=== PATIENT | male | born 1955 | race Caucasian/White ===

== ENCOUNTER 2022-01-30 08:11 | Observation (INO) | payer OTHER, MEDICARE, SELFPAY ==
[2022-01-30] VITALS (28 sets, daily range): BP systolic 130–179; BP diastolic 78–98; PULSE 50–74; RESP 12–24; TEMP 36.1–36.4; O2SAT 94–99
--- NOTE | ~2022-01-30 | MR_ITS ---
EXAMINATION: MR brain/brain stem wo/w con DATE: 01/30/2022 16:09 INDICATION: Seizure. TECHNIQUE: Magnetic resonance imaging (MRI) of the brain and brainstem was performed without and with 20 mL MultiHance intravenous contrast. COMPARISON: Head CT 01/30/2022 FINDINGS: There are old infarcts in the cerebellum bilaterally. There are old infarcts in the frontal and parietal lobes bilaterally. There are scattered areas of nonspecific increased T2-weighted signa l intensity in the cerebral white matter, which is within normal limits for the patient's age. There are old infarcts in the right thalamus and right basal ganglia. There is no intracranial hemorrhage, acute infarction, or abnormal intracranial mass lesion. The ventricles are normal in size. The orbits are normal. The paranasal sinuses are clear. The mastoid air cells are normal. IMPRESSION: 1. Multiple old infarcts in the brain. Reviewed, dictated and finalized at location A.
--- NOTE | ~2022-01-30 | XR_ITS ---
EXAMINATION: XR chest 2V DATE: 01/30/2022 09:16 INDICATION: Seizure. TECHNIQUE: Frontal and lateral views of the chest were obtained. COMPARISON: Chest single view 04/07/2019 FINDINGS: There is no pneumonia, pleural effusion, or pneumothorax. The heart size is normal. There a re changes of aortic valve replacement. There is mild chronic anterior wedging of multiple vertebral bodies. IMPRESSION: 1. No acute cardiopulmonary disease. Reviewed, dictated and finalized at location A.
--- NOTE | ~2022-01-30 | CT_ITS ---
EXAMINATION: CT brain wo con DATE: 01/30/2022 09:11 INDICATION: Seizure. TECHNIQUE: Computed tomography (CT) of the head was performed without intravenous contrast. The mA wa s adjusted according to patient size. Iterative reconstruction technique was employed. The dose-lengt h product was 605.33 mGy-cm. COMPARISON: Head CT 10/27/2009 FINDINGS: There are old infarcts in the cerebellum bilaterally. There are old infarcts in the frontal and parietal lobes bilaterally. There are old infarcts in right caudate nucleus and right thalamus. There is no intracranial hemorrhage, acute infarction, or abnormal intracranial mass lesion. The vent ricles are normal in size. There is mild mucosal thickening in the paranasal sinuses. The mastoid air cells are normal. The orbits are normal. IMPRESSION: 1. Multiple old infarcts in the brain. Reviewed, dictated and finalized at location A.
--- NOTE | 2022-01-30 08:39 | ED.NEUROSD ---
HPI - Neuro Symptoms/Deficit General Chief Complaint: Neuro Symptoms/Deficit Stated Complaint: possible seizure Time Seen by Provider: 01/30/22 08:39 History of Present Illness HPI Narrative: Patient is a 66-year-old male with a history of CLL, total aortic valve replacement currently anticoagulated on Eliquis, hypertension, presenting to the emergency department for evaluation of potential seizure. Patient states that he believes he may have had a seizure this morning. Patient states he awakened with a left tongue laceration, blood present on his face. Patient states that he was disoriented when he awakened but did not know where he was and per who is at bedside did not seem confused after he called her this morning. Patient denies any recent medication changes. Denies recent head trauma, fall or injury. Denies any infectious type symptoms such as fever, chills, vomiting, cough, abdominal pain, dysuria, hematuria. Patient reports history of episode of this 2 months ago for which she did not seek medical care. Patient states that throughout the day he experiences a ripple like sensation which starts in the middle of his body and then travels ripples out to his extremities. Pt reports this sensation lasts for approximately 8 minutes, he has experienced this twice this morning, several times over the past few months. Pt denies any urinary incontinence this morning. Patient receives his CLL care at [facility]. He is compliant with his chemotherapy and last cell counts were near normal. Patient has no history of brain tumor or malignancy. Related Data Home Medications Medication Instructions Recorded Confirmed acalabrutinib 100 mg capsule mg PO 01/30/22 01/30/22 (Calquence) apixaban 5 mg tablet (Eliquis) mg 01/30/22 cholecalciferol (vitamin D3) 25 25 mcg PO DAILY 01/30/22 mcg (1,000 unit) capsule metoprolol succinate 50 mg mg PO 01/30/22 tablet,extended release 24 hr rosuvastatin 5 mg tablet mg 01/30/22 tamsulosin 0.4 mg capsule mg PO 01/30/22 Allergies Allergy/AdvReac Type Severity Reaction Status Date / Time No Known Allergies Allergy Verified 01/30/22 08:37 Review of Systems Review of Systems: CONSTITUTIONAL: Denies fever, chills, or sweats. EYES: Denies visual changes, redness, or discharge. ENT: Denies rhinorrhea, congestion, sore throat, or otalgia. Reports left tongue abrasion. CARDIOVASCULAR: Denies chest pain, palpitations, or edema. RESPIRATORY: Denies cough or dyspnea. GASTROINTESTINAL: Denies abdominal pain, nausea, vomiting, or diarrhea. GENITOURINARY: Denies dysuria or hematuria. SKIN: Denies rash or itching. MUSCULOSKELETAL: Denies back pain, joint pain, or myalgia. NEUROLOGIC: Denies headache, numbness, or weakness. [facility] Social History Social History (Updated 01/30/22 @ 08:59 by Harmony Marin MD) Smoking status: Never smoker Alcohol intake: never Substance use: never Living arrangements: with family Gender identity (if verbalized by the patient): Male Exam Narrative: GENERAL: Awake, alert, conversant HEAD: Normocephalic, atraumatic. EYES: PERRLA and EOMI. ENT: Nares clear, no rhinorrhea or epistaxis. Mucous membranes moist. Tongue abrasion, left side. NECK: Supple. CHEST: No respiratory distress, breathing even and non labored HEART: Regular rate, sinus rhythm ABDOMEN:Non distended, non tender EXTREMITIES: Normal range of motion. No edema. SKIN: Warm, dry, no rash. NEURO:No focal deficits. Alert and oriented x3 Course Vital Signs Vital signs: Vital Signs Temperature 36.4 C L 01/30/22 08:14 Pulse Rate 70 01/30/22 08:14 Respiratory Rate 16 01/30/22 08:14 Blood Pressure 148/85 H 01/30/22 08:14 Pulse Oximetry 97 01/30/22 08:14 Oxygen Delivery Room Air 01/30/22 08:14 Temperature 36.4 C L 01/30/22 08:14 Pulse Rate 70 01/30/22 08:14 Respiratory Rate 16 01/30/22 08:14 Blood Pressure 148/85 H 01/30/22 08:14 Puls
--- NOTE | 2022-01-30 08:55 | ECG_ITS ---
Measurements Intervals [place] Rate: 65 P: 2 MA: 271 QRS: -58 QRSD: 125 T: 77 QT: 394 QTc: 412 Interpretive Statements SINUS RHYTHM WITH FIRST DEGREE AV BLOCK LEFT ANTERIOR FASCICULAR BLOCK LEFT VENTRICULAR HYPERTROPHY WITH ST-T CHANGE ABNORMAL ECG Electronically Signed On 01-30-2022 10:19:25 CDT by Elier Maguire D.O.
[2022-01-30 09:09] LABS: Basophils Percent Auto 0.1 % (0.2-1.2); Eosinophils Percent Auto 0.1 % (0-4.4); Hematocrit 48.5 % (42.0-52.0); Hemoglobin 16.1 g/dL (14.0-18.0); Immature Granulocyte Absolute 0.04 K/mm3 (0.00-0.031); Immature Granulocyte Percent A 0.3 % (0-0.5); Lymphocytes Absolute Auto 6.89 K/mm3 (0.9-3.2); Lymphocytes Percent Auto 49.7 % (18.3-44.2); Mean Corpuscular HGB Conc 33.2 g/dl (32-36); Mean Corpuscular Hemoglobin 31.3 pg (26-34); Mean Corpuscular Volume 94.2 fl (80-100); Mean Platelet Volume 11.5 fl (7.4-10.4); Monocytes Absolute Auto 0.4 K/mm3 (0.1-0.6); Monocytes Percent Auto 2.5 % (2.6-8.5); Neutrophils Absolute Auto 6.5 K/mm3 (1.3-6.7); Neutrophils Percent Auto 47.3 % (45.5-73.1); Platelet Count Result 92 k/mm3 (150-375); Red Blood Count 5.15 M/mm3 (4.6-6.20); Red Cell Distribution Width 13.1 % (11.5-14.5); White Blood Count 13.9 K/mm3 (4.5-10.0)
[2022-01-30 09:13] LABS: Alanine Aminotransferase 19 U/L (6-50); Albumin Level 4.6 g/dL (3.5-5.1); Alkaline Phosphatase 86 U/L (38-126); Anion Gap 7 mmol/L (8-16); Aspartate Amino Transferase 30 U/L (17-59); Bilirubin,Total 1.2 mg/dL (0.2-1.3); Blood Urea Nitrogen 19 mg/dL (9-20); Calcium 9.7 mg/dL (8.4-10.2); Carbon Dioxide 26 mmol/L (22-30); Chloride 103 mmol/L (98-107); Estimated CRCL calculation 81 ml/min; Estimated Glomerular Filt Rate > 60; Glucose 197 mg/dL (65-110); Potassium 4.4 mmol/L (3.4-5.0); Sodium 136 mmol/L (137-145)
[2022-01-30 09:51] LABS: Appearance Urine Clear (Clear); Bilirubin Urine Negative (Negative); Blood Urine 2+ (Negative); Color Urine Yellow (Yellow); Glucose Urine UA 3+ mg/dL (Negative); Ketones Urine Negative (Negative); Leukocyte Esterase Ur Negative LEU/UL (Negative); Nitrate Urine Negative (Negative); Protein Urine 2+ mg/dL (Negative); Specific Grav Ur 1.025 (1.001-1.035)
[2022-01-30 09:59] LABS: Mucus Urine Rare /lpf; RBC Urine 21-50 /hpf (0-2); WBC Urine 0-3 /hpf
[2022-01-30 10:02] LABS: Add Urine Microscopic? YES
[2022-01-30 10:22] LABS: Amphetamine Screen Urine Negative (Negative); Barbiturate Screen Urine Negative (Negative); Benzodiazepines Screen Urine Negative (Negative); Cannabinoid Screen Urine Negative (Negative); Cocaine Screen Urine Negative (Negative); Methadone Screen Urine Negative (Negative); Opiate Screen Urine Negative (Negative); Phencyclidine Screen Urine Negative (Negative)
[2022-01-30] MEDS: levETIRAcetam 500 MG TABLET PO ×2 (11:36→20:48)
--- NOTE | 2022-01-30 12:00 | PC.NURSE ---
attempted to call report, unable to take report
--- NOTE | 2022-01-30 12:11 | PC.NURSE ---
attempted to call report. would not take
[2022-01-30 12:47] LABS: SARS-CoV-2 RNA PCR Negative
--- NOTE | 2022-01-30 16:17 | PM.IMHP ---
H&P: HPI History of Present Illness Date/Time: 01/30/22 16:17 Chief Complaint: Seizure Narrative: Date of service: 01/30/2022 Orion Jacob is a 66-year-old male with a history of aortic dissection secondary to bicuspid aortic valve status post total aortic valve replacement 12 years ago maintained on Eliquis, CLL, hypertension, hyperlipidemia who presented to the emergency department on 01/30/2022 due to concerns for a seizure. He woke up this morning and felt that he was ?panting.? He noticed that he had bit his tongue and he had a trail of blood from his mouth to his cheek. He tried to sit up from bed and felt weaker than normal. He was able to walk to the bathroom but felt slightly unsteady. He noticed that the pillows and sheets were in disarray and he is normally a very sound sleeper. He was able to walk up stairs, noticing that he was moving slower than normal, to go make some coffee. He was feeling fatigued and sat down in his chair for about an hour, waited for his to come home. His got home from work around 7:20 a.m. and noticed that he seemed to be behaving out of character and overall seemed a bit disoriented. She stated he was talking slower and seemed ?a little off.? She encouraged him to come to the ED for evaluation. On presentation, his vital signs were stable, white blood cell count was slightly elevated with additional laboratory workup including electrolytes unremarkable, UA without concerns for infection, urine drug screen was negative, head CT showed multiple old infarcts in the brain and chest x-ray showed no acute cardiopulmonary findings. At the time of my evaluation, the patient feels that he is in his usual state of health, however he was concerned by the events that transpired this morning. Patient does admit that about 3 or 4 months ago he also awoke to find that he had bit his tongue and at that time wet the bed. He did not seek medical care at that time. He also describes for the past several months a ?ripple feeling? that starts in his trunk and spreads out to his extremities. States this feels different than a chill or rigor. He is being admitted to the hospitalist service for observation. Supervising physician for this history and physical is Dr. Junior Mcwilliams. Review of Systems Review of Systems: All systems reviewed with pertinent positives and negatives as per HPI. Patient did not have loss of bowel or bladder control during this episode. He denies urinary symptoms including dysuria or hematuria. Denies shortness breath, cough, chest pain, nausea, vomiting, fever, chills, numbness or tingling in his extremities. Follows regularly with a supervisor extruding department and has had no recent cardiac issues. He is also established with Oncology and was told his most recent appointment that his blood counts are almost near normal. [facility] Past Medical History Medical History Aortic dissection Bicuspid aortic valve CLL (chronic lymphocytic leukemia) History of cerebral infarction Surgical History Surgical History (Updated 01/30/22 @ 16:31 by Yasmin Uribe PA-C) History of aortic valve replacement Bovine valve History of knee replacement History of surgery on wrist S/P aortic bifurcation bypass graft Family History Family History Father Kidney disease Social History Social History (Updated 01/30/22 @ 16:34 by Yasmin Uribe PA-C) Social History: Mr. Jacob lives at home with his . He is independent in his activities. 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 His PCP is Dr. Valenzuela. He designates his , Ernestina, as his surrogate decision maker. He would like to be a full code. Years smoked: 15 Smoking status: Former smoker Alcohol intake: never Substance use: never Living arrangements: with family Meds Home Medications and Allergies Home Medications Medica
[2022-01-30] MEDS: ROSUVASTATIN 5 MG TABLET PO (17:52)
[2022-01-30] MEDS: APIXABAN 5 MG TABLET PO (17:52)
--- NOTE | 2022-01-30 18:07 | PHAR ---
HOME MED: CALQUENCE (ACALABRUTINIB) 100 MG CAP; TAKE 1 CAPSULE (100 MG) BY MOUTH TWO TIMES A DAY. VERIFIED BY PHARMACY
[2022-01-31 05:45] VITALS: BP 135/77; PULSE 53; RESP 16; TEMP 36.1; O2SAT 98
[2022-01-31 08:29] VITALS: PULSE 53
[2022-01-31] MEDS: levETIRAcetam 500 MG TABLET PO (08:29)
[2022-01-31] MEDS: TAMSULOSIN HCL 0.4 MG CAPSULE PO (08:29)
[2022-01-31] MEDS: METOPROLOL SUCCINATE EXT REL 25 MG TABCR PO (08:29)
[2022-01-31] MEDS: APIXABAN 5 MG TABLET PO (08:29)
[2022-01-31] MEDS: CHOLECALCIFEROL 1,000 UNITS TABLET 1000 UNITS PO (08:29)
[2022-01-31 09:35] LABS: Hematocrit 48.6 % (42.0-52.0); Hemoglobin 16.2 g/dL (14.0-18.0); Immature Platelet Fraction Pct 8.6 % (0.9-11.2); Mean Corpuscular HGB Conc 33.3 g/dl (32-36); Mean Corpuscular Hemoglobin 31.6 pg (26-34); Mean Corpuscular Volume 94.7 fl (80-100); Mean Platelet Volume 10.8 fl (7.4-10.4); Platelet Count Result 84 k/mm3 (150-375); Red Blood Count 5.13 M/mm3 (4.6-6.20); Red Cell Distribution Width 13.2 % (11.5-14.5); White Blood Count 9.9 K/mm3 (4.5-10.0)
[2022-01-31 09:43] LABS: Anion Gap 6 mmol/L (8-16); Blood Urea Nitrogen 17 mg/dL (9-20); Calcium 9.8 mg/dL (8.4-10.2); Carbon Dioxide 28 mmol/L (22-30); Chloride 102 mmol/L (98-107); Estimated CRCL calculation 81 ml/min; Estimated Glomerular Filt Rate > 60; Glucose 223 mg/dL (65-110); Potassium 4.2 mmol/L (3.4-5.0); Sodium 136 mmol/L (137-145)
[2022-01-31 10:35] LABS: Atypical Lymphocytes Present; Band Neutrophils Percent 3 % (0-6); Eosinophils Absolute Manual 0.09 K/mm3 (0.02-0.5); Eosinophils Percent Manual 1 % (0-4); Lymphocytes Absolute Manual 5.34 K/mm3 (1.1-4.5); Metamyelocytes Percent 1 %; Monocytes Absolute Manual 0.19 K/mm3 (0.1-0.90); Monocytes Percent Manual 2 % (3-9); Myelocytes Percent 1 %; Neutrophils Absolute Manual 4.05 K/mm3 (1.3-6.7); Neutrophils Percent Manual 38 % (46-73); Platelet Estimate Decreased (Adequate); Smudge Cells PRESENT; Total Cells Counted 100
[2022-01-31] MEDS: levETIRAcetam 250 MG TABLET PO (10:43)
--- NOTE | 2022-01-31 12:15 | WPDNEURCNPN ---
Assessment and Plan Assessment and plan (1) Seizure: Code(s): R56.9 - Unspecified convulsions Status: Acute (2) CLL (chronic lymphocytic leukemia): Code(s): C91.10 - Chronic lymphocytic leukemia of B-cell type not having achieved remission Status: Acute (3) History of cerebral infarction: Code(s): Z86.73 - Personal history of transient ischemic attack (TIA), and cerebral infarction without residual deficits Status: Acute Plan 1 status post aortic valve replacement and on Eliquis therapy 2 documented multiple infarcts in the brain 3 seizure disorder with obvious underlying brain abnormalities needs to be continue on the anticonvulsants Consult date: 01/31/22 Time Seen: 11:00 Reason for consult: Neuro deficit HPI: Orion Jacob is a 66 year old male admitted to [facility] through the emergency room patient carries the diagnosis of 1. Chronic lymphocytic leukemia 2. Aortic valve replacement 3. Anticoagulation therapy with Eliquis 4. Hypertension he presented to emergency room for the complaints of possible seizures he reported he awakened with left tongue laceration, blood on his face, disorientation as per his with no history of recent change in the medication, no history of trauma or fall or injury or associated fever chills nausea vomiting or other GI symptoms patient reported he had such an episode about 2 months ago for which he did not seek medical care, the time of visit to the emergency room he was taking multiple medications including apixaban 5 mg daily metoprolol 50 mg extended release daily rosuvastatin 5 mg daily and tamsulosin 0.4 mg daily, he is reportedly not allergic to any medication, never a smoker never alcohol intake and initial evaluation in the emergency room revealed him to have normal vital signs he was admitted to the hospital with the diagnosis of possible seizure CT scan of the head was obtained through the emergency room which was negative and subsequently MRI of the brain has been done on the floor which has documented multiple old infarcts in the brain and chest x-ray was negative, at present patient is taking apixaban 5 mg twice a day and he has already been started on levetiracetam 750 mg p.o. q.12 hours Review of Systems Review of Systems: All systems reviewed & are unremarkable except as noted in HPI and below PMFSH Past Medical History Medical History Aortic dissection Bicuspid aortic valve CLL (chronic lymphocytic leukemia) History of cerebral infarction Surgical History Surgical History (Updated 01/30/22 @ 16:31 by Yasmin Uribe PA-C) History of aortic valve replacement Bovine valve History of knee replacement History of surgery on wrist S/P aortic bifurcation bypass graft Family History Family History Father Kidney disease Social History Social History (Updated 01/30/22 @ 16:34 by Yasmin Uribe PA-C) Social History: Mr. Jacob lives at home with his . He is independent in his activities. 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 His PCP is Dr. Valenzuela. He designates his , Ernestina, as his surrogate decision maker. He would like to be a full code. Years smoked: 15 Smoking status: Former smoker Alcohol intake: never Substance use: never Living arrangements: with family Meds Home Medications and Allergies Home Medications Medication Instructions Recorded Confirmed Type acalabrutinib 100 mg capsule 100 mg PO BID 01/30/22 01/30/22 History (Calquence) apixaban 5 mg tablet (Eliquis) 5 mg PO BID 01/30/22 01/30/22 History cholecalciferol (vitamin D3) 25 25 mcg PO DAILY 01/30/22 01/30/22 History mcg (1,000 unit) capsule metoprolol succinate 50 mg 25 mg PO DAILY 01/30/22 01/30/22 History tablet,extended release 24 hr rosuvastatin 5 mg tablet 5 mg PO DAILY 01/30/22 01/30/22 History tamsulosin 0.4 mg c
[2022-01-31 14:00] VITALS: BP 142/79; PULSE 64; RESP 16; TEMP 36.6; O2SAT 98
--- NOTE | 2022-01-31 14:21 | PM.DS ---
DS: Admitting Diagnosis Discharge Date 01/31/2022 Admitting Diagnosis Seizure DS: Discharge Diagnosis Discharge Diagnosis (1) Seizure: Code(s): R56.9 - Unspecified convulsions Status: Acute Assessment and Plan: Patient with new onset seizures, awoke with tongue laceration and was postictal following he was seen in consultation by Neurology started on p.o. Keppra 750 mg b.i.d. will follow-up with neurology as an outpatient discussed seizure precautions with patient and family EEG completed during hospitalization, results pending at time of discharge. he will follow-up with Dr. Mcgrath to review (2) CLL (chronic lymphocytic leukemia): Code(s): C91.10 - Chronic lymphocytic leukemia of B-cell type not having achieved remission Status: Acute Assessment and Plan: No acute issues at this time CBC reviewed and was near normal Continue home medication, acalabrutinib continue outpatient follow-up with Hem/Onc (3) History of cerebral infarction: Code(s): Z86.73 - Personal history of transient ischemic attack (TIA), and cerebral infarction without residual deficits Status: Acute Assessment and Plan: CT of the head showed multiple old infarcts in the brain with no acute findings Patient unaware of any history of stroke Follow-up MRI also with multiple old infarcts in the bilateral frontal and parietal lobes. No acute findings Seen by Neurology. Continue with outpatient follow-up (4) Chronic anticoagulation: Code(s): Z79.01 - [facility] (current) use of anticoagulants Status: Acute Assessment and Plan: patient maintained on Eliquis due to aortic valve replacement DS: Summary Hospital Course Hospital Course: date of admission: 01/30/2022 date of discharge: 01/31/2022 Orion Jacob is a 66-year-old male with a history of aortic dissection secondary to bicuspid aortic valve status post total aortic valve replacement 12 years ago maintained on Eliquis, CLL, hypertension, hyperlipidemia who presented to the emergency department on 01/30/2022 due to concerns for a seizure after awakening feeling very drowsy with a tongue laceration. On presentation, his vital signs were stable, white blood cell count was slightly elevated with additional laboratory workup including electrolytes unremarkable, UA without concerns for infection, urine drug screen was negative, head CT showed multiple old infarcts in the brain and chest x-ray showed no acute cardiopulmonary findings.? He was admitted to the hospitalist service for further evaluation management was seen in consultation by Neurology. He was started on anticonvulsant therapy. He will follow-up with neurology as an outpatient. He was feeling back to his usual state of health and was eager for discharge home. Given overall improvement, he was determined to no longer require inpatient care and was discharged in hemodynamically stable condition on 01/31/2022. discussed with the patient and his worrisome signs and symptoms for return and he was educated on his medications. He understands need for outpatient follow-up. Status at Discharge Functional status at discharge: independent ambulation Overall status at discharge: patient is progressing back to baseline Time Spent with Patient Time attestation: Total time spent providing and/or coordinating discharge services: 45 minutes Time spent: Greater than 30 minutes Exam Narrative: General: Well-nourished, well-appearing 66-year-old male, sitting up in bed, comfortable, NARD Neuro: awake, alert and oriented x4, speech clear, no focal neurologic deficits noted HEENMT: normocephalic, atraumatic, EOMI, sclerae anicteric, moist oral mucosa Respiratory: clear to auscultation bilaterally, nonlabored breathing Cardio: regular rate, regular rhythm with S1-S2 Abdomen: nondistended, normoactive bowel sounds, soft, nontender to palpation Extremitie
--- NOTE | 2022-02-01 10:18 | WPDNEUROLOGY ---
Neurology EEG Report General Information Date of Study: 01/31/22 TEST eeg DIAGNOSIS
--- NOTE | 2022-02-01 10:38 | P.NEURO_ITS ---
Neurology EEG Report General Information Date of Study: 01/31/22 TEST EEG DIAGNOSIS new onset seizure CONDITION OF RECORDING awake drowsy and sleep EEG NUMBER [id number] CLINICAL HISTORY patient's reports he had a seizure in the middle of the night 2 days ago bit his tongue and was very tired afterwards EEG DESCRIPTION basic resting occipital frequency consists of low to medium voltage 8 to 9 hertz per 2nd alpha admixed with low-voltage 15 to 18 hertz per 2nd beta. Low- voltage beta activity seen diffusely during drowsiness admixed with waxing and waning posterior alpha rhythm. Bilateral symmetrical sleep activity seen during sleep. Hyperventilation not done. Photic stimulation not done. Non paroxysmal. Nonfocal. Nonlateralizing. IMPRESSION Normal record
== END 2022-01-31 15:08 | disposition home or self-care (01) ==
LOC: ANHED 11:14 → ANH3MEDSUR 14:42
PROVIDERS: Admitting Provider Chiropractor; Emergency Provider Emergency Medicine; PCP Family Medicine Adolescent Medicine; Visit Provider Physician Assistant
DX: R56.9 Unspecified convulsions (principal); C91.10 Chronic lymphocytic leukemia of B-cell type not having achieved remission; Z86.73 Personal history of transient ischemic attack (TIA), and cerebral infarction without residual deficits; Z95.4 Presence of other heart-valve replacement; I44.0 Atrioventricular block, first degree; R94.31 Abnormal electrocardiogram [ECG] [EKG]; I10 Essential (primary) hypertension; S01.512A Laceration without foreign body of oral cavity, initial encounter; X58.XXXA Exposure to other specified factors, initial encounter; R53.1 Weakness; D69.6 Thrombocytopenia, unspecified; E78.5 Hyperlipidemia, unspecified; Z87.891 Personal history of nicotine dependence; Z20.822 Contact with and (suspected) exposure to COVID-19; Z79.01 Long term (current) use of anticoagulants; Z79.899 Other long term (current) drug therapy
CPT/HCPCS: 36415; 70450; 70553; 71046; 80048; 80053; 80307; 81001; 85025; 85055; 93005; 95816; 99285; A9270; A9577; C9803; G0378; U0003; U0005

== ENCOUNTER 2024-12-18 16:08 | Emergency (ER) | payer OTHER, MEDICARE, SELFPAY ==
[2024-12-18] VITALS (16 sets, daily range): BP systolic 111–152; BP diastolic 57–72; PULSE 56–70; RESP 14–24; TEMP 36.7; O2SAT 81–100
--- NOTE | ~2024-12-18 | CT_ITS ---
EXAMINATION: CT diagnostic chest wo con DATE: 12/18/2024 18:08 INDICATION: possible aspiration vs edema TECHNIQUE: Computed tomography (CT) of the chest was performed with 100 mL Omnipaque-350 intravenous contrast. Automated exposure control and iterative reconstruction technique were employed. The dose-l ength product was 940.53 mGy-cm. COMPARISON: X-ray chest, same date. FINDINGS: CHEST: Thoracic aorta: Status post aortic valve replacement and proximal aortic graft. Mild ectasia of the p roximal false pass ascending aorta to 4.2 cm. Lung parenchyma and airways: Septal thickening. Subsegmental bilateral medial basilar consolidation a nd groundglass opacity, greater in the right lower lobe. Bibasilar scar/atelectasis. Patent airways. Thoracic inlet, axillae and chest wall: 1.7 cm left thyroid nodule. Intact sternotomy wires. No axill jose lymphadenopathy. Mediastinum: No mass or lymphadenopathy. Heart and pericardium: Aortic valve replacement. Mild cardiomegaly. No pericardial effusion. Coronary artery calcifications: Moderate. Pleura: Small bilateral fluid collections. Upper abdomen: No significant finding. Thoracic bones: No acute osseous finding in the chest. IMPRESSION: Mild interstitial edema. Subsegmental bilateral medial basilar atelectasis or consolidation. Aspiration could also be consider ed in this location. Small bilateral pleural effusions. Reviewed, dictated and finalized at location K. IMPRESSION: Mild interstitial edema. Subsegmental bilateral medial basilar atelectasis or consolidation. Aspiration could also be considered in this location. Small bilateral pleural effusions.
--- NOTE | ~2024-12-18 | XR_ITS ---
EXAMINATION: XR chest 2V Exam Date/Time: 12/18/2024 16:56 CDT HISTORY: shortness of breath Comparison: 01/30/2022. RESULT: Lines, tubes, and devices: Intact sternotomy wires. Cardiac valve replacement. Lungs and pleura: Mild diffuse reticular opacities. Fissural fluid. Patchy subsegmental bibasilar ai rspace disease. Mild bilateral costophrenic angle blunting. Cardiomediastinal silhouette: Stable. Other: No acute osseous or upper abdominal finding. IMPRESSION: Subsegmental bibasilar atelectasis/consolidation. Mild interstitial edema. Small bilateral pleural ef fusions. Reviewed, dictated and finalized at location K. IMPRESSION: Subsegmental bibasilar atelectasis/consolidation. Mild interstitial edema. Smal l bilateral pleural effusions.
--- NOTE | 2024-12-18 16:09 | ECG_ITS ---
Test Date: 2024-12-18 16:19:07 Measurements Intervals [place] Rate: 60 P: -67 HI: 280 QRS: -48 QRSD: 115 T: 28 QT: 405 QTc: 407 Interpretive Statements SINUS RHYTHM WITH FIRST DEGREE AV BLOCK INTRAVENTRICULAR CONDUCTION DELAY LEFT VENTRICULAR HYPERTROPHY WITH ST-T CHANGE CANNOT R/O SEPTAL INFARCT, AGE INDETERMINATE BASELINE ARTIFACT- I, II, AVR, AVL, AVF, V4-V6 ABNORMAL ECG No previous ECG available for comparison Electronically Signed On 12-18-2024 16:42:03 CDT by Elier Maguire D.O.
--- OUTSIDE RECORDS SUMMARY | 2024-12-18 16:10 | XMS_ITS | Encounter Summary ---
Author Organization [facility] Address [address] [place] [address] Phone Care Team Providers Care Cnc Operator Programmer Name Role Phone Ravindra Leger MD Primary Care Prov ider Jesus Manuel Groves MD Unavailable [phone] Eliecer Ervin MD Unavailable [phone] Hakeem Zuniga MD PhD Unavailable [phone] Encounter Details Date Type Department Care Team (Late st Contact Info) Description 12/18/2024 Orders Only [facility] Cardiology [address] [facility] [address] [place] [address] [place] [address] Anne Walls, RN Social History Tobacco Use Types Packs/Day Years Used Date Smoking Tobacco: Former Cigarettes S tarted: 2009 Passive Smoke Exposure: Past Smokeless Tobacco: Never Comments:Social smoker 2 pac ks a week at the very most AUDIT-C Answer Date Recorded Q1: How often do you have a drink containing alc ohol? 2-4 times a month 12/17/2024 Q2: How many drinks containi ng alcohol do you have on a typical day when you are drinking? 1 or 2 12/17/2024 Q3: How often do you have si x or more drinks on one occasion? Never 12/17/2024 Personal Safety Answer Date Recorded Have you ever been in or are you currently in a harmful physical or emotional relationship or is someone making you feel afraid or unsafe? 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 Sexual Orientation Straight 01/29/2020 8: 36 AM CDT documented as of this encounter Plan of Treatment Not on file documented as of this encounter Visit Diagnoses Not on filedocumented in this encounter Care Teams Cnc Operator Programmer Relationship Specialty Start Date End Date Ravindra Leger MD [address] [place] [address] PCP - General 09/27/16 Jesus Manuel Groves MD [address] [place] [address] Consulting Physician Cardiology 02/10/21 Eliecer Ervin MD [address] [place] [address] Consulting Physician Cardiology 02/10/21 Hakeem Zuniga MD PhD [address] [place] [address] Medical Oncologist/Heel Seat Fitter Machine Medical Oncology 02/10/21 documented as of this encounter
--- OUTSIDE RECORDS SUMMARY | 2024-12-18 16:10 | XMS_ITS | Continuity of Care Document ---
Author Organization [employer] [place] Address [address] [place] [address] [address] [place] [address] Phone Care Team Providers Care Assistant Gm Of Content [employer] Delivery Name Role Phone Jovany OWENGela Unavailable Unavailable Procedures Procedure Date THERAPEUTIC EXERCISES NEUROMUSCULAR RE-ED FUNC ACTIVITY HOT/COLD PACK THERAPEUTIC EXERCISES NEUROMUSCULAR RE-ED FUNC ACTIVITY HOT/COLD PACK THERAPEUTIC EXERCISES NEUROMUSCULAR RE-ED FUNC ACTIVITY HOT/COLD PACK PT RE-EVALUATION THERAPEUTIC EXERCISES NEUROMUSCULAR RE-ED FUNC ACTIVITY HOT/COLD PACK THERAPEUTIC EXERCISES NEUROMUSCULAR RE-ED FUNC ACTIVITY HOT/COLD PACK THERAPEUTIC EXERCISES NEUROMUSCULAR RE-ED FUNC ACTIVITY HOT/COLD PACK THERAPEUTIC EXERCISES NEUROMUSCULAR RE-ED FUNC ACTIVITY HOT/COLD PACK THERAPEUTIC EXERCISES NEUROMUSCULAR RE-ED MANUAL THERAPY HOT/COLD PACK THERAPEUTIC EXERCISES NEUROMUSCULAR RE-ED MANUAL THERAPY FUNC ACTIVITY HOT/COLD PACK THERAPEUTIC EXERCISES NEUROMUSCULAR RE-ED MANUAL THERAPY HOT/COLD PACK THERAPEUTIC EXERCISES NEUROMUSCULAR RE-ED FUNC ACTIVITY HOT/COLD PACK THERAPEUTIC EXERCISES NEUROMUSCULAR RE-ED FUNC ACTIVITY HOT/COLD PACK THERAPEUTIC EXERCISES FUNC ACTIVITY HOT/COLD PACK THERAPEUTIC EXERCISES FUNC ACTIVITY PT EVALUATION THERAPEUTIC EXERCISES FUNC ACTIVITY THERAPEUTIC EXERCISES NEUROMUSCULAR RE-ED MANUAL THERAPY FUNC ACTIVITY HOT/COLD PACK OT RE-EVALUATION THERAPEUTIC EXERCISES NEUROMUSCULAR RE-ED MANUAL THERAPY FUNC ACTIVITY HOT/COLD PACK THERAPEUTIC EXERCISES NEUROMUSCULAR RE-ED MANUAL THERAPY FUNC ACTIVITY HOT/COLD PACK THERAPEUTIC EXERCISES NEUROMUSCULAR RE-ED MANUAL THERAPY FUNC ACTIVITY HOT/COLD PACK THERAPEUTIC EXERCISES NEUROMUSCULAR RE-ED MANUAL THERAPY FUNC ACTIVITY HOT/COLD PACK THERAPEUTIC EXERCISES NEUROMUSCULAR RE-ED MANUAL THERAPY FUNC ACTIVITY HOT/COLD PACK THERAPEUTIC EXERCISES NEUROMUSCULAR RE-ED MANUAL THERAPY FUNC ACTIVITY HOT/COLD PACK THERAPEUTIC EXERCISES MANUAL THERAPY FUNC ACTIVITY HOT/COLD PACK THERAPEUTIC EXERCISES MANUAL THERAPY FUNC ACTIVITY HOT/COLD PACK THERAPEUTIC EXERCISES MANUAL THERAPY FUNC ACTIVITY HOT/COLD PACK Theraputty OT RE-EVALUATION THERAPEUTIC EXERCISES NEUROMUSCULAR RE-ED MANUAL THERAPY FUNC ACTIVITY HOT/COLD PACK THERAPEUTIC EXERCISES NEUROMUSCULAR RE-ED MANUAL THERAPY FUNC ACTIVITY HOT/COLD PACK THERAPEUTIC EXERCISES NEUROMUSCULAR RE-ED MANUAL THERAPY FUNC ACTIVITY HOT/COLD PACK THERAPEUTIC EXERCISES NEUROMUSCULAR RE-ED MANUAL THERAPY FUNC ACTIVITY HOT/COLD PACK THERAPEUTIC EXERCISES NEUROMUSCULAR RE-ED MANUAL THERAPY FUNC ACTIVITY HOT/COLD PACK THERAPEUTIC EXERCISES NEUROMUSCULAR RE-ED MANUAL THERAPY FUNC ACTIVITY HOT/COLD PACK THERAPEUTIC EXERCISES NEUROMUSCULAR RE-ED MANUAL THERAPY FUNC ACTIVITY HOT/COLD PACK Theraband, abiola scott OT RE-EVALUATION THERAPEUTIC EXERCISES NEUROMUSCULAR RE-ED MANUAL THERAPY FUNC ACTIVITY HOT/COLD PACK THERAPEUTIC EXERCISES NEUROMUSCULAR RE-ED MANUAL THERAPY FUNC ACTIVITY HOT/COLD PACK THERAPEUTIC EXERCISES NEUROMUSCULAR RE-ED MANUAL THERAPY FUNC ACTIVITY HOT/COLD PACK THERAPEUTIC EXERCISES NEUROMUSCULAR RE-ED MANUAL THERAPY FUNC ACTIVITY HOT/COLD PACK OT RE-EVALUATION THERAPEUTIC EXERCISES NEUROMUSCULAR RE-ED MANUAL THERAPY FUNC ACTIVITY HOT/COLD PACK OT RE-EVALUATION THERAPEUTIC EXERCISES NEUROMUSCULAR RE-ED MANUAL THERAPY FUNC ACTIVITY HOT/COLD PACK THERAPEUTIC EXERCISES NEUROMUSCULAR RE-ED MANUAL THERAPY FUNC ACTIVITY HOT/COLD PACK THERAPEUTIC EXERCISES NEUROMUSCULAR RE-ED MANUAL THERAPY FUNC ACTIVITY HOT/COLD PACK THERAPEUTIC EXERCISES NEUROMUSCULAR RE-ED MANUAL THERAPY FUNC ACTIVITY HOT/COLD PACK THERAPEUTIC EXERCISES NEUROMUSCULAR RE-ED MANUAL THERAPY FUNC ACTIVITY HOT/COLD PACK THERAPEUTIC EXERCISES NEUROMUSCULAR RE-ED MANUAL THERAPY FUNC ACTIVITY HOT/COLD PACK THERAPEUTIC EXERCISES NEUROMUSCULAR RE-ED MANUAL THERAPY FUNC ACTIVITY HOT/COLD PACK THERAPEUTIC EXERCISES NEUROMUSCULAR RE-ED MANUAL THERAPY FUNC ACTIVITY HOT/COLD PACK THERAPEUTIC EXERCISES NEUROMUSCULAR RE-ED MANUAL THERAPY FUNC ACTIVITY HOT/COLD PACK THERAPEUTIC EXERCISES NEUROMUSCULAR RE-ED MANUAL THERAPY FUNC ACTIVITY HOT/COLD PACK Therabanrafi, abiola yasheri THERAPEUTIC EXERCISES NEUROMUSCULAR RE-ED MANUAL THERAPY FUNC ACTIVITY HOT/COLD PACK OT RE-EVALUATION THERAPEUTIC EXERCISES NEUROMUSCULAR RE-ED MANUAL THERAPY FUNC ACTIVITY HOT/COLD PACK THERAPEUTIC EXERCISES NEUROMUSCULAR RE-ED MANUAL THERAPY FUNC ACTIVITY HOT/COLD PACK THERAPEUTIC EXERCISES NEUROMUSCULAR RE-ED MANUAL THERAPY FUNC ACTIVITY HOT/COLD PACK THERAPEUTIC EXERCISES NEUROMUSCULAR RE-ED MANUAL THERAPY FUNC ACTIVITY HOT/COLD PACK THERAPEUTIC EXERCISES NEUROMUSCULAR RE-ED MANUAL THERAPY FUNC ACTIVITY HOT/COLD PACK THERAPEUTIC EXERCISES NEUROMUSCULAR RE-ED MANUAL THERAPY FUNC ACTIVITY ORTHOTIC FITTING HOT/COLD PACK THERAPEUTIC EXERCISES NEUROMUSCULAR RE-ED MANUAL THERAPY FUNC ACTIVITY HOT/COLD PACK OT RE-EVALUATION THERAPEUTIC EXERCISES NEUROMUSCULAR RE-ED MANUAL THERAPY FUNC ACTIVITY HOT/COLD PACK THERAPEUTIC EXERCISES NEUROMUSCULAR RE-ED MANUAL THERAPY FUNC ACTIVITY HOT/COLD PACK THERAPEUTIC EXERCISES NEUROMUSCULAR RE-ED MANUAL THERAPY FUNC ACTIVITY HOT/COLD PACK THERAPEUTIC EXERCISES NEUROMUSCULAR RE-ED MANUAL THERAPY FUNC ACTIVITY CoBan 1 inch CoBan 2 inch THERAPEUTIC EXERCISES MANUAL THERAPY FUNC ACTIVITY NEUROMUSCULAR RE-ED OT EVALUATION THERAPEUTIC EXERCISES MANUAL THERAPY HOT/COLD PACK Advance Directives Directive Yes / No Effective Date File Name No Information Encounters Encounter Description Practice Location Reason(s) For Visit Diagnoses Date Provider Providers Copied on Encounter [address], [id number], tel:[phone] [place] No Information 7 Calamus Gela. [address] [facility], [facility] [address], [place], [facility], . tel:[phone] Referring Provider: Td Montanez, [address] [place] [address], [place], [address]. tel:[phone], [id number], tel:[phone] [place] No Information 6 Jovany Gela. [address] [facility], [facility] [address], [place], [facility], . tel:[phone] Referring Provider: Td Montanez, [facility] [address], [place], [address]. tel:[phone], [id number], tel:[phone] [place] No Information 6 Calamus Gela. [address] [facility], [address], [place], [facility], . tel:[phone] Referring Provider: Td Montanez, [facility] [address], [place], [address]. tel:[phone], [id number], tel:[phone] [place] No Information Dec-2 2-201 6 Jovany Gela. [address] [place] [address], [address], [place], [address], [place]. tel:[phone] Referring Provider: Td Montanez, [facility] [address], [place], [address]. tel:[phone] [place] [address], [address] [place] [address] [address], [place], [place], [id number], [place] tel:[phone] Matthews No Information Dec-2 0-201 6 Calamus Gela. [address] [place] [address], [address], [place], [address], [place]. tel:[phone] Referring Provider: Td Montanez, [facility] [address], [place], [address]. tel:[phone] [place] [address], [place], [address], [place] tel:[phone] Matthews No Information Dec-1 3-201 6 Jovany Gela. [address] [place] [address], [address], [address], [place]. tel:[phone] Referring Provider: Td Montanez, [facility] [address], [place], [address]. tel:[phone] [place], [place] [address] [address], [place], [address], [place] tel:[phone] Matthews No Information Dec-1 2-201 6 Jovany Gela. [address] [place] [address], [address], [place], [address], [place]. tel:[phone] Referring Provider: Td Montanez, [facility] [address], [place], [address]. tel:[phone] [place] [address], [place], [place], [id number], tel:[phone] Matthews No Information Dec-0 8-201 6 Calamus Gela. [address] [place] [address], [address], [place], [address], [place]. tel:[phone] Referring Provider: Td Montanez, [address] [facility] [address], [place], [address]. tel:[phone], [place], [place], [id number], tel:[phone] Matthews No Information Dec-0 1-201 6 Calamus Gela. [address] [place] [address], [address], [place], [facility], [place]. tel:[phone] Referring Provider: Td Montanez, [address] [facility] [address], [place], [address]. tel:[phone], [place], [address], [place] tel:[phone] Matthews No Information 9-201 6 Calamus Gela. [address] [place] [address], [address], [place], [facility], [place]. tel:[phone] Referring Provider: Td Montanez, [address] [facility] [address], [place], [address]. tel:[phone], [place], [address], [place] tel:[phone] Matthews No Information May-2 2-201 6 Calamus Gela. [address] [place] [address], [address], [address], [place]. tel:[phone] Referring Provider: Td Montanez, [address] [facility] [address], [place], [address]. tel:[phone], [address], [place] tel:[phone] Matthews No Information 7-201 6 Jovany Gela. [address] [place] [address], [address], [place], [address], [place]. tel:[phone] Referring Provider: Td Montanez, [address] [facility] [address], [place], [address]. tel:[phone] [facility] [address] [place] [address] 300, [place], [address], [place] tel:[phone] Matthews No Information 6 Calamus Gela. [address] [facility], [address], [place], [facility], [place]. tel:[phone] Referring Provider: Td Montanez, [address] [place] [address], [place], [place], [facility]. tel:[phone], [place], [place], [address], [place] tel:[phone] Matthews No Information 0 6 Chico Wright. . Referring Provider: Td Montanez, [address] [place] [address], [place], [place], [facility]. tel:[phone] [address], [place], [address], [place] tel:[phone] [place] Pain in right kneeStiffness of right knee, not elsewhere classifiedOth symptoms and signs involving the musculoskelet al systemOther abnormalities of gait and mobilityOsteo arthritis of knee, unspecified 8 6 Calamus Gela. [address] [facility], [address], [place], [facility], [place]. tel:[phone] Referring Provider: Td Montanez, [facility] [address], [place], [place], [facility]. tel:[phone], [place], [address], [place] tel:[phone] Matthews No Information 6-201 5 Soumya Goodwin. [address] [place] [address], [address], [place], [facility], [place]. tel:[phone] [facility], [address] [place] [address] 300, [place], [address], [place] tel:[phone] Matthews No Information Oct-0 5-201 5 Hauschild Christa. [address] [place] [address], [address], [place], [facility], [place]. tel:[phone] [place] [address] [address], [place], [place], [address], tel:[phone] [place] Muscle weakness (generalized) Paresthesia of skinPain in right wristPain in left wristOther instability, right wristCarpal tunnel syndrome, left upper limbCarpal tunnel syndrome, right upper limb Oct-0 2-201 5 Hauschild Christa. [address] [place] [address], [address], [place], [facility], [place]. tel:[phone] [place] [address] [facility] [address], [place], [place], [address], tel:[phone] [place] No Information Sep-2 9-201 5 Hauschild Christa. [address] [place] [address], [address], [place], [facility], [place]. tel:[phone] [place] [address] [facility] [address], [place], [address], [place] tel:[phone] [place] No Information Sep-2 3-201 5 Hauschild Christa. [address] [place] [address], [address], [place], [facility], [place]. tel:[phone] [place] [address] [address], [place], [place], [address], [place] tel:[phone] Matthews No Information Sep-2 1-201 5 Hauschild Christa. [address] [place] [address], [address], [place], [facility], [place]. tel:[phone] [place] [address] [facility] [address], [place], [place], [address], tel:[phone] Matthews No Information Sep-1 8-201 5 Hauschild Christa. [address] [place] [address], [address], [place], [facility], [place]. tel:[phone] [place] [address] [address], [place], [place], [address], [place] tel:[phone] Matthews No Information Sep-1 4-201 5 Hauschild Christa. [address] [place] [address], [address], [place], [address], [place]. tel:[phone] [place] [address] [address], [place], [place], [address], [place] tel:[phone] Matthews No Information Sep-1 1-201 5 Hauschild Christa. [address] [place] [address], [address], [place], [address], [place]. tel:[phone] [place] [address] [address], [place], [place], [address], [place] tel:[phone] Matthews No Information Sep-0 8-201 5 Hauschild Christa. [address] [place] [address], [address], [place], [address], [place]. tel:[phone] [place] [address] [facility] [address], [place], [place], [address], [place] tel:[phone] Matthews No Information Sep-0 4-201 5 Hauschild Christa. [address] [place] [address], [address], [place], [address], [place]. tel:[phone] [place] [address] [address], [place], [address], [place] tel:[phone] Matthews No Information Sep-0 2-201 5 Hauschild Christa. [address] [place] [address], [address], [place], [address], [place]. tel:[phone] [place] [address] [address], [place], [place], [address], [place] tel:[phone] Matthews No Information Aug-2 6-201 5 Hauschild Christa. [address] [place] [address], [address], [place], [address], [place]. tel:[phone] [place], [place] [address] [address], [place], [address], [place] tel:[phone] Matthews No Information Feb-2 4-201 5 Hauschild Christa. [address] [place] [address], [address], [place], [address], [place]. tel:[phone] [facility] [address], [place], [place], [address], [place] tel:[phone] Matthews No Information Feb-2 1-201 5 Hauschild Christa. [address] [place] [address], [address], [place], [address], [place]. tel:[phone] [place] [address], [address], [place], [place], [address], [place] tel:[phone] [place] No Information Feb-1 7-201 5 Hauschild Christa. [address] [place] [address], [address], [place], [address], [place]. tel:[phone] [place] [address] [address], [place], [place], [address], [place] tel:[phone] Matthews No Information 1 4-201 5 Hauschild Christa. [address] [place] [address], [address], [place], [address], [place]. tel:[phone] [place] [address] [address], [place], [place], [address], [place] tel:[phone] Matthews No Information Feb-1 0-201 5 Hauschild Christa. [address] [place] [address], [address], [place], [address], [place]. tel:[phone] [place] [address] [address], [place], [address], [place] tel:[phone] [place] No Information Aug-0 5-201 5 Hauschild Christa. [address] [place] [address], [address], [place], [address], [place]. tel:[phone] [facility], [address], [place], [place], [address], [place] tel:[phone] Matthews No Information Feb-0 3-201 5 Hauschild Christa. [address] [place] [address], [address], [place], [address], [place]. tel:[phone] [facility] [address], [place], [place], [address], [place] tel:[phone] Matthews No Information Jan-3 1-201 5 Hauschild Christa. [address] [place] [address], [address], [place], [address], [place]. tel:[phone] [place] [address], [address], [place], [place], [address], [place] tel:[phone] Matthews No Information Jan-2 9-201 5 Hauschild Christa. [address] [place] [address], [address], [place], [address], [place]. tel:[phone] [place] [address] [address], [place], [place], [address], [place] tel:[phone] [place] No Information Jan-2 2-201 5 Hauschild Christa. [address] [place] [address], [address], [place], [address], [place]. [phone] [place] [address] [address], [place], [address], [place] tel:[phone] [place] No Information Jan-2 0-201 5 Hauschild Christa. [address] [place] [address], [address], [place], [address], [place]. tel:[phone] [place] [address] [address], [place], [place], [address], [place] tel:[phone] Matthews No Information Jan-1 7-201 5 Hauschild Christa. [address] [place] [address], [address], [place], [address], [place]. tel:[phone] [place] [address], [address], [place], [address], [place] tel:[phone] Matthews No Information Uche-1 5-201 5 Hauschild Christa. [address] [place] [address], [address], [place], [address], [place]. tel:[phone] [facility] [address], [place], [place], [address], [place] tel:[phone] [place] No Information Jan-1 0-201 5 Hauschild Christa. [address] [place] [address], [address], [place], [address], [place]. tel:[phone] [place] [address], [address], [place], [place], [address], [place] tel:[phone] Matthews No Information Uche-0 6-201 5 Hauschild Christa. [address] [place] [address], [address], [place], [address], [place]. tel:[phone] [place] [address], [facility] [address], [place], [place], [address], [place] tel:[phone] [place] No Information Jan-0 1-201 5 Hauschild Christa. [address] [place] [address], [address], [place], [address], [place]. tel:[phone] [facility], [place], [place], [address], [place] tel:[phone] [place] No Information Bryce-2 9-201 5 Hauschild Christa. [address] [place] [address], [address], [place], [address], [place]. tel:[phone] [place] [address] [address], [place], [place], [address], [place] tel:[phone] Matthews No Information Bryce-2 6-201 5 Hauschild Christa. [address] [place] [address], [address], [place], [address], [place]. tel:[phone] [place] [address], [facility] [address], [place], [place], [address], [place] tel:[phone] Matthews No Information Bryce-2 2-201 5 Hauschild Christa. [address] [place] [address], [address], [place], [address], [place]. tel:[phone] [place] [address] [address], [place], [address], [place] tel:[phone] Matthews No Information Bryce-1 9-201 5 Hauschild Christa. [address] [place] [address], [address], [place], [address], [place]. tel:[phone] [place] [address], [facility] [address], [place], [place], [address], [place] tel:[phone] Matthews No Information Bryce-1 7-201 5 Hauschild Christa. [address] [place] [address], [address], [place], [facility], [place]. tel:[phone] [place] [address] [address], [place], [place], [address], [place] tel:[phone] [place] No Information Bryce-1 2-201 5 Hauschild Christa. [address] [place] [address], [address], [place], [address], [place]. tel:[phone] [place] [address] [address], [place], [place], [address], [place] tel:[phone] Matthews No Information Bryce-1 0-201 5 Hauschild Christa. [address] [place] [address], [address], [place], [address], [place]. tel:[phone] [place] [address], [address] [place] [address] [address], [place], [place], [address], [place] tel:[phone] Matthews No Information Bryce-0 8-201 5 Hauschild Christa. [address] [place] [address], [address], [place], [address], [place]. tel:[phone] [place] [address] [facility] [address], [place], [place], [address], [place] tel:[phone] Matthews No Information Bryce-0 4-201 5 Hauschild Christa. [address] [place] [address], [address], [place], [address], [place]. tel:[phone] [place] [address] [address], [place], [place], [address], [place] tel:[phone] Matthews No Information Bryce-0 3-201 5 Hauschild Christa. [address] [place] [address], [address], [place], [facility], [place]. tel:[phone] [place] [address] [facility] [address], [place], [place], [address], tel:[phone] Matthews No Information Bryce-0 1-201 5 Hauschild Christa. [address] [place] [address], [address], [place], [facility], [place]. tel:[phone] [place] [address] [address], [place], [place], [address], [place] tel:[phone] Matthews No Information May-2 9-201 5 Hauschild Christa. [address] [place] [address], [address], [place], [address], [place]. tel:[phone] [place] [address] [address], [place], [place], [address], [place] tel:[phone] Matthews No Information May-2 7-201 5 Hauschild Christa. [address] [place] [address], [address], [place], [address], [place]. tel:[phone] [place] [address], [address], [place], [place], [address], [place] tel:[phone] Matthews No Information May-2 6-201 5 Hauschild Christa. [address] [place] [address], [address], [place], [place], [facility], . tel:[phone], [place], [place], [id number], tel:[phone] [place] No Information May-2 2-201 5 Hauschild Christa. [address] [place] [address], [facility] [address], [place], [facility], . tel:[phone], [place], [place], [id number], tel:[phone] [place] No Information May-2 0-201 5 Hauschild Christa. [address] [place] [address], [facility], [place], [place], [facility], . tel:[phone], [place], [place], [id number], tel:[phone] Matthews Pain in joint involving hand May-1 3-201 5 Hauschild Christa. [address] [place] [address], [facility] [address], [place], [facility], . tel:[phone] Family History Family Member Type Diagnosis Age At Onset No Information Payers Payer name Insurance type Covered libertarian ID Authorkhris melton(s) [facility] [id number] Social History Type Description Quantity Date Captured Comments Sex Male Smoking Status No Information Chief Complaint And Reason For Visit No Information Reason For Referral Reason For Referral No Information History Of Present Illness Encounter Date Complaint History Of Prese nt Illness No Information Functional Status Date Functional Assessmen t No Information Instructions Date Instruction Additional Infor mation No Information Assessments Type Assessment Date No Information Patient Care Teams Name Effective Dates (start - stop) Status Members No Information
--- OUTSIDE RECORDS SUMMARY | 2024-12-18 16:10 | XMS_ITS ---
Author Organization [facility] Address [address] [place] [address] Care Team Providers Care Ornamenter Name Role Phone Ravindra Leger MD Primary Care Prov ider Jesus Manuel Groves MD Unavailable [phone] Eliecer Ervin MD Unavailable [phone] Hakeem Zuniga MD PhD Unavailable [phone] Active Problems Problem Noted Date Diagnosed Date Nonrheumatic aortic valve insufficiency 12/15/19 25 Atrial flutter 12/14/2024 Coronary artery calcification 04/05/2020 Encounter for monitoring cardiotoxic drug therap y 02/05/2020 Paroxysmal ventricular tachycardia 05/07/2019 Paroxysmal atrial fibrillation 05/07/2019 Atrial fibrillation with RVR 04/07/2019 Assessment & Plan (04/07/2019 2:10 PM CDT): Per primary team Assessment & Plan (04/09/2019 2:19 PM CDT): -no previous h/o dysrhythmia -HR 130 at presentation to [facility], similar at OSH per report; BP stable -placed on diltiazem gtt at OSH, continued here -dc'd 04/07 for concerns about CYP inhibitation increasing Imbruvica concentration; pt doubling up doses of Imbruvica may be responsible for new onset afib; holding Imbruvica -palpitations early am on 04/07, improved with rate control on diltiazem gtt -switched from dilt gtt to metoprolol 12.5 q6h PO 04/07 -increased metop to 25 mg q6h on 04/08 due to increasing HR -TTE 04/08: c/w previous echo on 04/04, no thrombus, EF 51% -successful DCCV performed 04/09, now in sinus rhythm -heparin gtt started 04/07, dc'd 04/09 -CHADSVASC: 2, HAS-BLED: 2 -discharge on home aspirin and Eliquis 5mg bid -f/u outpatient with Dr. Groves Dissection of thoracic aorta 04/03/2018 S/P AVR (aortic valve replacement) 04/03/2018 Assessment & Plan (10/07/2024 11:38 AM CDT): On exam systolic murmur similar to prior with new diastolic murmur -Will repeat TTE Chronic lymphocytic leukemia of B-cell type not having achieved remission 12/06/2017 Assessment & Plan (04/07/2019 2:18 PM CDT): Dx in 03/2015. On observation only until 07/2018--> started on ibrutinib d/t drop in platelet count - Took ibrutinib BID on Saturday (04/06) after missing two doses over the weekend - Imbruvica is known to cause afib/flutter (</= 9%) - Please hold imbruvica - CTM CBC--> WBC down to 65 from ~160 in 01/2019, platelets improved to ~100 - Will continue to follow at this time Assessment & Plan (04/09/2019 2:17 PM CDT): -CLL dx'd in 2014, followed by Dr. Zuniga -Imbruvica therapy since 07/2018 -missed two days 04/04-04/05; took two doses same day on 04/06 -drug assoc with new onset atrial fibrillation, BMT consult, appreciate recs -Imbruvica held during admission, will re-start after discharge -was placed on Diltiazem gtt at OSH, continued here; dc'd at approx 1100 on 04/07 due to concerns of CYP inhibition increasing Imbruvica concentration -WBC stable in 60s during admission Stenosis of carotid artery 04/05/2016 Hypertension 11/27/2010 Assessment & Plan (10/07/2024 11:39 AM CDT): BP above goal in the office. We discusses weight loss, decreased salt and increasing activity. -He will continue to monitor his BP. If SBP remains above 130 consistently we may add additional medications. 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 No medications scheduled. Past Treatment and Therapy Plans Oncology Chemotherapy Treatment Plan Name Start Date Discontinue Date Treatment Medications Discontinue Reason Plan Provider Cycles Ibrutinib PO Daily - CLL 07/19/2018 09/12/2020 ibrutinib (IMBRUVICA) Therapy Complete Hakeem Zuniga MD PhD 1 of 12 cycles planned Oncology Treatment (2) Plan Name Start Date Discontinue Date Treatment Medications Discontinue Reason Plan Provider Cycles RiTUXimab (in combination with ibrutinib - separate treatment plan) - CLL 08/21/2018 08/21/2018 riTUXimab (RITUXAN) Toxicity/Compl ication Hakeem Zuniga MD PhD Treatment not started Lifetime Dose Tracking * Chemical Lifetime Dose Automatic Entry Manual Entr y DLP 2,552 mGycm 2,552 mGycm 0 mGycm
--- OUTSIDE RECORDS SUMMARY | 2024-12-18 16:10 | XMS_ITS | Encounter Summary ---
Author Organization [facility] Address [address] [place] [address] Phone Care Team Providers Care Continuum Of Care Manager Name Role Phone Ravindra Leger MD Primary Care Prov ider Jesus Manuel Groves MD Unavailable [phone] Eliecer Ervin MD Unavailable Hakeem Zuniga MD PhD Unavailable [phone] Encounter Details Date Type Department Care Team (Latest Contact Info) Description 12/17/2024 Results Follow-Up [facility] [address] [facility] 8th [place] [address] [place] [address] Jesus Manuel Groves MD [address] [facility] [address] [place], [place] [id number] Electrophysiology (EP) Study Social History Tobacco Use Types Packs/Day Years Used Date Smoking Tobacco: Former Cigarettes S tarted: 2010 Passive Smoke Exposure: Past Smokeless Tobacco: Never [...] on file 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 2-4 times a month 12/17/2024 7:33 AM MARTHAT Margarita Anna RN Q2: How many drinks containing alcohol do you have on a typical day when you are drinking? 1 or 2 12/17/2024 7:33 AM CDT Margarita Anna RN Q3: How often do you have six or more drinks on one occasion? Never 12/17/2024 7:33 AM CDT Margarita Anna RN documented as of this encounter Miscellaneous Notes * Telephone Encounter - Anne Walls RN - 12/18/2024 3:09 PM CDT I spoke with pt. He reports he spoke with Dr Groves on Saturday and was advised to increase metoprolol xl to 100mg q day. He notes he has been taking this dose since Saturday. He was seen in the office on 12/14 and told to continue this dose. He was successfully cardioverted on 12/17. He reports he was feeling well until about 8-840pm. He notes he started noticing extreme sinus congestion and started coughing. He notes coughing was very hard and constant. He notes he was able to produce sputum but swallowed it. He notes he slept upright last night due to constant cough. He reports this AM, when brushing his teeth, he spit out the sputum and it was brownish in color. He notes since last night, when coughing started, he noticed he felt sob. He reports he started checking his saturation levels and sats were 90-92%. He notes normally his sats are 95-96%. He reports he feels sob at times, pt notes even alittle sob with talking. He reports that he took cough syrup around 12 today, and cough is better, but still notes SOB. Pt reports BP 118/67, HR 58bpm, noting that he is in normal rhythm. He reports he does not have fevers, sweats or chills. He reports he has not checked his temp, but does not feel that he is running a temp. Pt advised to resume metoprolol xl at 50mg q d. He states he will begin this dose tomorrow. He willwait for his to come home, and then go to [place], either the or ER. He will cb with updates. * Telephone Encounter - Jesus Manuel Groves MD - 12/18/2024 11:56 AM CDT Ok to return to prior dose documented in this encounter Plan of Treatment Not on file documented as of this encounter Visit Diagnoses Not on filedocumented in this encounter Care Teams Continuum Of Care Manager Relationship Specialty Start Date End Date Ravindra Leger MD [address] [place] [address] PCP - General 09/27/16 Jesus Manuel Groves MD [address] [place] [address] Consulting Physician Cardiology 02/10/21 Eliecer Ervin MD [address] [place] [address] Consulting Physician Cardiology 02/10/21 Hakeem Zuniga MD PhD [address] [place] [address] Medical Oncologist/Hydropulper Operator Medical Oncology 02/10/21 documented as of this encounter
--- OUTSIDE RECORDS SUMMARY | 2024-12-18 16:10 | XMS_ITS | Encounter Summary ---
Author Organization [facility] Healthcare Address [address] [place] [address] Care Team Providers Care Analysis Or Research Safety Inspector Name Role Phone Ravindra Leger MD Primary Care Prov ider Jesus Manuel Groves MD Unavailable [phone] Eliecer Ervin MD Unavailable Hakeem Zuniga MD PhD Unavailable [phone] Reason for Visit * Auth/Cert (Routine) Specialty Diagnoses / Procedures Referred By Contac t Referred To Contact Diagnoses Atrial flutter, unspecified type (HCC) Atrial flutter, unspecified type (HCC) [I48.92] Procedures CARDIOVERSION [id number] Referral ID Status Reason Start Date Expiration Date Visits Re quested Visits Authorized [id number] 1 1 Encounter Details Date Type Department Care Team (Late st Contact Info) Description 12/17/2024 8:03 AM CDT Anesthesia Event [facility] [address] [place] [address] Elkin Kaminski MD [address] [place] [address] Perla Dorman RN Anesthesia Record Procedure Summary Procedure Name Responsible Anesthesiologist Anesthesia Start Time Anesthesia Stop Time CARDIOVERSION [id number] Elkin Kaminski MD 12/17/24 0803 12/17/24 0813 Events Date Time Event Comment 12/17/2024 0803 An Start 0803 An Start Data 0805 An Induction The patient was reevaluated immediately before moderate or deep sedation use and before anesthesia induction. 0806 Anesthesia Ready 0807 Cardioversion 0813 an stop data 0813 An Stop 0813 Handoff to RN I completed my handoff to the receiving nurse during which we: 1. Patient identified 2. Responsible provider identified 3. Pertinent medical history reviewed 4. Procedure type and surgical course discussed 5. Intraoperative anesthetic management and any significant issues discussed 6. Expectations and concerns for postop period discussed 7. Questions solicited from receiving nurse 8. Patient disposition at the time of handoff: PACU Meds Name Total lidocaine (cardiac) syringe 2 % 45 mg propofol 80 mg norepinephrine 48 mcg * Agents Name O2 * Blood No blood administrations on file. 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 2-4 times a month 12/17/2024 7:33 AM CDT Margarita Anna RN Q2: How many drinks containing alcohol do you have on a typical day when you are drinking? 1 or 2 12/17/2024 7:33 AM CDT Margarita Anna RN Q3: How often do you have six or more drinks on one occasion? Never 12/17/2024 7:33 AM CDT Margarita Anna RN documented as of this encounter OR Notes * Anesthesia Postprocedure Evaluation - Perla Dorman RN - 12/17/2024 8:24 AM CDT Patient: Orion Jacob Procedure Summary Date: 12/17/24 Room / Location: [facility]ARDI[facility] Anesthesia Start: 802 Anesthesia Stop: 812 Procedure: CARDIOVERSION [id number] Diagnosis: Atrial flutter, unspecified type (HCC) (Atrial flutter, unspecified type (HCC) [I48.92]) Providers: Rajesh Mercado MD PhD Responsible Provider: lEkin Kaminski MD Anesthesia Type: MAC ASA Status: 4 Anesthesia Type: MAC Last vitals BP 117/57 Pulse (!) 48 Temp 36.7 ??C (98.1 ??F) (Oral) Resp 18 SpO2 95% Anesthesia Post Evaluation Patient location during evaluation: PACU Patient participation: complete - patient participated Level of consciousness: fully awake Pain score: 0 Pain management: adequate Airway patency: adequate Cardiovascular status: acceptable Respiratory status: acceptable Hydration status: acceptable Pt is: normothermic Nausea/Vomiting status: none No notable events documented. Cosigned by Elkin Kaminski MD at 12/17/2024 9:26 AM CDT * Anesthesia Preprocedure Evaluation - Elkin Kaminski MD - 12/17/2024 6:15 AM CDT Images from the original note were not included. Anesthesia Evaluation Orion Jacob is a 69 y.o. male CARDIOVERSION [id number] Pre-Op Diagnosis Codes: * Atrial flutter, unspecified type (HCC) [I48.92] Patient Active Problem List Diagnosis Date Noted Nonrheumatic aortic valve insufficiency 12/14/2024 Atrial flutter ([facility]) 12/14/2024 Coronary artery calcification 04/05/2020 Encounter for monitoring cardiotoxic drug therapy 02/05/2020 Paroxysmal ventricular tachycardia ([facility]) 05/07/2019 Paroxysmal atrial fibrillation ([facility]) 05/07/2019 Atrial fibrillation with RVR ([facility]) 04/07/2019 Dissection of thoracic aorta ([facility]) 04/03/2018 S/P AVR (aortic valve replacement) 04/03/2018 Chronic lymphocytic leukemia of B-cell type not having achieved remission ([facility]) 12/06/2017 Stenosis of carotid artery 04/05/2016 Hypertension 11/27/2010 Bicuspid aortic valve 07/27/2010 No past medical history on file. Past Surgical History: Procedure Laterality Date AORTIC ROOT REPLACEMENT BIOPROSTHETIC AORTIC VALVE REPLACEMENT BIOPSY LYMPH NODE SUPERFICIAL N/A 04/08/2015 CARPAL TUNNEL RELEASE IR FINE NEEDLE ASPIRATION W IMAGE GUIDANCE N/A 04/08/2015 REPLACEMENT TOTAL KNEE No Known Allergies Taking? Last Dose Start Date End Date Provider acalabrutinib maleate (Calqueremigio, acalabrutinib mal,) 100 mg tablet -- 05/05/24 -- Hakeem Zuniga MD PhD Take 1 tablet (100 mg total) by mouth 2 (two) times a day Swallow whole with water and with or without food Notes: Advise patients not to chew, crush, dissolve, or cut tablets. amoxicillin 500 mg capsule -- 03/17/20 -- Catherine Montano MD cholecalciferol (VITAMIN D-3) 2,000 unit capsule -- 11/23/15 -- Catherine Montano MD Eliquis 5 mg tablet -- 02/04/24 -- Jesus Manuel Groves MD TAKE 1 TABLET BY MOUTH TWICE A DAY Patient taking differently: Take 1 tablet (5 mg total) by mouth 2 (two) times a day lamoTRIgine (LaMICtal) 25 mg tablet -- 11/16/24 -- Faustino Mtz MD Take 1 tab nightly for 14 days, then 1 tab twice daily for 14 days, then 2 tabs twice daily for 7 days, then 3 tabs twice daily for 7 days, then 4 tabs twice daily levETIRAcetam (KEPPRA) 1,000 mg tablet -- 11/16/24 11/16/25 Faustino Mtz MD Take 1 tablet (1,000 mg total) by mouth 2 (two) times a day metoprolol XL (TOPROL-XL) 50 mg extended release tablet -- 09/03/24 -- Jesus Manuel Groves MD TAKE 1 TABLET BY MOUTH EVERY DAY rosuvastatin (CRESTOR) 5 mg tablet -- 03/19/24 -- Jesus Maunel Groves MD TAKE 1 TABLET (5 MG TOTAL) BY MOUTH DAILY. tamsulosin (FLOMAX) 0.4 mg extended release capsule -- 01/23/18 -- Catherine Montano MD Current Facility-Administered Medications: Carrier Fluids for Secondary Infusion - 0.9% Sodium Chloride, 30 mL, intravenous, PRN sodium chloride 0.9% flush 0.5-20 mL, 0.5-20 mL, intra-catheter, Q8H CARLOS sodium chloride 0.9% flush 0.5-20 mL, 0.5-20 mL, intra-catheter, PRN sodium chloride 0.9% infusion, 50 mL/hr, intravenous, Continuous Social History Tobacco Use Smoking Status Former Types: Cigarettes Start date: 2009 Passive exposure: Past Smokeless Tobacco Never Tobacco Comments Social smoker 2 packs a week at the very most Alcohol Use: Not on file Substance and Sexual Activity Drug Use Not on file Family History Problem Relation Age of Onset No Known Problems Mother Hypertension Father Pulmonary embolism Father There were no vitals filed for this visit. PT: No results found for requested labs within last 30 days. INR: No results found for requested labs within last 30 days. APTT: No results found for requested labs within last 30 days. Hgb A1C: No results found for requested labs within last 30 days. CBC RBC: 11/26/2024: 5.14 M/cumm RDW: No results found for requested labs within last 30 days. MCHC: 11/26/2024: 35.0 g/dL MCH: 11/26/2024: 31.5 pg MCV: 11/26/2024: 90.0 fL Hct: 11/26/2024: 46.3 % Hgb: 11/26/2024: 16.2 g/dL WBC: 11/26/2024: 8.70 K/cumm MPV: 11/26/2024: 8.7 fL Platelets: 11/26/2024: 88 K/cumm (L) RDW CV: 11/26/2024: 13.6 % RDW Sd: No results found for requested labs within last 30 days. BMP Glucose: 11/26/2024: 140 mg/dL Calcium: 11/26/2024: 10.1 mg/dL Sodium: 11/26/2024: 136 mmol/L Potassium: 11/26/2024: 5.0 mmol/L (H) CO2: 11/26/2024: 28 mmol/L Chloride: 11/26/2024: 102 mmol/L BUN: 11/26/2024: 23 mg/dL Creatinine: 11/26/2024: 1.30 mg/dL DOS Physical Exam Medical history, medications, and allergies reviewed. Attestation: This PAT evaluation 12/17/2024. Airway Exam: Mallampati: II Cervical ROM: FROM Cardiovascular Exam: Rate: tachycardia Rhythm: irregular Pulmonary Exam: LCTA, bilat Dental Exam: Appears intact and caps Current state: Patient's current state is cooperative and interactive. Anesthesia Plan ASA 4 My patient is approved for the Anesthesia Controlled Medication protocol when under care of a BAR PILOT Planned anesthesia: MAC Induction: Induction: intravenous. Postoperative Plan: No plan for postoperative opioid use. No postoperative mechanical ventilation intended. Patient's planned disposition post procedure is Outpatient. No trial extubation planned. Informed Consent: Discussed plan with BAR PILOT. Anesthesia plan and risks discussed with patient. Consent and Attending signature: I and/or my designee have discussed the anesthesia plan, benefits, possible alternatives, parental presence at time of induction (if indicated), and clinically relevant risks that may include dental injury, unintentional awareness, and/or other complications. The patient and/or parent/legal guardian understand, and agree to proceed. All questions answered. documented in this encounter Plan of Treatment Not on file documented as of this encounter Visit Diagnoses Not on filedocumented in this encounter Administered Medications Inactive Administered Medications - up to 3 most recent administrations Medication Order MAR Action Action Date Dose Rate Site lidocaine (cardiac) (XYLOCAINE) preservative free injection intravenous, As needed, Starting on Pao 12/17/24 at 0805, Anesthesia Intra-op, Indications: Ventricular ArrhythmiasIndications:Ventricular Arrhythmias Given 12/17/2024 8:05 AM CDT 45 mg norepinephrine (LEVOPHED) injection intravenous, As needed, Starting on Pao 12/17/24 at 0808, Anesthesia Intra-op Given 12/17/2024 8:12 AM CDT 16 mcg Given 12/17/2024 8:10 AM CDT 16 mcg Given 12/17/2024 8:08 AM CDT 16 mcg propofoL (DIPRIVAN) 10 mg/mL IV intravenous, As needed, Starting on Pao 12/17/24 at 0805, Anesthesia Intra-op Given 12/17/2024 8:06 AM CDT 20 mg Given 12/17/2024 8:05 AM CDT 60 mg documented in this encounter Care Teams Analysis Or Research Safety Inspector Relationship Specialty Start Date End Date Ravindra Leger MD [address] [place] [address] PCP - General 09/27/16 Jesus Manuel Groves MD [address] [place] [address] Consulting Physician Cardiology 02/10/21 Eliecer Ervin MD [address] [place] [address] Consulting Physician Cardiology 02/10/21 Hakeem Zuniga MD PhD [address] [place] [address] Medical Oncologist/Inside Sales Person Medical Oncology 02/10/21 documented as of this encounter
--- OUTSIDE RECORDS SUMMARY | 2024-12-18 16:10 | XMS_ITS | Encounter Summary ---
Author Organization [facility] Address [address] [place] [address] Phone Care Team Providers Care Chip Tester Name Role Phone Ravindra Leger MD Primary Care Prov ider Jesus Manuel Groves MD Unavailable [phone] Eliecer Ervin MD Unavailable [phone] Hakeem Zuniga MD PhD Unavailable [phone] Encounter Details Date Type Department Care Team (Late st Contact Info) Description 11/28/2017 Orders Only [facility] ProviderCatherine [place] [address] Social History Tobacco Use Types Packs/Day Years Used Date Smoking Tobacco: Former Sex and Gender Information Value Date Recorded Sex Assigned at Not on file 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 us Historical Provider LAB BLOOD ORDERABLES Paty l Result documented in this encounter Visit Diagnoses Not on filedocumented in this encounter Additional Health Concerns Infection Onset Date Last Indicated Resolved Time MRSA Comment:Backloaded May 03, 2011 01/22/2011 01/22/201102/12 5:00 AM CDT documented as of this encounter Care Teams Chip Tester Relationship Specialty Start Date End Date Ravindra Leger MD [address] [place] [address] PCP - General 09/27/16 Jesus Manuel Groves MD [address] [place] [address] Consulting Physician Cardiology 02/10/21 Eliecer Ervin MD [address] [place] [address] Consulting Physician Cardiology 02/10/21 Hakeem Zuniga MD PhD [address] [place] [address] Medical Oncologist/Legal Financial Specialist Medical Oncology 02/10/21 documented as of this encounter
--- OUTSIDE RECORDS SUMMARY | 2024-12-18 16:10 | XMS_ITS | Encounter Summary ---
Author Organization [facility] Healthcare Address [address] [place] [address] Care Team Providers Care Felt Finisher Name Role Phone Ravindra Leger MD Primary Care Prov ider Jesus Manuel Groves MD Unavailable [phone] Eliecer Ervin MD Unavailable Hakeem Zuniga MD PhD Unavailable [phone] Reason for Visit * Auth/Cert (Routine) Specialty Diagnoses / Procedures Referred By Contac t Referred To Contact Diagnoses Atrial flutter, unspecified type (HCC) Atrial flutter, unspecified type (HCC) [I48.92] Procedures CARDIOVERSION 22807 Referral ID Status Reason Start Date Expiration Date Visits Re quested Visits Authorized [id number] 1 1 Encounter Details Date Type Department Care Team (Late st Contact Info) Description 12/17/2024 8:50 AM CDT - 12/17/2024 9:30 AM CDT Surgery [facility] [address] [place] [id number] Rajesh Mercado MD PhD [id number] [address] CARDIOVERSION [id number] Surgery Details Date/Time Status Location OR Service Patient Class Case Class Case Type Trauma Case? 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 Sexual Orientation Straight 01/29/2020 8: 36 AM CDT documented as of this encounter Last Filed Vital Signs Vital Sign Reading Time Taken Comments Blood Pressure 98/59 12/17/2024 8:50 AM CDT Pulse 56 12/17/2024 8:50 AM CDT Temperature 36.7 C (98.1 F) 12/17/2024 7:25 AM CDT Respiratory Rate 25 12/17/2024 8:50 AM CDT Oxygen Saturation 92% 12/17/2024 8:50 AM CDT Inhaled Oxygen Concentration - - Weight 113.3 kg (249 lb 12.5 oz) 12/17/2024 7:25 AM CDT Height 182.9 cm (6') 12/17/2024 7:25 AM CDT Body Mass Index 33.88 12/17/2024 7:25 AM CDT documented in this encounter Functional Status * Audit-C Score [...] drinking? 1 or 2 12/17/2024 7:33 AM MARTHAT Margarita Anna RN Q3: How often do you have six or more drinks on one occasion? Never 12/17/2024 7:33 AM CDT Margarita Anna RN documented as of this encounter Discharge Instructions * Discharge Instructions* Pravin Cuenca RN - 12/17/2024 8:33 AM CDT Discharge Instructions For Cardioversion Do not drive for 24 hours Do not make any legal decisions for 24 hours Do not operate potentially dangerous machinery for 24 hours Do not drink alcohol for 24hours Rest at home with activity as tolerated Take medications that are prescribed by your physician as directed For routine questions or concerns regarding your care after your Cardioversion please feel free to call us. From 7am-5pm M-F call our Outpatient Nurse Coordinators at [phone]. If you need to speak to someone after 5pm please call [facility] at [phone] and ask the washing machine operator to page the Cardiac Produce Manager Fellow bridge contractor. 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 11/23/2015 Eliquis 5 mg tablet TAKE 1 TABLET BY MOUTH TWICE A DAY 180 tablet 3 02/04/2024 lamoTRIgine (LaMICtal) 25 mg tablet Take 1 tab nightly for 14 days, then 1 tab twice daily for 14 days, then 2 tabs twice daily for 7 days, then 3 tabs twice daily for 7 days, then 4 tabs twice daily 240 tablet 11 11/16/2024 levETIRAcetam (KEPPRA) 1,000 mg tablet Take 1 tablet (1,000 mg total) by mouth 2 (two) times a day 60 tablet 11 11/16/2024 metoprolol XL (TOPROL-XL) 50 mg extended release tablet TAKE 1 TABLET BY MOUTH EVERY DAY 90 tablet 3 09/03/2024 rosuvastatin (CRESTOR) 5 mg tablet TAKE 1 TABLET (5 MG TOTAL) BY MOUTH DAILY. 30 tablet 11 03/19/2024 tamsulosin (FLOMAX) 0.4 mg extended release capsule Take by mouth daily. 5 01/23/2018 documented as of this encounter Discharge Disposition Disposition Code Departure Means Destination Comment s Discharge to home or self care documented in this encounter Progress Notes * Gena Earl, JUMANA - 12/15/2024 1:09 PM CDT Spoke to patient regarding planned cardioversion on 12/17/24 with an arrival time of 0600. Patient aware NPO after midnight the night before, and to take eliquis, heart, and BP meds with small sip of water prior to arrival. Patient aware they will need a responsible adult to drive them home due to sedation. Patient states has taken eliquis for at least 4 weeks with no missed doses. Directions givento advanced practice nurse psychotherapist, parking garage, and to [facility]. documented in this encounter H&P Notes * Rajesh Mercado MD PhD - 12/17/2024 7:57 AM CDT I have reviewed the H&P, examined the patient, and endorse the findings as written. Plan of Care : Based on the above findings, I consider Orion Jacob to be an acceptable risk for : Procedure(s): CARDIOVERSION 19347 Source Note - Jesus Manuel Groves MD - 12/14/2024 10:15 AM CDT Patient Name: Orion Jacob Provider: Jesus Manuel Groves MD : 1955 Date of Service: 12/14/2024 Referring: Arsen CHIEF COMPLAINT: Atrial flutter HISTORY OF PRESENT ILLNESS: 69 y.o. male with a history of bicuspid aortic valve with aortopathy. 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 He has no residual dissection present. He has a history of CLL. He had paroxysmal AFib and had cardioversion in 2018. He has aortic regurgitation related to the bioprosthetic aortic valve on echocardiogram earlier this spring. He checks his blood pressure frequently. Saturday, yesterday, he checked his blood pressure and heartrate was 120s. He called me yesterday we spoke about the elevated heart rate I asked him to increase the metoprolol to 100 mg a day which he did yesterday and call us back today. He is asymptomatic. He said he played golf over the weekend walked had no symptoms at all in still feels fine without any symptoms of plans on playing golf today. His heart rate today was in the 120s. He took an extra 50 mg of metoprolol. He said he has been watching the heart rate in his has been between 80 and 120. He is adherent to Eliquis in his not missed any doses. He denies any arrhythmic symptoms. He might have a little more fatigue than he normally does. No syncope near-syncope no chest pain orthopnea nocturnal dyspnea. PREVIOUS CARDIOVASCULAR PROCEDURES MEDICATIONS: Outpatient Encounter Medications as of 12/14/2024 Medication Sig Dispense Refill acalabrutinib maleate (Calquence, acalabrutinib mal,) 100 mg tablet Take 1 tablet (100 mg total) bymouth 2 (two) times a day Swallow whole with water and with or without food 60 tablet 6 cholecalciferol (VITAMIN D-3) 2,000 unit capsule daily. Eliquis 5 mg tablet TAKE 1 TABLET BY MOUTH TWICE A DAY (Patient taking differently: Take 1 tablet (5 mg total) by mouth 2 (two) times a day) 180 tablet 3 lamoTRIgine (LaMICtal) 25 mg tablet Take 1 tab nightly for 14 days, then 1 tab twice daily for 14 days, then 2 tabs twice daily for 7 days, then 3 tabs twice daily for 7 days, then 4 tabs twice [id number] tablet 11 levETIRAcetam (KEPPRA) 1,000 mg tablet Take 1 tablet (1,000 mg total) by mouth 2 (two) times a day 60 tablet 11 metoprolol XL (TOPROL-XL) 50 mg extended release tablet TAKE 1 TABLET BY MOUTH EVERY DAY 90 tablet 3 rosuvastatin (CRESTOR) 5 mg tablet TAKE 1 TABLET (5 MG TOTAL) BY MOUTH DAILY. 30 tablet 11 tamsulosin (FLOMAX) 0.4 mg extended release capsule Take by mouth daily. 5 amoxicillin 500 mg capsule Take 4 tablet/capsule (2,000 mg total) by mouth as needed No facility-administered encounter medications on file as of 12/14/2024. REVIEW OF SYSTEMS: General: No fever, chills, malaise Eyes: No alterations in visual acuity Pulmonary: No dyspnea, cough or hemoptysis Cardiac: No chest pain, orthopnea, PND or palpitations GI: No nausea, vomiting, diarrhea or constipation Musculoskeletal: No myalgias or arthralgias Heme: no excessive bleeding or bruising All other systems reviewed and are negative PHYSICAL EXAM: BP 135/79 (BP Location: Right arm, Patient Position: Sitting) Pulse 113 Ht 182.9 cm (6') Wt 110.2 kg (243 lb) SpO2 94% BMI 32.96 kg/m?? General: Well appearing, No pain or distress, well nourished Eyes: DEB/EOMI, Conjuctiva anicteric Neck: Supple Respiratory: Clear to ausculation bilaterally; no wheezing/rales/rhonchi; respirations unlabored Cardiovascular: Irregular rhythm, normal S1 and S2. No S3 or S4. 2/6 systolic ejection murmur. Short diastolic murmur of aortic regurgitation. Irregular heart rhythm consistent with the atrial arrhythmia. Carotid upstrokes brisk bilaterally and without bruits. Normal PMI Gastrointestinal: soft, non-tender abdomen, no masses palpable, no HSM, abdominal aortic pulsation normal Extremities: no cyanosis or clubbing or edema Musculoskeletal: no obvious joint deformities Skin: no obvious rash or bruising Psychiatric: normal affect Neurologic: awake/alert, no focal deficits EKG I reviewed personally shows atrial flutter with variable ventricular response average heart rate about 100 beats per minute. Left bundle-branch block. I reviewed the last monitor report in chart in that had less than 1% AFib. I reviewed the last echocardiogram from earlier this spring 2024 which reported bioprosthetic aortic valve dysfunction with moderate aortic regurgitation normal LV ejection fraction ASSESSMENT & PLAN: 1. Atrial flutter - ECG 12 lead The patient is in atrial flutter. Heart rate improved with the increased dose of metoprolol. I haverecommended he remain on metoprolol 100 mg a day. He will continue on the Eliquis. We will plan cardioversion if he does not restore sinus rhythm. We will go ahead and schedule the cardioversion. We discussed treatment of atrial flutter including medications, rate control rhythm control we discussed antiarrhythmic drugs in general. We discussed catheter ablation in general. Because this is his 1st sustained atrial arrhythmia since 2019 we will go forward with a cardioversion to restore sinus rhythm and then further treatment will depend upon frequency of recurrence of atrial arrhythmia. 2. Paroxysmal atrial fibrillation (HCC) The patient had atrial fibrillation 2019 this looks more like atrial flutter by the EKG. We will continue to follow the heart rate he will do daily heart rate checks I reviewed symptoms ofatrial flutter and symptoms of concern such as shortness of breath dyspnea on exertion chest pain syncope. If any symptoms develop he will let us know immediately. 3. S/P AVR (aortic valve replacement) Bioprosthetic aortic valve 15 years old. Degeneration noted. Follow up echocardiogram has been scheduled already. 4. Nonrheumatic aortic valve insufficiency Not having any new symptoms related to the aortic valve regurgitation. Exam stable compared to prior examination. Clinical follow-up and repeat echocardiogram in the future. Follow up blood pressures an outpatient. He will follow the heart rate. I will continue on anticoagulation. Further plans after cardioversion Jesus Manuel Groves MD This note was written using a voice recognition system hardware device. Please note there may be variance in spelling, grammar, and syntax because of the voice recognition system hardware. Not every sentence has been reviewed in its entirety and if there are any concerns about the verbage above please contact Dr. Groves directly at [phone]. documented in this encounter Miscellaneous Notes * Perioperative Nursing Note - Pravin Cuenca RN - 12/17/2024 9:08 AM CDT PT returns from CV procedure alert and oriented. pt has been drinking fluids and eating without difficulty. Once bedrest was completed, pt ambulated in the hallway with a steady gait, used the restroom and then returned to the bay to prepare for discharge. INT was removed with tip intact, coban applied. All belongings returned to patient, AVS reviewed and signed by patient, patient discharged perMD order via Dr. Mercado, with responsible caregiver spouse. * Post-Procedure Note - Rajesh Mercado MD PhD - 12/17/2024 8:11 AM CDT CARDIOVERSION [id number] PRE-OP DIAGNOSIS: Atrial flutter SUSTAINABILITY CONSULTANT: Rajesh Mercado MD PhD. REFERRING MD: Viji Groves MD; Ravindra Leger MD HISTORY: 69 yo WM with atrial flutter. Anticoagulation with apixaban. PROCEDURE: Biphasic, synchronized DC cardioversion. The nature of the procedure, risks and alternatives were discussed with the patient who gave informed consent. The patient was sedated with propofol per the anesthesia team. 200J DC-CV using R2 Pads placed AP position. Resulting rhythm was sinus rhythm. The patient was then monitored until fully alert. COMPLICATIONS: Transient hypotension. IMPRESSION: Successful DC cardioversion to sinus rhythm. The referring physician (Dr. Groves) was notified. Rajesh Mercado MD PhD was present to personally supervise or perform the entire procedure. documented in this encounter Plan of Treatment Scheduled Orders Name Type Priority Associated Diagnoses Orde r Schedule ECG 12 lead ECG Routine Once for 1 Oc currences starting 12/17/2024 until 12/17/2024 documented as of this encounter Procedures Procedure Name Priority Date/Time Associated Diagnosis Comments CARDIOVERSION Routine 12/17/2024 8:10 AM CDT Atrial flutter, unspecified type (HCC) POC BLOOD GAS AND CHEMISTRIES, ARTERIAL Routine 12/17/2024 7:35 AM CDT ECG 12-LEAD Routine 12/17/2024 6:08 AM CDT documented in this encounter Results * CARDIOVERSION (12/17/2024 8:10 AM CDT) Anatomical Region Laterality Modality X-Ray Angiograph y Impressions 12/17/2024 8:14 AM CDT Successful DC cardioversion to sinus rhythm. The referring physician (Dr. Groves) was notified. Rajesh Mercado MD PhD was present to personally supervise or perform the entire procedure. Narrative 12/17/2024 8:14 AM CDT CARDIOVERSION [id number] PRE-OP DIAGNOSIS: Atrial flutter SUSTAINABILITY CONSULTANT: Rajesh Mercado MD PhD. REFERRING MD: Viji Groves MD; Ravindra Leger MD HISTORY: 69 yo WM with atrial flutter. Anticoagulation with apixaban. PROCEDURE: Biphasic, synchronized DC cardioversion. The nature of the procedure, risks and alternatives were discussed with the patient who gave informed consent. The patient was sedated with propofol per the anesthesia team. 200J DC-CV using R2 Pads placed AP position. Resulting rhythm was sinus rhythm. The patient was then monitored until fully alert. COMPLICATIONS: Transient hypotension. us Jesus Manuel Groves MD CV ELECTROPHYSIOLOGY P ROCS Final Result * POC Blood Gas and Chemistries, Arterial - (12/17/2024 7:35 AM CDT) K POC 4.7 3.3 - 4.9 mmol/L Comment: Interpretive Data Not all point of care methods assess for hemolysis. Confirm with instrument and retest K+ if not consistent with clinical signs and symptoms. Current Interpretive Data was last revised on 2023. Blood 12/17/2024 7:35 AM CDT 12/17/2024 7:35 AM CDT us Rajesh Mercado MD PhD LAB POCT ORDERABLES - D EVICE Final Result [facility] Department [place] [address] * ECG 12 lead (12/17/2024 6:08 AM CDT) Pathologist [facility] Ventricular Rate EKG/Min 116 BPM [facility] Atrial Rate 116 BPM [facility] VT-Interval (MSEC) 104 ms [facility] QRS-Interval (MSEC) 122 ms [facility] QT-Interval (MSEC) 340 ms [facility] QTc 472 ms [facility] R [place] -56 degrees [facility] T [place] 98 degrees [facility] Diagnosis atrial flutter with variable block Left anterior fascicular block Left ventricular hypertrophy with QRS widening and repolarization abnormality ( R in aVL , [place] product , Romhilt-Galloway ) Long QT interval Abnormal ECG When compared with ECG of 09-APR-2019 07:52, now in atrial flutter Confirmed by ADRIENNE SHORE M.D ([id number]) on 12/18/2024 9:15:22 AM [facility] 12/17/2024 6:08 AM CDT 12/18/2024 9:15 AM CDT us Rajesh Mercado MD PhD ECG ORDERABLES Final R esult [facility] documented in this encounter Visit Diagnoses Diagnosis Atrial flutter, unspecified type (HCC) Atrial flutter, unspecified type (HCC) documented in this encounter Admitting Diagnoses Diagnosis Atrial flutter (HCC) Atrial flutter documented in this encounter Administered Medications Inactive Administered Medications - up to 3 most recent administrations Medication Order MAR Action Action Date Dose Rate Site Carrier Fluids for Secondary Infusion - 0.9% Sodium Chloride 30 mL, intravenous, As needed, For priming tubing and/or flushing, Starting on Pao 12/17/24 at 0608, Pre-Procedure (CV), 0-250 ml/hr to flush line after IV infusions when no maintenance IV ordered. Infuse 30mL at the same rate as the secondary infusion. Run as primary IV, not intended for KVO. sodium chloride 0.9% flush 0.5-20 mL 0.5-20 mL, intra-catheter, Every 8 hours scheduled, First dose on Pao 12/17/24 at 0645, Pre-Procedure (CV), Flush volume based on line type and size. sodium chloride 0.9% flush 0.5-20 mL 0.5-20 mL, intra-catheter, As needed, line care, Starting on Pao 12/17/24 at 0608, Pre-Procedure (CV), Flush volume based on line type and size. Flush before and after each use. sodium chloride 0.9% infusion 50 mL/hr, intravenous, Continuous, Starting on Pao 12/17/24 at 0645, Pre-Procedure (CV) documented in this encounter Active and Recently Administered Medications Times are shown in CDT. Scheduled Medication Order 12/15/2024 12/16/2024 12/17/2024 sodium chloride 0.9% flush 0.5-20 mL 0.5-20 mL, intra-catheter, Every 8 hours scheduled, First dose on Pao 12/17/24 at 0645, Pre-Procedure (CV), Flush volume based on line type and size. 0645 (Due) Continuous Medication Order 12/15/2024 12/16/2024 12/17/2024 sodium chloride 0.9% infusion 50 mL/hr, intravenous, Continuous, Starting on Pao 12/17/24 at 0645, Pre-Procedure (CV) 0645 (Due) PRN Medication Order 12/15/2024 12/16/2024 12/17/2024 Carrier Fluids for Secondary Infusion - 0.9% Sodium Chloride 30 mL, intravenous, As needed, For priming tubing and/or flushing, Starting on Pao 12/17/24 at 0608, Pre-Procedure (CV), 0-250 ml/hr to flush line after IV infusions when no maintenance IV ordered. Infuse 30mL at the same rate as the secondary infusion. Run as primary IV, not intended for KVO. sodium chloride 0.9% flush 0.5-20 mL 0.5-20 mL, intra-catheter, As needed, line care, Starting on Pao 12/17/24 at 0608, Pre-Procedure (CV), Flush volume based on line type and size. Flush before and after each use. documented in this encounter Orders Medications Ordered That Claude ht Not Have Been Administered Count Last Ordered Date First Ordered Date Carrier Fluids for Secondary Infusion - 0.9% Sodium Chloride 1 12/17/2024 sodium chloride 0.9% flush 0.5-20 mL 2 11/2024 sodium chloride 0.9% infusion 1 12/17/2024 Discharge Count Last Ordered Date First Orde red Date DISCHARGE PATIENT 1 12/17/2024 documented in this encounter Care Teams Felt Finisher Relationship Specialty Start Date End Date Ravindra Leger MD [address] [place] [id number] PCP - General 09/27/16 Jesus Manuel Groves MD [address] [place] [id number] Consulting Physician Cardiology 02/10/21 Eliecer Ervin MD [address] [place] [address] 13918 Consulting Physician Cardiology 02/10/21 Hakeem Zuniga MD PhD [address] [place] [id number] Medical Oncologist/Grease Renderer Medical Oncology 02/10/21 documented as of this encounter
--- OUTSIDE RECORDS SUMMARY | 2024-12-18 16:10 | XMS_ITS | Encounter Summary ---
Author Organization [facility] Address [address] [place] [address] Phone Care Team Providers Care Director Biology Name Role Phone Ravindra Leger MD Primary Care Prov ider Jesus Manuel Groves MD Unavailable [phone] Eliecer Ervin MD Unavailable Hakeem Zuniga MD PhD Unavailable [phone] Encounter Details Date Type Department Care Team (Late st Contact Info) Description 12/14/2024 Results Follow-Up [facility] Cardiology [address] [facility] Advanced [facility] [address]th [place] [address] [place] [address] Jesus Manuel Groves MD [address] [facility] [address] [place] [address] ECG 12 lead Social History Tobacco Use Types Packs/Day Years [...] on file 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 Gender Identity Male 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/2020 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 Sexual Orientation Straight 01/29/2020 8: 36 AM [...] Anna RN documented as of this encounter Plan of Treatment Not on file documented as of this encounter Visit Diagnoses Not on filedocumented in this encounter Care Teams Director Biology Relationship Specialty Start Date End Date Ravindra Leger MD [address] [place] [id number] PCP - General 09/27/16 Jesus Manuel Groves MD [address] [place] [id number] Consulting Physician Cardiology 02/10/21 Eliecer Ervin MD [address] [place] [address]26 Consulting Physician Cardiology 02/10/21 Hakeem Zuniga MD PhD [address] [place] [address] Medical Oncologist/Preparing Box Tender Medical Oncology 02/10/21 documented as of this encounter
--- OUTSIDE RECORDS SUMMARY | 2024-12-18 16:10 | XMS_ITS | Clinical Summary ---
Author Organization [facility] al Address [address] [place] [address] Care Team Providers Care Feed Grinder Name Role Phone Ravindra Leger MD Primary Care Prov ider Katelyn Groves MD Unavailable [phone] Eliecer Ervin MD Unavailable [phone] Hakeem Zuniga MD PhD Unavailable [phone] Allergies No known active allergies Medications tamsulosin (FLOMAX) 0.4 mg extended release capsule Take by mouth daily. 5 8 Active cholecalciferol (VITAMIN D-3) 2,000 unit capsule daily. 6 Active amoxicillin 500 mg capsule Take 4 tablet/capsule (2,000 mg total) by mouth as needed 0 Active Eliquis 5 mg tablet TAKE 1 TABLET BY MOUTH TWICE A DAY 180 tablet 3 4 Active Additional Information Patient taking differently: 5 mg oral 2 times daily, Reported on 12/17/2024 rosuvastatin (CRESTOR) 5 mg tablet TAKE 1 TABLET (5 MG TOTAL) BY MOUTH DAILY. 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) Take 1 tablet (100 mg total) by mouth 2 (two) times a day Swallow whole with water and with or without food 60 tablet 6 4 Active metoprolol XL (TOPROL-XL) 50 mg extended release tablet TAKE 1 TABLET BY MOUTH EVERY DAY 90 tablet 3 5 Active lamoTRIgine (LaMICtal) 25 mg tablet Take 1 tab nightly for 14 days, then 1 tab twice daily for 14 days, then 2 tabs twice daily for 7 days, then 3 tabs twice daily for 7 days, then 4 tabs twice daily 240 tablet 11 5 Active levETIRAcetam (KEPPRA) 1,000 mg tablet Take 1 tablet (1,000 mg total) by mouth 2 (two) times a day 60 tablet 11 5 026 Active Active Problems Problem Noted Date Diagnosed Date [...] h/o dysrhythmia -HR [address] [facility], similar at OSH per report; BP stable [...] controlled this admission Bicuspid aortic valve 07/27/2010 Encounters Date Type Department Care Team Description 12/18/2024 Orders Only [facility] Cardiology [address] [place] [address] 8th [place] [address] [place] [address] Anne Walls RN 12/17/2024 8:50 AM CDT - 12/17/2024 9:30 AM CDT Surgery [facility] [address] [address] Rajesh Mercado MD PhD CARDIOVERSION [id number] 12/17/2024 8:03 AM CDT Anesthesia Event [facility] [address] [address] Elkin Kaminski MD Ross, Elisha Nichole, JUMANA 12/17/2024 6:06 AM CDT - 12/17/2024 9:10 AM CDT Hospital Encounter [facility] [address] [address] Lea, Telemarketing Supervisor, Rajesh Vieira MD PhD Atrial flutter, unspecified type (HCC) Discharge Disposition: Discharge to home or self care 12/17/2024 Results Follow-Up [facility] Cardiology [address] [place] [address] 8th [place] [address] [place] [address] Katelyn Groves MD Electrophysiology (EP) Study 12/14/2024 10:15 AM CDT Office Visit [facility] Cardiology [address] [place] [address] 8th [place] [address] [place] [address] Katelyn Groves MD Atrial fibrillation with RVR (HCC) (Primary Dx); Paroxysmal atrial fibrillation (HCC); S/P AVR (aortic valve replacement); Nonrheumatic aortic valve insufficiency 12/14/2024 Telephone [facility] Cardiology [facility] 8th [place] [address] [place] [address] Katelyn Groves MD cardioversion 12/14/2024 Results Follow-Up [facility] Cardiology [address] [place] [address] [place] [address] [place] [address] Katelyn Groves MD ECG 12 lead 12/14/2024 Telephone [facility] Cardiology [address] [place] [address] [place] [address] [place] [address] Katelyn Groves MD Atrial Fibrillation 12/13/2024 Documentation [facility] Cardiology [address] [place] [address] [place] [address] [place] [address] Katelyn Groves MD 11/26/2024 9:15 AM CDT Office Visit [facility] Bone Marrow Transplant [address] [place] [address] [address] [place] [address] Hakeem Zuniga MD PhD 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) 11/26/2024 8:15 AM CDT Lab [facility] Oncology Lab [address] [place] [address] [address] [place] [address] 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) 11/26/2024 7:45 AM CDT Lab [facility] - Lab Collection [facility] Floor [address] [place] [address] 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 Cardiac Diagnostic Lab [address] [facility] 8th [place] [address] Katelyn Groves MD S/P AVR (aortic valve replacement) Discharge Disposition: Discharge to home or self care 10/07/2024 11:15 AM CDT Office Visit [facility] Cardiology [address] [facility] 8th [place] [address] [place] [address] Katelyn Groves MD S/P AVR (aortic valve replacement) (Primary Dx); Paroxysmal atrial fibrillation (HCC); Dissection of ascending aorta (HCC); Primary hypertension from Last 3 Months Immunizations Immunization Administration Dates Next Due Influenza, Quadrivalent, Naomi l Culture-based MDCK, Preservative Free, Antibiotic Free, Intramuscular 05/05/2020,05/07/2019 Influenza, Quadrivalent, Spl it, Preservative Free, Intramuscular 05/08/2018 Influenza, Trivalent, Preser vative Free, Intramuscular 06/28/2016 Influenza, Unspecified 04/14/2017 Moderna SARS-CoV-2 Monovalen t Vaccination (12+ YRS) 06/02/2021,09/23/2020,08/26/2020 Pfizer SARS-CoV-2 Monovalent Vaccination (12+ Yrs) PURPLE 12/07/2021 Surgical History Surgery Date Site/Laterality Comments IR FINE NEEDLE ASPIRATION W IMAGE GUIDANCE 04/08/2015 N/A BIOPSY LYMPH NODE SUPERFICIAL 04/08/2015 N/A BIOPROSTHETIC AORTIC VALVE REPLACEMENT AORTIC ROOT REPLACEMENT CARPAL TUNNEL RELEASE REPLACEMENT TOTAL KNEE CARDIAC ELECTROPHYSIOLOGY PROCEDURE 12/17/2024 N/A Procedure: CARDIOVERSION [id number]; Surgeon: Rajesh Mercado MD PhD; Location: 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 Gender Identity Male 09/02/2020 7:30 AM PROJECT CONTROL ANALYST Sexual Orientation Straight 01/29/2020 8: 36 AM CDT Obstetrics History Last Filed Vital Signs Vital Sign Reading [...] Mass Index 33.88 12/17/2024 7:25 AM CDT Plan of Treatment Health Maintenance Due Date Last Done Comments Colon Cancer Screening-Colonoscopy 1955 Depression Screening 1955 DTaP/Tdap/Td Vaccine (1 - Tdap) 1964 Hepatitis B Screening 1971 Pneumococcal vaccine 65+ (1 of 2 - PCV) 1972 Zoster Vaccine (1 of 2) 1972 Well Visit 65+ 2018 Covid-19 Vaccine (5 - 2023-2 5 season) 2024 12/07/2021, 06/02/2021, 09/23/2020, Additional history exists Influenza Vaccine (Season Ended) 2025 05/05/2020, 05/07/2019, 05/08/2018, Additional history exists Fall Risk Assessment 12/17/2025 12/17/2024, 01/15/20 24 Hepatitis C Screening Completed 04/08/2015 Abdominal Aortic Aneurysm (A AA) Screen Completed 05/05/2020, 04/18/2017, 03/29/2016 Procedures Procedure Name Priority Date/Time Associated Diagnosis Comments CARDIOVERSION Routine 12/17/2024 8:10 AM CDT Atrial flutter, unspecified type (HCC) POC BLOOD GAS AND CHEMISTRIES, ARTERIAL Routine 12/17/2024 7:35 AM CDT ECG 12-LEAD Routine 12/17/2024 6:08 AM CDT ECG 12-LEAD Routine 12/14/2024 9:37 AM CDT Atrial fibrillation with RVR (HCC) EGFR Routine 11/26/2024 7:50 AM CDT 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) DIFFERENTIAL AUTO Routine 11/26/2024 7:5 0 AM CDT 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) CBC WITH AUTO DIFFERENTIAL Routine 11/26/2024 7:50 AM CDT 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) COMPREHENSIVE METABOLIC PANEL Routine 11/26/2024 7:50 AM CDT 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) LACTATE DEHYDROGENASE Routine 11/26/2024 7:50 AM CDT 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) TRANSTHORACIC ECHO (TTE) COMPLETE W DOPPLER/CF W CONTRAST Routine 10/27/2024 11:19 AM CDT S/P AVR (aortic valve replacement) CT CHEST ABDOMEN PELVIS W CONTRAST Schedule Routine, Read Routine (OP Routine) 05/05/2020 8:56 AM CDT 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 The referring physician (Dr. Groves) was notified. Rajesh Mercado MD PhD was present to personally supervise or perform the entire procedure. Narrative 12/17/2024 8:14 AM CDT CARDIOVERSION [id number] PRE-OP DIAGNOSIS: Atrial flutter STEEL ANALYST: Rajesh Mercado MD PhD. REFERRING MD: Viji [...] until fully alert. COMPLICATIONS: Transient hypotension. us Katelyn Groves MD CV ELECTROPHYSIOLOGY P ROCS Final [...] POCT ORDERABLES - D EVICE Final Result Performing Organization Address [facility] Co de Phone Number [facility] Department [place] [address] * ECG 12 lead (12/17/2024 6:08 AM CDT) Pathologist [facility] Ventricular Rate EKG/Min 116 BPM [facility] Atrial Rate 116 BPM [facility] [place]-Interval (MSEC) 104 ms [facility] QRS-Interval (MSEC) 122 ms [facility] QT-Interval (MSEC) 340 ms [facility] QTc 472 ms [facility] R [place] -56 degrees [facility] T [place] 98 degrees [facility] Diagnosis atrial flutter with variable block Left anterior fascicular block Left ventricular hypertrophy with QRS widening and repolarization abnormality ( R in aVL , Tim product , Romhilt-Galloway ) Long QT interval Abnormal ECG When compared with ECG of 09-APR-2019 07:52, now in atrial flutter Confirmed by ADRIENNE SHORE M.D ([id number]) on 12/18/2024 9:15:22 AM [facility] 12/17/2024 6:08 AM CDT 12/18/2024 9:15 AM CDT us Rajesh Mercado MD PhD ECG ORDERABLES Final R esult Performing Organization Address [facility] Co de Phone Number [facility] * ECG 12 lead (12/14/2024 9:37 AM CDT) us Katelyn Groves MD ECG ORDERABLES Edited Result - Final * (ABNORMAL) eGFR (11/26/2024 7:50 AM CDT) Pathologist [facility] eGFR 59(L) >=60 mL/min/1. 73 m2 Comment: Interpretive Data Reference Interval Normal >/= 90 mL/min/1.73m2 Mildly decreased* 60 - 89 mL/min/1.73m2 Mildly to moderately decreased 45 - 59 mL/min/1.73m2 Moderately to severely decreased 30 - 44 mL/min/1.73m2 Severely decreased 15 - 29 mL/min/1.73m2 Kidney Failure < 15 mL/min/1.73m2 *Relative to young adult level Estimated glomerular filtration rate is determined by the 2020 CKD-EPI equation recommended by the National Kidney Foundation (A Unifying Approach to GFR Estimation: Recommendations of the NKF-ASK Task Force on Reassessing the Inclusion of Race in Diagnosing Kidney Disease, JASN 2020). The CKD-EPI equation should not be used for patients with unstable renal function and has not been validated in children and those over 70. Current interpretive data was last reviewed 2021. Blood 11/26/2024 7:50 AM CDT 11/26/2024 7:56 AM CDT us Blaire Baer PETROLEUM REFINERY OPERATOR LAB BLOOD ORDERABLES Final Res ult [facility] Department [place] [address] * (ABNORMAL) Differential, auto (11/26/2024 7:50 AM CDT) Neutrophil abs 3.67 1.50 - 6.50 K/cumm Comment:Testing performed by : [facility], [address] [place] [address] Lymphocyte abs 4.38(H) 0.80 - 3.30 K/cumm CARMEN FIGUEROA Comment:Testing performed by : [facility], [address] [place] [address] Monocyte abs 0.49 0.20 - 0.80 K/cumm CARMEN FIGUEROA Comment:Testing performed by : [facility], [address] [place] [address] Eosinophil abs 0.14 0.00 - 0.50 K/cumm CARMEN FIGUEROA Comment:Testing performed by : [facility], [address] [place] [address] Basophil abs 0.03 0.00 - 0.10 K/cumm CERELIN BJ Comment:Testing performed by : [facility], [address] [place] [phone] Neutrophil pct 42.2 % CERNER BJ Comment: Interpretive Data Percent cell count reference ranges are not reported, since discordance with absolute values may lead to misinterpretation of CBC data. Current Interpretive Data was last revised on 2017. Testing performed by: [facility], [address] [place] [phone] Lymphocyte pct 50.3 % CERNER BJ Comment: Interpretive Data Percent cell count reference ranges are not reported, since discordance with absolute values may lead to misinterpretation of CBC data. Current Interpretive Data was last revised on 2017. Testing performed by: [facility], [address] [place] [phone] Monocyte pct 5.6 % CERNER BJ Comment: Interpretive Data Percent cell count reference ranges are not reported, since discordance with absolute values may lead to misinterpretation of CBC data. Current Interpretive Data was last revised on 2017. Testing performed by: [facility], [address] [place] [phone] Eosinophil pct 1.6 % [facility]ERELIN [facility] Comment: Interpretive Data Percent cell count reference ranges are not reported, since discordance with absolute values may lead to misinterpretation of CBC data. Current Interpretive Data was last revised on 2017. Testing performed by: [facility], [address] [place] [phone] Basophil pct 0.3 % [facility]ERNER [facility] Comment: Interpretive Data Percent cell count reference ranges are not reported, since discordance with absolute values may lead to misinterpretation of CBC data. Current Interpretive Data was last revised on 2017. Testing performed by: [facility], [address] [place] [phone] Blood 11/26/2024 7:50 AM CDT 11/26/2024 7:55 AM CDT Blaire Odomr PETROLEUM REFINERY OPERATOR LAB BLOOD ORDERABLES Final Res ult [facility] Department [place] [address] * (ABNORMAL) CBC with auto differential (11/26/2024 7:50 AM CDT) WBC 8.70 3.80 - 9.90 K/cumm Comment:Testing performed by : [facility], [address] [place] [address] Hgb 16.2 13.0 - 17.5 g/dL CERELIN BJ Comment:Testing performed by : [facility], [address] [place] [address] Hct 46.3 38.9 - 50.3 % CERELIN FIGUEROA Comment:Testing performed by : [facility], [address] [place] [address] Plt 88(L) 150 - 400 K/cumm CERELIN BJ Comment:Testing performed by : [facility], [address] [place] [address] MPV 8.7 6.8 - 10.4 fL CERELIN BJ Comment:Testing performed by : [facility], [address] [place] [address] RBC 5.14 4.30 - 5.80 M/cumm CERELIN BJ Comment:Testing performed by : [facility], [address] [place] [address] MCV 90.0 81.3 - 96.4 fL CERELIN BJ Comment:Testing performed by : [facility], [address] [place] [address] MCH 31.5 27.1 - 33.3 pg CERELIN BJ Comment:Testing performed by : [facility], [address] [place] [address] MCHC 35.0 32.3 - 35.7 g/dL CERELIN BJ Comment:Testing performed by : [facility], [address] [place] [address] RDW CV 13.6 11.1 - 14.9 % [facility] Comment:Testing performed by : [facility], [address] [place] [phone] NRBC abs 0.00 0.00 - 0.01 K/cumm [facility] Comment:Testing performed by : [facility], [address] [place] [phone] Blood 11/26/2024 7:50 AM CDT 11/26/2024 7:55 AM CDT Blaire S. [place] PETROLEUM REFINERY OPERATOR LAB BLOOD ORDERABLES Final Res ult Performing Organization Address City/[facility]/ZIP Co de Phone Number [facility] Department [place] [address] * (ABNORMAL) Lactate dehydrogenase (LD) (11/26/2024 7:50 AM CDT) Pathologist [facility] Lactate dehydrogenase (LDH) 354(H) 100 - 250 Units/L Blood 11/26/2024 7:50 AM CDT 11/26/2024 7:56 AM CDT Blaire SEtelvina [place] PETROLEUM REFINERY OPERATOR LAB BLOOD ORDERABLES Final Res ult Performing Organization Address [facility]/ZIP Co de Phone Number [facility] [place] [address] * (ABNORMAL) Comprehensive metabolic panel (11/26/2024 7:50 AM CDT) Sodium 136 135 - 145 mmol/L Potassium, pl 5.0(H) 3.3 - 4.9 mmol/L [facility] Chloride 102 97 - 110 mmol/L [facility] CO2 28 22 - 32 mmol/L [facility] Anion gap 6 2 - 15 mmol/L [facility] BUN 23 6 - 25 mg/dL [facility] Creatinine 1.30 0.80 - 1.30 mg/dL [facility] Glucose 140 70 - 199 mg/dL [facility] Comment: Interpretive Data Fasting glucose >/= 126 mg/dl is diagnostic for diabetes. Fasting is defined as no caloric intake for at least 8 hours. Fasting glucose between 100 mg/dl to 125 mg/dl is diagnostic of prediabetes. In a patient with classic symptoms of hyperglycemia or hyperglycemic crisis, a random glucose >/= 200 mg/dl is diagnostic for diabetes. In the absence of unequivocal hyperglycemia, results should be confirmed by repeat testing. The classification and Diagnosis of Diabetes Diabetes Care 2021; 46: S19-S40. Current interpretive data was last revised 2022. Calcium 10.1 8.5 - 10.3 mg/dL [facility] Bilirubin, total 1.5(H) 0.1 - 1.2 mg/dL [facility] Protein, pl 7.2 6.5 - 8.5 g/dL [facility] Albumin 4.4 3.5 - 5.0 g/dL [facility] Alk phos 90 40 - 130 Units/L [facility] ALT 16 7 - 55 Units/L [facility] AST 32 10 - 50 Units/L [facility] Blood 11/26/2024 7:50 AM CDT 11/26/2024 7:56 AM CDT Blaire Baer PETROLEUM REFINERY OPERATOR LAB BLOOD ORDERABLES Final Res ult [facility] Department of Laboratories [place], [place] [id number] * TRANSTHORACIC ECHO (TTE) COMPLETE W DOPPLER/CF W CONTRAST (10/27/2024 11:19 AM CDT) LV EF 58 % CONS SCIMAGE Anatomical Region Laterality Modality Ultrasound 10/27/2024 10:3 1 AM CDT Narrative 10/28/2024 10:[address] [facility] [place] [address] Transthoracic Echocardiographic Report Patient Name: OLLIE PRIETO W : 1955 (69y 7m) Gender: M Study Date: 10/27/2024 10:31:07 AM Ht(Inch): 72 Wt(Lb): 246.03 BSA: 2.38 Development Technologist: Christa Catherine RDCS Location: [facility] Order Provider: KATELYN GROVES Heart Rate: 71 BMI: 33.36 BP: 157 / 69 Ref Provider: KATELYN GROVES PROCEDURES: Echocardiographic Report: Transthoracic complete echo with contrast, 2D, spectral and tissue Doppler, color flow Doppler, M-mode. Contrast: Contrast Enhancement was Employed: After initial imaging due to sub- optimal quality related to co-morbidity defined by patient's body habitus and due to suboptimal image quality with inadequate visualization of at least 2 of 16 LV wall segments in any view after initial imaging. Perflutren contrast was administered using the volume necessary to obtain adequate images. 0.4 ml Optison Administered, (2.6 ml wasted). INDICATIONS: Z95.2 Presence of prosthetic heart valve. CONCLUSIONS: 1. Normal left ventricular size based on volume index. Normal LV wall thickness. Normal left ventricular systolic function. The Ejection Fraction (Shah's) is measured at 52 %. The Ejection Fraction is visually estimated to be 58 %. Normal diastolic function. 2. Normal right ventricular size. Normal right ventricular systolic function. 3. Normal mitral valve structure. No mitral regurgitation. 4. A bioprosthetic valve is present in the aortic position. Paravalvular aortic regurgitation cannot be excluded, consider STAR for further evaluation. 5. Mild aortic root dilation at sinuses of Valsalva. Normal aortic root size when indexed. 6. Bioprosthetic aortic valve with peak gradient 15 mm Hg mean gradient 7 mm Hg. Moderate bioprosthetic aortic valve regurgitation likely valvular can not exclude a component of paravalvular. Normal LV systolic function. ATTESTATION: I have personally reviewed and interpreted this study without fellow or resident. - DISCLAIMER: The study images and the final report will be retained in the patient chart by the Echo Laboratory for the legally required time period. This chart constitutes the legal record of any testing performed. FINDINGS: Left Ventricle: Normal left ventricular size based on volume index. Normal LV wall thickness. Normal left ventricular systolic function. The Ejection Fraction (Shah's) is measured at 52 %. The Ejection Fraction is visually estimated to be 58 %. Normal diastolic function. Right Ventricle: Normal right ventricular size. Normal right ventricular systolic function. Left Atrium: The left atrium is normal in size. The left atrium is normal in size. Right Atrium: The right atrium is normal in size. The right atrium is normal in size. Atrial Septum: Normal interatrial septum. Mitral Valve: Normal mitral valve structure. No mitral regurgitation. Aortic Valve: Moderate aortic valve regurgitation. The mean transaortic gradient is 7 mmHg. The aortic valve area by the continuity equation (using VTI) is 2.56 cm2. Aortic valve dimensionless index is 0.59. A bioprosthetic valve is present in the aortic position. Paravalvular aortic regurgitation cannot be excluded, consider STAR for further evaluation. Tricuspid Valve: Normal tricuspid valve structure. No tricuspid regurgitation. Pulmonic Valve: Normal pulmonic valve structure. No pulmonic regurgitation. Pericardium: Normal pericardium without pericardial effusion. Aorta: Mild aortic root dilation at sinuses of Valsalva. Normal aortic root size when indexed. IVC: IVC is normal in size. Pulmonary Artery: Normal pulmonary artery size. MEASUREMENTS: 2D/MM Value Range Doppler Value Range LVIDd 2D 5.78 cm [ 4.20 - 5.80 ] AV Peak Db 1.9 m/s [ 1.0 - 1.7 ] LVIDs 2D 3.79 cm [ 2.50 - 4.00 ] AV Peak PG 14.44 mmHg IVSd 2D 1.09 cm [ 0.60 - 1.00 ] AV Mean PG 7 mmHg LVPWd 2D 0.99 cm [ 0.60 - 1.00 ] AV VTI 42.2 cm LV Thickness Ratio 1.1 LVOT Peak Db 1.0 m/s [ 0.7 - 1.1 ] LV FS 2D 34.44 % [ 25.00 - 43.00 ] LVOT Peak PG 4.00 mmHg LV Mass 2D 250.13 g LVOT Mean PG 3 mmHg LV Mass Index 2D 105.10 g/m2 LVOT VTI 25.1 cm RWT 0.34 LVOT Diam 2.34 cm EDV Mod BP 139.15 ml [ 62.00 - 150.00 ] NICO VTI 2.56 cm2 LV EDV Index 58.47 ml/m2 LVOT/AV VTI 0.59 - Dimensionless index (DVI) ESV Mod BP 66.20 ml [ 21.00 - 61.00 ] MV E Peak Db 1.0 m/s [ 0.6 - 1.3 ] EF Mod BP 52 % [ 52 - 72 ] MV A Peak Db 0.7 m/s [ 1.0 - 1.2 ] Visually Estimated EF 58 % MV E/A 1.4 ratio [ 0.8 - 1.5 ] LA Length 4C 5.34 cm MV Decel Time 210.31 msec [ 104.00 - 258.00 ] LA Length 2C 5.56 cm Med E` Db 4.8 cm/sec [ 8.0 - 25.0 ] LA Volume BP 74.85 ml Lat E` Db 10.0 cm/sec [ 10.0 - 25.0 ] LA Volume Index 31.45 ml/m2 [ 16.00 - 34.00 ] Average E/E` 13.51 RV Base Dimen 2D 3.6 cm [ 2.5 - 4.2 ] RV S` 9.11 cm/sec TAPSE 1.82 cm [ 1.71 - 5.00 ] RA Volume 63.47 ml RA Volume Index 26.67 ml/m2 AoR Diam 2D 4.22 cm [ 3.10 - 3.70 ] Ao Root Index 1.77 cm/m2 [ 1.00 - 2.00 ] Electronically Signed By: Katelyn Groves M.D. 10/28/2024 10:29:00 AM CDT CC: Katelyn Groves M.D. Procedure Note Katelyn Groves MD - 10/28/2024 [facility] [place] [address] Transthoracic Echocardiographic Report Patient Name: OLLIE PRIETO W : 1955 (69y 7m) Gender: M Study Date: 10/27/2024 10:31:07 AM Ht(Inch): 72 Wt(Lb): 246.03 BSA: 2.38 Development Technologist: Christa Catherine RDCS Location: [facility] Order Provider:KATELYN GROVES Heart Rate: 71 BMI: 33.36 BP: 157 / 69 Ref Provider: KATELYN GROVES PROCEDURES: Echocardiographic Report: Transthoracic complete echo with contrast, 2D,spectral and tissue Doppler, color flow Doppler, M-mode. Contrast: Contrast Enhancement was Employed: After initial imaging due tosub- optimal quality related to co-morbidity defined by patient's body habitus and dueto suboptimal image quality with inadequate visualization of at least 2 of 16 LV wallsegments in any view after initial imaging. Perflutren contrast was administered using thevolume necessary to obtain adequate images. 0.4 ml Optison Administered, (2.6 mlwasted). INDICATIONS: Z95.2 Presence of prosthetic heart valve. CONCLUSIONS: 1. Normal left ventricular size based on volume index. Normal LV wallthickness. Normal left ventricular systolic function. The Ejection Fraction (Shah's) ismeasured at 52 %. The Ejection Fraction is visually estimated to be 58 %. Normaldiastolic function. 2. Normal right ventricular size. Normal right ventricular systolicfunction. 3. Normal mitral valve structure. No mitral regurgitation. 4. A bioprosthetic valve is present in the aortic position. Paravalvularaortic regurgitation cannot be excluded, consider STAR for further evaluation. 5. Mild aortic root dilation at sinuses of Valsalva. Normal aortic rootsize when indexed. 6. Bioprosthetic aortic valve with peak gradient 15 mm Hg mean gradient 7mm Hg. Moderate bioprosthetic aortic valve regurgitation likely valvular can not exclude acomponent of paravalvular. Normal LV systolic function. ATTESTATION: I have personally reviewed and interpreted this study without fellow orresident. - DISCLAIMER: The study images and the final report will be retained in the patientchart by the Echo Laboratory for the legally required time period. This chart constitutesthe legal record of any testing performed. FINDINGS: Left Ventricle: Normal left ventricular size based on volume index. NormalLV wall thickness. Normal left ventricular systolic function. The EjectionFraction (Shah's) is measured at 52 %. The Ejection Fraction is visually estimated to be 58%. Normal diastolic function. Right Ventricle: Normal right ventricular size. Normal right ventricularsystolic function. Left Atrium: The left atrium is normal in size. The left atrium is normalin size. Right Atrium: The right atrium is normal in size. The right atrium isnormal in size. Atrial Septum: Normal interatrial septum. Mitral Valve: Normal mitral valve structure. No mitral regurgitation. Aortic Valve: Moderate aortic valve regurgitation. The mean transaorticgradient is 7 mmHg. The aortic valve area by the continuity equation (using VTI) is 2.56cm2. Aortic valve dimensionless index is 0.59. A bioprosthetic valve is present in theaortic position. Paravalvular aortic regurgitation cannot be excluded, considerTEE for further evaluation. Tricuspid Valve: Normal tricuspid valve structure. No tricuspidregurgitation. Pulmonic Valve: Normal pulmonic valve structure. No pulmonicregurgitation. Pericardium: Normal pericardium without pericardial effusion. Aorta: Mild aortic root dilation at sinuses of Valsalva. Normal aorticroot size when indexed. IVC: IVC is normal in size. Pulmonary Artery: Normal pulmonary artery size. MEASUREMENTS: 2D/MM Value Range DopplerValue Range LVIDd 2D 5.78 cm [ 4.20 - 5.80 ] AV Peak Vel1.9 m/s [ 1.0 - 1.7 ] LVIDs 2D 3.79 cm [ 2.50 - 4.00 ] AV Peak PG14.44 mmHg IVSd 2D 1.09 cm [ 0.60 - 1.00 ] AV Mean PG7 mmHg LVPWd 2D 0.99 cm [ 0.60 - 1.00 ] AV VTI42.2 cm LV Thickness Ratio 1.1 LVOT PeakVel 1.0 m/s [ 0.7 - 1.1 ] LV FS 2D 34.44 % [ 25.00 - 43.00 ] LVOT Peak PG4.00 mmHg LV Mass 2D 250.13 g LVOT Mean PG3 mmHg LV Mass Index 2D 105.10 g/m2 LVOT VTI25.1 cm RWT 0.34 LVOT Diam2.34 cm EDV Mod BP 139.15 ml [ 62.00 - 150.00 ] NICO VTI2.56 cm2 LV EDV Index 58.47 ml/m2 LVOT/AV VTI0.59 - Dimensionless index (DVI) ESV Mod BP 66.20 ml [ 21.00 - 61.00 ] MV E PeakVel 1.0 m/s [ 0.6 - 1.3 ] EF Mod BP 52 % [ 52 - 72 ] MV A PeakVel 0.7 m/s [ 1.0 - 1.2 ] Visually Estimated EF 58 % MV E/A1.4 ratio [ 0.8 - 1.5 ] LA Length 4C 5.34 cm MV DecelTime 210.31 msec [ 104.00 - 258.00 ] LA Length 2C 5.56 cm Med E` Vel4.8 cm/sec [ 8.0 - 25.0 ] LA Volume BP 74.85 ml Lat E` Vel10.0 cm/sec [ 10.0 - 25.0 ] LA Volume Index 31.45 ml/m2 [ 16.00 - 34.00 ] Average E/E`13.51 RV Base Dimen 2D 3.6 cm [ 2.5 - 4.2 ] RV S`9.11 cm/sec TAPSE 1.82 cm [ 1.71 - 5.00 ] RA Vhdpef80.47 ml RA Volume Index26.67 ml/m2 AoR Diam 2D 4.22 cm [ 3.10 - 3.70 ] Ao Root Index 1.77 cm/m2 [ 1.00 - 2.00 ] Electronically Signed By: Katelyn Groves M.D. 10/28/2024 10:29:00 AM CDT CC: Katelyn Groevs M.D. Katelyn Groves MD CV ECHO PROCEDURES Fin al Result * CT chest abdomen pelvis with contrast (05/05/2020 8:56 AM CDT) Anatomical Region Laterality Modality Body N/A Computed Tomogra phy 05/05/2020 9:53 AM CDT Impressions 05/05/2020 11:16 AM CDT Improved splenomegaly (17.7 cm) and decrease in size of innumerable lymph nodes, now measuring sub-centimeter. These findings are consistent with treatment response. Dictated by: Corey Gil M.D. The radiology attending physician has personally reviewed this study, and had reviewed and/or edited this written report and agrees with it. Electronically signed by: Beto Dudley M.D. Narrative 05/05/2020 11:16 AM CDT EXAMINATION: Computed tomography of the chest, abdomen and pelvis with intravenous contrast HISTORY: Chronic lymphocytic leukemia TECHNIQUE: Transaxial computed tomographic images of the chest, abdomen and pelvis were obtained with intravenous contrast according to the standard protocol after the uneventful administration of 50 mL Opti-Ray 350 intravenous contrast. COMPARISON: 04/18/2017 FINDINGS: Chest: There is scarring of the azygos esophageal recess from adjacent osteophyte. No focal consolidation pleural effusion or pneumothorax. There are small hypoattenuating lesions in the thyroid, subcentimeter. No supraclavicular lymphadenopathy. There is interval decrease in size of numerous subcentimeter lymph nodes in the mediastinum, and axilla. No hilar lymphadenopathy. There are postsurgical changes of median sternotomy and aortic valve replacement. There is coronary atherosclerosis of the left main, anterior descending, and circumflex arteries. Heart size is normal. Upper pleural effusion. There is atherosclerosis of the aortic arch extending into the left subclavian artery. No central pulmonary embolism. The central airways are patent. Abdomen/Pelvis: Liver is normal size and contour. No suspicious lesion. There is a tiny hypoattenuating lesion in hepatic segment 3 which most likely represents a small cyst. No biliary dilatation. The gallbladder is normal. The portal, superior mesenteric, and splenic veins are patent. There is fatty replacement of the pancreas. The spleen is decreased in size from 18.7 to 17.7 cm. The kidneys enhance symmetrically. There is a large left kidney cyst. The adrenal glands are normal. No nephrolithiasis or nephrosis. The urinary bladder is normal. The prostate is slightly enlarged. The bowel is normal caliber. There is some trace fluid in the cul-de-sac. Scattered diverticula are seen without evidence of diverticulitis. Appendix is visualized and normal. No free fluid or gas. Interval decrease in size of numerous small, subcentimeter retroperitoneal lymph nodes. A prominent right periaortic lymph node measures approximately 1 cm in short axis. Small periportal lymph nodes are also seen. No mesenteric, or pelvic lymphadenopathy. The abdominal aorta is severely calcified and the iliac arteries are tortuous. The visceral arteries are patent. There is multilevel degenerative disc disease. No fracture or suspicious osseous lesion. Procedure Note Beto Dudley MD - 05/05/2020 EXAMINATION: Computed tomography of the chest, abdomen and pelvis with intravenous contrast HISTORY: Chronic lymphocytic leukemia TECHNIQUE: Transaxial computed tomographic images of the chest, abdomen and pelvis were obtained with intravenous contrast according to the standard protocol after the uneventful administration of 50 mL Opti-Ray 350 intravenous contrast. COMPARISON: 04/18/2017 FINDINGS: Chest: There is scarring of the azygos esophageal recess from adjacent osteophyte. No focal consolidation pleural effusion or pneumothorax. There are small hypoattenuating lesions in the thyroid, subcentimeter. No supraclavicular lymphadenopathy. There is interval decrease in size of numerous subcentimeter lymph nodes in the mediastinum, and axilla. No hilar lymphadenopathy. There are postsurgical changes of median sternotomy and aortic valve replacement. There is coronary atherosclerosis of the left main, anterior descending, and circumflex arteries. Heart size is normal. Upper pleural effusion. There is atherosclerosis of the aortic arch extending into the left subclavian artery. No central pulmonary embolism. The central airways are patent. Abdomen/Pelvis: Liver is normal size and contour. No suspicious lesion. There is a tiny hypoattenuating lesion in hepatic segment 3 which most likely represents a small cyst. No biliary dilatation. The gallbladder is normal. The portal, superior mesenteric, and splenic veins are patent. There is fatty replacement of the pancreas. The spleen is decreased in size from 18.7 to 17.7 cm. The kidneys enhance symmetrically. There is a large left kidney cyst. The adrenal glands are normal. No nephrolithiasis or nephrosis. The urinary bladder is normal. The prostate is slightly enlarged. The bowel is normal caliber. There is some trace fluid in the cul-de-sac. Scattered diverticula are seen without evidence of diverticulitis. Appendix is visualized and normal. No free fluid or gas. Interval decrease in size of numerous small, subcentimeter retroperitoneal lymph nodes. A prominent right periaortic lymph node measures approximately 1 cm in short axis. Small periportal lymph nodes are also seen. No mesenteric, or pelvic lymphadenopathy. The abdominal aorta is severely calcified and the iliac arteries are tortuous. The visceral arteries are patent. There is multilevel degenerative disc disease. No fracture or suspicious osseous lesion. IMPRESSION: Improved splenomegaly (17.7 cm) and decrease in size of innumerable lymph nodes, now measuring sub-centimeter. These findings are consistent with treatment response. Dictated by: Corey Gil M.D. The radiology attending physician has personally reviewed this study, and had reviewed and/or edited this written report and agrees with it. Electronically signed by: Beto Dudley M.D. Blaire Baer PETROLEUM REFINERY OPERATOR IMG CT PROCEDURES Final Result * Serum Hepatitis C ab (04/08/2015 8:41 AM CDT) HCV ab Negative NEG HISTORICAL RESULTS Serum 04/08/2015 8:41 AM CDT Narrative HISTORICAL RESULTS - 04/09/2015 4:20 AM CDT Interpretive Data If confirmation is required, call Laboratory Customer Service to request sample to be sent to [facility] for Hepatitis C Virus (HCV) RNA Detection and Quantitation by Real-Time Reverse Sales Route Driver-PCR (RT-PCR). Current interpretive data was last revised on 2011 Hakeem Zuniga MD PhD LAB BLOOD ORDERABLES Final Result HISTORICAL RESULTS from Last 3 Months or Most Recently Relevant to Health [place] [address] [facility] [place] [address] AET COVENTRY PPO [facility] MEDICARE [facility] CHOICE PLUS MEDICARE [facility] Advance Directives For more information, please contact: [phone] * Full Code (Latest Code Status on File) Date Activated Date Inactivated Comments 04/07/2019 8:33 AM 04/09/2019 7:27 PM Care Teams Feed Grinder Relationship Specialty Start Date End Date Ravindra Leger MD [address] [place] [id number] PCP - General 09/27/16 Katelyn Groves MD [address] [place] [address] Consulting Physician Cardiology 02/10/21 Eliecer Ervin MD [address] [place] [address] Consulting Physician Cardiology 02/10/21 Hakeem Zuniga MD PhD [address] [place] [address] Medical Oncologist/City Treasurer Medical Oncology 02/10/21
--- OUTSIDE RECORDS SUMMARY | 2024-12-18 16:10 | XMS_ITS | Encounter Summary ---
Author Organization [facility] Healthcare Address [address] [place] [address] Care Team Providers Care Grain Roaster Name Role Phone Ravindra Leger MD Primary Care Prov ider Jesus Manuel Groves MD Unavailable [phone] Eliecer Ervin MD Unavailable Hakeem Zuniga MD PhD Unavailable [phone] Reason for Visit * Auth/Cert (Routine) Specialty Diagnoses / Procedures Referred By Contac t Referred To Contact Diagnoses Atrial flutter, unspecified type (HCC) Atrial flutter, unspecified type (HCC) [I48.92] Procedures [facility]ARD[facility]ERSION 29594 Referral ID Status Reason Start Date Expiration Date Visits Re quested Visits Authorized [id number] 1 1 Encounter Details Date Type Department Care Team (Latest Contact Info) Description 12/17/2024 6:06 AM CDT - 12/17/2024 9:10 AM CDT Hospital Encounter [facility] [address] [place] [address] Federico TateNetting Weaver[employer] [facility] [place] [address] Rajesh Mercado MD PhD [id number] [address] Atrial flutter, unspecified type (HCC) Discharge Disposition: Discharge to home or self care Social History Tobacco Use Types Packs/Day Years [...] on file Legal Sex Male 5:10 AM HOSIERY MATER Gender Identity Male 09/02/2020 7:30 AM HOSIERY MATER Sexual Orientation Straight 01/29/2020 8: 36 AM [...] M-F call our Outpatient Nurse Coordinators at [phone]. If you need to speak to someone after 5pm please call [facility] at [phone] and ask the pony ride operator to page the Cardiac Mammography Supervisor Fellow precision agronomist. documented in this encounter Medications at Time [...] in this encounter Progress Notes * Gena Earl RN - 12/15/2024 1:09 PM CDT Spoke to [...] weeks with no missed doses. Directions givento build manager, parking garage, and to [facility]. documented in this encounter H&P Notes * Rajesh Mercado MD PhD - 12/17/2024 7:57 AM CDT I have reviewed the H&P, examined the patient, and endorse the findings as written. Plan of Care : Based on the above findings, I consider Orion Jacob to be an acceptable risk for : Procedure(s): CARDIOVERSION 71180 Source Note - Jesus Manuel Groves MD [...] for 7 days, then 4 tabs twice trujt415 tablet 11 levETIRAcetam (KEPPRA) 1,000 mg tablet [...] above please contact Dr. Groves directly at [phone]. documented in this encounter Miscellaneous Notes * [...] PhD - 12/17/2024 8:11 AM CDT CARDIOVERSION 32513 PRE-OP DIAGNOSIS: Atrial flutter EMPLOYEE DEVELOPMENT MANAGER: Rajesh Mercado MD PhD. REFERRING MD: Viji [...] procedure. Narrative 12/17/2024 8:14 AM CDT CARDIOVERSION 43038 PRE-OP DIAGNOSIS: Atrial flutter EMPLOYEE DEVELOPMENT MANAGER: Rajesh Mercado MD PhD. REFERRING MD: Viji [...] D EVICE Final Result Performing Organization Address [facility] Co de Phone Number [facility] Department [place] [address] * ECG 12 lead (12/17/2024 6:08 AM CDT) Pathologist [facility] Ventricular Rate EKG/Min 116 BPM [facility] Atrial Rate 116 BPM [facility] [place]-Interval (MSEC) 104 ms [facility] QRS-Interval (MSEC) 122 ms [facility] QT-Interval (MSEC) 340 ms [facility] QTc 472 ms [facility] R [place] -56 degrees [facility] T [place] 98 degrees [facility] Diagnosis atrial flutter with variable block Left anterior fascicular block Left ventricular hypertrophy with QRS widening and repolarization abnormality ( R in aVL , [place] product , Romhilt-Galloway ) Long QT interval Abnormal ECG When compared with ECG of 09-APR-2019 07:52, now in atrial flutter Confirmed by ADRIENNE SHORE M.D ([id number]) on 12/18/2024 9:15:22 AM [facility] 12/17/2024 6:08 AM CDT 12/18/2024 9:15 AM CDT us Rajesh Mercado MD PhD ECG ORDERABLES Final R esult Performing Organization Address [facility] Co de Phone Number [facility] documented in this encounter Visit Diagnoses Diagnosis [...] For priming tubing and/or flushing, Starting on Sat12/17/24 at 0608, Pre-Procedure (CV), 0-250 ml/hr to [...] 12/17/2024 documented in this encounter Care Teams Grain Roaster Relationship Specialty Start Date End Date Ravindra Leger MD [address] [place] [id number] PCP - General 09/27/16 Jesus Manuel Groves MD [address] [place] [id number] Consulting Physician Cardiology 02/10/21 Eliecer Ervin MD [address] [place] [address] Consulting Physician Cardiology 02/10/21 Hakeem Zuniga MD PhD [address] [place] [id number] Medical Oncologist/General Neurologist Medical Oncology 02/10/21 documented as of this encounter
--- OUTSIDE RECORDS SUMMARY | 2024-12-18 16:11 | XMS_ITS | Referral Summary ---
Author Organization [facility] Address [address] [place] [address] Care Team Providers Care Cream Cheese Maker Name Role Phone Ravindra Leger MD Primary Care Prov ider Katelyn Groves MD Unavailable [phone] Eliecer Ervin MD Unavailable [phone] Hakeem Zuniga MD PhD Unavailable [phone]- [phone] Encounters Date Type Department Care Team Description 12/18/2024 Orders Only [facility] Cardiology [address] [facility] [address] 8th [place] [address] [place] [address] Anne Walls RN 12/17/2024 Results Follow-Up [facility] Cardiology [address] [facility] [address] 8th [place] [address] [place] [address] Katelyn Groves MD Electrophysiology (EP) Study 12/17/2024 8:50 AM CDT - 12/17/2024 9:30 AM CDT [facility] [address] [phone] Rajesh Mercado MD PhD CARDIOVERSION [id number] 12/17/2024 8:03 AM CDT Anesthesia [facility] [address] [place] [address] Elkin Kaminski MD Ross, Elisha Nichole, RN 12/17/2024 6:06 AM CDT - 12/17/2024 9:10 AM CDT Hospital Encounter [facility] [address] [place] [address] Lea, Internet Ecommerce Specialist, Rajesh Vieira MD PhD Atrial flutter, unspecified type (HCC) Discharge Disposition: Discharge to home or self care 12/14/2024 Telephone [facility] Cardiology [address] [place] [address] 8th [place] [address] [place] [address] Katelyn Groves MD cardioversion 12/14/2024 Results Follow-Up [facility] Cardiology [address] [place] [address] [place] [address] [place] [address] Katelyn Groves MD ECG 12 lead 12/14/2024 10:15 AM CDT Office Visit [facility] Cardiology [address] [place] [address] 8th [place] [address] [place] [address] Katelyn Groves MD Atrial fibrillation with RVR (HCC) (Primary Dx); Paroxysmal atrial fibrillation (HCC); S/P AVR (aortic valve replacement); Nonrheumatic aortic valve insufficiency 12/14/2024 Telephone [facility] Cardiology [address] [place] [address] 8th [place] [address] [place] [address] Katelyn Groves MD Atrial Fibrillation 12/13/2024 Documentation [facility] Cardiology [address] [place] [address] 8th [place] [address] [place] [address] Katelyn Groves MD 11/26/2024 7:45 AM CDT Lab [facility] - Lab Collection [address] [facility] Floor [address] [place] [address] 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) 11/26/2024 9:15 AM CDT Office Visit [facility] Bone Marrow Transplant [address] [facility] Floor 6 [place] [address] Hakeem Zuniag MD PhD 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) 11/26/2024 8:15 AM CDT Lab [facility] Oncology Lab [address] [facility] Floor 6 [place] [address] 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) 11/16/2024 2:00 PM CDT Office Visit [facility] Epilepsy [address] [place] [phone] Faustino Mtz MD Temporal lobe seizure (HCC) 10/28/2024 Results Follow-Up [facility] Cardiology [address] [place] [address] 8th [place] [address] [place] [address] Katelyn Groves MD Transthoracic Echo (TTE) Complete W Doppler/CF 10/27/2024 10:11 AM CDT - 10/27/2024 11:59 PM CDT Hospital Encounter [facility] Cardiac Diagnostic Lab [address] [place] [phone] Katelyn Groves MD S/P AVR (aortic valve replacement) Discharge Disposition: Discharge to home or self care 10/07/2024 11:15 AM CDT Office Visit [facility] Cardiology [address] [place] [address] 8th [place] [address] [place] [address] Katelyn Groves MD S/P AVR (aortic valve replacement) (Primary Dx); Paroxysmal atrial fibrillation (HCC); Dissection of ascending aorta (HCC); Primary hypertension from Last 3 Months Allergies No known active allergies Medications tamsulosin [...] h/o dysrhythmia -HR 130 at presentation to [facility], similar at OSH per report; BP [...] controlled this admission Bicuspid aortic valve 07/27/2010 Immunizations Immunization Administration Dates Next Due Influenza, Quadrivalent, Naomi l Culture-based MDCK, Preservative Free, Antibiotic Free, Intramuscular 05/05/2020,05/07/2019 Influenza, Quadrivalent, Spl it, Preservative Free, Intramuscular 05/08/2018 Influenza, Trivalent, Preser vative Free, Intramuscular 06/28/2016 Influenza, Unspecified 04/14/2017 Moderna SARS-CoV-2 Monovalen t Vaccination (12+ YRS) 06/02/2021,09/23/2020,08/26/2020 Pfizer SARS-CoV-2 Monovalent Vaccination (12+ Yrs) PURPLE 12/07/2021 Social History Tobacco Use Types Packs/Day Years [...] on file 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 Narrative 12/17/2024 8:14 AM CDT CARDIOVERSION [id number] PRE-OP DIAGNOSIS: Atrial flutter TOP FLAVOR ATTENDANT: Rajesh Mercado MD PhD. REFERRING MD: Viji [...] Chemistries, Arterial - (12/17/2024 7:35 AM CDT) [facility] K POC 4.7 3.3 - 4.9 mmol/L Comment: Interpretive Data Not all point of care methods assess for hemolysis. Confirm with instrument and retest K+ if not consistent with clinical signs and symptoms. Current Interpretive Data was last revised on 2023. Blood 12/17/2024 7:35 AM CDT 12/17/2024 7:35 AM CDT Rajesh Mercado MD PhD LAB POCT ORDERABLES - D EVICE Final Result Performing Organization Address City/State/[facility] Co de Phone Number [facility] One [facility] Department [place] [address] * ECG 12 lead (12/17/2024 6:08 AM CDT) Pathologist [facility] Ventricular Rate EKG/Min 116 BPM [facility] Atrial Rate 116 BPM [facility] [place]-Interval (MSEC) 104 ms [facility] QRS-Interval (MSEC) 122 ms [facility] QT-Interval (MSEC) 340 ms [facility] QTc 472 ms [facility] R Ray -56 degrees [facility] T Ray 98 degrees [facility] Diagnosis atrial flutter with variable block Left anterior fascicular block Left ventricular hypertrophy with QRS widening and repolarization abnormality ( R in aVL , Tim product , Romhilt-Galloway ) Long QT interval Abnormal ECG When compared with ECG of 09-APR-2019 07:52, now in atrial flutter Confirmed by ADRIENNE SHORE M.D ([id number]) on 12/18/2024 9:15:22 AM [facility] 12/17/2024 6:08 AM CDT 12/18/2024 9:15 AM CDT us Rajesh Mercado MD PhD ECG ORDERABLES Final R esult [facility] * ECG 12 lead (12/14/2024 9:37 AM CDT) Katelyn Groves MD ECG ORDERABLES Edited Result - Final * (ABNORMAL) eGFR (11/26/2024 7:50 AM CDT) eGFR 59(L) >=60 mL/min/1. 73 m2 Comment: [...] CDT 11/26/2024 7:56 AM CDT us Blaire Meneses [place] COMPUTATOR LAB BLOOD ORDERABLES Final Res ult [facility] One [facility] Department [place] [address] * (ABNORMAL) Differential, auto (11/26/2024 7:50 AM CDT) Neutrophil abs 3.67 1.50 - 6.50 K/cumm Comment:Testing performed by : [facility], [address] [place] [phone] Lymphocyte abs 4.38(H) 0.80 - 3.30 K/cumm [facility] Comment:Testing performed by : [facility], [address] [place] [phone] Monocyte abs 0.49 0.20 - 0.80 K/cumm [facility] Comment:Testing performed by : [facility], [address] [place] [address] Eosinophil abs 0.14 0.00 - 0.50 K/cumm [facility] Comment:Testing performed by : [facility], [address] [place] [address] Basophil abs 0.03 0.00 - 0.10 K/cumm [facility] Comment:Testing performed by : [facility], [address] [place], [place] [id number] Neutrophil pct 42.2 % [facility] Comment: Interpretive Data Percent cell count reference ranges are not reported, since discordance with absolute values may lead to misinterpretation of CBC data. Current Interpretive Data was last revised on 2017. Testing performed by: [facility], [address] [place] [phone] Lymphocyte pct 50.3 % [facility] Comment: Interpretive Data Percent cell count reference ranges are not reported, since discordance with absolute values may lead to misinterpretation of CBC data. Current Interpretive Data was last revised on 2017. Testing performed by: [facility], [address] [place] [phone] Monocyte pct 5.6 % [facility] Comment: Interpretive Data Percent cell count reference ranges are not reported, since discordance with absolute values may lead to misinterpretation of CBC data. Current Interpretive Data was last revised on 2017. Testing performed by: [facility], [address] [place] [phone] Eosinophil pct 1.6 % [facility] Comment: Interpretive Data Percent cell count reference ranges are not reported, since discordance with absolute values may lead to misinterpretation of CBC data. Current Interpretive Data was last revised on 2017. Testing performed by: [facility], [address] [place] [phone] Basophil pct 0.3 % [facility]ER[facility]IN [facility] Comment: Interpretive Data Percent cell count reference ranges are not reported, since discordance with absolute values may lead to misinterpretation of CBC data. Current Interpretive Data was last revised on 2017. Testing performed by: [facility], [address] [place] [address] Blood 11/26/2024 7:50 AM CDT 11/26/2024 7:55 AM CDT us Blaire Baer COMPUTATOR LAB BLOOD ORDERABLES Final Res ult [facility]MEN [facility] Department [place] [address] * (ABNORMAL) CBC with auto differential (11/26/2024 7:50 AM CDT) WBC 8.70 3.80 - 9.90 K/cumm Comment:Testing performed by : [facility], [address] [place] [address] Hgb 16.2 13.0 - 17.5 g/dL [facility]MEN [facility] Comment:Testing performed by : [facility], [address] [place] [address] Hct 46.3 38.9 - 50.3 % CARMEN [facility] Comment:Testing performed by : [facility], [address] [place] [address] Plt 88(L) 150 - 400 K/cumm [facility] Comment:Testing performed by : [facility], [address] [place] [address] MPV 8.7 6.8 - 10.4 fL CARMEN [facility] Comment:Testing performed by : [facility], [address] [place] [address] RBC 5.14 4.30 - 5.80 M/cumm CARMNE [facility]OA Comment:Testing performed by : [facility], [address] [place] [phone] MCV 90.0 81.3 - 96.4 fL [facility]ERELIN [facility] Comment:Testing performed by : [facility], [address] [place], [place] [phone] MCH 31.5 27.1 - 33.3 pg [facility]ER[facility]IN [facility] Comment:Testing performed by : [facility], [address] [place], [place] [phone] MCHC 35.0 32.3 - 35.7 g/dL [facility] Comment:Testing performed by : [facility], [address] [place] [address] RDW CV 13.6 11.1 - 14.9 % [facility] Comment:Testing performed by : [facility], [address] [place], [place] [phone] NRBC abs 0.00 0.00 - 0.01 K/cumm [facility] Comment:Testing performed by : [facility], [address] [place] [address] Blood 11/26/2024 7:50 AM CDT 11/26/2024 7:55 AM CDT Blaire SEtelvina [place] COMPUTATOR LAB BLOOD ORDERABLES Final Res ult Performing Organization Address [facility] Co de Phone Number [facility] [place] [address] * (ABNORMAL) Lactate dehydrogenase (LD) (11/26/2024 7:50 AM CDT) Lactate dehydrogenase (LDH) 354(H) 100 - 250 Units/L Blood 11/26/2024 7:50 AM CDT 11/26/2024 7:56 AM CDT Blaire S. [place] COMPUTATOR LAB BLOOD ORDERABLES Final Res ult Performing Organization Address City/[facility] Co de Phone Number [facility] [place] [address] * (ABNORMAL) Comprehensive metabolic panel (11/26/2024 7:50 AM CDT) Sodium 136 135 - 145 mmol/L Potassium, pl 5.0(H) 3.3 - 4.9 mmol/L [facility] Chloride 102 97 - 110 mmol/L [facility] CO2 28 22 - 32 mmol/L [facility] Anion gap 6 2 - 15 mmol/L [facility] BUN 23 6 - 25 mg/dL [facility] Creatinine 1.30 0.80 - 1.30 mg/dL [facility] Glucose 140 70 - 199 mg/dL [facility] Comment: Interpretive Data Fasting glucose >/= 126 [...] classification and Diagnosis of Diabetes Diabetes Care 202; 46: S19-S40. Current interpretive data was last revised 2022. Calcium 10.1 8.5 - 10.3 mg/dL [facility] Bilirubin, total 1.5(H) 0.1 - 1.2 mg/dL [facility] Protein, pl 7.2 6.5 - 8.5 g/dL [facility] Albumin 4.4 3.5 - 5.0 g/dL [facility] Alk phos 90 40 - 130 Units/L [facility] ALT 16 7 - 55 Units/L [facility] AST 32 10 - 50 Units/L [facility] Blood 11/26/2024 7:50 AM CDT 11/26/2024 7:56 AM CDT us Blaire Odomr COMPUTATOR LAB BLOOD ORDERABLES Final Res ult [facility] Department [place] [address] * TRANSTHORACIC ECHO (TTE) COMPLETE W DOPPLER/CF W CONTRAST (10/27/2024 11:19 AM CDT) LV EF 58 % CONS SCIMAGE Anatomical Region Laterality Modality Ultrasound 10/27/2024 10:3 1 AM CDT Narrative 10/28/2024 10:29 AM CDT [facility] Cardiac [place] [address] Transthoracic Echocardiographic Report Patient Name: OLLIE PRIETO W : 1955 (69y 7m) Gender: M Study Date: 10/27/2024 10:31:07 AM Ht(Inch): 72 Wt(Lb): 246.03 BSA: 2.38 Workers' Compensation Hearings Officer: Christa Catherine RDCS Location: [facility] Order Provider: KATELYN GROVES Heart Rate: [...] Procedure Note Katelyn Groves MD - 10/28/2024 [facility] Cardiac [place] [address] Transthoracic Echocardiographic Report Patient Name: OLLIE PRIETO W : 1955 (69y 7m) Gender: M Study Date: 10/27/2024 10:31:07 AM Ht(Inch): 72 Wt(Lb): 246.03 BSA: 2.38 Workers' Compensation Hearings Officer: Christa Catherine RDCS Location: [facility] Order Provider:KATELYN GROVES Heart Rate: 71 [...] cm [ 1.71 - 5.00 ] RA Oasejs33.47 ml RA Volume Index26.67 ml/m2 AoR Diam 2D 4.22 cm [ 3.10 - 3.70 ] Ao Root Index 1.77 cm/m2 [ 1.00 - 2.00 ] Electronically Signed By: Katelyn Groves M.D. 10/28/2024 10:29:00 AM CDT CC: Katelyn Groves M.D. Katelyn Groves MD CV ECHO PROCEDURES [...] Electronically signed by: Beto Dudley M.D. Blaire Meneses [place] COMPUTATOR IMG CT PROCEDURES Final Result * Serum Hepatitis C ab (04/08/2015 8:41 AM CDT) HCV ab Negative NEG HISTORICAL RESULTS Serum 04/08/2015 8:41 AM CDT Narrative HISTORICAL RESULTS - 04/09/2015 4:20 AM CDT Interpretive Data If confirmation is required, call Laboratory Customer Service to request sample to be sent to [facility] for Hepatitis C Virus (HCV) RNA Detection and Quantitation by Real-Time Reverse Mechanical Integrity Engineer-PCR (RT-PCR). Current interpretive data was last revised on 2011 Hakeem Zuniga MD PhD LAB BLOOD ORDERABLES Final Result HISTORICAL RESULTS from Last 3 Months or Most Recently Relevant to Health Maintenance Insurance MEDICARE [facility] Address: [facility] [address] [place] [address] [facility] PPO [facility] HMO/PPO Address: [address] [address] [place] [address] [facility] PPO [facility] MEDICARE ANTH ACCESS Member Subscriber Plan / Payer (Ef fective 2014-Present) Name:Ollie Prieto Relation to Subscriber:Self Name:Ollie Prieto Payer ID:[id number] (NAIC) Type:[facility] Address: [id number] CHOICE PLUS MEDICARE [facility] Advance Directives For more information, please contact: [phone] * Full Code (Latest Code Status on File) Date Activated Date Inactivated Comments 04/07/2019 8:33 AM 04/09/2019 7:27 PM Care Teams Cream Cheese Maker Relationship Specialty Start Date End Date Ravindra Leger MD [address] [place] [address] PCP - General 09/27/16 Katelyn Groves MD [address] [place] [phone] Consulting Physician Cardiology 02/10/21 Eliecer Ervni MD [address] [place] [address] Consulting Physician Cardiology 02/10/21 Hakeem Zuniga MD PhD [address] [place] [address] Medical Oncologist/Scanning Coordinator Medical Oncology 02/10/21
--- OUTSIDE RECORDS SUMMARY | 2024-12-18 16:11 | XMS_ITS | Encounter Summary ---
Author Organization [facility] Address [address] [place] [address] Phone Care Team Providers Care Entry Level Project Coordinator Name Role Phone Ravindra Leger MD Primary Care Prov ider Jesus Manuel Groves MD Unavailable [phone] Eliecer Ervin MD Unavailable Hakeem Zuniga MD PhD Unavailable [phone] Encounter Details Date Type Department Care Team (Late st Contact Info) Description 10/28/2024 Results Follow-Up [facility] Cardiology [address] [facility] [address] 8th [place] [address] [place] [phone] Jesus Manuel Groves MD [address] 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 Sexual Orientation Straight 01/29/2020 8 :36 AM CDT documented as of this encounter Plan of Treatment Not on file documented as of this encounter Visit Diagnoses Not on filedocumented in this encounter Care Teams Entry Level Project Coordinator Relationship Specialty Start Date End Date Ravindra Leger MD [address] [place] [address] PCP - General 09/27/16 Jesus Manuel Groves MD [address] [place] [phone] Consulting Physician Cardiology 02/10/21 Eliecer Ervin MD [address] [place] [phone] Consulting Physician Cardiology 02/10/21 Hakeem Zuniga MD PhD [address] [place] [phone] Medical Oncologist/Supervisor Pipe Manufacture Medical Oncology 02/10/21 documented as of this encounter
[2024-12-18 16:57] LABS: Hematocrit 46.8 % (42.0-52.0); Hemoglobin 15.3 g/dL (14.0-18.0); Immature Platelet Fraction Pct 6.5 % (0.9-11.2); Mean Corpuscular HGB Conc 32.7 g/dl (32-36); Mean Corpuscular Hemoglobin 30.8 pg (26-34); Mean Corpuscular Volume 94.4 fl (80-100); Mean Platelet Volume 11.2 fl (7.4-10.4); Platelet Count Result 88 k/mm3 (150-375); Red Blood Count 4.96 M/mm3 (4.6-6.20); Red Cell Distribution Width 13.2 % (11.5-14.5); White Blood Count 8.7 K/mm3 (4.5-10.0)
[2024-12-18 17:08] LABS: Alanine Aminotransferase 18 U/L (6-50); Albumin Level 4.4 g/dL (3.5-5.1); Alkaline Phosphatase 79 U/L (38-126); Anion Gap 9 mmol/L (4-12); Aspartate Amino Transferase 30 U/L (17-59); Bilirubin,Total 1.5 mg/dL (0.2-1.3); Blood Urea Nitrogen 33 mg/dL (9-20); Calcium 10.1 mg/dL (8.4-10.2); Carbon Dioxide 23 mmol/L (22-30); Chloride 106 mmol/L (98-107); Estimated CRCL calculation 57 ml/min; Estimated Glomerular Filt Rate 51; Glucose 119 mg/dL (65-110); Potassium 4.7 mmol/L (3.4-5.0); Sodium 138 mmol/L (137-145); Total Protein 7.1 g/dL (6.3-8.2)
[2024-12-18 17:09] LABS: Lactic Acid Reflex 1.1 mmol/L (0.7-2.0)
--- OUTSIDE RECORDS SUMMARY | 2024-12-18 17:12 | XMS_ITS | Continuity of Care Document ---
Author Organization [employer] [place] Address [address] [place] [address] [address] [place] [address] Phone Care Team Providers Care Supervisor Treating And Pumping Name Role Phone Jovany OWENGela Unavailable Unavailable [...] Diagnoses Date Provider Providers Copied on Encounter [address], [id number], tel:[phone] [place] No Information [address] [address] [facility], [facility] [address], [place], [facility], . tel:[phone] Referring Provider: Td Montanez, [address] [place] [address], [place], [address]. tel:[phone], [id number], tel:[phone] [place] No Information [address] [facility], [facility] [address], [place], [facility], . tel:[phone] Referring Provider: Td Montanez, [facility] [address], [place], [address]. tel:[phone], [id number], tel:[phone] [place] No Information [address] [address] [facility], [address], [place], [facility], . tel:[phone] Referring Provider: Td Montanez, [facility] [address], [place], [address]. tel:[phone], [id number], tel:[phone] [place] No Information Dec-2 2-201 6 Jovany Gela. [address] [place] [address], [address], [place], [address], [place]. tel:[phone] Referring Provider: Td Montanez, [facility]0 [facility] [address], [place], [address]. tel:[phone] [place] [address], [address] [place] [address]e [address], [place], [place], [id number], [place] tel:[phone] [place] No Information Dec-2 0-201 6 [place] Gela. [address] [place] [address], [address], [place], [address], [place]. tel:[phone] Referring Provider: Td Montanez, [facility] [address], [place], [address]. tel:[phone] [place] [address] 300, [place], [id number], [place] tel:[phone] [place] No Information Dec-1 3-201 6 Jovany Gela. [address] [place] [address], [address], [address], [place]. tel:[phone] Referring Provider: Td Montanez, [facility] [address], [place], [address]. tel:[phone] [place] [address] [address], [place], [id number], [place] tel:[phone] [place] No Information Dec-1 2-201 6 Jovany Gela. [address] [place] [address], [address], [place], [address], [place]. tel:[phone] Referring Provider: Td Montanez, [facility] [address], [place], [address]. tel:[phone] [place] [address] 300, [place], [id number], tel:[phone] [place] No Information Dec-0 8-201 6 [place] Gela. [address] [place] [address], [address], [place], [address], [place]. tel:[phone] Referring Provider: Td Montanez, [address] [facility] [address], [place], [address]. tel:[phone], [place], [place], [id number], tel:[phone] [place] No Information Dec-0 1-201 6 [place] Gela. [address] [place] [address], [address], [place], [facility], [place]. tel:[phone] Referring Provider: Td Montanez, [address] [facility] [address], [place], [address]. tel:[phone], [place], [address], [place] tel:[phone] [place] No Information 9-201 6 [place] Gela. [address] [place] [address], [address], [place], [facility], [place]. tel:[phone] Referring Provider: Td Montanez, [address] [facility] [address], [place], [address]. tel:[phone], [place], [address], [place] tel:[phone] [place] No Information May-2 2-201 6 [place] Gela. [address] [place] [address], [address], [address], [place]. tel:[phone] Referring Provider: Td Montanez, [address] [facility] [address], [place], [address]. tel:[phone] [address], [id number], [place] tel:[phone] [place] No Information 7-201 6 Jovany Gela. [address] [place] [address], [address], [place], [address], [place]. tel:[phone] Referring Provider: Td Montanez, [address] [facility] [address], [place], [address]. tel:[phone] [facility] [address] [place] [address] 300, [place], [id number], [place] tel:[phone] [place] No Information [address] [address] [facility], [address], [place], [facility], [place]. tel:[phone] Referring Provider: Td Montanez, [address] [place] [address], [place], [facility]. tel:[phone], [place], [place], [id number], [place] tel:[phone] [place] No Information 0 6 [place] Wright. . Referring Provider: Td Montanez, [address] [place] [address], [place], [facility]. tel:[phone] [address], [place], [address], [place] tel:[phone] [place] Pain in right kneeStiffness of right knee, not elsewhere classifiedOth symptoms and signs involving the musculoskelet al systemOther abnormalities of gait and mobilityOsteo arthritis of knee, unspecified [address] [address] [facility], [address], [place], [facility], [place]. tel:[phone] Referring Provider: Td Montanez, [facility] [address], [place], [facility]. tel:[phone], [place], [address], [place] tel:[phone] [place] No Information 6-201 5 Soumya Goodwin. [address] [place] [address], [address], [place], [facility], [place]. tel:[phone] [facility], [address] [place] [address] 300, [place], [address], [place] tel:[phone] [place] No Information Oct-0 5-201 5 Haus[place] Christa. [address] [place] [address], [address], [place], [facility], [place]. tel:[phone] [place] [address] [address], [place], [id number], tel:[phone] [place] Muscle weakness (generalized) Paresthesia of skinPain in right wristPain in left wristOther instability, right wristCarpal tunnel syndrome, left upper limbCarpal tunnel syndrome, right upper limb Oct-0 2-201 5 Hauschild Christa. [address] [place] [address], [address], [place], [facility], [place]. tel:[phone] [place] [address] [facility] [address], [place], [place], [address], tel:[phone] [place] No Information Sep-2 9-201 5 Hauschild Christa. [address] [place] [address], [address], [place], [facility], [place]. tel:[phone] [place] [address] [facility] [address], [place], [id number], [place] tel:[phone] [place] No Information Sep-2 3-201 5 Hauschild Christa. [address] [place] [address], [address], [place], [facility], [place]. tel:[phone] [place] [address] [address], [place], [place], [address], [place] tel:[phone] [place] No Information Sep-2 1-201 5 Hauschild Christa. [address] [place] [address], [address], [place], [facility], [place]. tel:[phone] [place] [address] [facility] [address], [place], [place], [address], tel:[phone] [place] No Information Sep-1 8-201 5 Hauschild Christa. [address] [place] [address], [address], [place], [facility], [place]. tel:[phone] [place] [address] [address], [place], [address], [place] tel:[phone] [place] No Information Sep-1 4-201 5 Hauschild Christa. [address] [place] [address], [address], [place], [address], [place]. tel:[phone] [place] [address] [address], [place], [place], [address], [place] tel:[phone] [place] No Information Sep-1 1-201 5 Hauschild Christa. [address] [place] [address], [address], [place], [address], [place]. tel:[phone] [place] [address] [address], [place], [address], [place] tel:[phone] [place] No Information Sep-0 8-201 5 Hauschild Christa. [address] [place] [address], [address], [place], [address], [place]. tel:[phone] [place] [address] [facility] [address], [place], [place], [address], [place] tel:[phone] [place] No Information Sep-0 4-201 5 Hauschild Christa. [address] [place] [address], [address], [place], [address], [place]. tel:[phone] [place] [address] [address], [place], [address], [place] tel:[phone] [place] No Information Sep-0 2-201 5 Hauschild Christa. [address] [place] [address], [address], [place], [address], [place]. tel:[phone] [place] [address] [address], [place], [place], [address], [place] tel:[phone] [place] No Information Aug-2 6-201 5 Hauschild Christa. [address] [place] [address], [address], [place], [address], [place]. tel:[phone] [place], [place] [address] [address], [place], [place], [address], [place] tel:[phone] [place] No Information Feb-2 4-201 5 Hauschild Christa. [address] [place] [address], [address], [place], [address], [place]. tel:[phone] [facility] [address], [place], [place], [address], [place] tel:[phone] [place] No Information Feb-2 1-201 5 Hauschild Christa. [address] [place] [address], [address], [place], [address], [place]. tel:[phone] [place] [address], [address], [place], [place], [address], [place] tel:[phone] [facility] No Information Feb-1 7-201 5 Hauschild Christa. [address] [place] [address], [address], [place], [address], [place]. tel:[phone] [place] [address] [address], [place], [place], [address], [place] tel:[phone] [place] No Information 1 4-201 5 Hauschild Christa. [address] [place] [address], [address], [place], [address], [place]. tel:[phone] [place] [address] [address], [place], [address], [place] tel:[phone] [place] No Information Feb-1 0-201 5 Hauschild Christa. [address] [place] [address], [address], [place], [address], [place]. tel:[phone] [place] [address] [address], [place], [place], [address], [place] tel:[phone] [facility] No Information Aug-0 5-201 5 Hauschild Christa. [address] [place] [address], [address], [place], [address], [place]. tel:[phone] [facility], [address], [place], [place], [address], [place] tel:[phone] [place] No Information Feb-0 3-201 5 Hauschild Christa. [address] [place] [address], [address], [place], [address], [place]. tel:[phone] [facility] [address], [place], [place], [address], [place] tel:[phone] [place] No Information Jan-3 1-201 5 Hauschild Christa. [address] [place] [address], [address], [place], [address], [place]. tel:[phone] [place] [address], [address], [place], [place], [address], [place] tel:[phone] [place] No Information Jan-2 9-201 5 Hauschild Christa. [address] [place] [address], [address], [place], [address], [place]. tel:[phone] [place] [address] [address], [place], [place], [address], [place] tel:[phone] [place] No Information Jan-2 2-201 5 Hauschild Christa. [address] [place] [address], [address], [place], [address], [place]. [phone] [place] [address] [address], [place], [address], [place] tel:[phone] [place] No Information Jan-2 0-201 5 Hauschild Christa. [address] [place] [address], [address], [place], [address], [place]. tel:[phone] [place] [address] [address], [place], [place], [address], [place] tel:[phone] [place] No Information Jan-1 7-201 5 Hauschild Christa. [address] [place] [address], [address], [place], [address], [place]. tel:[phone] [place] [address], [address], [place], [place], [address], [place] tel:[phone] [place] No Information Uche-1 5-201 5 Hauschild Christa. [address] [place] [address], [address], [place], [address], [place]. tel:[phone] [facility] [address], [place], [place], [address], [place] tel:[phone] [place] No Information Jan-1 0-201 5 Hauschild Christa. [address] [place] [address], [address], [place], [address], [place]. tel:[phone] [place] [address], [address], [place], [place], [address], [place] tel:[phone] [place] No Information Uche-0 6-201 5 Hauschild Christa. [address] [place] [address], [address], [place], [address], [place]. tel:[phone] [place] [address], [facility] [address], [place], [address], [place] tel:[phone] [place] No Information Jan-0 1-201 5 Hauschild Christa. [address] [place] [address], [address], [place], [address], [place]. tel:[phone] [facility], [place], [address], [place] tel:[phone] [place] No Information Bryce-2 9-201 5 Hauschild Christa. [address] [place] [address], [address], [place], [address], [place]. tel:[phone] [place] [address] [address], [place], [place], [address], [place] tel:[phone] [place] No Information Bryce-2 6-201 5 Hauschild Christa. [address] [place] [address], [address], [place], [address], [place]. tel:[phone] [place] [address], [facility] [address], [place], [place], [address], [place] tel:[phone] [place] No Information Bryce-2 2-201 5 Hauschild Christa. [address] [place] [address], [address], [place], [address], [place]. tel:[phone] [place] [address] [address], [place], [place], [address], [place] tel:[phone] [place] No Information Bryce-1 9-201 5 Hauschild Christa. [address] [place] [address], [address], [place], [address], [place]. tel:[phone] [place] [address], [facility] [address], [place], [place], [address], [place] tel:[phone] [place] No Information Bryce-1 7-201 5 Hauschild Christa. [address] [place] [address], [address], [place], [facility], [place]. tel:[phone] [place] [address] [address], [place], [address], [place] tel:[phone] [facility] No Information Bryce-1 2-201 5 Hauschild Christa. [address] [place] [address], [address], [place], [address], [place]. tel:[phone] [place] [address] [address], [place], [place], [address], [place] tel:[phone] [place] No Information Bryce-1 0-201 5 Hauschild Christa. [address] [place] [address], [address], [place], [address], [place]. tel:[phone] [place] [address], [address] [place] [address] [address], [place], [address], [place] tel:[phone] [place] No Information Bryce-0 8-201 5 Hauschild Christa. [address] [place] [address], [address], [place], [address], [place]. tel:[phone] [place] [address] [facility] [address], [place], [address], [place] tel:[phone] [place] No Information Bryce-0 4-201 5 Hauschild Christa. [address] [place] [address], [address], [place], [address], [place]. tel:[phone] [place] [address] [address], [place], [address], [place] tel:[phone] [place] No Information Bryce-0 3-201 5 Hauschild Christa. [address] [place] [address], [address], [place], [facility], [place]. tel:[phone] [place] [address] [facility] [address], [place], [place], [address], tel:[phone] [place] No Information Bryce-0 1-201 5 Hauschild Christa. [address] [place] [address], [address], [place], [facility], [place]. tel:[phone] [place] [address] [address], [place], [address], [place] tel:[phone] [place] No Information May-2 9-201 5 Hauschild Christa. [address] [place] [address], [address], [place], [address], [place]. tel:[phone] [place] [address] [address], [place], [address], [place] tel:[phone] [place] No Information May-2 7-201 5 Hauschild Christa. [address] [place] [address], [address], [place], [address], [place]. tel:[phone] [place] [address], [address], [place], [place], [address], [place] tel:[phone] [place] No Information May-2 6-201 5 Hauschild Christa. [address] [place] [address], [address], [place], [facility], . tel:[phone], [place], [place], [address], tel:[phone] [place] No Information May-2 2-201 5 Hauschild Christa. [address] [place] [address], [facility] [address], [place], [facility], . tel:[phone], [place], [address], tel:[phone] [place] No Information May-2 0-201 5 Hauschild Christa. [address] [place] [address], [facility] 105, [place], [facility], . tel:[phone], [place], [address], tel:[phone] [place] Pain in joint involving hand May-1 3-201 5 Hauschild Christa. [address] [place] [address], [facility] [address], [place], [facility], . tel:[phone] Family History Family Member Type Diagnosis Age At Onset No Information Payers Payer name Insurance type Covered democrat ID Authorkhris melton(s) [facility] [id number] Social History Type Description Quantity Date Captured [...]
--- NOTE | 2024-12-18 17:16 | ED_ITS ---
HPI - SOB/Dyspnea General Chief Complaint: Shortness of Breath/Dyspnea Stated Complaint: shortness of breath Time Seen by Provider: 12/18/24 16:23 History of Present Illness HPI Narrative: Patient is a 69-year-old male who presents ER for shortness of breath. Began yesterday a few hours after undergoing cardioversion for atrial fibrillation. Reports he had some mild sinus congestion it was draining but he was also having productive cough some brownish sputum. He continued to sleep in a reclined position all night because could not lay down flat. He continues to have shortness of breath today especially with exertion which is atypical forearm. No chest pain. No fevers or chills or sweats. He is anticoagulated on Eliquis. Related Data Home Medications ?Medication ?Instructions ?Recorded ?Confirmed ?Last Taken ?Type apixaban 5 mg tablet (Eliquis) 5 mg PO BID 01/30/22 11/26/24 Unknown History cholecalciferol (vitamin D3) 25 25 mcg PO DAILY 01/30/22 11/26/24 Unknown History mcg (1,000 unit) capsule metoprolol succinate 50 mg 25 mg PO DAILY 01/30/22 11/26/24 Unknown History tablet,extended release 24 hr rosuvastatin 5 mg tablet 5 mg PO DAILY 01/30/22 11/26/24 Unknown History acalabrutinib maleate 100 mg mg PO 11/26/24 11/26/24 Unknown History tablet (Calquence (acalabrutinib maleate)) lamotrigine 25 mg tablet 25 mg PO 11/26/24 11/26/24 Unknown History Allergies Allergy/AdvReac Type Severity Reaction Status Date / Time No Known Allergies Allergy Verified 12/18/24 16:11 Review of Systems 2 Review of Systems: All systems reviewed & are unremarkable except as noted in HPI and below Constitutional: Constitutional: Reports no additional constitutional complaints ENT: Reports system reviewed and no additional complaints, except as documented Cardiovascular: Cardiovascular: Reports no additional cardiovascular complaints Respiratory: Respiratory: Reports no additional respiratory complaints Gastrointestinal: Gastrointestinal: Reports no additional gastrointestinal complaints [facility] Past Medical History Medical History Aortic dissection Bicuspid aortic valve CLL (chronic lymphocytic leukemia) History of cerebral infarction Surgical History Surgical History History of aortic valve replacement Bovine valve History of knee replacement History of surgery on wrist S/P aortic bifurcation bypass graft Family History Family History Father Kidney disease Social History Social History Social History: Mr. Jacob lives at home with his . He is independent in his activities. 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 His PCP is Dr. Valenzuela. He designates his , Ernestina, as his surrogate decision maker. He would like to be a full code. Years smoked: 15 Smoking status: Former smoker Tobacco type: cigarettes Smoking end date: 10/24/05 Alcohol intake: never Substance use: never Do You Feel Safe in your Home?: Yes Lack of Transportation: No Lack of Food: Never True Current Housing: I Have Housing Concerned About Future Housing: No Difficulty Paying Gas/Electric Bills: No Difficulty Paying for Meds: No Currently Unemployed: No Education: High School Diploma/GED Difficulty w/ Childcare or Family Care: No Living arrangements: with family Exam 2 Narrative: GENERAL: Well-appearing, well-nourished, and in no acute distress. HEAD: Normocephalic, atraumatic. ENT: Mucous membranes moist. CHEST: Bibasilar crackles. No respiratory distress. HEART: Regular rate and rhythm. Normal peripheral pulses. ABDOMEN: Soft, nontender, nondistended. EXTREMITIES: Normal range of motion. No edema. SKIN: Warm, dry, no rash. NEURO: Alert and oriented x3. PSYCH: Normal mood and affect. Course Course Emergency Course: Patient resting comfortably. Ambulatory without hypoxia. Discussed with Dr. Mendez with cardiology [facility] who is on-call for patient's primary machine adjuster helper Dr. Groves. Patient seems admixed. Sure heart failure and possibly aspiration pneumonia. Will be started on ceftriaxone and metronidazole. Patient has been accepted for transfer. Vital Signs Vital signs: Vital Signs Temperature 98.1 F 12/18/24 16:09 Pulse Rate 70 12/18/24 16:09 Respiratory Rate 16 12/18/24 16:09 Blood Pressure 152/66 H 12/18/24 16:09 Pulse Oximetry 94 12/18/24 16:09 Oxygen Delivery Room Air 12/18/24 16:09 Temperature 98.1 F 12/18/24 16:09 Pulse Rate 57 L 12/18/24 18:21 Respiratory Rate 16 12/18/24 18:21 Blood Pressure 123/58 L 12/18/24 18:21 Pulse Oximetry 97 12/18/24 18:21 Oxygen Delivery Room Air 12/18/24 17:10 MDM - SOB/Dyspnea Lab Data 12/18/24 16:45 12/18/24 16:45 Labs: Lab Results 12/18/24 Range/Units 16:45 WBC 8.7 (4.5-10.0) K/mm3 RBC 4.96 (4.6-6.20) M/mm3 Hgb 15.3 (14.0-18.0) g/dL Hct 46.8 (42.0-52.0) % MCV 94.4 (80-100) fl MCH 30.8 (26-34) pg MCHC 32.7 (32-36) g/dl RDW 13.2 (11.5-14.5) % Plt Count 88 L (150-375) k/mm3 MPV 11.2 H (7.4-10.4) fl Immature Gran % (Auto) Not Reportable Neut % (Auto) Not Reportable Lymph % (Auto) Not Reportable [place] % (Auto) Not Reportable Eos % (Auto) Not Reportable Baso % (Auto) Not Reportable Lymph # (Auto) Not Reportable [place] # (Auto) Not Reportable Eos # (Auto) Not Reportable Baso # (Auto) Not Reportable Abs Immat Gran (auto) Not Reportable Absolute Neuts (auto) Not Reportable Absolute Nucleated RBC Not Reportable Total Counted 100 Neutrophils % (Manual) 56 (46-73) % Band Neutrophils % 1 (0-6) % Lymphocytes % (Manual) 36 (18-44) % Monocytes % (Manual) 5 (3-9) % Eosinophils % (Manual) 2 (0-4) % Basophils % (Manual) 0 (0-1) % Nucleated RBC % Not Reportable Abs Neuts (Manual) 4.95 (1.3-6.7) K/mm3 Abs Lymphs (Manual) 3.13 (1.1-4.5) K/mm3 Abs Monocytes (Manual) 0.43 (0.1-0.90) K/mm3 Absolute Eos (Manual) 0.17 (0.02-0.50) K/mm3 Abs Basophils (Manual) 0.00 (0.0-0.1) K/mm3 Atypical Lymphocytes Present Platelet Estimate Slightly decreased (Adequate) Large Platelets Present Giant Platelets Present % Immature Plt Fraction 6.5 (0.9-11.2) % Schistocytes None seen Sodium 138 (137-145) mmol/L Potassium 4.7 (3.4-5.0) mmol/L Chloride 106 (98-107) mmol/L Carbon Dioxide 23 (22-30) mmol/L Anion Gap 9 (4-12) mmol/L BUN 33 H D (9-20) mg/dL Creatinine 1.37 H (0.7-1.3) mg/dL Estim Creat Clear Calc 57 ml/min Estimated GFR 51 L (59 - ) Glucose 119 H (65-110) mg/dL Lactic Acid 1.1 (0.7-2.0) mmol/L Calcium 10.1 (8.4-10.2) mg/dL Total Bilirubin 1.5 H (0.2-1.3) mg/dL AST 30 (17-59) U/L ALT 18 (6-50) U/L Alkaline Phosphatase 79 (38-126) U/L Troponin I 0.033 (0.000-0.034) ng/mL NT-Pro-B Natriuret Pep 1570 H (19.9-100) pg/mL Total Protein 7.1 (6.3-8.2) g/dL Albumin 4.4 (3.5-5.1) g/dL Imaging Data Radiologist's impression: ITS Impressions Chest X-Ray 12/18/24 17:03 IMPRESSION: Subsegmental bibasilar atelectasis/consolidation. Mild interstitial edema. Small bilateral pleural effusions. Chest CT 12/18/24 18:12 IMPRESSION: Mild interstitial edema. Subsegmental bilateral medial basilar atelectasis or consolidation. Aspiration could also be considered in this location. Small bilateral pleural effusions. ECG Data EKG #1: ECG completion date: 12/18/24 ECG completion time: 16:19 EKG Interpretation: normal rate (60), sinus rhythm, no ST changes, normal QRS, normal QT and left axis Discharge Plan Discharge Clinical Impression: Interstitial edema, Aspiration pneumonia Patient Disposition: Acute Care Hospital Condition: Stable Patient Language: Turkmen Prescriptions: No Action Calquence (acalabrutinib mal) 100 mg tablet PO lamotrigine 25 mg tablet 25 mg PO metoprolol succinate 50 mg tablet extended release 24 hr 25 mg PO DAILY cholecalciferol (vitamin D3) 25 mcg (1,000 unit) Capsule 25 mcg PO DAILY rosuvastatin 5 mg tablet 5 mg PO DAILY Eliquis 5 mg tablet 5 mg PO BID levetiracetam 750 mg tablet See Rx Instructions .ROUTE .COMPLEX Qty: 60 3RF Dose Instruction: TAKE 1 TABLET BY MOUTH TWICE A DAY Rx Instructions: TAKE 1 TABLET BY MOUTH TWICE A DAY tamsulosin 0.4 mg capsule See Rx Instructions .ROUTE .COMPLEX Qty: 30 10RF Dose Instruction: TAKE 1 CAPSULE BY MOUTH EVERY DAY Rx Instructions: TAKE 1 CAPSULE BY MOUTH EVERY DAY Follow-up/Referrals: Ravindra Leger MD [Primary Care Provider] -
[2024-12-18 17:17] LABS: NT Pro B Type Natriuretic Pept 1570 pg/mL (19.9-100)
--- NOTE | 2024-12-18 17:17 | PC.NURSE ---
Lab called to add on ordered troponin.
[2024-12-18 17:23] LABS: Band Neutrophils Percent 1 % (0-6); Basophils Percent Manual 0 % (0-1); Eosinophils Absolute Manual 0.17 K/mm3 (0.02-0.50); Eosinophils Percent Manual 2 % (0-4); Giant Platelets Present; Large Platelets Present; Lymphocytes Absolute Manual 3.13 K/mm3 (1.1-4.5); Lymphocytes Percent Manual 36 % (18-44); Monocytes Absolute Manual 0.43 K/mm3 (0.1-0.90); Monocytes Percent Manual 5 % (3-9); Neutrophils Absolute Manual 4.95 K/mm3 (1.3-6.7); Neutrophils Percent Manual 56 % (46-73); Platelet Estimate Slightly Decreased (Adequate); Total Cells Counted 100
[2024-12-18 17:24] LABS: Schistocytes None Seen
[2024-12-18 17:37] LABS: Troponin I 0.033 ng/mL (0.000-0.034)
[2024-12-18 17:50] LABS: Atypical Lymphocytes Present
--- NOTE | 2024-12-18 18:02 | PC.NURSE ---
This RN spoke with Alicia at the [facility] transfer center. All info provided.
--- NOTE | 2024-12-18 18:03 | PC.NURSE ---
Pt. to CT.
[2024-12-18] MEDS: FUROSEMIDE INJ 40 MG/4 ML VIAL IV PUSH (18:23)
[2024-12-18] MEDS: metroNIDAZOLE 500 MG TABLET PO (19:05)
--- NOTE | 2024-12-18 19:33 | PC.NURSE ---
Received report from JUMANA Trujillo for cont. of care. Pt AOx4 lying on stretcher, respirations even and unlabored. Pt denies SOB and/or chest pain at this time. Pt on cont. nuclear monitoring technician and cont. pulse oximeter monitor. Pt updated on plan of care, awaiting transfer to [facility]. Refer to [facility] for medication administration.
--- NOTE | 2024-12-18 21:42 | PC.NURSE ---
Solange from [facility] transfer center updated on pt plan of care. Per Solange still waiting on bed to become available.
== END 2024-12-19 00:01 | disposition short-term general hospital (02) ==
PROVIDERS: Emergency Provider Emergency Medicine; PCP Family Medicine Adolescent Medicine
DX: J69.0 Pneumonitis due to inhalation of food and vomit (principal); J81.1 Chronic pulmonary edema; I48.91 Unspecified atrial fibrillation; C91.10 Chronic lymphocytic leukemia of B-cell type not having achieved remission; I71.00 Dissection of unspecified site of aorta; Z95.1 Presence of aortocoronary bypass graft; Z95.3 Presence of xenogenic heart valve; Z96.659 Presence of unspecified artificial knee joint; Z87.74 Personal history of (corrected) congenital malformations of heart and circulatory system; Z86.73 Personal history of transient ischemic attack (TIA), and cerebral infarction without residual deficits; Z87.891 Personal history of nicotine dependence; Z79.899 Other long term (current) drug therapy; Z79.01 Long term (current) use of anticoagulants; I44.0 Atrioventricular block, first degree; I45.9 Conduction disorder, unspecified; I51.7 Cardiomegaly; R94.31 Abnormal electrocardiogram [ECG] [EKG]
CPT/HCPCS: 36415; 71046; 71250; 80053; 83605; 83880; 84484; 85025; 85055; 87040; 93005; 96365; 96375; 99285; A9270; J0696; J1938

== ENCOUNTER 2025-05-05 12:30 | Inpatient (IN) | payer OTHER, MEDICARE, SELFPAY ==
[2025-05-05] VITALS (43 sets, daily range): BP systolic 114–155; BP diastolic 68–91; PULSE 72–99; RESP 11–43; TEMP 36.5–36.6; O2SAT 95–100; BMI 29.3
--- NOTE | ~2025-05-05 | XR_ITS ---
XR chest 1V portable INDICATION:Vomiting . REFERENCE: None FINDINGS: A single AP of the chest demonstrates enlarged heart. Bilateral lower lobe infiltrates are noted. No focal consolidation. Severe degenerative changes of the left glenohumeral joint. IMPRESSION: Bilateral lower lobe infiltrate and opacities. Reviewed, dictated and finalized at location S.
--- NOTE | ~2025-05-05 | XR_ITS ---
EXAMINATION: XR chest 1V portable COMPARISON: Comparison 05/07/2025 HISTORY: CHF FINDINGS: Moderate pulmonary venous congestion. No pneumothorax. Mild cardiomegaly. Mediastinal and hilar contours are within normal limits. Post sternotomy. Miscellaneous: None Impression: CHF. The findings appear relatively unchanged Reviewed, dictated and finalized at location P. Impression: CHF. The findings appear relatively unchanged
--- NOTE | ~2025-05-05 | XR_ITS ---
EXAMINATION: XR UGIAC sm bowel esophagram DATE: 05/12/2025 17:39 INDICATION: Dry heaving TECHNIQUE: The patient drank thick barium, gas-producing crystals, and thin barium. Fluoroscopic spot radiographs of the hypopharynx, esophagus, stomach and proximal small bowel were obtained. Additional overhead radiographs were obtained during the transit through the small bowel. A total of 1325 fluo roscopic images and 13 overhead radiographs were obtained. Fluoroscopy exposure time was 2.9 minutes. Total DAP was 104.217 Gycm^2. COMPARISON: CT dated 05/05/2025 ....... FINDINGS: The pharynx is symmetric and without evidence of mass lesion or mucosal irregularity. The esophagus is normal without mass or stricture. Esophageal motility is normal. There is no hiatal hernia. There was no gastroesophageal reflux with provocative maneuvers. The stomach and proximal small bowel are no rmal. Transit time from the stomach to proximal colon was approximately 4.5-6 hours. There is normal caliber and mucosal fold pattern throughout the small bowel. Incidentally noted are median sternotomy wires and an aortic valve repair. IMPRESSION: 1. Delayed small bowel transit time of 4.5-6 hours without bowel dilation to suggest obstruction which would be consistent with an ileus. 2. Unremarkable esophagram and upper GI study. Reviewed, dictated and finalized at location A. IMPRESSION: 1. Delayed small bowel transit time of 4.5-6 hours without bowel dilation to pinon ggest obstruction which would be consistent with an ileus. 2. Unremarkable esophagram and upper GI study.
--- NOTE | ~2025-05-05 | XR_ITS ---
EXAMINATION: XR chest 1V portable COMPARISON: No comparisons available. HISTORY: Pleural effusion FINDINGS: Moderate pulmonary venous congestion. No pneumothorax. Moderate cardiomegaly. Mediastinal and hilar contours are within normal limits. Poststernotomy. Miscellaneous: None Impression: CHF Reviewed, dictated and finalized at location P. Impression: CHF
--- NOTE | ~2025-05-05 | CT_ITS ---
EXAMINATION: CT abdomen pelvis w con DATE: 05/05/2025 14:37 INDICATION: Vomiting TECHNIQUE: Computed tomography (CT) of the abdomen and pelvis was performed with 100 cc Omnipaque 350 intravenous contrast. The dose-length product was 664.48 mGy-cm. Automated exposure control and iterative reconstruction technique were employed. COMPARISON: CT dated 10/27/2009. FINDINGS: Borderline heart size. Small cyst left hepatic lobe. Moderate right pleural effusion. Dependent atelectasis of the right lower lobe. Small left pleural effusion. Splenomegaly. Gallbladder is moderately distended. The liver, pancreas, adrenal glands and right kidney are unremarkable. There are left renal cysts largest measuring 6.4 cm. There is atherosclerosis of the aorta without aneurysm. Enlarged prostate gland. No significant hydronephrosis. Nonobstructive bowel gas pattern. Severe lower thoracic and lumbar spondylosis. There is scoliosis. There is a cyst in the upper pole of the right kidney. The celiac axis and SMA are widely patent. The renal arteries are patent. ISABELA is patent. IMPRESSION: 1. Splenomegaly. 2: Moderate right pleural effusion. Small left pleural effusion. 3: Bilateral renal cysts. 4: Severe lower thoracic and lumbar spondylosis with scoliosis. Reviewed, dictated and finalized at location O.
--- NOTE | ~2025-05-05 | NM_ITS ---
EXAM: NM gastric emptying study DATE: 05/12/2025 11:43 INDICATION: Dry heaving TECHNIQUE/FINDINGS/IMPRESSION: A gastric emptying study was to be performed using the methodology of Clyde LARIOS et al. J Nucl Med 2007; 48:568-572. The patient was provided a meal consisting of 2 scrambled eggs labeled with 1 mCi Tc-99m sulfur colloid, 2 slices of toast, two packages of jam, and approximately 120 mL of water. Patient declined the radiotracer labeled meal because he was dry heaving and nauseous. No radiopharmaceutical was administered and no imaging was obtained. Reviewed, dictated and finalized at location A.
--- NOTE | ~2025-05-05 | XR_ITS ---
EXAMINATION: XR chest PICC line, 05/15/2025 15:50 CDT HISTORY: verify PICC placement COMPARISON: No comparisons available. Technique: Single view. Findings: The lungs are clear, no effusion. No pneumothorax. Mild cardiomegaly Mediastinal and hilar contours are within normal limits. Poststernotomy changes. Right PICC line terminates in the SVC. Impression: No acute cardiopulmonary abnormality. Reviewed, dictated and finalized at location P. Impression: No acute cardiopulmonary abnormality.
--- NOTE | ~2025-05-05 | CT_ITS ---
EXAMINATION: CT brain wo/w con DATE: 05/14/2025 13:58 INDICATION: Projectile vomiting TECHNIQUE: Computed tomography (CT) of the head was performed without intravenous contrast. Sagittal and coronal reconstructions were performed. The mA was adjusted according to patient size. Iterative reconstruction technique was employed. The dose-length product was 1286.33 mGy-cm. COMPARISON: head CT and brain MR dated 01/30/2022 FINDINGS: Again seen there are small regions of encephalomalacia in the anterior right and left frontal lobes, posteriorly in the bilateral parietal lobes as well as in the bilateral cerebellar hemispheres consistent with sequela of old infarcts. Unchanged small old lacunar infarcts at the right thalamus and right basal ganglia. No acute intracranial hemorrhage, acute infarction or abnormal extra axial fluid collection. There is mild scattered white matter hypoattenuation consistent with chronic small vessel ischemic disease. Symmetric prominence of the sulci and subarachnoid spaces overlying the convexities consistent with mild to moderate age-appropriate diffuse cerebral volume loss. Ventricles are normal and symmetric. No mass/mass effect. The orbits, paranasal sinuses and mastoid air cells are normal. IMPRESSION: 1. 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 No other acute intracranial process. 2. Stable appearance of age-related changes including mild to moderate diffuse volume loss and mild scattered white matter hypoattenuation consistent with chronic small vessel ischemic disease. Reviewed, dictated and finalized at location A. IMPRESSION: 1. Multiple small old infarcts bilateral cerebral and cerebellar hemispheres an d in the right thalamus and right basal ganglia. No other acute intracranial pr ocess. 2. Stable appearance of age-related changes including mild to moderate diffuse volume loss and mild scattered white matter hypoattenuation consistent with chr onic small vessel ischemic disease.
--- NOTE | ~2025-05-05 | XR_ITS ---
EXAMINATION: XR chest 1V portable COMPARISON: No comparisons available. HISTORY: Pulmonary edema FINDINGS: Moderate pulmonary venous congestion. No pneumothorax. Moderate cardiomegaly. Mediastinal and hilar contours are within normal limits. Poststernotomy. Miscellaneous: None Impression: CHF Reviewed, dictated and finalized at location P. Impression: CHF
--- NOTE | ~2025-05-05 | CT_ITS ---
EXAMINATION: CT diagnostic chest w con DATE: 05/14/2025 13:58 INDICATION: nausea,vomiting TECHNIQUE: Computed tomography (CT) of the chest was performed with 100 mL Omnipaque-350 intravenous contrast. Additional 3D reconstructions utilizing coronal maximum intensity projection (MIP) were performed. Automated exposure control and iterative reconstruction technique were employed. The dose-length product was 259.97 mGy-cm. COMPARISON: CT dated 12/18/2024 FINDINGS: Mild reticular pattern in the dependent bilateral lower lobes which could represent atelectasis or minimal pulmonary edema. Subtle patchy groundglass opacities in the nondependent left lower lobe. 1.8 x 1.2 cm region of consolidation at the junction of the lingula and anterior segment of the left upper lobe which is new since the prior study most likely either atelectasis or pneumonia. Very small posterior layering right pleural effusion. No left pleural effusion. Cardiomegaly. Small pericardial effusion. Atherosclerotic coronary artery calcifications. Revision of a previously fused median sternotomy with new wires and which is now infused. There are couple new minimally displaced fractures extending across the inferior sternum on the right side of the median st ernotomy. Aortic valve repair and stenting of the ascending thoracic aorta. There is some stranding in the anterior mediastinal fat surrounding the stented ascending thoracic aorta which is new since the study from 12/18/24 and likely related to reported revision of aortic valve repair performed one month prior. No evident extraluminal contrast extravasation. There are new retained epicardial pacemaker leads on the anterior-inferior aspect of the heart. No pathologically enlarged thoracic lymphadenopathy. Small amount of residual oral contrast material in the stomach and more prominent oral contrast material at the splenic flexure the colon likely related to upper GI and small bowel study performed 2 days prior. The persistence of contrast in the stomach is concern for gastroparesis. Moderate to severe thoracic spondylosis with bridging or nearly bridging osteophytes at multiple levels consistent with diffuse idiopathic skeletal hyperostosis (DISH). IMPRESSION: 1. Small right pleural effusion with mild dependent atelectasis versus minimal pulmonary edema in the lower lobes. Additional patchy groundglass opacities in the nondependent left lower lobe which could represent additional atelectasis, pulmonary edema or pneumonia. 2. 1.8 x 1.2 cm region of consolidation at the junction of the left upper lobe and lingula which given the development and less than 5 months would favor atelectasis or pneumonia. 3. Small pericardial effusion and stranding in the anterior mediastinal fat which could represent residual postoperative changes related to reported interval revision of an aortic valve repair performed one month prior. Differential would include mediastinitis in the appropriate clinical setting. 4. Small amount of residual oral contrast material in the stomach 2 days post upper GI study suspicious for gastroparesis. Reviewed, dictated and finalized at location A. IMPRESSION: 1. Small right pleural effusion with mild dependent atelectasis versus minimal pulmonary edema in the lower lobes. Additional patchy groundglass opacities in the nondependent left lower lobe which could represent additional atelectasis, pulmonary edema or pneumonia. 2. 1.8 x 1.2 cm region of consolidation at the junction of the left upper lobe and lingula which given the development and less than 5 months would favor atel ectasis or pneumonia. 3. Small pericardial effusion and stranding in the anterior mediastinal fat whi ch could represent residual postoperative changes related to reported interval revision of an aortic valve repair performed one month prior. Differential woul d include mediastinitis in the appropriate clinical setting. 4. Small amount of residual oral contrast material in the stomach 2 days post u pper GI study suspicious for gastroparesis.
--- NOTE | 2025-05-05 12:41 | ED.NAVMDI ---
HPI - Nausea/Vomiting/Diarrhea General Chief complaint: Nausea/Vomiting/Diarrhea <Haylee Valerio PA-C - Last Filed: 05/11/25 09:10> Stated complaint: n/v, recent cardiac sx <Haylee Valerio PA-C - Last Filed: 05/11/25 09:10> Time Seen by Provider: 05/05/25 12:41 <Haylee Valerio PA-C - Last Filed: 05/11/25 09:10> Focused HPI: This is a 70 year old male that presents to the ER for nausea and vomiting. Reports ongoing over the last several weeks. Worsening today. Reports mid abdominal pain/pressure. Reports he has not had a bowel movement in 3 days. Reports recent prolonged hospitalization as [facility] for cardiac surgery. GENERAL: Uncomfortable, well-nourished, and in no acute distress. HEAD: Normocephalic, atraumatic. CHEST: Clear to auscultation. ?No respiratory distress. HEART: Regular rate and rhythm.? NEURO: ?Alert and oriented x3. Patient screened in triage and initial orders placed.? ?Additional care and disposition to be based upon?diagnostic testing and treatment. <Haylee Valerio PA-C - Last Filed: 05/11/25 09:10> History of Present Illness HPI Narrative: Agree with HPI. Had aortic valve replacement surgery almost 7 weeks ago at [facility]. Complicated stay but was discharged 3 weeks ago. Has been having progressive vomiting since then. Five episodes of emesis prior to arrival today. Forceful retching with minimal oral intake. No improvement with Zofran they does take this at night to help him sleep so he is not is nauseous. He takes Protonix daily. No dark black stools only normal brown formed stools. Reports he can usually keep down up to 70 oz of water a day but still has significant retching and vomiting. <Rakesh Ibarra MD - Last Filed: 05/05/25 21:03> Related Data Home medications: Home Medications ?Medication ?Instructions ?Recorded ?Confirmed ?Last Taken ?Type apixaban 5 mg tablet (Eliquis) 5 mg PO BID 01/30/22 05/05/25 Unknown History rosuvastatin 5 mg tablet 5 mg PO DAILY 01/30/22 05/05/25 Unknown History amiodarone 200 mg tablet 200 mg PO DAILY 04/22/25 05/05/25 Unknown History aspirin 81 mg tablet 81 mg PO DAILY 04/22/25 05/05/25 Unknown History cholecalciferol (vitamin D3) 50 50 mcg PO DAILY 04/22/25 05/05/25 Unknown History mcg (2,000 unit) capsule docusate sodium 100 mg capsule 100 mg PO BID PRN constipation 04/22/25 05/05/25 Unknown History (Colace) lamotrigine 150 mg tablet 75 mg PO BID 04/22/25 05/05/25 Unknown History pantoprazole 40 mg tablet,delayed 40 mg PO DAILY 04/22/25 05/05/25 Unknown History release <Haylee Valerio PA-C - Last Filed: 05/11/25 09:10> Allergies/Adverse reactions: Allergies Allergy/AdvReac Type Severity Reaction Status Date / Time No Known Allergies Allergy Verified 05/07/25 13:55 <Haylee Valerio PA-C - Last Filed: 05/11/25 09:10> Review of Systems Review of Systems: All systems reviewed & are unremarkable except as noted in HPI and below <Rakesh Ibarra MD - Last Filed: 05/05/25 21:03> Constitutional: Constitutional: Reports no additional constitutional complaints <Rakesh Ibarra MD - Last Filed: 05/05/25 21:03> ENT: Reports system reviewed and no additional complaints, except as documented <Rakesh Ibarra MD - Last Filed: 05/05/25 21:03> Cardiovascular: Cardiovascular: Reports no additional cardiovascular complaints <Rakesh Ibarra MD - Last Filed: 05/05/25 21:03> Respiratory: Respiratory: Reports no additional respiratory complaints <Rakesh Ibarra MD - Last Filed: 05/05/25 21:03> Gastrointestinal: Gastrointestinal: Reports no additional gastrointestinal complaints <Rakesh Ibarra MD - Last Filed: 05/05/25 21:03> Genitourinary: Genitourinary: Reports no additional male genitourinary complaints <Rakesh Ibarra MD - Last Filed: 05/05/25 21:03> PMFSH Past Medical History Medical History: Medical History History of cerebral infarction Bicuspid aortic valve Aortic dissection CLL (chronic lymphocytic leukemia) <Haylee Valerio PA-C - Last Filed: 05/11/25 09:10> Surgical History Surgical History: Surgical History History of aortic valve replacement with bioprosthetic valve redo procedure 03/2025 History of surgery on wrist History of knee replacement History of aortic valve replacement Bovine valve S/P aortic bifurcation bypass graft <LEOBARDO Dewey Last Filed: 05/11/25 09:10> Family History Family History: Family History Father Kidney disease Pulmonary embolism Father No problems noted. Mother No problems noted. Sibling No problems noted. <Haylee Valerio PA-C - Last Filed: 05/11/25 09:10> Social History Social History: Social History Social History: Mr. Jacob lives at home with his . He is independent in his activities. 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 His PCP is Dr. Valenzuela. He designates his , Ernestina, as his surrogate decision maker. He would like to be a full code. Years smoked: 15 Smoking status: Former smoker Tobacco type: cigarettes Smoking end date: 10/24/05 Alcohol intake: current Drinks per week: 1 Substance use: never Do You Feel Safe in your Home?: Yes Lack of Transportation: No Lack of Food: Never True Current Housing: I Have Housing Concerned About Future Housing: No Difficulty Paying Gas/Electric Bills: No Difficulty Paying for Meds: No Currently Unemployed: No Education: High School Diploma/GED Difficulty w/ Childcare or Family Care: No Living arrangements: with family Occupation/Education: retired Gender identity (if verbalized by the patient): Male Sexual Orientation (if Verbalized by the Patient): Straight or Heterosexual Spiritual care concerns: No <LEOBARDO Dewey Last Filed: 05/11/25 09:10> Exam Narrative: GENERAL: Well-appearing, well-nourished, and in no acute distress. HEAD: Normocephalic, atraumatic. ENT: Mucous membranes moist. NECK: Supple. CHEST: Clear to auscultation. No respiratory distress. HEART: Regular rate and rhythm. Normal peripheral pulses. ABDOMEN: Soft, nontender, nondistended. EXTREMITIES: Normal range of motion. No edema. SKIN: Warm, dry, no rash. NEURO: Alert and oriented x3. PSYCH: Normal mood and affect. <Rakesh Ibarra MD - Last Filed: 05/05/25 21:03> Course Course Emergency Course: 1934: After the hospitalist geetha CRAWFORD accepted patient the supervising physician came down with concerns about the patient's heart history. He would like me to add on a troponin and repeat the oral challenge. Patient's troponin is negative. His EKG shows left bundle-branch block which he had on an EKG April 11, 2025. It looks like he has gone in and out of a left bundle and right bundle-branch block since his surgery. He has no chest pain. He was unable to tolerate more than a bite of a turkey sandwich after he was able to eat 1 saltine cracker and 1 spoonful of applesauce. 1999: Dr. Mckeon has evaluated the patient and accepts to the hospital. <Rakesh Ibarra MD - Last Filed: 05/05/25 21:03> Consultations Consultation #1: Dr. Melissa. Maximized antiemetic and PPI therapy. No endoscopy at this time. <Rakesh Ibarra MD - Last Filed: 05/05/25 21:03> Date: 05/05/25 <Rakesh Ibarra MD - Last Filed: 05/05/25 21:03> Time: 16:36 <Rakesh Ibarra MD - Last Filed: 05/05/25 21:03> Vital Signs Vital signs: Vital Signs Temperature 97.7 F 05/05/25 12:30 Pulse Rate 99 05/05/25 12:30 Respiratory Rate 20 05/05/25 12:30 Blood Pressure 121/80 05/05/25 12:30 Pulse Oximetry 100 05/05/25 12:30 Oxygen Delivery Room Air 05/05/25 12:30 Temperature 98.0 F 05/11/25 05:43 Pulse Rate 68 05/11/25 08:22 Respiratory Rate 16 05/11/25 05:43 Blood Pressure 117/70 05/11/25 05:43 Pulse Oximetry 97 05/11/25 05:43 Oxygen Delivery Room Air 05/10/25 20:00 Oxygen Flow Rate 6 05/07/25 15:12 <Haylee Valerio PA-C - Last Filed: 05/11/25 09:10> Vital Signs Temperature 97.7 F 05/05/25 12:30 Pulse Rate 99 05/05/25 12:30 Respiratory Rate 20 05/05/25 12:30 Blood Pressure 121/80 05/05/25 12:30 Pulse Oximetry 100 05/05/25 12:30 Oxygen Delivery Room Air 05/05/25 12:30 Temperature 98.0 F 05/11/25 05:43 Pulse Rate 68 05/11/25 08:22 Respiratory Rate 16 05/11/25 05:43 Blood Pressure 117/70 05/11/25 05:43 Pulse Oximetry 97 05/11/25 05:43 Oxygen Delivery Room Air 05/10/25 20:00 Oxygen Flow Rate 6 05/07/25 15:12 <Rakesh Ibarra MD - Last Filed: 05/05/25 21:03> MDM - Nausea/Vomiting/Diarrhea Lab Data Attestation: I reviewed the patient's lab results. <Rakesh Ibarra MD - Last Filed: 05/05/25 21:03> Result diagrams: 05/11/25 05:32 05/11/25 05:32 <Haylee Valerio PA-C - Last Filed: 05/11/25 09:10> Labs: Lab Results 05/05/25 05/05/25 05/05/25 Range/Units 13:16 15:37 18:03 WBC 4.8 (4.5-10.0) K/mm3 RBC 3.30 L (4.6-6.20) M/mm3 Hgb 9.7 L D (14.0-18.0) g/dL Hct 30.4 L (42.0-52.0) % MCV 92.1 (80-100) fl MCH 29.4 (26-34) pg MCHC 31.9 L (32-36) g/dl RDW 15.3 H (11.5-14.5) % Plt Count 126 L (150-375) k/mm3 MPV 8.6 (7.4-10.4) fl Immature Gran % (Auto) 0.4 (0-0.5) % Neut % (Auto) 49.7 (45.5-73.1) % Lymph % (Auto) 39.6 (18.3-44.2) % [place] % (Auto) 8.0 (2.6-8.5) % Eos % (Auto) 1.7 (0-4.4) % Baso % (Auto) 0.6 (0.2-1.2) % Lymph # (Auto) 1.88 (0.9-3.2) K/mm3 [place] # (Auto) 0.4 (0.1-0.6) K/mm3 Eos # (Auto) 0.1 (0-0.3) K/mm3 Baso # (Auto) 0.0 (0.0-0.1) K/mm3 Abs Immat Gran (auto) 0.02 (0.00-0.031) K/mm3 Absolute Neuts (auto) 2.4 (1.3-6.7) K/mm3 Absolute Nucleated RBC 0.000 (0.0-0.012) K/mm3 Nucleated RBC % 0.0 (0.0-0.2) % % Immature Plt Fraction (0.9-11.2) % Sodium 131 L (137-145) mmol/L Potassium 4.4 (3.4-5.0) mmol/L Chloride 96 L (98-107) mmol/L Carbon Dioxide 26 (22-30) mmol/L Anion Gap 9 (4-12) mmol/L BUN 12 D (9-20) mg/dL Creatinine 1.24 (0.7-1.3) mg/dL Estim Creat Clear Calc 53 ml/min Estimated GFR 57 L (59 - ) Glucose 110 (65-110) mg/dL Calcium 10.3 H (8.4-10.2) mg/dL Magnesium (1.6-2.3) mg/dL Total Bilirubin 1.6 H (0.2-1.3) mg/dL Indirect Bilirubin (0-1.1) mg/dL AST 42 (17-59) U/L ALT 22 (6-50) U/L Alkaline Phosphatase 108 (38-126) U/L Troponin I 0.022 (0.000-0.034) ng/mL Total Protein 6.9 (6.3-8.2) g/dL Albumin 4.4 (3.5-5.1) g/dL Lipase 57 (23-300) U/L Urine Color Yellow (Yellow) Urine Appearance Clear (Clear) Urine pH 6.5 (5.0-9.0) Ur Specific [place] 1.042 H (1.001-1.035) Urine Protein 1+ H (Negative) mg/dL Urine Glucose (UA) Negative (Negative) mg/dL Urine Ketones Trace H (Negative) mg/dL Ur Blood (Man) Negative (Negative) Urine Nitrate Negative (Negative) Urine Bilirubin Negative (Negative) Urine Urobilinogen 1.0 (<2.0) mg/dL Leukocyte Esterase Rfl Negative (Negative) LAQUITA/UL Urine RBC 0-2 (0-2) /hpf Urine WBC 0-5 (0-3) /hpf Ur Squamous Epith Cells None seen (Few) /hpf Urine Bacteria None seen /hpf Urine Casts 3-5 05/06/25 Range/Units 05:18 WBC 2.5 L (4.5-10.0) K/mm3 RBC 2.79 L (4.6-6.20) M/mm3 Hgb 8.2 L (14.0-18.0) g/dL Hct 26.0 L (42.0-52.0) % MCV 93.2 (80-100) fl MCH 29.4 (26-34) pg MCHC 31.5 L (32-36) g/dl RDW 15.4 H (11.5-14.5) % Plt Count 96 L (150-375) k/mm3 MPV 9.0 (7.4-10.4) fl Immature Gran % (Auto) 0.4 (0-0.5) % Neut % (Auto) 49.3 (45.5-73.1) % Lymph % (Auto) 34.7 (18.3-44.2) % [place] % (Auto) 12.0 H (2.6-8.5) % Eos % (Auto) 2.8 (0-4.4) % Baso % (Auto) 0.8 (0.2-1.2) % Lymph # (Auto) 0.87 L (0.9-3.2) K/mm3 [place] # (Auto) 0.3 (0.1-0.6) K/mm3 Eos # (Auto) 0.1 (0-0.3) K/mm3 Baso # (Auto) 0.0 (0.0-0.1) K/mm3 Abs Immat Gran (auto) 0.01 (0.00-0.031) K/mm3 Absolute Neuts (auto) 1.2 L (1.3-6.7) K/mm3 Absolute Nucleated RBC 0.000 (0.0-0.012) K/mm3 Nucleated RBC % 0.0 (0.0-0.2) % % Immature Plt Fraction 1.1 (0.9-11.2) % Sodium 130 L (137-145) mmol/L Potassium 4.3 (3.4-5.0) mmol/L Chloride 100 (98-107) mmol/L Carbon Dioxide 26 (22-30) mmol/L Anion Gap 4 (4-12) mmol/L BUN 10 (9-20) mg/dL Creatinine 1.09 (0.7-1.3) mg/dL Estim Creat Clear Calc 60 ml/min Estimated GFR > 60 (59 - ) Glucose 89 (65-110) mg/dL Calcium 9.6 (8.4-10.2) mg/dL Magnesium 1.9 (1.6-2.3) mg/dL Total Bilirubin (0.2-1.3) mg/dL Indirect Bilirubin 0.8 (0-1.1) mg/dL AST (17-59) U/L ALT (6-50) U/L Alkaline Phosphatase (38-126) U/L Troponin I (0.000-0.034) ng/mL Total Protein (6.3-8.2) g/dL Albumin (3.5-5.1) g/dL Lipase (23-300) U/L Urine Color (Yellow) Urine Appearance (Clear) Urine pH (5.0-9.0) Ur Specific [place] (1.001-1.035) Urine Protein (Negative) mg/dL Urine Glucose (UA) (Negative) mg/dL Urine Ketones (Negative) mg/dL Ur Blood (Man) (Negative) Urine Nitrate (Negative) Urine Bilirubin (Negative) Urine Urobilinogen (<2.0) mg/dL Leukocyte Esterase Rfl (Negative) [place]QU[place]/UL Urine RBC (0-2) /hpf Urine WBC (0-3) /hpf Ur Squamous Epith Cells (Few) /hpf Urine Bacteria /hpf Urine Casts <Hayele Valerio PA-C - Last Filed: 05/11/25 09:10> Lab Results 05/05/25 05/05/25 05/05/25 Range/Units 13:16 15:37 18:03 WBC 4.8 (4.5-10.0) K/mm3 RBC 3.30 L (4.6-6.20) M/mm3 Hgb 9.7 L D (14.0-18.0) g/dL Hct 30.4 L (42.0-52.0) % MCV 92.1 (80-100) fl MCH 29.4 (26-34) pg MCHC 31.9 L (32-36) g/dl RDW 15.3 H (11.5-14.5) % Plt Count 126 L (150-375) k/mm3 MPV 8.6 (7.4-10.4) fl Immature Gran % (Auto) 0.4 (0-0.5) % Neut % (Auto) 49.7 (45.5-73.1) % Lymph % (Auto) 39.6 (18.3-44.2) % [place] % (Auto) 8.0 (2.6-8.5) % Eos % (Auto) 1.7 (0-4.4) % Baso % (Auto) 0.6 (0.2-1.2) % Lymph # (Auto) 1.88 (0.9-3.2) K/mm3 [place] # (Auto) 0.4 (0.1-0.6) K/mm3 Eos # (Auto) 0.1 (0-0.3) K/mm3 Baso # (Auto) 0.0 (0.0-0.1) K/mm3 Abs Immat Gran (auto) 0.02 (0.00-0.031) K/mm3 Absolute Neuts (auto) 2.4 (1.3-6.7) K/mm3 Absolute Nucleated RBC 0.000 (0.0-0.012) K/mm3 Nucleated RBC % 0.0 (0.0-0.2) % % Immature Plt Fraction (0.9-11.2) % Sodium 131 L (137-145) mmol/L Potassium 4.4 (3.4-5.0) mmol/L Chloride 96 L (98-107) mmol/L Carbon Dioxide 26 (22-30) mmol/L Anion Gap 9 (4-12) mmol/L BUN 12 D (9-20) mg/dL Creatinine 1.24 (0.7-1.3) mg/dL Estim Creat Clear Calc 53 ml/min Estimated GFR 57 L (59 - ) Glucose 110 (65-110) mg/dL Calcium 10.3 H (8.4-10.2) mg/dL Magnesium (1.6-2.3) mg/dL Total Bilirubin 1.6 H (0.2-1.3) mg/dL Indirect Bilirubin (0-1.1) mg/dL AST 42 (17-59) U/L ALT 22 (6-50) U/L Alkaline Phosphatase 108 (38-126) U/L Troponin I 0.022 (0.000-0.034) ng/mL Total Protein 6.9 (6.3-8.2) g/dL Albumin 4.4 (3.5-5.1) g/dL Lipase 57 (23-300) U/L Urine Color Yellow (Yellow) Urine Appearance Clear (Clear) Urine pH 6.5 (5.0-9.0) Ur Specific [place] 1.042 H (1.001-1.035) Urine Protein 1+ H (Negative) mg/dL Urine Glucose (UA) Negative (Negative) mg/dL Urine Ketones Trace H (Negative) mg/dL Ur Blood (Man) Negative (Negative) Urine Nitrate Negative (Negative) Urine Bilirubin Negative (Negative) Urine Urobilinogen 1.0 (<2.0) mg/dL Leukocyte Esterase Rfl Negative (Negative) [place]QU[place]/UL Urine RBC 0-2 (0-2) /hpf Urine WBC 0-5 (0-3) /hpf Ur Squamous Epith Cells None seen (Few) /hpf Urine Bacteria None seen /hpf Urine Casts 3-5 05/06/ Range/Units 05:18 WBC 2.5 L (4.5-10.0) K/mm3 RBC 2.79 L (4.6-6.20) M/mm3 Hgb 8.2 L (14.0-18.0) g/dL Hct 26.0 L (42.0-52.0) % MCV 93.2 (80-100) fl MCH 29.4 (26-34) pg MCHC 31.5 L (32-36) g/dl RDW 15.4 H (11.5-14.5) % Plt Count 96 L (150-375) k/mm3 MPV 9.0 (7.4-10.4) fl Immature Gran % (Auto) 0.4 (0-0.5) % Neut % (Auto) 49.3 (45.5-73.1) % Lymph % (Auto) 34.7 (18.3-44.2) % [place] % (Auto) 12.0 H (2.6-8.5) % Eos % (Auto) 2.8 (0-4.4) % Baso % (Auto) 0.8 (0.2-1.2) % Lymph # (Auto) 0.87 L (0.9-3.2) K/mm3 [place] # (Auto) 0.3 (0.1-0.6) K/mm3 Eos # (Auto) 0.1 (0-0.3) K/mm3 Baso # (Auto) 0.0 (0.0-0.1) K/mm3 Abs Immat Gran (auto) 0.01 (0.00-0.031) K/mm3 Absolute Neuts (auto) 1.2 L (1.3-6.7) K/mm3 Absolute Nucleated RBC 0.000 (0.0-0.012) K/mm3 Nucleated RBC % 0.0 (0.0-0.2) % % Immature Plt Fraction 1.1 (0.9-11.2) % Sodium 130 L (137-145) mmol/L Potassium 4.3 (3.4-5.0) mmol/L Chloride 100 (98-107) mmol/L Carbon Dioxide 26 (22-30) mmol/L Anion Gap 4 (4-12) mmol/L BUN 10 (9-20) mg/dL Creatinine 1.09 (0.7-1.3) mg/dL Estim Creat Clear Calc 60 ml/min Estimated GFR > 60 (59 - ) Glucose 89 (65-110) mg/dL Calcium 9.6 (8.4-10.2) mg/dL Magnesium 1.9 (1.6-2.3) mg/dL Total Bilirubin (0.2-1.3) mg/dL Indirect Bilirubin 0.8 (0-1.1) mg/dL AST (17-59) U/L ALT (6-50) U/L Alkaline Phosphatase (38-126) U/L Troponin I (0.000-0.034) ng/mL Total Protein (6.3-8.2) g/dL Albumin (3.5-5.1) g/dL Lipase (23-300) U/L Urine Color (Yellow) Urine Appearance (Clear) Urine pH (5.0-9.0) Ur Specific [place] (1.001-1.035) Urine Protein (Negative) mg/dL Urine Glucose (UA) (Negative) mg/dL Urine Ketones (Negative) mg/dL Ur Blood (Man) (Negative) Urine Nitrate (Negative) Urine Bilirubin (Negative) Urine Urobilinogen (<2.0) mg/dL Leukocyte Esterase Rfl (Negative) [place]/UL Urine RBC (0-2) /hpf Urine WBC (0-3) /hpf Ur Squamous Epith Cells (Few) /hpf Urine Bacteria /hpf Urine Casts <Rakesh Ibarra MD - Last Filed: 05/05/25 21:03> Imaging Data Radiologist's impression: ITS Impressions Abdomen/Pelvis CT 05/05/25 14:54 IMPRESSION: 1. Splenomegaly. 2: Moderate right pleural effusion. Small left pleural effusion. 3: Bilateral renal cysts. 4: Severe lower thoracic and lumbar spondylosis with scoliosis. Chest X-Ray 05/05/25 18:10 IMPRESSION: Bilateral lower lobe infiltrate and opacities. <Rakesh Ibarra MD - Last Filed: 05/05/25 21:03> ECG Data EKG #1: Attestation: I personally reviewed and interpreted this ECG as follows: <Rakesh Ibarra MD - Last Filed: 05/05/25 21:03> ECG completion date: 05/05/25 <Rakesh Ibarra MD - Last Filed: 05/05/25 21:03> ECG completion time: 18:02 <Rakesh Ibarra MD - Last Filed: 05/05/25 21:03> EKG Interpretation: normal rate (78), sinus rhythm, widened QRS, LBBB and left axis <Rakesh Ibarra MD - Last Filed: 05/05/25 21:03> Discharge Plan Discharge Clinical Impression: Esophagitis, Intractable vomiting <Haylee Valerio PA-C - Last Filed: 05/11/25 09:10> Patient Disposition: Still a Patient <Haylee Valerio PA-C - Last Filed: 05/11/25 09:10> Condition: Stable <Haylee Valerio PA-C - Last Filed: 05/11/25 09:10>
[2025-05-05] MEDS: FAMOTIDINE 20 MG/2 ML VIAL IV PUSH (13:12)
[2025-05-05] MEDS: ONDANSETRON INJ 4 MG/2 ML VIAL IV PUSH (13:12)
[2025-05-05 13:35] LABS: Hematocrit 30.4 % (42.0-52.0); Hemoglobin 9.7 g/dL (14.0-18.0); Immature Granulocyte Percent A 0.4 % (0-0.5); Lymphocytes Absolute Auto 1.88 K/mm3 (0.9-3.2); Mean Corpuscular HGB Conc 31.9 g/dl (32-36); Mean Corpuscular Hemoglobin 29.4 pg (26-34); Mean Corpuscular Volume 92.1 fl (80-100); Nucleated Red Blood Cells Absolute Auto 0.000 K/mm3 (0.0-0.012); Nucleated Red Blood Cells Perc 0.0 % (0.0-0.2); Platelet Count Result 126 k/mm3 (150-375); Red Blood Count 3.30 M/mm3 (4.6-6.20); White Blood Count 4.8 K/mm3 (4.5-10.0)
[2025-05-05 13:41] LABS: Alanine Aminotransferase 22 U/L (6-50); Albumin Level 4.4 g/dL (3.5-5.1); Alkaline Phosphatase 108 U/L (38-126); Anion Gap 9 mmol/L (4-12); Aspartate Amino Transferase 42 U/L (17-59); Bilirubin,Total 1.6 mg/dL (0.2-1.3); Blood Urea Nitrogen 12 mg/dL (9-20); Calcium 10.3 mg/dL (8.4-10.2); Carbon Dioxide 26 mmol/L (22-30); Chloride 96 mmol/L (98-107); Estimated CRCL calculation 53 ml/min; Estimated Glomerular Filt Rate 57; Glucose 110 mg/dL (65-110); Lipase 57 U/L (23-300); Potassium 4.4 mmol/L (3.4-5.0); Sodium 131 mmol/L (137-145); Total Protein 6.9 g/dL (6.3-8.2)
[2025-05-05] MEDS: SODIUM CHLORIDE 0.9% IV 1,000 ML 999 ML IV CONT ×2 (14:37→16:06)
[2025-05-05 15:46] LABS: Add Urine Microscopic? YES; Appearance Urine Clear (Clear); Glucose Urine UA Negative (Negative); Leukocyte Esterase Ur Negative LEU/UL (Negative); Nitrate Urine Negative (Negative); Specific Grav Ur 1.042 (1.001-1.035)
[2025-05-05] MEDS: MECLIZINE HCL 25 MG TABLET PO (16:09)
[2025-05-05] MEDS: PROMETHAZINE HCL 25 MG/ML AMPUL 12.5 MG IV PUSH (16:32)
[2025-05-05] MEDS: PANTOPRAZOLE SODIUM IV 40 MG VIAL IV PUSH (16:47)
--- NOTE | 2025-05-05 17:56 | ECG_ITS ---
Test Date: 2025-05-05 18:02:18 Measurements Intervals [place] Rate: 78 P: 239 VT: 189 QRS: -41 QRSD: 161 T: 113 QT: 424 QTc: 484 Interpretive Statements SINUS OR ECTOPIC ATRIAL RHYTHM LEFT AXIS DEVIATION BORDERLINE AV CONDUCTION DELAY LEFT BUNDLE BRANCH BLOCK BASELINE ARTIFACT- I, II, AVR, V1 ABNORMAL ECG Compared to ECG 12/18/2024 16:19:07 NO SIGNIFICANT CHANGE Electronically Signed On 05-05-2025 18:46:45 CDT by Elier Maguire D.O.
--- NOTE | 2025-05-05 18:24 | P.PNCROSS_ITS ---
Event Note Event Note Event Note: The ED physician called regarding the possible admission of Mr. Sears. After reviewing the chart,due to the complexity of the case, I evaluated the patient in the ED before accepting him. The patient had an extensive stay at [facility] last month. He has a history of a bioprosthetic valve, which he had for almost 10-15 years ago, and he underwent surgery, AVR and Maze procedure at [facility] on 03/23/2025. After the surgery, the patient had mild symptoms of retching and vomiting. Later, when they tried to remove the [place] cath, it was identified that his [place] catheter was stitched with PA during the surgery. He was returned to the OR on 03/29/2025 for [place] catheter removal and repair of PA injury. After the surgery patient was in ICU and new onset of A.Fib? .Of note patient had right thigh hematoma and had an episode of HgB 6.4, which was stabilized later. Today ED called who recommended increasing the PPI to BID and no endoscopy at this time. I suggest that the ED physician do a troponin and an EKG, and if any abnormalities are found, call Cardiology and request their recommendation. I called Dr. Davenport personally and discussed the plan. If the patient is admitted, would it be reasonable to perform an Endoscopy? He reported that once Cardiology clears the patient for the Endoscopy procedure, it is possible to proceed with the Endoscopy. 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
[2025-05-05 18:31] LABS: Troponin I 0.022 ng/mL (0.000-0.034)
[2025-05-05] MEDS: SODIUM CHLORIDE 0.9% IV 1,000 ML 125 ML IV CONT (19:09)
--- NOTE | 2025-05-05 21:40 | P.HP_ITS ---
H&P: HPI History of Present Illness Date/Time: 05/05/25 21:40 Chief Complaint: Nausea and vomiting Narrative: 70-year-old male with PMH including CLL on tyrosine kinase inhibitors, BPH, insomnia, diastolic dysfunction AFib on Eliquis, carotid artery stenosis, history of stroke, seizure disorder, history of bicuspid aortic valve complicated by acute type a dissection status post bioprosthetic aortic valve replacement and supra coronary aortic graft replacement in 2009 with recent hospitalization at [facility] with redo sternotomy, AVR, Maze, BIN clip on 03/23/2025 due to severe prostatic valve regurgitation, chronic constipation. Course was complicated as they had tried to remove his [place]Joe catheter which was met with resistance, imaging performed found the catheter to be inadvertently sutured to the pulmonary artery. Patient taken to the OR on 03/29/2025 for [place]-Joe catheter removal and repair of PA injury. The patient was stable thereafter. Hospital course also complicated for iliopsoas hematoma right side, Eliquis stop, restarted eventually and patient was discharged. Patient reports to [facility] on 05/05/2025 complaining of worsening nausea and nonbloody vomiting. This started after his 1st procedure on 03/23/2025. He had a prolonged ICU stay. He never had gastric ulcer or persistent nausea and vomiting before. He reports he was given Zofran multiple times which helped and the were no other concerns from the [facility] doctors. He has since poor oral intake as sometimes it causes him to vomit, nausea vomiting sometimes out of his sleep. He has been taking Zofran and it helps sometimes. He has been able to hold down water. He has chronic constipation and has not had a bowel movement in 3 days, his last BM 3 days prior was solid brown, with a little bit of diarrhea following. He has not eaten much. Took a laxative as well today. He denies cough, shortness of breath, chest pain, syncope, palpitations, abdominal pain, fever. In the ER he is hemodynamically stable, EKG without new findings. Serum troponin 0.022, previous troponin 0.033 in December 2024, total bilirubin 1.6, LFTs otherwise within normal limits. Sodium 131, WBC 4.8, hemoglobin 9.7. Previous hemoglobin in 12/18/2024 15.3. Urinalysis not indicative of infection, lipase 57. Chest x-ray with bilateral lower lobe opacities, CT abdomen pelvis with contrast demonstrates moderate right pleural effusion, small left pleural effusion, bilateral renal cysts, splenomegaly, severe lower thoracic lumbar spondylosis with scoliosis. No evidence of bowel obstruction. Administered Zofran, Pepcid, 2 L normal saline bolus, meclizine, promethazine, Protonix. Patient was resting comfortably thereafter but failed a p.o. challenge. Gastroenterology consulted, advise increasing his Protonix. Initially was advised the patient be transferred to [facility] for continuity of care and recent surgeries. Reportedly, [facility] is under a black out. Cannot accept the patient. I spoke with his patient and his at bedside, they did not want to wait in the ER, did not want to go to the process of trying to be transferred to another tertiary hospital, would like to be admitted to [facility] and seen by the supervisor veneer. Review of Systems Review of Systems: All systems reviewed & are unremarkable except as noted in HPI and below (Subjective) [facility] Past Medical History Medical History (Updated 05/05/25 @ 21:02 by Rakesh Ibarra MD) History of cerebral infarction Bicuspid aortic valve Aortic dissection CLL (chronic lymphocytic leukemia) Surgical History Surgical History (Updated 04/22/25 @ 12:38 by Robyn Goodwin APRN) History of aortic valve replacement with bioprosthetic valve redo procedure 03/2025 History of surgery on wrist History of knee replacement History of aortic valve replacement Bovine valve S/P aortic bifurcation bypass graft Family History Family History Father Kidney disease Father No problems noted. Mother No problems noted. Sibling No problems noted. Social History Social History Social History: Mr. Jacob lives at home with his . He is independent in his activities. 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 His PCP is Dr. Valenzuela. He designates his , Ernestina, as his surrogate decision maker. He would like to be a full code. Years smoked: 15 Smoking status: Former smoker Tobacco type: cigarettes Smoking end date: 10/24/05 Alcohol intake: never Substance use: never Do You Feel Safe in your Home?: Yes Lack of Transportation: No Lack of Food: Never True Current Housing: I Have Housing Concerned About Future Housing: No Difficulty Paying Gas/Electric Bills: No Difficulty Paying for Meds: No Currently Unemployed: No Education: High School Diploma/GED Difficulty w/ Childcare or Family Care: No Living arrangements: with family Occupation/Education: retired Gender identity (if verbalized by the patient): Male Sexual Orientation (if Verbalized by the Patient): Straight or Heterosexual Meds Home Medications and Allergies Home Medications ?Medication ?Instructions ?Recorded ?Confirmed ?Type apixaban 5 mg tablet (Eliquis) 5 mg PO BID 01/30/22 History rosuvastatin 5 mg tablet 5 mg PO DAILY 01/30/2205/05 History tamsulosin 0.4 mg capsule See Rx Instructions .Route 1 09/12/23 05/05/25 Rx .COMPLEX #30 caps amiodarone 200 mg tablet 200 mg PO DAILY 04/22/25 History aspirin 81 mg tablet 81 mg PO DAILY 04/22/2504/15 History cholecalciferol (vitamin D3) 50 50 mcg PO DAILY 05/05/25 History mcg (2,000 unit) capsule docusate sodium 100 mg capsule 100 mg PO BID PRN const ipation 04/22/25 05/05/25 History (Colace) lamotrigine 150 mg tablet 75 mg PO BID 04/22/25 History pantoprazole 40 mg tablet,delayed 40 mg PO DAILY 04/2205/05/25 History release Allergies Allergy/AdvReac Type Severity Reaction Status Date / Time No Known Allergies Allergy Verified 05/05/25 22:09 Vital Signs Vital Signs - 24 hr 05/05/25 12:30 05/05/25 13:21 05/05/25 13:22 Temperature 97.7 F Pulse Rate 99 80 79 Respiratory Rate 20 17 Blood Pressure 121/80 123/77 Pulse Oximetry 100 100 100 Oxygen Delivery Room Air 05/05/25 13:28 05/05/25 13:30 05/05/25 13:45 Temperature Pulse Rate 76 75 75 Respiratory Rate 19 15 11 L Blood Pressure 123/77 Pulse Oximetry 100 95 99 Oxygen Delivery 05/05/25 14:11 05/05/25 14:15 05/05/25 14:44 Temperature Pulse Rate 72 72 75 Respiratory Rate 15 15 Blood Pressure Pulse Oximetry 95 100 Oxygen Delivery 05/05/25 14:55 05/05/25 15:10 05/05/25 15:15 Temperature Pulse Rate 76 77 Respiratory Rate 14 15 16 Blood Pressure 142/79 H Pulse Oximetry 98 100 100 Oxygen Delivery 05/05/25 15:30 05/05/25 15:31 05/05/25 15:31 Temperature Pulse Rate 79 79 80 Respiratory Rate 14 Blood Pressure 144/83 H 144/83 H 140/83 Pulse Oximetry 98 Oxygen Delivery 05/05/25 15:31 05/05/25 15:31 05/05/25 15:32 Temperature Pulse Rate 90 79 Respiratory Rate 15 Blood Pressure 118/78 140/83 Pulse Oximetry 99 97 Oxygen Delivery 05/05/25 15:33 05/05/25 15:45 05/05/25 16:00 Temperature Pulse Rate 79 80 Respiratory Rate 15 15 Blood Pressure 118/78 Pulse Oximetry 99 100 Oxygen Delivery 05/05/25 16:01 05/05/25 16:28 05/05/25 16:30 Temperature Pulse Rate 79 80 Respiratory Rate 14 25 H 13 Blood Pressure 147/91 H Pulse Oximetry 100 Oxygen Delivery 05/05/25 16:45 05/05/25 17:00 05/05/25 17:01 Temperature Pulse Rate 75 75 75 Respiratory Rate 16 12 16 Blood Pressure 155/91 H Pulse Oximetry Oxygen Delivery 05/05/25 17:31 05/05/25 17:32 05/05/25 17:57 Temperature Pulse Rate 74 74 80 Respiratory Rate 16 15 16 Blood Pressure 155/90 H Pulse Oximetry 98 99 Oxygen Delivery 05/05/25 18:00 05/05/25 18:01 05/05/25 18:18 Temperature Pulse Rate 82 79 78 Respiratory Rate 18 18 19 Blood Pressure 140/83 Pulse Oximetry 100 98 96 Oxygen Delivery 05/05/25 18:30 05/05/25 18:45 05/05/25 19:02 Temperature Pulse Rate 77 74 86 Respiratory Rate 16 15 28 H Blood Pressure Pulse Oximetry 98 98 Oxygen Delivery 05/05/25 19:12 05/05/25 19:16 05/05/25 19:45 Temperature Pulse Rate 97 73 Respiratory Rate 20 43 H 16 Blood Pressure 114/68 Pulse Oximetry 99 Oxygen Delivery 05/05/25 20:01 05/05/25 20:02 05/05/25 20:19 Temperature Pulse Rate 72 72 72 Respiratory Rate 15 16 15 Blood Pressure 125/70 Pulse Oximetry Oxygen Delivery 05/05/25 20:48 05/05/25 21:06 05/05/25 21:27 Temperature 97.8 F Pulse Rate 73 74 75 Respiratory Rate 15 22 H 16 Blood Pressure 140/79 Pulse Oximetry 99 Oxygen Delivery Exam Const: General: comfortable and no acute distress Other: A&O x3 HENMT: Mouth: Yes moist mucous membranes Eyes: Pupils: Equal, round and reactive pupils present Neck: Neck: supple Resp: Effort & Inspection: normal respiratory effort Auscultation: clear to auscultation bilaterally Cardio: Rate: regular rate Rhythm: regular rhythm Heart sounds: no murmurs GI: Inspection: non-distended GI Palp: Yes Soft to palpation and No Tenderness to palpation present (GI) : General: Yes bladder normal to palpation Neuro: Motor exam (neuro): 5/5 motor strength present throughout Extrem: General: no edema H&P: Results Labs Labs: Short CBC 05/05/25 Range/Units 13:16 WBC 4.8 (4.5-10.0) K/mm3 Hgb 9.7 L D (14.0-18.0) g/dL Hct 30.4 L (42.0-52.0) % Plt Count 126 L (150-375) k/mm3 BMP 05/05/25 13:16 Sodium 131 L Potassium 4.4 Chloride 96 L Carbon Dioxide 26 BUN 12 D Creatinine 1.24 Glucose 110 Calcium 10.3 H Cardiac Enzymes 05/05/25 Range/Units 18:03 Troponin I 0.022 (0.000-0.034) ng/mL Liver Function 05/05/25 Range/Units 13:16 Total Bilirubin 1.6 H (0.2-1.3) mg/dL AST 42 (17-59) U/L ALT 22 (6-50) U/L Alkaline Phosphatase 108 (38-126) U/L Albumin 4.4 (3.5-5.1) g/dL Urine 05/05/25 Range/Units 15:37 Urine Color Yellow (Yellow) Urine Appearance Clear (Clear) Urine pH 6.5 (5.0-9.0) Ur Specific [place] 1.042 H (1.001-1.035) Urine Protein 1+ H (Negative) mg/dL Urine Glucose (UA) Negative (Negative) mg/dL Assessment and Plan Assessment and plan (1) History of aortic valve replacement with bioprosthetic valve: Code(s): Z95.3 - Presence of xenogenic heart valve Status: Acute (2) Atrial fibrillation: Code(s): I48.91 - Unspecified atrial fibrillation Status: Acute (3) Intractable vomiting: Code(s): R11.10 - Vomiting, unspecified Status: Acute Plan 70-year-old male with PMH including CLL on tyrosine kinase inhibitors, BPH, insomnia, diastolic dysfunction AFib on Eliquis, carotid artery stenosis, history of stroke, seizure disorder, history of bicuspid aortic valve complicated by acute type a dissection status post bioprosthetic aortic valve replacement and supra coronary aortic graft replacement in 2009 with recent hospitalization at [facility] with redo sternotomy, AVR, Maze, BIN clip on 03/23/2025 due to severe prostatic valve regurgitation, chronic constipation. Course was complicated as they had tried to remove his [place]Joe catheter which was met with resistance, imaging performed found the catheter to be inadvertently sutured to the pulmonary artery. Patient taken to the OR on 03/29/2025 for [place] catheter removal and repair of PA injury. The patient was stable thereafter. Hospital course also complicated for iliopsoas hematoma right side, Eliquis stop, restarted eventually and patient was discharged. Patient reports to [facility] on 05/05/2025 complaining of worsening nausea and nonbloody vomiting. This started after his 1st procedure on 03/23/2025. He had a prolonged ICU stay. He never had gastric ulcer or persistent nausea and vomiting before. He reports he was given Zofran multiple times which helped and the were no other concerns from the [facility] doctors. He has since poor oral intake as sometimes it causes him to vomit, nausea vomiting sometimes out of his sleep. He has been taking Zofran and it helps sometimes. He has been able to hold down water. He has chronic constipation and has not had a bowel movement in 3 days, his last BM 3 days prior was solid brown, with a little bit of diarrhea following. He has not eaten much. Took a laxative as well today. He denies cough, shortness of breath, chest pain, syncope, palpitations, abdominal pain, fever. In the ER he is hemodynamically stable, EKG without new findings. Serum troponin 0.022, previous troponin 0.033 in December 2024, total bilirubin 1.6, LFTs otherwise within normal limits. Sodium 131, WBC 4.8, hemoglobin 9.7. Previous hemoglobin in 12/18/2024 15.3. Urinalysis not indicative of infection, lipase 57. Chest x-ray with bilateral lower lobe opacities, CT abdomen pelvis with contrast demonstrates moderate right pleural effusion, small left pleural effusion, bilateral renal cysts, splenomegaly, severe lower thoracic lumbar spondylosis with scoliosis. No evidence of bowel obstruction. Administered Zofran, Pepcid, 2 L normal saline bolus, meclizine, promethazine, Protonix. Patient was resting comfortably thereafter but failed a p.o. challenge. Gastroenterology consulted, advise increasing his Protonix. Initially was advised the patient be transferred to [facility] for continuity of care and recent surgeries. Reportedly, [facility] is under a black out. Cannot accept the patient. I spoke with his patient and his at bedside, they did not want to wait in the ER, did not want to go to the process of trying to be transferred to another tertiary hospital, would like to be admitted to [facility] and seen by the supervisor veneer. ----- Continue normal saline infusion, Protonix 40 mg IV b.i.d.. GI to see. Promethazine, hyoscyamine p.r.n.. Elevated QTC, repeat assessments as needed. No BM in 3 days, patient took laxative today. Continue to monitor. Bilateral pleural effusions right greater than left, bilateral opacities. These may be related to recent surgeries. Patient breathing well, saturating appropriately on room air. Start Unasyn for possible aspiration pneumonia. AFib on Eliquis and amiodarone: Restart [employer] amiodarone. Hold Eliquis for the moment. Leukemia: Medications have been on hold due to recent surgeries, has follow-up soon with oncologist to restart medications. Hyponatremia: Could be related to vomiting, dehydration. Patient does appear clinically dry. He reports his blood pressure was a bit low at home and after drinking more fluids his blood pressure improved. Continue fluids. Repeat BMP in morning Anemia: Could be related to recent surgeries and iliopsoas hematoma in 03/2025. No evidence of overt bleeding. Continue to monitor. Seizure disorder: Stable, resume [employer] lamotrigine Carotid artery stenosis: Restart [employer] receive a statin, hold aspirin at the moment. ----- SCDs. Full code. Normal saline. Clear liquid diet. Greater than 75 minutes spent on chart review, coordination with care team, [id number] evaluation in discussions. Hospitalist MIPS Advance Care Plan I have confirmed that the patient's Advanced Care Plan is present, code status is documented, or surrogate decision maker is listed in patient medical record.: Yes Medication Reconciliation I have utilized all available resources to obtain, update and review the patients current medications (includes all prescriptions, OTC, herbals, cannabis, and nutritional supplements).: Yes
[2025-05-05] MEDS: DOCUSATE SODIUM 100 MG CAPSULE PO (23:30)
--- NOTE | 2025-05-06 | ECHO_ITS ---
Patient Info Name: Orion Jacob Age: 70 years : 1955 Gender: Male Ht: 72 in Wt: 216 lbs BSA: 2.25 m2 HR: 80 bpm BP: 129 / 77 mmHg Heart Rhythm: Indeterminant Technical Quality: Good Exam Date: 05/06/2025 4:23 PM Patient Status: I Admit Date: 05/06/2025 Exam Type: CA echo dop color flow w con Complete two-dimensional, color flow and Doppler transthoracic echocardiogram is performed with contrast to opacify the left ventricle and to improve the deliniation of the left ventricle endocardial borders. Staff Referring Physician: Anjali Hamilton Windsurfing Instructor: Tramaine Parks III Attending Provider: Mode Dickson Contrast/Agitated Saline Contrast/Ag. Saline: Definity Amount: 2.00 ml Administered By: Tramaine Parks III Existing IV Access: Yes IV Access Condition: patent with no signs of infiltration Summary 1. Left ventricular hypertrophy with preserved systolic function, abnormal septal motion compatible with bundle branch block. 2. Biatrial dilation. 3. Small amount of mitral regurgitation. 4. Aortic valve appears to be a bioprosthetic delayed which is functioning normally. Valve type and size unknown. 5. Definity contrast utilized to improve image quality. Left Ventricle Left ventricular chamber dimension is normal. Left ventricular systolic function is normal, estimated at 60-65. There is moderate concentric increased left ventricular wall thickness. The left ventricular diastolic function is abnormal. Right Ventricle Right ventricular chamber dimension is normal. Left Atria Left atrial chamber dimension is moderately enlarged. Right Atria Right atrial chamber dimension is mildly enlarged. Atrial Septum Suspected patent foramen ovale visualized by color flow imaging. Pulmonic Valve The pulmonic valve is not well visualized. Mitral Valve The mitral valve has normal leaflets. There is mild mitral valve regurgitation. The mitral valve annulus is mildly calcified. Tricuspid Valve The tricuspid valve leaflets are normal. Pericardium/Pleural The pericardium appears normal. Aorta The aortic root size at the sinus of Valsalva is normal. Left Ventricular Outflow Tract Name Value Normal LVOT 2D LVOT Diameter 2.2 cm LVOT Doppler LVOT Peak Velocity 132 cm/s LVOT Peak Gradient 7 mmHg LVOT Mean Gradient 3 mmHg LVOT VTI 24 cm LVOT VTI/AV VTI Ratio 0.7 LVOT Stroke Volume 90 ml LVOT CO 6.3 l/min LVOT CI 2.8 l/min/m2 Pulmonic Valve Name Value Normal PV Doppler PV Peak Velocity 108 cm/s PV Peak Gradient 5 mmHg PV Mean Gradient 3 mmHg Mitral Valve Name Value Normal MV Doppler MV Peak Gradient 12 mmHg MV Mean Gradient 4 mmHg MV Area (Cont Eq VTI) 2.3 cm2 MV Regurgitation Doppler MR Peak Gradient 71 mmHg MV Diastolic Function MV E Peak Velocity 164 cm/s MV Decel Time (PW) 249 ms MV Annular TDI MV E/e' (Septal) 35.9 MV E/e' (Lateral) 13.7 MV E/e' (Average) 24.8 Tricuspid Valve Name Value Normal TV Regurgitation Doppler TR Peak Velocity 219 cm/s TR Peak Gradient 19 mmHg Estimated PAP/RSVP RA Pressure 10 mmHg <=5 PA Systolic Pressure 29 mmHg <36 RV Systolic Pressure 29 mmHg <36 TV Annular TDI TV Lateral Fatoumata s' Velocity 7.4 cm/s >=9.5 Aortic Valve Name Value Normal AV Doppler AV Peak Velocity 159 cm/s AV Peak Gradient 10 mmHg AV Mean Gradient 5 mmHg AV VTI 32 cm AV Area (Cont Eq VTI) 2.8 cm2 >=3.0 AV Area (Cont Eq Db) 3.1 cm2 AV DI (Db) 0.83 AV Regurgitation 2D LVOT Area 3.8 cm2 Ventricles Name Value Normal LV Dimensions 2D/MM IVS Diastolic Thickness (2D) 1.0 cm 0.6-1.0 LVID Diastole (2D) 6.1 cm 4.2-5.8 LVIW Diastolic Thickness (2D) 1.1 cm 0.6-1.0 LVID Systole (2D) 3.8 cm 2.5-4.0 LVOT Diameter 2.2 cm LV Mass (2D Cubed) 276.01 g 88.00-224.00 LV Mass Index (2D Cubed) 123 g/m2 49-115 Relative Wall Thickness (2D) 0.36 <=0.42 LV Fractional Shortening/Ejection Fraction 2D/MM LV Fractional Shortening (2D) 38 % 25-43 LV EF (2D Teichholz) 67 % LV Diastolic Volume (4C MOD) 168 ml LV EF (4C MOD) 42 % LV Diastolic Volume (2C MOD) 185 ml LV EF (2C MOD) 63 % LV Diastolic Volume (BP MOD) 179 ml 62-150 LV Diastolic Volume Index (BP MOD) 80 ml/m2 34-74 LV Systolic Volume (BP MOD) 82 ml 21-61 LV Systolic Volume Index (BP MOD) 36 ml/m2 11-31 LV EF (BP MOD) 54 % 52-72 LV Diastolic Length (4C) 8.8 cm LV Systolic Length (4C) 7.7 cm LV Stroke Volume (4C MOD) 71 ml Atria Name Value Normal LA Dimensions LA Volume (4C A-L) 127 ml LA Volume (BP A-L) 110 ml RA Dimensions RA Systolic [facility] Length (4C) 6.8 cm 2.1-2.7 RA Area (4C) 27.5 cm2 <=18.0 Report Signatures
[2025-05-06] MEDS: SODIUM CHLORIDE 0.9% IV 1,000 ML 125 ML IV CONT ×2 (03:27→11:29)
[2025-05-06 05:52] VITALS: BP 129/77; PULSE 78; RESP 18; TEMP 36.8; O2SAT 99
[2025-05-06 06:00] LABS: Hematocrit 26.0 % (42.0-52.0); Hemoglobin 8.2 g/dL (14.0-18.0); Immature Granulocyte Percent A 0.4 % (0-0.5); Immature Platelet Fraction Pct 1.1 % (0.9-11.2); Lymphocytes Absolute Auto 0.87 K/mm3 (0.9-3.2); Mean Corpuscular HGB Conc 31.5 g/dl (32-36); Mean Corpuscular Hemoglobin 29.4 pg (26-34); Mean Corpuscular Volume 93.2 fl (80-100); Nucleated Red Blood Cells Absolute Auto 0.000 K/mm3 (0.0-0.012); Nucleated Red Blood Cells Perc 0.0 % (0.0-0.2); Platelet Count Result 96 k/mm3 (150-375); Red Blood Count 2.79 M/mm3 (4.6-6.20); White Blood Count 2.5 K/mm3 (4.5-10.0)
[2025-05-06 06:14] LABS: Anion Gap 4 mmol/L (4-12); Blood Urea Nitrogen 10 mg/dL (9-20); Calcium 9.6 mg/dL (8.4-10.2); Carbon Dioxide 26 mmol/L (22-30); Chloride 100 mmol/L (98-107); Estimated CRCL calculation 60 ml/min; Estimated Glomerular Filt Rate > 60; Glucose 89 mg/dL (65-110); Magnesium 1.9 mg/dL (1.6-2.3); Potassium 4.3 mmol/L (3.4-5.0); Sodium 130 mmol/L (137-145)
[2025-05-06 08:00] VITALS: O2SAT 99
[2025-05-06 08:20] VITALS: PULSE 80
[2025-05-06] MEDS: PANTOPRAZOLE SODIUM IV 40 MG VIAL IV PUSH ×2 (08:20→16:58)
[2025-05-06] MEDS: AMIODARONE HCL 200 MG TABLET PO (08:20)
[2025-05-06] MEDS: DOCUSATE SODIUM 100 MG CAPSULE PO ×2 (08:21→20:31)
--- NOTE | 2025-05-06 08:23 | WPDGICN ---
Assessment and Plan Assessment and plan (1) Vomiting: Code(s): R11.10 - Vomiting, unspecified Status: Acute (2) Dry heaves: Code(s): R11.10 - Vomiting, unspecified Status: Acute (3) Appetite loss: Code(s): R63.0 - Anorexia Status: Acute (4) Weight loss: Code(s): R63.4 - Abnormal weight loss Status: Acute (5) Hyponatremia: Code(s): E87.1 - Hypo-osmolality and hyponatremia Status: Acute (6) Elevated bilirubin: Code(s): R17 - Unspecified jaundice Status: Acute (7) Pancytopenia: Code(s): D61.818 - Other pancytopenia Status: Acute Plan 1. Vomiting/dry heaves/appetite loss/weight loss/hyponatremia: Patient with an extensive complex medical history including recent hospitalization at [facility] with redo sternotomy, AVR, Maze, BIN clip on 03/23/2025 due to severe prostatic valve. CT showing moderately distended gallbladder but otherwise no findings to explain his symptoms. LFT's and lipase normal except mildly elevated bilirubin at 1.6. Since his second surgery Mar 29 he has been experiencing weight loss, vomiting but mostly dry heaves and decreased appetite. Patient states that he lost 22 lb during his hospitalization and has lost an additional 10 lb since he was discharged on April 14. He denies any reflux, regurgitation, odynophagia or dysphagia. He has only had 2 episodes of dry heaves since admission once after eating crackers and once after a bite of sandwich. But he does state that his episodes of dry heaves has significantly improved since admission with antiemetics. DDX: Esophagitis versus peptic ulcer disease versus motility disorder versus stricture vs electrolyte imbalance EGD tomorrow to evaluate for possible gastroduodenal pathology Okay for clear liquids today if tolerated NPO after midnight hyponatremia with sodium @ 130 may be a partial contributing factor of vomiting primary care team to monitor and correct hyponatremia continue supportive care with antiemetics 2. Pancytopenia: Patient with CLL on tyrosine kinase inhibitors, A-Fib on Eliquis. Labs today showing WBC's 2.5, Hgb 10-->8, Hct 30-->26, MCV 93 and platelets 126-->96. No signs of active GI bleeding. 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 Elevated total bilirubin: LFT's normal except mildly elevated bilirubin. No Hx of chronic elevation. Will check direct and indirect bilirubin and continue to monitor 4. Colon cancer screening: Patient is 70 years old and has never had a colonoscopy or Cologuard. Family history negative for CRC or IBD. Patient advised to follow up office outpatient at which time we can schedule his screening colonoscopy 6 months after his last surgery if stable Thank you very much for allowing me to share in the care of this very nice patient. This report may have been done utilizing a voice recognition system. Attempts have been made to correct errors. However, there may be uncorrected grammatical, spelling, and recognition errors present. GI Consult Note Consult date/time: 05/06/25 08:23 Reason for consult: Vomiting HPI: Orion Jacob is a very pleasant 70 year old male with PMSH of stroke, aortic dissection, CLL on tyrosine kinase inhibitors, BPH, A-fib on Eliquis, Hx of aortic valve replacement (bioprosthetic), aortic bifurcation bypass, knee replacement, recent hospitalization at [facility] with redo sternotomy, AVR, Maze, BIN clip on 03/23/2025 due to severe prostatic valve. He presented to the ER 05/05/2025 for vomiting. GI has been consulted for vomiting. Patient's Ernestina was present throughout the entire visit. Patient states that following his second surgery on Mar 29 he has been having dry heaves with occasional episodes of vomit, decreased appetite and weight loss. He states that he last 22 lb during his hospitalization and has lost an additional 8 lb since his discharge on April 14. Patient states that recently he has been unable to keep solids down as it typically prompts severe episodes of dry heaving. Occasionally he can tolerate liquids. Prior to admission he was having a formed non urgent bowel movement every 2 days but due to recent decreased p.o. intake his bowel frequency has slowed. He denies any abdominal pain, nausea, bloating, odynophagia, dysphagia, reflux, regurgitation, early satiety, diarrhea, constipation, hematochezia or melena. He is on Eliquis daily but denies any other NSAID or aspirin use. Family history negative for CRC or IBD. Gallbladder and appendix and Situ in no prior history of hernia repairs. He former smoker that quit around 15 years ago denies any alcohol or marijuana use. ENDOSCOPY HISTORY: EGD: Patient has never had an EGD COLONOSCOPY: Patient has never had a colonoscopy LABS AND STOOL STUDIES: Labs 05/06/2025: WBC 2.5, Hgb 8, Hct 26, MCV 93, platelets 96 Sodium 130, potassium 4.3, BUN 10, creatinine 1.09, GFR >60, calcium 9.6,magnesium 1.9 Labs 05/05/2025: WBC 5, Hgb 10, Hct 30, MCV 92, platelets 126 Sodium 131, potassium 4.4, BUN 12, creatinine 1.24, GFR 57, calcium 10.3 Total bilirubin 1.6, AST 42, ALT 22, Alkaline Phos 108, albumin 4.4, lipase 57 IMAGING: CT abd/pelvis w/contrast 05/05/2025: IMPRESSION: 1. Splenomegaly. 2: Moderate right pleural effusion. Small left pleural effusion. 3: Bilateral renal cysts. 4: Severe lower thoracic and lumbar spondylosis with scoliosis. Review of Systems Constitutional: Constitutional: Reports as per HPI ENT: Reports as per HPI and Denies dysphagia Cardiovascular: Cardiovascular: Reports as per HPI, Denies chest pain, Reports leg edema (mild that improves with compression stockings) and Denies dyspnea Respiratory: Respiratory: Denies cough, Denies hemoptysis and Denies dyspnea Gastrointestinal: Gastrointestinal: Reports as per HPI Musculoskeletal: Musculoskeletal: Reports as per HPI Integumentary/Breasts: Skin/Breast: Reports as per HPI Psychiatric: Psychiatric: Reports as per HPI Endocrine: Endocrine: Reports no additional endocrine complaints Hematologic/Lymphatic: Hematologic/Lymphatic: Reports no additional hematologic/lymphatic complaints [facility] Past Medical History Medical History (Updated 05/06/25 @ 09:51 by Karina Dukes APRN) History of cerebral infarction Bicuspid aortic valve Aortic dissection CLL (chronic lymphocytic leukemia) Surgical History Surgical History (Updated 04/22/25 @ 12:38 by Robyn Goodwin APRN) History of aortic valve replacement with bioprosthetic valve redo procedure 03/2025 History of surgery on wrist History of knee replacement History of aortic valve replacement Bovine valve S/P aortic bifurcation bypass graft Family History Family History (Updated 05/05/25 @ 22:42 by Jerry Blair RN) Father Kidney disease Pulmonary embolism Father No problems noted. Mother No problems noted. Sibling No problems noted. Social History Social History Social History: Mr. Jacob lives at home with his . He is independent in his activities. 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 His PCP is Dr. Valenzuela. He designates his , Ernestina, as his surrogate decision maker. He would like to be a full code. Years smoked: 15 Smoking status: Former smoker Tobacco type: cigarettes Smoking end date: 10/24/05 Alcohol intake: current Drinks per week: 1 Substance use: never Do You Feel Safe in your Home?: Yes Lack of Transportation: No Lack of Food: Never True Current Housing: I Have Housing Concerned About Future Housing: No Difficulty Paying Gas/Electric Bills: No Difficulty Paying for Meds: No Currently Unemployed: No Education: High School Diploma/GED Difficulty w/ Childcare or Family Care: No Living arrangements: with family Occupation/Education: retired Gender identity (if verbalized by the patient): Male Sexual Orientation (if Verbalized by the Patient): Straight or Heterosexual Spiritual care concerns: Yes Meds Home Medications and Allergies Home Medications ?Medication ?Instructions ?Recorded ?Confirmed ?Type apixaban 5 mg tablet (Eliquis) 5 mg PO BID 01/30/22 05/05/25 History rosuvastatin 5 mg tablet 5 mg PO DAILY 01/30/22 05/05/25 History tamsulosin 0.4 mg capsule See Rx Instructions .Route 07/12/24 05/05/25 Rx .COMPLEX #30 caps amiodarone 200 mg tablet 200 mg PO DAILY 04/22/25 05/05/25 History aspirin 81 mg tablet 81 mg PO DAILY 04/22/25 05/05/25 History cholecalciferol (vitamin D3) 50 50 mcg PO DAILY 04/22/25 05/05/25 History mcg (2,000 unit) capsule docusate sodium 100 mg capsule 100 mg PO BID PRN constipation 04/22/25 05/05/25 History (Colace) lamotrigine 150 mg tablet 75 mg PO BID 04/22/25 05/05/25 History pantoprazole 40 mg tablet,delayed 40 mg PO DAILY 04/22/25 05/05/25 History release Allergies Allergy/AdvReac Type Severity Reaction Status Date / Time No Known Allergies Allergy Verified 05/05/25 23:08 Vital Signs Vital Signs - 24 hr 05/05/25 12:30 05/05/25 13:21 05/05/25 13:22 Temperature 97.7 F Pulse Rate 99 80 79 Respiratory Rate 20 17 Blood Pressure 121/80 123/77 Pulse Oximetry 100 100 100 Oxygen Delivery Room Air 05/05/25 13:28 05/05/25 13:30 05/05/25 13:45 Temperature Pulse Rate 76 75 75 Respiratory Rate 19 15 11 L Blood Pressure 123/77 Pulse Oximetry 100 95 99 Oxygen Delivery 05/05/25 14:11 05/05/25 14:15 05/05/25 14:44 Temperature Pulse Rate 72 72 75 Respiratory Rate 15 15 Blood Pressure Pulse Oximetry 95 100 Oxygen Delivery 05/05/25 14:55 05/05/25 15:10 05/05/25 15:15 Temperature Pulse Rate 76 77 Respiratory Rate 14 15 16 Blood Pressure 142/79 H Pulse Oximetry 98 100 100 Oxygen Delivery 05/05/25 15:30 05/05/25 15:31 05/05/25 15:31 Temperature Pulse Rate 79 79 80 Respiratory Rate 14 Blood Pressure 144/83 H 144/83 H 140/83 Pulse Oximetry 98 Oxygen Delivery 05/05/25 15:31 05/05/25 15:31 05/05/25 15:32 Temperature Pulse Rate 90 79 Respiratory Rate 15 Blood Pressure 118/78 140/83 Pulse Oximetry 99 97 Oxygen Delivery 05/05/25 15:33 05/05/25 15:45 05/05/25 16:00 Temperature Pulse Rate 79 80 Respiratory Rate 15 15 Blood Pressure 118/78 Pulse Oximetry 99 100 Oxygen Delivery 05/05/25 16:01 05/05/25 16:28 05/05/25 16:30 Temperature Pulse Rate 79 80 Respiratory Rate 14 25 H 13 Blood Pressure 147/91 H Pulse Oximetry 100 Oxygen Delivery 05/05/25 16:45 05/05/25 17:00 05/05/25 17:01 Temperature Pulse Rate 75 75 75 Respiratory Rate 16 12 16 Blood Pressure 155/91 H Pulse Oximetry Oxygen Delivery 05/05/25 17:31 05/05/25 17:32 05/05/25 17:57 Temperature Pulse Rate 74 74 80 Respiratory Rate 16 15 16 Blood Pressure 155/90 H Pulse Oximetry 98 99 Oxygen Delivery 05/05/25 18:00 05/05/25 18:01 05/05/25 18:18 Temperature Pulse Rate 82 79 78 Respiratory Rate 18 18 19 Blood Pressure 140/83 Pulse Oximetry 100 98 96 Oxygen Delivery 05/05/25 18:30 05/05/25 18:45 05/05/25 19:02 Temperature Pulse Rate 77 74 86 Respiratory Rate 16 15 28 H Blood Pressure Pulse Oximetry 98 98 Oxygen Delivery 05/05/25 19:12 05/05/25 19:16 05/05/25 19:45 Temperature Pulse Rate 97 73 Respiratory Rate 20 43 H 16 Blood Pressure 114/68 Pulse Oximetry 99 Oxygen Delivery 05/05/25 20:01 05/05/25 20:02 05/05/25 20:19 Temperature Pulse Rate 72 72 72 Respiratory Rate 15 16 15 Blood Pressure 125/70 Pulse Oximetry Oxygen Delivery 05/05/25 20:48 05/05/25 21:06 05/05/25 21:15 Temperature 97.8 F Pulse Rate 73 74 79 Respiratory Rate 15 22 H 18 Blood Pressure 134/69 Pulse Oximetry 100 Oxygen Delivery 05/05/25 21:27 05/06/25 05:52 05/06/25 08:20 Temperature 97.8 F 98.3 F Pulse Rate 75 78 80 Respiratory Rate 16 18 Blood Pressure 140/79 129/77 Pulse Oximetry 99 99 Oxygen Delivery Exam Const: General: cooperative, healthy appearing, comfortable, no acute distress and well developed Orientation/consciousness: oriented to person, oriented to place, oriented to time and patient oriented x3 HENMT: Head: normal to inspection, normocephalic and atraumatic Mouth: Yes Normal oral and palatal mucosa present and Yes moist mucous membranes Eyes: General: appearance normal, both eyes and all related structures Conjunctivae: conjunctivae normal Sclera: sclerae normal Pupils: Equal, round and reactive pupils present Neck: Neck: normal visual inspection Chest: Chest palpation & inspection: normal inspection of the chest Resp: Effort & Inspection: normal respiratory effort and able to speak in complete sentences Auscultation: clear to auscultation bilaterally Cardio: Jugular venous distension: no JVD Rate: regular rate Rhythm: regular rhythm Heart sounds: S1 normal heart sound present and S2 normal heart sound present GI: Inspection: normal to inspection and non-distended GI Palp: Yes Soft to palpation, No Firmness to palpation present (GI), No Tenderness to palpation present (GI), No Guarding due to palpation present (GI) and Yes No hepatosplenomegaly present Auscultation: normal bowel sounds Rectal Exam: deferred Skin: General skin exam: normal color and no rashes or lesions noted Neuro: General: oriented to person, oriented to place, oriented to time and patient oriented x3 Cranial nerves: Yes Equal, round and reactive pupils present Speech: normal speech Extrem: General: normal to inspection and no clubbing, cyanosis or edema Psych: Appearance: grossly normal and well kempt Affect: normal affect Results Labs 05/06/25 05:18 05/06/25 05:18 Labs: Short CBC 05/05/25 05/06/25 Range/Units 13:16 05:18 WBC 4.8 2.5 L (4.5-10.0) K/mm3 Hgb 9.7 L D 8.2 L (14.0-18.0) g/dL Hct 30.4 L 26.0 L (42.0-52.0) % Plt Count 126 L 96 L (150-375) k/mm3 BMP 05/05/25 05/06/25 13:16 05:18 Sodium 131 L 130 L Potassium 4.4 4.3 Chloride 96 L 100 Carbon Dioxide 26 26 BUN 12 D 10 Creatinine 1.24 1.09 Glucose 110 89 Calcium 10.3 H 9.6 Cardiac Enzymes 05/05/25 Range/Units 18:03 Troponin I 0.022 (0.000-0.034) ng/mL Liver Function 05/05/25 Range/Units 13:16 Total Bilirubin 1.6 H (0.2-1.3) mg/dL AST 42 (17-59) U/L ALT 22 (6-50) U/L Alkaline Phosphatase 108 (38-126) U/L Albumin 4.4 (3.5-5.1) g/dL Urine 05/05/25 Range/Units 15:37 Urine Color Yellow (Yellow) Urine Appearance Clear (Clear) Urine pH 6.5 (5.0-9.0) Ur Specific [place] 1.042 H (1.001-1.035) Urine Protein 1+ H (Negative) mg/dL Urine Glucose (UA) Negative (Negative) mg/dL
--- NOTE | 2025-05-06 09:07 | P.PNIM_ITS ---
Progress Note: A&P Assessment and Plan (1) Nausea and vomiting: Code(s): R11.2 - Nausea with vomiting, unspecified Status: Acute Assessment and Plan: GI consulted Plan for EGD tomorrow Protonix b.i.d. Stop IV fluids due to CHF pulmonary edema and pleural effusion Albumin x1 (2) Pleural effusion: Code(s): J90 - Pleural effusion, not elsewhere classified Status: Acute Assessment and Plan: Repeat chest x-ray showing pulmonary edema and pleural effusion Stop IV fluids Echocardiogram pending Albumin (3) Anemia: Code(s): D64.9 - Anemia, unspecified Status: Acute Assessment and Plan: Could be related to recent surgeries and iliopsoas hematoma in 03/2025. No evidence of overt bleeding. Trend H&H Holding aspirin and Eliquis No need for transfusion at this time Transfuse for hemoglobin less than 7 or symptomatic (4) Atrial fibrillation: Code(s): I48.91 - Unspecified atrial fibrillation Status: Acute Assessment and Plan: Continue amiodarone Hold Eliquis (5) Seizure: Code(s): R56.9 - Unspecified convulsions Status: Acute Assessment and Plan: Continue Keppra (6) CLL (chronic lymphocytic leukemia): Code(s): C91.10 - Chronic lymphocytic leukemia of B-cell type not having achieved remission Status: Acute Assessment and Plan: Treatment currently on hold due to recent surgeries will follow-up with oncologist outpatient (7) Hypertension: Code(s): I10 - Essential (primary) hypertension Status: Acute (8) Hyponatremia: Code(s): E87.1 - Hypo-osmolality and hyponatremia Status: Acute Assessment and Plan: Daily labs (9) Constipation: Code(s): K59.00 - Constipation, unspecified Status: Acute Assessment and Plan: Senna MiraLax (10) History of aortic valve replacement with bioprosthetic valve: Code(s): Z95.3 - Presence of xenogenic heart valve Status: Acute Assessment and Plan: Due to patient's issues being gastric and not cardiac day wish to stay at [place] (11) Hyperlipidemia: Code(s): E78.5 - Hyperlipidemia, unspecified Status: Acute Assessment and Plan: Carotid stenosis Continue statin Hold aspirin Plan Ampicillin? Time Spent With Patient Time with patient: Greater than 35 minutes Subjective Date/time seen: 05/06/25 09:07 Interval history: 70-year-old male with PMH including CLL on tyrosine kinase inhibitors, BPH, insomnia, diastolic dysfunction AFib on Eliquis, carotid artery stenosis, history of stroke, seizure disorder, history of bicuspid aortic valve complicated by acute type a dissection status post bioprosthetic aortic valve replacement and supra coronary aortic graft replacement in 2009 with recent hospitalization at [facility] with redo sternotomy, AVR, Maze, BIN clip on 03/23/2025 due to severe prostatic valve regurgitation, chronic constipa tion. CT abdomen pelvis with contrast demonstrates moderate right pleural effusion, small left pleural effusion, bilateral renal cysts, splenomegaly, severe lower thoracic lumbar spondylosis with scoliosis. Patient family requested admission at [facility] instead being transferred back to [facility]. Is been 3 weeks since patient was discharged from [facility] anemia had increased nausea and dry heaving and has lost about 22 lb. GI consulted Plan for EGD tomorrow, a.m. chest x-ray shows pulmonary edema echocardiogram ordered Review of Systems Review of Systems: 12 systems were reviewed and are negativ e except for as per HPI. Exam Narrative: General: well appearing, appears stated age. HEENT: normocephalic, atraumatic. Mucous membranes moist. EOMI, PERRLA, bilateral sclera anicteric, no conjunctival injection. Neck supple without JVD, lymphadenopathy, or bruit. Respiratory: clear to ascultation bilaterally. No rales/rhonic/wheezes. Cardiovascular: Regular rate and rhythm, normal S1-S2 upon ascultation. No murmurs, rubs, or clicks. PMI is nondisplaced, capillary refill less than 3 second. Abdomen: Soft, round, no pulsatile masses, nondistended and nontender. No rebound, no guarding. No CVA tenderness, no hepatosplenomegaly. Bowel sounds present to all four quadrants. No high pitch or tinkling sounds, resonant to percussion. Extremities: No cyanosis, clubbing, or edema present. Pulses are palpable 2/2. Active ROM to all four extremities. Neuro: Alert and orientated x 4. PERRLA. Cranial nerves 2-12 intact without focal deficit. Skin: Warm, dry, and intact, without rash, erythema, or lesion. Psych: pleasant, cooperative, normal speech, normal affect, no hallucinations, no dysarthia Objective Data Vital Signs Vital Signs: Vital Signs - 24 hr 05/05/25 12:30 05/05/25 13:21 05/05/25 13:22 Temperature 97.7 F Pulse Rate 99 80 79 Respiratory Rate 20 17 Blood Pressure 121/80 123/77 Pulse Oximetry 100 100 100 Oxygen Delivery Room Air 05/05/25 13:28 05/05/25 13:30 05/05/25 13:45 Temperature Pulse Rate 76 75 75 Respiratory Rate 19 15 11 L Blood Pressure 123/77 Pulse Oximetry 100 95 99 Oxygen Delivery 05/05/25 14:11 05/05/25 14:15 05/05/25 14:44 Temperature Pulse Rate 72 72 75 Respiratory Rate 15 15 Blood Pressure Pulse Oximetry 95 100 Oxygen Delivery 05/05/25 14:55 05/05/25 15:10 05/05/25 15:15 Temperature Pulse Rate 76 77 Respiratory Rate 14 15 16 Blood Pressure 142/79 H Pulse Oximetry 98 100 100 Oxygen Delivery 05/05/25 15:30 05/05/25 15:31 05/05/25 15:31 Temperature Pulse Rate 79 79 80 Respiratory Rate 14 Blood Pressure 144/83 H 144/83 H 140/83 Pulse Oximetry 98 Oxygen Delivery 05/05/25 15:31 05/05/25 15:31 05/05/25 15:32 Temperature Pulse Rate 90 79 Respiratory Rate 15 Blood Pressure 118/78 140/83 Pulse Oximetry 99 97 Oxygen Delivery 05/05/25 15:33 05/05/25 15:45 05/05/25 16:00 Temperature Pulse Rate 79 80 Respiratory Rate 15 15 Blood Pressure 118/78 Pulse Oximetry 99 100 Oxygen Delivery 05/05/25 16:01 05/05/25 16:28 05/05/25 16:30 Temperature Pulse Rate 79 80 Respiratory Rate 14 25 H 13 Blood Pressure 147/91 H Pulse Oximetry 100 Oxygen Delivery 05/05/25 16:45 05/05/25 17:00 05/05/25 17:01 Temperature Pulse Rate 75 75 75 Respiratory Rate 16 12 16 Blood Pressure 155/91 H Pulse Oximetry Oxygen Delivery 05/05/25 17:31 05/05/25 17:32 05/05/25 17:57 Temperature Pulse Rate 74 74 80 Respiratory Rate 16 15 16 Blood Pressure 155/90 H Pulse Oximetry 98 99 Oxygen Delivery 05/05/25 18:00 05/05/25 18:01 05/05/25 18:18 Temperature Pulse Rate 82 79 78 Respiratory Rate 18 18 19 Blood Pressure 140/83 Pulse Oximetry 100 98 96 Oxygen Delivery 05/05/25 18:30 05/05/25 18:45 05/05/25 19:02 Temperature Pulse Rate 77 74 86 Respiratory Rate 16 15 28 H Blood Pressure Pulse Oximetry 98 98 Oxygen Delivery 05/05/25 19:12 05/05/25 19:16 05/05/25 19:45 Temperature Pulse Rate 97 73 Respiratory Rate 20 43 H 16 Blood Pressure 114/68 Pulse Oximetry 99 Oxygen Delivery 05/05/25 20:01 05/05/25 20:02 05/05/25 20:19 Temperature Pulse Rate 72 72 72 Respiratory Rate 15 16 15 Blood Pressure 125/70 Pulse Oximetry Oxygen Delivery 05/05/25 20:48 05/05/25 21:06 05/05/25 21:15 Temperature 97.8 F Pulse Rate 73 74 79 Respiratory Rate 15 22 H 18 Blood Pressure 134/69 Pulse Oximetry 100 Oxygen Delivery 05/05/25 21:27 05/06/25 05:52 05/06/25 08:20 Temperature 97.8 F 98.3 F Pulse Rate 75 78 80 Respiratory Rate 16 18 Blood Pressure 140/79 129/77 Pulse Oximetry 99 99 Oxygen Delivery Intake/Output Intake/Output: Intake & Output 05/03/25 05/04/25 05/05/25 05/06/25 23:59 23:59 23:59 23:59 Intake Total 1999 999 Output Total 1225 Balance 1999 - Meds/Results Medications: Active Medications Generic Name Dose Route Start Last Admin Trade Name Freq PRN Reason Stop Dose Admin Acetaminophen 650 mg 05/05/25 17:37 Acetaminophen 325 Mg Tablet PO Q4H PRN Mild Pain (1-3) or Fever Hydrocodone Bitart/Acetaminophen 1 tab 05/05/25 17:37 Hydrocodone/Acetaminophen (*Crx) 5-325 Mg Tablet PO Q4H PRN Pain Rated 4-6 Amiodarone HCl 200 mg 05/06/25 09:00 05/06/25 08:20 Amiodarone Hcl 200 Mg Tablet PO 200 mg DAILY CARLOS Administration Docusate Sodium 100 mg 05/05/25 23:30 05/06/25 08:21 Docusate Sodium 100 Mg Capsule PO 100 mg Q12HR CARLOS Administration Hyoscyamine 0.125 mg 05/05/25 20:54 Hyoscyamine Sulfate 0.125 Mg Tablet PO Q4H PRN gi tract spasm Sodium Chloride 1,000 mls @ 125 mls/hr 05/05/25 17:40 05/06/25 03:27 Normal Saline Iv IV CONT 125 mls/hr .Q8H CARLOS Administration Ampicillin Sodium/Sulbactam 100 mls @ 200 mls/hr 05/06/25 06:00 05/06/25 06:41 Sodium 3 gm/ Sodium Chloride IVPB Not Given Q6HR CARLOS Lamotrigine 150 mg 05/06/25 09:00 Lamotrigine 50 Mg Tablet PO Q12HR CARLOS Morphine Sulfate 2 mg 05/05/25 17:37 Morphine Sulfate (*Crx) 4 Mg/Ml Inj IV PUSH Q2H PRN Pain Rated 7-10 Pantoprazole Sodium 40 mg 10/23/25 09:00 05/06/25 08:20 Pantoprazole Sodium Iv 40 Mg Vial IV PUSH 40 mg BID CARLOS Administration Promethazine HCl 12.5 mg 05/05/25 17:37 Promethazine Hcl 25 Mg/Ml Ampul IV PUSH Q6H PRN Nausea Radiology Results: ITS Impressions Abdomen/Pelvis CT 05/05/25 14:54 IMPRESSION: 1. Splenomegaly. 2: Moderate right pleural effusion. Small left pleural effusion. 3: Bilateral renal cysts. 4: Severe lower thoracic and lumbar spondylosis with scoliosis. Chest X-Ray 05/05/25 18:10 IMPRESSION: Bilateral lower lobe infiltrate and opacities. Labs Labs: Laboratory Results - last 24 hr 05/05/25 05/05/25 05/05/25 13:16 15:37 18:03 WBC 4.8 RBC 3.30 L Hgb 9.7 L D Hct 30.4 L MCV 92.1 MCH 29.4 MCHC 31.9 L RDW 15.3 H Plt Count 126 L MPV 8.6 Immature Gran % (Auto) 0.4 Neut % (Auto) 49.7 Lymph % (Auto) 39.6 [place] % (Auto) 8.0 Eos % (Auto) 1.7 Baso % (Auto) 0.6 Lymph # (Auto) 1.88 [place] # (Auto) 0.4 Eos # (Auto) 0.1 Baso # (Auto) 0.0 Abs Immat Gran (auto) 0.02 Absolute Neuts (auto) 2.4 Absolute Nucleated RBC 0.000 Nucleated RBC % 0.0 % Immature Plt Fraction Sodium 131 L Potassium 4.4 Chloride 96 L Carbon Dioxide 26 Anion Gap 9 BUN 12 D Creatinine 1.24 Estim Creat Clear Calc 53 Estimated GFR 57 L Glucose 110 Calcium 10.3 H Magnesium Total Bilirubin 1.6 H AST 42 ALT 22 Alkaline Phosphatase 108 Troponin I 0.022 Total Protein 6.9 Albumin 4.4 Lipase 57 Urine Color Yellow Urine Appearance Clear Urine pH 6.5 Ur Specific [place] 1.042 H Urine Protein 1+ H Urine Glucose (UA) Negative Urine Ketones Trace H Ur Blood (Man) Negative Urine Nitrate Negative Urine Bilirubin Negative Urine Urobilinogen 1.0 Leukocyte Esterase Rfl Negative Urine RBC 0-2 Urine WBC 0-5 Ur Squamous Epith Cells None seen Urine Bacteria None seen Urine Casts 3-5 05/06/25 05:18 WBC 2.5 L RBC 2.79 L Hgb 8.2 L Hct 26.0 L MCV 93.2 MCH 29.4 MCHC 31.5 L RDW 15.4 H Plt Count 96 L MPV 9.0 Immature Gran % (Auto) 0.4 Neut % (Auto) 49.3 Lymph % (Auto) 34.7 [place] % (Auto) 12.0 H Eos % (Auto) 2.8 Baso % (Auto) 0.8 Lymph # (Auto) 0.87 L [place] # (Auto) 0.3 Eos # (Auto) 0.1 Baso # (Auto) 0.0 Abs Immat Gran (auto) 0.01 Absolute Neuts (auto) 1.2 L Absolute Nucleated RBC 0.000 Nucleated RBC % 0.0 % Immature Plt Fraction 1.1 Sodium 130 L Potassium 4.3 Chloride 100 Carbon Dioxide 26 Anion Gap 4 BUN 10 Creatinine 1.09 Estim Creat Clear Calc 60 Estimated GFR > 60 Glucose 89 Calcium 9.6 Magnesium 1.9 Total Bilirubin AST ALT Alkaline Phosphatase Troponin I Total Protein Albumin Lipase Urine Color Urine Appearance Urine pH Ur Specific [place] Urine Protein Urine Glucose (UA) Urine Ketones Ur Blood (Man) Urine Nitrate Urine Bilirubin Urine Urobilinogen Leukocyte Esterase Rfl Urine RBC Urine WBC Ur Squamous Epith Cells Urine Bacteria Urine Casts Quality VTE Prophylaxis VTE prophylaxis: mechanical ordered Hospitalist MIPS Advance Care Plan I have confirmed that the patient's Advanced Care Plan is present, code status is documented, or surrogate decision maker is listed in patient medical record.: Yes Medication Reconciliation I have utilized all available resources to obtain, update and review the patients current medications (includes all prescriptions, OTC, herbals, cannabis, and nutritional supplements).: Yes
[2025-05-06] MEDS: lamoTRIgine 50 MG TABLET 150 MG PO ×2 (09:11→20:32)
[2025-05-06 12:54] VITALS: BMI 29.3
[2025-05-06 14:00] VITALS: BP 121/64; PULSE 98; RESP 18; TEMP 36.5; O2SAT 99
[2025-05-06] MEDS: ALBUMIN HUMAN 25% 25 GM/100 ML 200 ML IVPB (16:52)
[2025-05-06] MEDS: TAMSULOSIN HCL 0.4 MG CAPSULE BY MOUTH (16:55)
[2025-05-06] MEDS: ROSUVASTATIN 5 MG TABLET PO (16:55)
[2025-05-06] MEDS: PERFLUTREN LIPID MICROSPHERES 1.5 ML VIAL DILUTED TO 10 ML TOTAL VOLUME IV PUSH (16:58)
--- NOTE | 2025-05-06 16:58 | IVDEFINITY ---
Prior to administration of IV Definity the patient was educated on the risks and benefits of the imaging enhancing agent including potential adverse side effects. The patient verbalized understanding. Allergies were verified. No exclusion criteria were identified and at least one of the following inclusion criteria were met: 1) physician request, 2) patient technically difficult to image (per the [place] [employer]ocardi[employer] guidelines of two or more segments not discernable within the apical view), or 3) questionable left ventricular function. ?
[2025-05-06] MEDS: SENNOSIDES 8.6 MG TABLET PO (20:32)
[2025-05-06 21:14] VITALS: BP 107/70; PULSE 67; RESP 18; TEMP 36.6; O2SAT 100
[2025-05-07] VITALS (9 sets, daily range): BP systolic 100–141; BP diastolic 43–77; PULSE 66–75; RESP 16–20; TEMP 36.1–37.4; O2SAT 96–100
--- NOTE | 2025-05-07 07:21 | P.CDI_ITS ---
CDI Query Clarification Request BMI: 29.3 Nutritional Diagnostic Statement: Please refer to the comprehensive nutrition assessment for further information. If you agree with diagnosis of Severe protein calorie malnutrition related to chronic vomiting, loss of appetite as evidenced by weight loss 13%/4 months; intakes <75% needs >1 month; moderate muscle wasting and fat loss. Please specify severity if known: * Mild * Moderate * Severe * Other/Unknown <Hannah Soria RN - Last Filed: 05/07/25 07:26> BMI: 29.3 Nutritional Diagnostic Statement: Please refer to the comprehensive nutrition assessment for further information. If you agree with diagnosis of Severe protein calorie malnutrition related to chronic vomiting, loss of appetite as evidenced by weight loss 13%/4 months; intakes <75% needs >1 month; moderate muscle wasting and fat loss. Please specify severity if known: * Severe due to gastritis <Anjali Hamilton APRN - Last Filed: 05/08/25 14:02>
[2025-05-07] MEDS: PANTOPRAZOLE SODIUM IV 40 MG VIAL IV PUSH (08:03)
[2025-05-07] MEDS: lamoTRIgine 50 MG TABLET 150 MG PO ×2 (08:03→20:36)
[2025-05-07] MEDS: AMIODARONE HCL 200 MG TABLET PO (08:03)
--- NOTE | 2025-05-07 08:10 | P.PNIM_ITS ---
Progress Note: A&P Assessment and Plan (1) Nausea and vomiting: Code(s): R11.2 - Nausea with vomiting, unspecified Status: Acute Assessment and Plan: GI consulted Plan for EGD today Protonix b.i.d. Stop IV fluids due to CHF pulmonary edema and pleural effusion (2) Pleural effusion: Code(s): J90 - Pleural effusion, not elsewhere classified Status: Acute Assessment and Plan: Repeat chest x-ray showing pulmonary edema and pleural effusion Stop IV fluids Echocardiogram EF 60-65% Albumin Repeat chest x-ray worsening, holding of the diuretics at this time as patient does not shortness of breath and is NPO (3) Anemia: Code(s): D64.9 - Anemia, unspecified Status: Acute Assessment and Plan: Could be related to recent surgeries and iliopsoas hematoma in 03/2025. Versus dilutional No evidence of overt bleeding. Trend H&H Holding aspirin and Eliquis No need for transfusion at this time Transfuse for hemoglobin less than 7 or symptomatic (4) Atrial fibrillation: Code(s): I48.91 - Unspecified atrial fibrillation Status: Acute Assessment and Plan: Continue amiodarone Hold Eliquis (5) Seizure: Code(s): R56.9 - Unspecified convulsions Status: Acute Assessment and Plan: Continue Keppra (6) CLL (chronic lymphocytic leukemia): Code(s): C91.10 - Chronic lymphocytic leukemia of B-cell type not having achieved remission Status: Acute Assessment and Plan: Treatment currently on hold due to recent surgeries will follow-up with oncologist outpatient (7) Hyponatremia: Code(s): E87.1 - Hypo-osmolality and hyponatremia Status: Acute Assessment and Plan: Daily labs IVF. Yesterday due to fluid over load might do Lasix the afternoon A.m. labs pending (8) Constipation: Code(s): K59.00 - Constipation, unspecified Status: Acute Assessment and Plan: Senna MiraLax (9) History of aortic valve replacement with bioprosthetic valve: Code(s): Z95.3 - Presence of xenogenic heart valve Status: Acute Assessment and Plan: Due to patient's issues being gastric and not cardiac he wish to stay at [facility] (10) Hyperlipidemia: Code(s): E78.5 - Hyperlipidemia, unspecified Status: Acute Assessment and Plan: Carotid stenosis Continue statin Hold aspirin Plan Ampicillin DC yesterday Time Spent With Patient Time with patient: Greater than 35 minutes Subjective Date/time seen: 05/07/25 08:10 Interval history: 70-year-old male with PMH including CLL on tyrosine kinase inhibitors, BPH, insomnia, diastolic dysfunction AFib on Eliquis, carotid artery stenosis, history of stroke, seizure disorder, history of bicuspid aortic valve complicated by acute type a dissection status post bioprosthetic aortic valve replacement and supra coronary aortic graft replacement in 2009 with recent hospitalization at [facility] with redo sternotomy, AVR, Maze, BIN clip on 03/23/2025 due to severe prostatic valve regurgitation, chronic constipation. Plan for EGD today and echocardiogram due to pulmonary edema and pleural effusion. Echocardiogram shows EF of 60-65% with left ventricle diastolic function is abnormal. Review of Systems Review of Systems: 12 systems were reviewed and are negativ e except for as per HPI. All systems reviewed & are unremarkable except as noted in HPI and below (Subjective) Exam Narrative: General: well appearing, appears stated age. HEENT: normocephalic, atraumatic. Mucous membranes moist. EOMI, PERRLA, bilateral sclera anicteric, no conjunctival injection. Neck supple without JVD, lymphadenopathy, or bruit. Respiratory: clear to ascultation bilaterally. No rales/rhonic/wheezes. Cardiovascular: Regular rate and rhythm, normal S1-S2 upon ascultation. No murmurs, rubs, or clicks. PMI is nondisplaced, capillary refill less than 3 second. Abdomen: Soft, round, no pulsatile masses, nondistended and nontender. No rebound, no guarding. No CVA tenderness, no hepatosplenomegaly. Bowel sounds present to all four quadrants. No high pitch or tinkling sounds, resonant to percussion. Extremities: No cyanosis, clubbing, or edema present. Pulses are palpable 2/2. Active ROM to all four extremities. Neuro: Alert and orientated x 4. PERRLA. Cranial nerves 2-12 intact without focal deficit. Skin: Warm, dry, and intact, without rash, erythema, or lesion. Psych: pleasant, cooperative, normal speech, normal affect, no hallucinations, no dysarthia Objective Data Vital Signs Vital Signs: Vital Signs - 24 hr 05/06/25 08:20 05/06/25 14:00 05/06/25 21:14 Temperature 97.7 F 97.8 F Pulse Rate 80 98 67 Respiratory Rate 18 18 Blood Pressure 121/64 107/70 Pulse Oximetry 99 100 05/07/25 05:41 05/07/25 08:02 05/07/25 08:03 Temperature 97.0 F L 99.4 F Pulse Rate 73 75 75 Respiratory Rate 20 20 Blood Pressure 100/43 L 141/77 H Pulse Oximetry 96 98 Intake/Output Intake/Output: Intake & Output 05/04/25 05/05/25 05/06/25 05/07/25 23:59 23:59 23:59 23:59 Intake Total 1999 2480 250 Output Total 6265 600 Balance 1999 55 -350 Meds/Results Medications: Active Medications Generic Name Dose Route Start Last Admin Trade Name Freq PRN Reason Stop Dose Admin Acetaminophen 650 mg 05/05/25 17:37 Acetaminophen 325 Mg Tablet PO Q4H PRN Mild Pain (1-3) or Fever Hydrocodone Bitart/Acetaminophen 1 tab 05/05/25 17:37 Hydrocodone/Acetaminophen (*Crx) 5-325 Mg Tablet PO Q4H PRN Pain Rated 4-6 Amiodarone HCl 200 mg 05/06/25 09:00 05/07/25 08:03 Amiodarone Hcl 200 Mg Tablet PO 200 mg DAILY CARLOS Administration Baclofen 10 mg 05/06/25 22:00 05/07/25 06:40 Baclofen 10 Mg Tablet PO Not Given Q8HR CARLOS Docusate Sodium 100 mg 05/05/25 23:30 05/07/25 08:09 Docusate Sodium 100 Mg Capsule PO Not Given Q12HR CARLOS Hyoscyamine 0.125 mg 05/05/25 20:54 Hyoscyamine Sulfate 0.125 Mg Tablet PO Q4H PRN gi tract spasm Lamotrigine 150 mg 05/06/25 09:00 05/07/25 08:03 Lamotrigine 50 Mg Tablet PO 150 mg Q12HR CARLOS Administration Morphine Sulfate 2 mg 05/05/25 17:37 Morphine Sulfate (*Crx) 4 Mg/Ml Inj IV PUSH Q2H PRN Pain Rated 7-10 Pantoprazole Sodium 40 mg 05/06/25 09:00 05/07/25 08:03 Pantoprazole Sodium Iv 40 Mg Vial IV PUSH 40 mg BID CARLOS Administration Polyethylene Glycol 17 gm 05/07/25 09:00 05/07/25 08:09 Polyethylene Glycol 3350 17 Gm Powd.Pack PO Not Given QAM [facility] Promethazine HCl 12.5 mg 05/05/25 17:37 Promethazine Hcl 25 Mg/Ml Ampul IV PUSH Q6H PRN Nausea Rosuvastatin Calcium 5 mg 05/06/25 15:40 05/06/25 16:55 Rosuvastatin 5 Mg Tablet PO 5 mg DAILY CARLOS Administration Senna 8.6 mg 05/06/25 21:00 05/06/25 20:32 Sennosides 8.6 Mg Tablet PO 8.6 mg HS CARLOS Administration Tamsulosin HCl 0.4 mg 05/06/25 15:40 05/06/25 16:55 Tamsulosin Hcl 0.4 Mg Capsule BY MOUTH 0.4 mg DAILY CARLOS Administration Radiology Results: ITS Impressions Abdomen/Pelvis CT 05/05/25 14:54 IMPRESSION: 1. Splenomegaly. 2: Moderate right pleural effusion. Small left pleural effusion. 3: Bilateral renal cysts. 4: Severe lower thoracic and lumbar spondylosis with scoliosis. Chest X-Ray 05/06/25 09:52 Impression: CHF Labs Labs: Laboratory Results - last 24 hr 05/06/25 05:18 Indirect Bilirubin 0.8 Quality VTE Prophylaxis VTE prophylaxis: mechanical ordered
[2025-05-07 08:31] LABS: Hematocrit 25.7 % (42.0-52.0); Hemoglobin 8.2 g/dL (14.0-18.0); Immature Platelet Fraction Pct 1.4 % (0.9-11.2); Mean Corpuscular HGB Conc 31.9 g/dl (32-36); Mean Corpuscular Hemoglobin 29.5 pg (26-34); Mean Corpuscular Volume 92.4 fl (80-100); Platelet Count Result 91 k/mm3 (150-375); Red Blood Count 2.78 M/mm3 (4.6-6.20); White Blood Count 2.5 K/mm3 (4.5-10.0)
[2025-05-07 08:46] LABS: Anion Gap 7 mmol/L (4-12); Blood Urea Nitrogen 10 mg/dL (9-20); Calcium 9.5 mg/dL (8.4-10.2); Carbon Dioxide 25 mmol/L (22-30); Chloride 99 mmol/L (98-107); Estimated CRCL calculation 61 ml/min; Estimated Glomerular Filt Rate > 60; Glucose 93 mg/dL (65-110); Potassium 4.0 mmol/L (3.4-5.0); Sodium 131 mmol/L (137-145)
--- NOTE | 2025-05-07 12:28 | PC.NURSE ---
1200 meds held at this time, patient NPO for EGD at 1430. Will give medications when patient is finished with testing.
[2025-05-07] MEDS: PROMETHAZINE HCL 25 MG/ML AMPUL 12.5 MG IV PUSH (12:38)
[2025-05-07] MEDS: LACTATED RINGERS 1,000 ML 150 ML IV CONT (14:03)
[2025-05-07] MEDS: SIMETHICONE ORAL SUSPENSION 20 MG/0.3 ML 30 ML BOTTLE 1.8 ML PO (14:13)
--- NOTE | 2025-05-07 14:46 | WPDANESEPPF ---
Anes - Initial Pre Proc Eval Procedure: Operation Date: 05/07/25 14:30 Proposed Procedures p Esophagogastroduodenoscopy - Bhavesh Davenport MD Date/Time: 05/07/25 14:46 Surgeon: Mode Dickson MD Pre Op Diagnosis: Intractable vomiting, Esophagitis Patient Data Age: 70 Gender: M Height: 1.83 m Weight: 98.1 kg Last Vital Signs Temp 98.5 F 05/07/25 13:57 Pulse 75 05/07/25 13:57 Resp 18 05/07/25 13:57 BP 131/70 05/07/25 13:57 Pulse Ox 98 05/07/25 13:57 O2 Del Method Room Air 05/07/25 13:57 Allergies Allergy/AdvReac Type Severity Reaction Status Date / Time No Known Allergies Allergy Verified 05/07/25 13:55 Home Medications ?Medication ?Instructions ?Recorded ?Confirmed ?Type apixaban 5 mg tablet (Eliquis) 5 mg PO BID 01/30/22 05/05/25 History rosuvastatin 5 mg tablet 5 mg PO DAILY 01/30/22 05/05/25 History tamsulosin 0.4 mg capsule See Rx Instructions .Route 07/12/24 05/05/25 Rx .COMPLEX #30 caps amiodarone 200 mg tablet 200 mg PO DAILY 04/22/25 05/05/25 History aspirin 81 mg tablet 81 mg PO DAILY 04/22/25 05/05/25 History cholecalciferol (vitamin D3) 50 50 mcg PO DAILY 04/22/25 05/05/25 History mcg (2,000 unit) capsule docusate sodium 100 mg capsule 100 mg PO BID PRN constipation 04/22/25 05/05/25 History (Colace) lamotrigine 150 mg tablet 75 mg PO BID 04/22/25 05/05/25 History pantoprazole 40 mg tablet,delayed 40 mg PO DAILY 04/22/25 05/05/25 History release Laboratory Tests 05/07/25 08:21 WBC 2.5 L K/mm3 (4.5-10.0) RBC 2.78 L M/mm3 (4.6-6.20) Hgb 8.2 L g/dL (14.0-18.0) Hct 25.7 L % (42.0-52.0) MCV 92.4 fl (80-100) MCH 29.5 pg (26-34) MCHC 31.9 L g/dl (32-36) RDW 15.5 H % (11.5-14.5) Plt Count 91 L k/mm3 (150-375) MPV 8.3 fl (7.4-10.4) % Immature Plt Fraction 1.4 % (0.9-11.2) Sodium 131 L mmol/L (137-145) Potassium 4.0 mmol/L (3.4-5.0) Chloride 99 mmol/L (98-107) Carbon Dioxide 25 mmol/L (22-30) Anion Gap 7 mmol/L (4-12) BUN 10 mg/dL (9-20) Creatinine 1.06 mg/dL (0.7-1.3) Estim Creat Clear Calc 61 ml/min Estimated GFR > 60 (59 - ) Glucose 93 mg/dL (65-110) Calcium 9.5 mg/dL (8.4-10.2) Patient hx anesthesia problems: none Family hx anesthesia problems: none Results Review: All pre-operative results and documents have been reviewed as part of the pre-operative evaluation. FORMERLY [facility] Past Medical History Medical History History of cerebral infarction Bicuspid aortic valve Aortic dissection CLL (chronic lymphocytic leukemia) Surgical History Surgical History History of aortic valve replacement with bioprosthetic valve redo procedure 03/2025 History of surgery on wrist History of knee replacement History of aortic valve replacement Bovine valve S/P aortic bifurcation bypass graft Family History Family History Father Kidney disease Pulmonary embolism Father No problems noted. Mother No problems noted. Sibling No problems noted. Social History Social History Social History: Mr. Jacob lives at home with his . He is independent in his activities. 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 His PCP is Dr. Valenzuela. He designates his , Ernestina, as his surrogate decision maker. He would like to be a full code. Years smoked: 15 Smoking status: Former smoker Tobacco type: cigarettes Smoking end date: 10/24/05 Alcohol intake: current Drinks per week: 1 Substance use: never Do You Feel Safe in your Home?: Yes Lack of Transportation: No Lack of Food: Never True Current Housing: I Have Housing Concerned About Future Housing: No Difficulty Paying Gas/Electric Bills: No Difficulty Paying for Meds: No Currently Unemployed: No Education: High School Diploma/GED Difficulty w/ Childcare or Family Care: No Living arrangements: with family Occupation/Education: retired Gender identity (if verbalized by the patient): Male Sexual Orientation (if Verbalized by the Patient): Straight or Heterosexual Spiritual care concerns: No Anes - Eval Final PreProcedure Day of Procedure 05/07/25 14:46 Patient weight: overweight Lungs: normal air movement Airway: Mallampati scale class II and special considerations (L upper incisor chipped. ) Neurological: alert and oriented Last oral intake: >/= 8 hours ASA classification: IV Emergent: no Anesthetic plan: proceed Anesthesia type and monitoring: general GIVS and standard monitoring Results Review: All pre-operative results and documents have been reviewed as part of the pre-operative evaluation. Complicated hx reviewed w pt and his . Pt had recent AVR w prolonged hospitalization at [place], recently DCed afterr 3-4 week stay. Now w N/V, for EGD. Stable from cardiac and pulmon standpoint. Informed Consent: The patient's anesthetic plan and its attendant risks and benefits were discussed with the patient/family/POA. Questions were solicited and answers provided to the satisfaction of the patient/family/POA.
--- NOTE | 2025-05-07 15:02 | S_PTH ---
PATIENT: Orion Jacob LOC: [id number] U#:[id number] AGE/SX: 70/M ROOM: 331 RE05/06/[address]: Amrita Wiley MD : 1955 BED: 02 DIS: 05/17/2025 SPEC #: [id number] RECD: 05/10/25 07:10 STATUS: HODA REQ #: [id number] SHAY: 05/07/25 15:[address]: Bhavesh Davenport DEPT: [facility] Surgical RECD BY: Joann Cortez ENTERED: 05/10/25 07:11 SP TYPE: Surgical OTHR DR: MD Ravindra Hu MD Tissues: A - Gastric Biopsy B - Gastric Biopsy Procedures: Hematoxylin and Eosin Stain Gross and Microscopic Level 4
--- NOTE | 2025-05-07 15:22 | WPDGIPROGNO ---
Progress Note: A&P Assessment and Plan (1) Nausea and vomiting: Code(s): R11.2 - Nausea with vomiting, unspecified Status: Acute Assessment and Plan: See EGD report. The patient has nonspecific gastritis but no evidence of esophagitis, hiatal hernia or peptic ulcer. As discussed yesterday, 2 major surgeries with sternotomy and possible diaphragmatic relation has generated some irritation inducing hiccups and retching episodes. We started baclofen treatment yesterday. He might get intermittent symptoms which might last for a few days. He is currently in a stable condition to continue treatment at home and we can follow him up as an outpatient if symptoms persist. Subjective Date/time seen: 05/07/25 15:22 Objective Data Vital Signs Vital Signs: Vital Signs - 24 hr 05/06/25 21:14 05/07/25 05:41 05/07/25 08:00 Temperature 97.8 F 97.0 F L Pulse Rate 67 73 Respiratory Rate 18 20 Blood Pressure 107/70 100/43 L Pulse Oximetry 100 96 Oxygen Delivery Room Air Oxygen Flow Rate 05/07/25 08:02 05/07/25 08:03 05/07/25 13:57 Temperature 99.4 F 98.5 F Pulse Rate 75 75 75 Respiratory Rate 20 18 Blood Pressure 141/77 H 131/70 Pulse Oximetry 98 98 Oxygen Delivery Room Air Oxygen Flow Rate 05/07/25 15:02 05/07/25 15:12 Temperature Pulse Rate 66 66 Respiratory Rate 18 17 Blood Pressure 104/66 105/65 Pulse Oximetry 100 100 Oxygen Delivery Nasal Cannula Nasal Cannula Oxygen Flow Rate 6 6 Intake/Output Intake/Output: Intake & Output 05/04/25 05/05/25 05/06/25 05/07/25 23:59 23:59 23:59 23:59 Intake Total 1999 2480 450 Output Total 2425 1025 Balance 1999 55 -575 Meds/Results Medications: Active Medications Generic Name Dose Route Start Last Admin Trade Name Freq PRN Reason Stop Dose Admin Acetaminophen 650 mg 05/05/25 17:37 Acetaminophen 325 Mg Tablet PO Q4H PRN Mild Pain (1-3) or Fever Hydrocodone Bitart/Acetaminophen 1 tab 05/05/25 17:37 Hydrocodone/Acetaminophen (*Crx) 5-325 Mg Tablet PO Q4H PRN Pain Rated 4-6 Amiodarone HCl 200 mg 05/06/25 09:00 05/07/25 08:03 Amiodarone Hcl 200 Mg Tablet PO 200 mg DAILY CARLOS Administration Baclofen 10 mg 05/06/25 22:00 05/07/25 06:40 Baclofen 10 Mg Tablet PO Not Given Q8HR CARLOS Docusate Sodium 100 mg 05/05/25 23:30 05/07/25 08:09 Docusate Sodium 100 Mg Capsule PO Not Given Q12HR CARLOS Hyoscyamine 0.125 mg 05/05/25 20:54 Hyoscyamine Sulfate 0.125 Mg Tablet PO Q4H PRN gi tract spasm Lactated Ringer's 1,000 mls @ 150 mls/hr 05/07/25 13:55 05/07/25 15:05 Lr - Lactated Ringers Iv IV CONT Infused .Q6H40M CARLOS Infusion Lamotrigine 150 mg 05/06/25 09:00 05/07/25 08:03 Lamotrigine 50 Mg Tablet PO 150 mg Q12HR CARLOS Administration Morphine Sulfate 2 mg 05/05/25 17:37 Morphine Sulfate (*Crx) 4 Mg/Ml Inj IV PUSH Q2H PRN Pain Rated 7-10 Pantoprazole Sodium 40 mg 05/06/25 09:00 05/07/25 08:03 Pantoprazole Sodium Iv 40 Mg Vial IV PUSH 40 mg BID CARLOS Administration Polyethylene Glycol 17 gm 05/07/25 09:00 05/07/25 08:09 Polyethylene Glycol 3350 17 Gm Powd.Pack PO Not Given QAM CARLOS Promethazine HCl 12.5 mg 05/05/25 17:37 05/07/25 12:38 Promethazine Hcl 25 Mg/Ml Ampul IV PUSH 12.5 mg Q6H PRN Administration Nausea Rosuvastatin Calcium 5 mg 05/06/25 15:40 05/06/25 16:55 Rosuvastatin 5 Mg Tablet PO 5 mg DAILY CARLOS Administration Senna 8.6 mg 05/06/25 21:00 05/06/25 20:32 Sennosides 8.6 Mg Tablet PO 8.6 mg HS CARLOS Administration Tamsulosin HCl 0.4 mg 05/06/25 15:40 05/06/25 16:55 Tamsulosin Hcl 0.4 Mg Capsule BY MOUTH 0.4 mg DAILY ACRLOS Administration Radiology Results: ITS Impressions Abdomen/Pelvis CT 05/05/25 14:54 IMPRESSION: 1. Splenomegaly. 2: Moderate right pleural effusion. Small left pleural effusion. 3: Bilateral renal cysts. 4: Severe lower thoracic and lumbar spondylosis with scoliosis. Chest X-Ray 05/07/25 08:57 Impression: CHF Labs Labs: Laboratory Results - last 24 hr 05/07/25 08:21 WBC 2.5 L RBC 2.78 L Hgb 8.2 L Hct 25.7 L MCV 92.4 MCH 29.5 MCHC 31.9 L RDW 15.5 H Plt Count 91 L MPV 8.3 % Immature Plt Fraction 1.4 Sodium 131 L Potassium 4.0 Chloride 99 Carbon Dioxide 25 Anion Gap 7 BUN 10 Creatinine 1.06 Estim Creat Clear Calc 61 Estimated GFR > 60 Glucose 93 Calcium 9.5
[2025-05-07] MEDS: BACLOFEN 10 MG TABLET PO (15:46)
[2025-05-07] MEDS: ROSUVASTATIN 5 MG TABLET PO (15:46)
[2025-05-07] MEDS: TAMSULOSIN HCL 0.4 MG CAPSULE BY MOUTH (15:46)
[2025-05-07] MEDS: FUROSEMIDE INJ 40 MG/4 ML VIAL IV PUSH (17:39)
[2025-05-07] MEDS: SUCRALFATE SUSP 100 MG/ML 10 ML UDC 1000 MG PO (20:36)
[2025-05-07] MEDS: DOCUSATE SODIUM 100 MG CAPSULE PO (20:36)
[2025-05-07] MEDS: SENNOSIDES 8.6 MG TABLET PO (20:36)
[2025-05-08] VITALS (7 sets, daily range): BP systolic 78–129; BP diastolic 54–65; PULSE 67–81; RESP 16–24; TEMP 36.6–36.9; O2SAT 97–98
[2025-05-08] MEDS: SUCRALFATE SUSP 100 MG/ML 10 ML UDC 1000 MG PO ×4 (05:30→21:35)
[2025-05-08] MEDS: lamoTRIgine 50 MG TABLET 150 MG PO ×2 (08:44→21:35)
[2025-05-08] MEDS: PANTOPRAZOLE 40 MG TABLET PO (08:44)
[2025-05-08] MEDS: TAMSULOSIN HCL 0.4 MG CAPSULE BY MOUTH (08:44)
[2025-05-08] MEDS: AMIODARONE HCL 200 MG TABLET PO (08:44)
[2025-05-08] MEDS: ROSUVASTATIN 5 MG TABLET PO (08:44)
[2025-05-08] MEDS: DOCUSATE SODIUM 100 MG CAPSULE PO (08:44)
--- NOTE | 2025-05-08 08:51 | P.PNIM_ITS ---
Progress Note: A&P Assessment and Plan (1) Nausea and vomiting: Code(s): R11.2 - Nausea with vomiting, unspecified Status: Acute Assessment and Plan: GI consulted Okay for diet EGD she is gastritis Patient likely has diaphragm related agitation causing hiccups and retching patient was started on baclofen by GI Follow-up outpatient by GI no further inpatient workup Carafate started P.o. Protonix (2) Pleural effusion: Code(s): J90 - Pleural effusion, not elsewhere classified Status: Acute Assessment and Plan: Repeat chest x-ray showing pulmonary edema and pleural effusion Stop IV fluids Echocardiogram EF 60-65% Albumin Patient aggressively diuresed yesterday Chest x-ray shows improved (3) Anemia: Code(s): D64.9 - Anemia, unspecified Status: Acute Assessment and Plan: Hemoglobin stable Could be related to recent surgeries and iliopsoas hematoma in 03/2025. Versus dilutional No evidence of overt bleeding. Trend H&H Holding aspirin and Eliquis No need for transfusion at this time Transfuse for hemoglobin less than 7 or symptomatic (4) Atrial fibrillation: Code(s): I48.91 - Unspecified atrial fibrillation Status: Acute Assessment and Plan: Continue amiodarone Okay to restart Eliquis (5) Seizure: Code(s): R56.9 - Unspecified convulsions Status: Acute Assessment and Plan: Continue Keppra (6) CLL (chronic lymphocytic leukemia): Code(s): C91.10 - Chronic lymphocytic leukemia of B-cell type not having achieved remission Status: Acute Assessment and Plan: Treatment currently on hold due to recent surgeries will follow-up with oncologist outpatient (7) Hyponatremia: Code(s): E87.1 - Hypo-osmolality and hyponatremia Status: Acute Assessment and Plan: Improved Daily labs Diuresed yesterday (8) Constipation: Code(s): K59.00 - Constipation, unspecified Status: Acute Assessment and Plan: Senna MiraLax (9) History of aortic valve replacement with bioprosthetic valve: Code(s): Z95.3 - Presence of xenogenic heart valve Status: Acute Assessment and Plan: Due to patient's issues being gastric and not cardiac he wish to stay at [place] (10) Hyperlipidemia: Code(s): E78.5 - Hyperlipidemia, unspecified Status: Acute Assessment and Plan: Carotid stenosis Continue statin Hold aspirin Plan Ampicillin DC yesterday Subjective Date/time seen: 05/08/25 08:51 Interval history: 70-year-old male with PMH including CLL on tyrosine kinase inhibitors, BPH, insomnia, diastolic dysfunction AFib on Eliquis, carotid artery stenosis, history of stroke, seizure disorder, history of bicuspid aortic valve complicated by acute type a dissection status post bioprosthetic aortic valve replacement and supra coronary aortic graft replacement in 2009 with recent hospitalization at [facility] with redo sternotomy, AVR, Maze, BIN clip on 03/23/2025 due to severe prostatic valve regurgitation, chronic constipation. Plan for EGD yesterday showing gastritis and echocardiogram due to pulmonary edema and pleural effusion. Echocardiogram shows EF of 60-65% with left ventricle diastolic function is abnormal. Patient aggressively diuresed last night, chest x-ray this morning vastly improved. No more need for diuretics. For breakfast patient had doyle, aches, orange juice in vomited will switch him to a bland diet if able to tolerate intake he may discharge. Review of Systems Review of Systems: 12 systems were reviewed and are negativ e except for as per HPI. All systems reviewed & are unremarkable except as noted in HPI and below (Subjective) Exam 2 Narrative: General: well appearing, appears stated age. HEENT: normocephalic, atraumatic. Mucous membranes moist. EOMI, PERRLA, bilateral sclera anicteric, no conjunctival injection. Neck supple without JVD, lymphadenopathy, or bruit. Respiratory: clear to ascultation bilaterally. No rales/rhonic/wheezes. Cardiovascular: Regular rate and rhythm, normal S1-S2 upon ascultation. No murmurs, rubs, or clicks. PMI is nondisplaced, capillary refill less than 3 second. Abdomen: Soft, round, no pulsatile masses, nondistended and nontender. No rebound, no guarding. No CVA tenderness, no hepatosplenomegaly. Bowel sounds present to all four quadrants. No high pitch or tinkling sounds, resonant to percussion. Extremities: No cyanosis, clubbing, or edema present. Pulses are palpable 2/2. Active ROM to all four extremities. Neuro: Alert and orientated x 4. PERRLA. Cranial nerves 2-12 intact without focal deficit. Skin: Warm, dry, and intact, without rash, erythema, or lesion. Psych: pleasant, cooperative, normal speech, normal affect, no hallucinations, no dysarthia Objective Data Vital Signs Vital Signs: Vital Signs - 24 hr 05/07/25 13:57 05/07/25 15:02 05/07/25 15:12 Temperature 98.5 F Pulse Rate 75 66 66 Respiratory Rate 18 18 17 Blood Pressure 131/70 104/66 105/65 Pulse Oximetry 98 100 100 Oxygen Delivery Room Air Nasal Cannula Nasal Cannula Oxygen Flow Rate 6 6 05/07/25 15:22 05/07/25 17:38 05/07/25 21:40 Temperature 98.3 F Pulse Rate 66 70 Respiratory Rate 17 16 Blood Pressure 101/64 120/66 132/59 L Pulse Oximetry 100 97 Oxygen Delivery Room Air Oxygen Flow Rate 05/08/25 05:33 Temperature 97.9 F Pulse Rate 71 Respiratory Rate 16 Blood Pressure 106/63 Pulse Oximetry 97 Oxygen Delivery Oxygen Flow Rate Intake/Output Intake/Output: Intake & Output 05/05/25 05/06/25 05/07/25 05/08/25 23:59 23:59 23:59 23:59 Intake Total 1999 2480 690 500 Output Total 2421 1225 5100 Balance 1999 47 -375 -4691 Meds/Results Medications: Active Medications Generic Name Dose Route Start Last Admin Trade Name Freq PRN Reason Stop Dose Admin Acetaminophen 650 mg 05/05/25 17:37 Acetaminophen 325 Mg Tablet PO Q4H PRN Mild Pain (1-3) or Fever Hydrocodone Bitart/Acetaminophen 1 tab 05/05/25 17:37 Hydrocodone/Acetaminophen (*Crx) 5-325 Mg Tablet PO Q4H PRN Pain Rated 4-6 Amiodarone HCl 200 mg 05/06/25 09:00 05/08/25 08:44 Amiodarone Hcl 200 Mg Tablet PO 200 mg DAILY CARLOS Administration Baclofen 10 mg 05/06/25 22:00 05/08/25 05:30 Baclofen 10 Mg Tablet PO Not Given Q8HR CARLOS Docusate Sodium 100 mg 05/05/25 23:30 05/08/25 08:44 Docusate Sodium 100 Mg Capsule PO 100 mg Q12HR CARLOS Administration Hyoscyamine 0.125 mg 05/05/25 20:54 Hyoscyamine Sulfate 0.125 Mg Tablet PO Q4H PRN gi tract spasm Lamotrigine 150 mg 05/06/25 09:00 05/08/25 08:44 Lamotrigine 50 Mg Tablet PO 150 mg Q12HR CARLOS Administration Morphine Sulfate 2 mg 05/05/25 17:37 Morphine Sulfate (*Crx) 4 Mg/Ml Inj IV PUSH Q2H PRN Pain Rated 7-10 Pantoprazole Sodium 40 mg 05/08/25 09:00 05/08/25 08:44 Pantoprazole 40 Mg Tablet PO 40 mg QAM CARLOS Administration Polyethylene Glycol 17 gm 05/07/25 09:00 05/08/25 08:44 Polyethylene Glycol 3350 17 Gm Powd.Pack PO 17 gm QAM CARLOS Administration Promethazine HCl 12.5 mg 05/05/25 17:37 05/07/25 12:38 Promethazine Hcl 25 Mg/Ml Ampul IV PUSH 12.5 mg Q6H PRN Administration Nausea Rosuvastatin Calcium 5 mg 05/06/25 15:40 05/08/25 08:44 Rosuvastatin 5 Mg Tablet PO 5 mg DAILY CARLOS Administration Senna 8.6 mg 05/06/25 21:00 05/07/25 20:36 Sennosides 8.6 Mg Tablet PO 8.6 mg HS CARLOS Administration Sucralfate 1,000 mg 05/07/25 21:00 05/08/25 05:30 Sucralfate Susp 100 Mg/Ml 10 Ml Udc PO 1,000 mg ACHS CARLOS Administration Tamsulosin HCl 0.4 mg 05/06/25 15:40 05/08/25 08:44 Tamsulosin Hcl 0.4 Mg Capsule BY MOUTH 0.4 mg DAILY CARLOS Administration Radiology Results: ITS Impressions Abdomen/Pelvis CT 05/05/25 14:54 IMPRESSION: 1. Splenomegaly. 2: Moderate right pleural effusion. Small left pleural effusion. 3: Bilateral renal cysts. 4: Severe lower thoracic and lumbar spondylosis with scoliosis. Quality VTE Prophylaxis VTE prophylaxis: mechanical ordered
[2025-05-08] MEDS: SCOPOLAMINE 1 MG PATCH 1 PATCH TRANSDERM (13:04)
[2025-05-08] MEDS: BACLOFEN 10 MG TABLET PO ×2 (13:05→21:35)
[2025-05-08] MEDS: MAG HYDROX/AL HYDROX/SIMETH 30 ML UDC PO ×2 (13:05→21:35)
[2025-05-08] MEDS: LIDOCAINE 2% VISC SOLN 15 ML UDC PO ×2 (13:05→21:35)
[2025-05-08] MEDS: PROMETHAZINE HCL 25 MG/ML AMPUL 12.5 MG IV PUSH (14:24)
[2025-05-08] MEDS: METOCLOPRAMIDE HCL INJ 10 MG/2 ML VIAL IV PUSH ×2 (16:56→23:04)
[2025-05-08] MEDS: SENNOSIDES 8.6 MG TABLET PO (21:35)
[2025-05-09 04:25] VITALS: BP 125/65; PULSE 79; RESP 16; TEMP 36.7; O2SAT 96
[2025-05-09] MEDS: LIDOCAINE 2% VISC SOLN 15 ML UDC PO ×3 (05:44→22:10)
[2025-05-09] MEDS: MAG HYDROX/AL HYDROX/SIMETH 30 ML UDC PO ×3 (05:44→22:10)
[2025-05-09] MEDS: SUCRALFATE SUSP 100 MG/ML 10 ML UDC 1000 MG PO ×4 (05:44→20:58)
[2025-05-09] MEDS: BACLOFEN 10 MG TABLET PO ×3 (05:44→22:10)
[2025-05-09] MEDS: METOCLOPRAMIDE HCL INJ 10 MG/2 ML VIAL IV PUSH ×2 (05:44→11:29)
[2025-05-09 08:11] VITALS: PULSE 72
[2025-05-09] MEDS: TAMSULOSIN HCL 0.4 MG CAPSULE BY MOUTH (08:11)
[2025-05-09] MEDS: PANTOPRAZOLE 40 MG TABLET PO (08:11)
[2025-05-09] MEDS: DOCUSATE SODIUM 100 MG CAPSULE PO (08:11)
[2025-05-09] MEDS: AMIODARONE HCL 200 MG TABLET PO (08:11)
[2025-05-09] MEDS: lamoTRIgine 50 MG TABLET 150 MG PO ×2 (08:11→20:58)
[2025-05-09] MEDS: ROSUVASTATIN 5 MG TABLET PO (08:12)
[2025-05-09 08:30] VITALS: PULSE 72; RESP 16; O2SAT 96
--- NOTE | 2025-05-09 13:12 | P.PNIM_ITS ---
Progress Note: A&P Assessment and Plan (1) Nausea and vomiting: Code(s): R11.2 - Nausea with vomiting, unspecified Status: Acute Assessment and Plan: GI consulted Okay for diet EGD: gastritis Patient likely has diaphragmatic irritation causing hiccups and emesis Trial of baclofen initiated Follow-up outpatient by GI no further inpatient workup Continue PO sucralfate and pantoprazole (2) Pleural effusion: Code(s): J90 - Pleural effusion, not elsewhere classified Status: Acute Assessment and Plan: Repeat chest x-ray showing pulmonary edema and pleural effusion Stopped IV fluids Echocardiogram EF 60-65% Diuresis achieved No oxygen requirement (3) Anemia: Code(s): D64.9 - Anemia, unspecified Status: Acute Assessment and Plan: Hemoglobin stable post op Could be related to recent surgeries and iliopsoas hematoma in 03/2025. No evidence of ongoing bleeding ASA and Eliquis held at admission No need for transfusion at this time 05/09 Resume ASA and Eliquis due to hx of atrial fibrillation, bioprosthetic aortic valve, CLL (increased risk of thrombophlebitis) F/u h/h (4) Atrial fibrillation: Code(s): I48.91 - Unspecified atrial fibrillation Status: Acute Assessment and Plan: Continue amiodarone Okay to restart Eliquis (5) Seizure: Code(s): R56.9 - Unspecified convulsions Status: Acute Assessment and Plan: Seizure disorder controlled Continue Keppra (6) CLL (chronic lymphocytic leukemia): Code(s): C91.10 - Chronic lymphocytic leukemia of B-cell type not having achieved remission Status: Acute Assessment and Plan: Treatment currently on hold due to recent surgeries will follow-up with oncologist outpatient Was taking tryosine kinase inhibitors Pancytopenia is likely due to treatment (7) Hyponatremia: Code(s): E87.1 - Hypo-osmolality and hyponatremia Status: Acute Assessment and Plan: Improved Daily labs Diuresed yesterday (8) Constipation: Code(s): K59.00 - Constipation, unspecified Status: Acute Assessment and Plan: Senna MiraLax (9) History of aortic valve replacement with bioprosthetic valve: Code(s): Z95.3 - Presence of xenogenic heart valve Status: Acute Assessment and Plan: Due to patient's issues being gastric and not cardiac he wish to stay at [place] (10) Hyperlipidemia: Code(s): E78.5 - Hyperlipidemia, unspecified Status: Acute Assessment and Plan: Carotid stenosis Continue statin Hold aspirin Plan Ampicillin DC yesterday Subjective Date/time seen: 05/09/25 13:12 Interval history: He was hopitalized 03/2025 at [facility] with redo sternotomy, AVR, Maze, BIN clip on 03/23/2025 due to severe prosthetic valve regurgitation. Course was complicated by [place]Joe catheter inadvertently sutured to the pulmonary artery. He returned to OR on 03/29/2025 for [place]-Joe catheter removal and repair of PA injury. The patient was stable thereafter. Hospital course also complicated for iliopsoas hematoma right side and anticoagulation was held. Hospitalized at [place] 05/05/2024 due to nausea with emesis. EGD showed only gastritis. CT Abd/Pelvis: 1. Splenomegaly. 2: Moderate right pleural effusion. Small left pleural effusion. 3: Bilateral renal cysts. 4: Severe lower thoracic and lumbar spondylosis with scoliosis. CXR: CHF Received IV furosemide and diuresis was accomplished. I/O since admission -1880 as of 05/09. Doing better with diet. No emesis yet today. No BM since 05/07. Feels he might need to go soon. Still feels foggy brain from recent surgeries at [place]. Denied chest pain or sob or swelling. Denied abdominal pain. Denied bleeding. Exam Narrative: HEENT: PERRL, sclerae nonicteric, pharyngeal mucosa pink and intact NECK: No JVD CHEST: Clear to auscultation. Normal effort HEART: NL S1/S2, regular, ABNL S2 with DERIC ABDOMEN: BS+, soft, nontender, no mass, no bruits EXTREMITIES: No cyanosis, edema, or clubbing NEUROLOGIC: CN intact and symmetric to inspection, speech clear but occasionally has word finding issues, color laboratory technician 5/5 and symmetric MUSCULOSKELETAL: Tone and strength symmetric PSYCH: Alert. Oriented to person, place, and time Objective Data Vital Signs Vital Signs: Vital Signs - 24 hr 05/08/25 14:00 05/08/25 14:30 05/08/25 15:35 Temperature 98.2 F 98.2 F Pulse Rate 79 79 81 Respiratory Rate 24 H 24 H Blood Pressure 100/65 100/65 89/55 L Pulse Oximetry 98 98 Oxygen Delivery 05/08/25 15:35 05/08/25 19:16 05/08/25 20:00 Temperature Pulse Rate 79 Respiratory Rate Blood Pressure 78/54 L 129/63 Pulse Oximetry Oxygen Delivery Room Air 05/08/25 21:17 05/09/25 04:25 05/09/25 08:11 Temperature 98.4 F 98.1 F Pulse Rate 67 79 72 Respiratory Rate 20 16 Blood Pressure 113/65 125/65 Pulse Oximetry 98 96 Oxygen Delivery 05/09/25 08:30 Temperature Pulse Rate 72 Respiratory Rate 16 Blood Pressure Pulse Oximetry 96 Oxygen Delivery Room Air Intake/Output Intake/Output: Intake & Output 05/06/25 05/07/25 05/08/25 05/09/25 23:59 23:59 23:59 23:59 Intake Total 2480 730 441 8256 Output Total 2425 1225 5500 1500 Balance 55 -535 -4640 1240 Meds/Results Medications: Active Medications Generic Name Dose Route Start Last Admin Trade Name Freq PRN Reason Stop Dose Admin Acetaminophen 650 mg 05/05/25 17:37 Acetaminophen 325 Mg Tablet PO Q4H PRN Mild Pain (1-3) or Fever Hydrocodone Bitart/Acetaminophen 1 tab 05/05/25 17:37 Hydrocodone/Acetaminophen (*Crx) 5-325 Mg Tablet PO Q4H PRN Pain Rated 4-6 Al Hydrox/Mg Hydrox/Simethicone 30 ml 05/08/25 14:00 05/09/25 05:44 Mag Hydrox/Al Hydrox/Simeth 30 Ml Udc PO 30 ml Q8HR CARLOS Administration Amiodarone HCl 200 mg 05/06/25 09:00 05/09/25 08:11 Amiodarone Hcl 200 Mg Tablet PO 200 mg DAILY CARLOS Administration Baclofen 10 mg 05/06/25 22:00 05/09/25 05:44 Baclofen 10 Mg Tablet PO 10 mg Q8HR CARLOS Administration Docusate Sodium 100 mg 05/09/25 09:00 05/09/25 08:11 Docusate Sodium 100 Mg Capsule PO 100 mg DAILY CARLOS Administration Hyoscyamine 0.125 mg 05/05/25 20:54 Hyoscyamine Sulfate 0.125 Mg Tablet PO Q4H PRN gi tract spasm Lamotrigine 150 mg 05/06/25 09:00 05/09/25 08:11 Lamotrigine 50 Mg Tablet PO 150 mg Q12HR CARLOS Administration Lidocaine HCl 15 ml 05/08/25 14:00 05/09/25 05:44 Lidocaine 2% Visc Soln 15 Ml Udc PO 15 ml Q8HR CARLOS Administration Metoclopramide HCl 10 mg 05/08/25 18:00 05/09/25 11:29 Metoclopramide Hcl Inj 10 Mg/2 Ml Vial IV PUSH 10 mg Q6HR CARLOS Administration Morphine Sulfate 2 mg 05/05/25 17:37 Morphine Sulfate (*Crx) 4 Mg/Ml Inj IV PUSH Q2H PRN Pain Rated 7-10 Pantoprazole Sodium 40 mg 05/08/25 09:00 05/09/25 08:11 Pantoprazole 40 Mg Tablet PO 40 mg QAM CARLOS Administration Polyethylene Glycol 17 gm 05/07/25 09:00 05/09/25 08:11 Polyethylene Glycol 3350 17 Gm Powd.Pack PO 17 gm QAM CARLOS Administration Promethazine HCl 12.5 mg 05/05/25 17:37 05/08/25 14:24 Promethazine Hcl 25 Mg/Ml Ampul IV PUSH 12.5 mg Q6H PRN Administration Nausea Rosuvastatin Calcium 5 mg 05/06/25 15:40 05/09/25 08:12 Rosuvastatin 5 Mg Tablet PO 5 mg DAILY CARLOS Administration Senna 8.6 mg 05/06/25 21:00 05/08/25 21:35 Sennosides 8.6 Mg Tablet PO 8.6 mg HS CARLOS Administration Sucralfate 1,000 mg 05/07/25 21:00 05/09/25 11:29 Sucralfate Susp 100 Mg/Ml 10 Ml Udc PO 1,000 mg ACHS CARLOS Administration Tamsulosin HCl 0.4 mg 05/06/25 15:40 05/09/25 08:11 Tamsulosin Hcl 0.4 Mg Capsule BY MOUTH 0.4 mg DAILY CARLOS Administration Radiology Results: ITS Impressions Abdomen/Pelvis CT 05/05/25 14:54 IMPRESSION: 1. Splenomegaly. 2: Moderate right pleural effusion. Small left pleural effusion. 3: Bilateral renal cysts. 4: Severe lower thoracic and lumbar spondylosis with scoliosis. Chest X-Ray 05/08/25 15:56 Impression: CHF. The findings appear relatively unchanged
[2025-05-09 13:27] VITALS: BP 109/61; PULSE 78; RESP 20; TEMP 36.9; O2SAT 98
[2025-05-09] MEDS: SENNOSIDES 8.6 MG TABLET PO (20:58)
[2025-05-09] MEDS: APIXABAN 5 MG TABLET PO (20:58)
[2025-05-09 21:34] VITALS: BP 113/74; PULSE 67; RESP 18; TEMP 37; O2SAT 98
[2025-05-09 21:51] VITALS: O2SAT 98
[2025-05-10 04:53] VITALS: BP 111/67; PULSE 74; RESP 17; TEMP 37.1; O2SAT 98
[2025-05-10 05:59] LABS: Hematocrit 27.0 % (42.0-52.0); Hemoglobin 8.7 g/dL (14.0-18.0); Immature Granulocyte Percent A 0.3 % (0-0.5); Immature Platelet Fraction Pct 1.4 % (0.9-11.2); Lymphocytes Absolute Auto 1.05 K/mm3 (0.9-3.2); Mean Corpuscular HGB Conc 32.2 g/dl (32-36); Mean Corpuscular Hemoglobin 29.6 pg (26-34); Mean Corpuscular Volume 91.8 fl (80-100); Nucleated Red Blood Cells Absolute Auto 0.000 K/mm3 (0.0-0.012); Nucleated Red Blood Cells Perc 0.0 % (0.0-0.2); Platelet Count Result 102 k/mm3 (150-375); Red Blood Count 2.94 M/mm3 (4.6-6.20); White Blood Count 2.9 K/mm3 (4.5-10.0)
[2025-05-10] MEDS: LIDOCAINE 2% VISC SOLN 15 ML UDC PO ×3 (06:06→21:26)
[2025-05-10] MEDS: BACLOFEN 10 MG TABLET PO ×3 (06:06→21:26)
[2025-05-10] MEDS: MAG HYDROX/AL HYDROX/SIMETH 30 ML UDC PO ×3 (06:06→21:27)
[2025-05-10] MEDS: SUCRALFATE SUSP 100 MG/ML 10 ML UDC 1000 MG PO ×4 (06:06→21:26)
[2025-05-10 06:16] LABS: Anion Gap 7 mmol/L (4-12); Blood Urea Nitrogen 12 mg/dL (9-20); Calcium 9.5 mg/dL (8.4-10.2); Carbon Dioxide 29 mmol/L (22-30); Chloride 95 mmol/L (98-107); Estimated CRCL calculation 54 ml/min; Estimated Glomerular Filt Rate 58; Glucose 124 mg/dL (65-110); Potassium 4.0 mmol/L (3.4-5.0); Sodium 131 mmol/L (137-145)
[2025-05-10] MEDS: DOCUSATE SODIUM 100 MG CAPSULE PO (08:19)
[2025-05-10 08:21] VITALS: PULSE 75
[2025-05-10] MEDS: AMIODARONE HCL 200 MG TABLET PO (08:21)
[2025-05-10] MEDS: PANTOPRAZOLE 40 MG TABLET PO (08:21)
[2025-05-10] MEDS: APIXABAN 5 MG TABLET PO ×2 (08:21→21:25)
[2025-05-10] MEDS: ROSUVASTATIN 5 MG TABLET PO (08:22)
[2025-05-10] MEDS: TAMSULOSIN HCL 0.4 MG CAPSULE BY MOUTH (08:22)
[2025-05-10] MEDS: lamoTRIgine 50 MG TABLET 150 MG PO ×2 (08:22→21:25)
[2025-05-10] MEDS: ASPIRIN 81 MG ENTERIC TABLET PO (08:22)
[2025-05-10 09:43] LABS: Iron 50 ug/dL (49-181)
[2025-05-10 09:53] LABS: Percent Iron Saturation 18 % (20-50)
[2025-05-10 10:24] LABS: Ferritin 125.00 ng/mL (11.1-264)
--- NOTE | 2025-05-10 11:12 | PCNFU ---
Nutrition Follow-Up Complete: Severe protein calorie malnutrition related to chronic vomiting, loss of appetite as evidenced by weight loss 13%/4 months; intakes <75% needs >1 month; moderate muscle wasting and fat loss Goal:Diet advancement Intakes >50% when advanced Pt meeting goal Pt current nutrition is Low fiber / GI soft. Nutrition recommendation: continue with current plan of care Last recorded weight is 98.1 kg. Bowel Motility: +BM 05/09 Labs Reviewed: Hgb:8.7, HCT:27, NA:131, Glu:124 Meds Noted: miralax, protonix, carafate, eliquis Skin: WNL Additional Notes: Pt diet upgraded to low fiber. A calorie count was ordered on 05/08 but no receipts found, no documentation of calorie count. Pt intake has improved overall, pt reports he can tolerate many foods, specifically protein foods but still struggles with bread products. Ate an sami muffin this morning and vomited after. Pt is tolerating and drinking Ensure clear shakes TID, also nutrition ice cream cups TID. This provides 540kcals 17g protein per meal. Encourage pt to continue with supplements upon discharge, continue to consume foods he knows he can tolerate, and slowly introduce more foods as he feels better. Monitoring intakes, weights, labs, diet orders, plan of care Follow up in 3 days
[2025-05-10] MEDS: METOCLOPRAMIDE HCL INJ 10 MG/2 ML VIAL IV PUSH ×2 (12:30→18:03)
[2025-05-10 13:42] VITALS: BP 110/72; PULSE 77; RESP 16; TEMP 36.4; O2SAT 97
--- NOTE | 2025-05-10 15:00 | P.PNIM_ITS ---
Progress Note: A&P Assessment and Plan (1) Nausea and vomiting: Code(s): R11.2 - Nausea with vomiting, unspecified Status: Acute Assessment and Plan: GI consulted Okay for diet EGD: gastritis Patient likely has diaphragmatic irritation causing hiccups and emesis Trial of baclofen initiated Follow-up outpatient by GI no further inpatient workup Continue PO sucralfate and pantoprazole (2) Pleural effusion: Code(s): J90 - Pleural effusion, not elsewhere classified Status: Acute Assessment and Plan: Repeat chest x-ray showing pulmonary edema and pleural effusion Stopped IV fluids Echocardiogram EF 60-65% Diuresis achieved No oxygen requirement (3) Anemia: Code(s): D64.9 - Anemia, unspecified Status: Acute Assessment and Plan: Hemoglobin stable post op Could be related to recent surgeries and iliopsoas hematoma in 03/2025. No evidence of ongoing bleeding ASA and Eliquis held at admission No need for transfusion at this time 05/09 Resume ASA and Eliquis due to hx of atrial fibrillation, bioprosthetic aortic valve, CLL (increased risk of thrombophlebitis) F/u h/h (4) Atrial fibrillation: Code(s): I48.91 - Unspecified atrial fibrillation Status: Acute Assessment and Plan: Continue amiodarone Okay to restart Eliquis (5) Seizure: Code(s): R56.9 - Unspecified convulsions Status: Acute Assessment and Plan: Seizure disorder controlled Continue Keppra (6) CLL (chronic lymphocytic leukemia): Code(s): C91.10 - Chronic lymphocytic leukemia of B-cell type not having achieved remission Status: Acute Assessment and Plan: Treatment currently on hold due to recent surgeries will follow-up with oncologist outpatient Was taking tryosine kinase inhibitors Pancytopenia is likely due to treatment (7) Hyponatremia: Code(s): E87.1 - Hypo-osmolality and hyponatremia Status: Acute Assessment and Plan: Improved Daily labs Diuresed yesterday (8) Constipation: Code(s): K59.00 - Constipation, unspecified Status: Acute Assessment and Plan: Senna MiraLax (9) History of aortic valve replacement with bioprosthetic valve: Code(s): Z95.3 - Presence of xenogenic heart valve Status: Acute Assessment and Plan: Due to patient's issues being gastric and not cardiac he wish to stay at [place] (10) Hyperlipidemia: Code(s): E78.5 - Hyperlipidemia, unspecified Status: Acute Assessment and Plan: Carotid stenosis Continue statin Hold aspirin Plan Ampicillin DC yesterday Subjective Date/time seen: 05/10/25 15:00 Interval history: Patient noted eh is still vomiting to certain foods will monitor one more day Dietitian evaluating calorie intake adequacy Review of Systems Review of Systems: 12 systems were reviewed and are negativ e except for as per HPI. All systems reviewed & are unremarkable except as noted in HPI and below (Subjective) Exam Narrative: HEENT: PERRL, sclerae nonicteric, pharyngeal mucosa pink and intact NECK: No JVD CHEST: Clear to auscultation. Normal effort HEART: NL S1/S2, regular, ABNL S2 with DERIC ABDOMEN: BS+, soft, nontender, no mass, no bruits EXTREMITIES: No cyanosis, edema, or clubbing NEUROLOGIC: CN intact and symmetric to inspection, speech clear but occasionally has word finding issues, garage door technician 5/5 and symmetric MUSCULOSKELETAL: Tone and strength symmetric PSYCH: Alert. Oriented to person, place, and time Const: General: comfortable and no acute distress Other: A&O x3 HENMT: Mouth: Yes moist mucous membranes Eyes: Pupils: Equal, round and reactive pupils present Neck: Neck: supple Resp: Effort & Inspection: normal respiratory effort Auscultation: clear to auscultation bilaterally Cardio: Rate: regular rate Rhythm: regular rhythm Heart sounds: no murmurs GI: Inspection: non-distended : General: Yes bladder normal to palpation Neuro: Cranial nerves: Yes Equal, round and reactive pupils present Motor exam (neuro): 5/5 motor strength present throughout Extrem: General: no edema Objective Data Vital Signs Vital Signs: Vital Signs - 24 hr 05/09/25 20:00 05/09/25 21:34 05/09/25 21:51 Temperature 98.6 F Pulse Rate 67 Respiratory Rate 18 Blood Pressure 113/74 Pulse Oximetry 98 98 Oxygen Delivery Room Air Room Air 05/10/25 04:53 05/10/25 08:21 05/10/25 13:42 Temperature 98.7 F 97.5 F L Pulse Rate 74 75 77 Respiratory Rate 17 16 Blood Pressure 111/67 110/72 Pulse Oximetry 98 97 Oxygen Delivery Intake/Output Intake/Output: Intake & Output 05/07/25 05/08/25 05/09/25 05/10/25 23:59 23:59 23:59 23:59 Intake Total 392 154 2396 1026 Output Total 1225 5500 2900 1100 Balance -535 4699 440 -74 Meds/Results Medications: Active Medications Generic Name Dose Route Start Last Admin Trade Name Freq PRN Reason Stop Dose Admin Acetaminophen 650 mg 05/05/25 17:37 Acetaminophen 325 Mg Tablet PO Q4H PRN Mild Pain (1-3) or Fever Hydrocodone Bitart/Acetaminophen 1 tab 05/05/25 17:37 Hydrocodone/Acetaminophen (*Crx) 5-325 Mg Tablet PO Q4H PRN Pain Rated 4-6 Al Hydrox/Mg Hydrox/Simethicone 30 ml 05/08/25 14:00 05/10/25 13:19 Mag Hydrox/Al Hydrox/Simeth 30 Ml Udc PO 30 ml Q8HR CARLOS Administration Amiodarone HCl 200 mg 05/06/25 09:00 05/10/25 08:21 Amiodarone Hcl 200 Mg Tablet PO 200 mg DAILY CARLOS Administration Apixaban 5 mg 05/09/25 21:00 05/10/25 08:21 Apixaban 5 Mg Tablet PO 5 mg Q12HR CARLOS Administration Aspirin 81 mg 05/10/25 09:00 05/10/25 08:22 Aspirin 81 Mg Enteric Tablet PO 81 mg QAM CARLOS Administration Baclofen 10 mg 05/06/25 22:00 05/10/25 13:19 Baclofen 10 Mg Tablet PO 10 mg Q8HR CARLOS Administration Docusate Sodium 100 mg 05/09/25 09:00 05/10/25 08:19 Docusate Sodium 100 Mg Capsule PO 100 mg DAILY CARLOS Administration Lamotrigine 150 mg 05/06/25 09:00 05/10/25 08:22 Lamotrigine 50 Mg Tablet PO 150 mg Q12HR CARLOS Administration Lidocaine HCl 15 ml 05/08/25 14:00 05/10/25 13:19 Lidocaine 2% Visc Soln 15 Ml Udc PO 15 ml Q8HR CARLOS Administration Metoclopramide HCl 10 mg 05/09/25 13:32 05/10/25 12:30 Metoclopramide Hcl Inj 10 Mg/2 Ml Vial IV PUSH 10 mg Q6HR PRN Administration Nausea And Vomiting Pantoprazole Sodium 40 mg 05/08/25 09:00 05/10/25 08:21 Pantoprazole 40 Mg Tablet PO 40 mg QAM CARLOS Administration Polyethylene Glycol 17 gm 05/07/25 09:00 05/10/25 08:20 Polyethylene Glycol 3350 17 Gm Powd.Pack PO 17 gm QAM CARLOS Administration Promethazine HCl 12.5 mg 05/05/25 17:37 05/08/25 14:24 Promethazine Hcl 25 Mg/Ml Ampul IV PUSH 12.5 mg Q6H PRN Administration Nausea Rosuvastatin Calcium 5 mg 05/06/25 15:40 05/10/25 08:22 Rosuvastatin 5 Mg Tablet PO 5 mg DAILY CARLOS Administration Senna 8.6 mg 05/06/25 21:00 05/09/25 20:58 Sennosides 8.6 Mg Tablet PO 8.6 mg HS CARLOS Administration Sucralfate 1,000 mg 05/07/25 21:00 05/10/25 10:31 Sucralfate Susp 100 Mg/Ml 10 Ml Udc PO 1,000 mg ACHS CARLOS Administration Tamsulosin HCl 0.4 mg 05/06/25 15:40 05/10/25 08:22 Tamsulosin Hcl 0.4 Mg Capsule BY MOUTH 0.4 mg DAILY CARLOS Administration Radiology Results: ITS Impressions Abdomen/Pelvis CT 05/05/25 14:54 IMPRESSION: 1. Splenomegaly. 2: Moderate right pleural effusion. Small left pleural effusion. 3: Bilateral renal cysts. 4: Severe lower thoracic and lumbar spondylosis with scoliosis. Chest X-Ray 05/08/25 15:56 Impression: CHF. The findings appear relatively unchanged Labs Labs: Laboratory Results - last 24 hr 05/10/25 05:34 WBC 2.9 L RBC 2.94 L Hgb 8.7 L Hct 27.0 L MCV 91.8 MCH 29.6 MCHC 32.2 RDW 15.7 H Plt Count 102 L MPV 8.6 Immature Gran % (Auto) 0.3 Neut % (Auto) 49.1 Lymph % (Auto) 36.1 [place] % (Auto) 11.7 H Eos % (Auto) 2.1 Baso % (Auto) 0.7 Lymph # (Auto) 1.05 [place] # (Auto) 0.3 Eos # (Auto) 0.1 Baso # (Auto) 0.0 Abs Immat Gran (auto) 0.01 Absolute Neuts (auto) 1.4 Absolute Nucleated RBC 0.000 Nucleated RBC % 0.0 % Immature Plt Fraction 1.4 Sodium 131 L Potassium 4.0 Chloride 95 L Carbon Dioxide 29 Anion Gap 7 BUN 12 Creatinine 1.22 Estim Creat Clear Calc 54 Estimated GFR 58 L Glucose 124 H Calcium 9.5 Iron 50 TIBC 281 % Saturation 18 L Ferritin 125.00 Quality VTE Prophylaxis VTE prophylaxis: mechanical ordered
[2025-05-10] MEDS: IRON SUCROSE COMPLEX 200 MG in SODIUM CHLORIDE 0.9% IV 100 ML 220 MG IVPB (15:34)
[2025-05-10 20:00] VITALS: PULSE 71; RESP 18; O2SAT 99
[2025-05-10] MEDS: SENNOSIDES 8.6 MG TABLET PO (21:26)
[2025-05-10 21:51] VITALS: BP 114/69; PULSE 71; RESP 18; TEMP 37.1; O2SAT 99
[2025-05-11 05:43] VITALS: BP 117/70; PULSE 78; RESP 16; TEMP 36.7; O2SAT 97
[2025-05-11 05:50] LABS: Hematocrit 26.6 % (42.0-52.0); Hemoglobin 8.5 g/dL (14.0-18.0); Immature Granulocyte Percent A 0.7 % (0-0.5); Immature Platelet Fraction Pct 1.3 % (0.9-11.2); Lymphocytes Absolute Auto 1.06 K/mm3 (0.9-3.2); Mean Corpuscular HGB Conc 32.0 g/dl (32-36); Mean Corpuscular Hemoglobin 29.7 pg (26-34); Mean Corpuscular Volume 93.0 fl (80-100); Nucleated Red Blood Cells Absolute Auto 0.000 K/mm3 (0.0-0.012); Nucleated Red Blood Cells Perc 0.0 % (0.0-0.2); Platelet Count Result 104 k/mm3 (150-375); Red Blood Count 2.86 M/mm3 (4.6-6.20); White Blood Count 2.7 K/mm3 (4.5-10.0)
[2025-05-11 06:09] LABS: Alanine Aminotransferase 17 U/L (6-50); Albumin Level 3.7 g/dL (3.5-5.1); Alkaline Phosphatase 111 U/L (38-126); Anion Gap 5 mmol/L (4-12); Aspartate Amino Transferase 32 U/L (17-59); Bilirubin,Total 1.1 mg/dL (0.2-1.3); Blood Urea Nitrogen 11 mg/dL (9-20); Calcium 9.6 mg/dL (8.4-10.2); Carbon Dioxide 29 mmol/L (22-30); Chloride 97 mmol/L (98-107); Estimated CRCL calculation 52 ml/min; Estimated Glomerular Filt Rate 56; Glucose 121 mg/dL (65-110); Magnesium 2.5 mg/dL (1.6-2.3); Potassium 4.0 mmol/L (3.4-5.0); Sodium 131 mmol/L (137-145); Total Protein 5.9 g/dL (6.3-8.2)
[2025-05-11] MEDS: SUCRALFATE SUSP 100 MG/ML 10 ML UDC 1000 MG PO ×4 (06:11→21:23)
[2025-05-11] MEDS: MAG HYDROX/AL HYDROX/SIMETH 30 ML UDC PO ×3 (06:11→21:23)
[2025-05-11] MEDS: LIDOCAINE 2% VISC SOLN 15 ML UDC PO ×3 (06:11→21:23)
[2025-05-11] MEDS: BACLOFEN 10 MG TABLET PO ×3 (06:11→21:22)
[2025-05-11 08:22] VITALS: PULSE 68
[2025-05-11] MEDS: DOCUSATE SODIUM 100 MG CAPSULE PO (08:22)
[2025-05-11] MEDS: APIXABAN 5 MG TABLET PO ×2 (08:22→21:22)
[2025-05-11] MEDS: PANTOPRAZOLE 40 MG TABLET PO (08:22)
[2025-05-11] MEDS: AMIODARONE HCL 200 MG TABLET PO (08:22)
[2025-05-11] MEDS: TAMSULOSIN HCL 0.4 MG CAPSULE BY MOUTH (08:22)
[2025-05-11] MEDS: lamoTRIgine 50 MG TABLET 150 MG PO ×2 (08:23→21:22)
[2025-05-11] MEDS: ROSUVASTATIN 5 MG TABLET PO (08:23)
[2025-05-11] MEDS: ASPIRIN 81 MG ENTERIC TABLET PO (08:23)
[2025-05-11] MEDS: METOCLOPRAMIDE HCL INJ 10 MG/2 ML VIAL IV PUSH (08:30)
[2025-05-11] MEDS: IRON SUCROSE COMPLEX 200 MG in SODIUM CHLORIDE 0.9% IV 100 ML 220 MG IVPB (10:26)
[2025-05-11] MEDS: SCOPOLAMINE 1 MG PATCH 1 PATCH TRANSDERM (11:38)
[2025-05-11 14:00] VITALS: BP 105/62; PULSE 74; RESP 14; TEMP 37; O2SAT 95
--- NOTE | 2025-05-11 15:06 | P.PNIM_ITS ---
Progress Note: A&P Assessment and Plan (1) Nausea and vomiting: Code(s): R11.2 - Nausea with vomiting, unspecified Status: Acute Assessment and Plan: GI consulted Okay for diet EGD: gastritis Patient likely has diaphragmatic irritation causing hiccups and emesis, rule out brain lesion MRI brain Trial of baclofen initiated,scopolamine Follow-up outpatient by GI no further inpatient workup Continue PO sucralfate and pantoprazole (2) Pleural effusion: Code(s): J90 - Pleural effusion, not elsewhere classified Status: Acute Assessment and Plan: Repeat chest x-ray showing pulmonary edema and pleural effusion Stopped IV fluids Echocardiogram EF 60-65% Diuresis achieved No oxygen requirement (3) Anemia: Code(s): D64.9 - Anemia, unspecified Status: Acute Assessment and Plan: Hemoglobin stable post op Could be related to recent surgeries and iliopsoas hematoma in 03/2025. No evidence of ongoing bleeding ASA and Eliquis held at admission No need for transfusion at this time Isat 18, s/p 400mg IV, monitor H and H 05/09 Resume ASA and Eliquis due to hx of atrial fibrillation, bioprosthetic aortic valve, CLL (increased risk of thrombophlebitis) F/u h/h (4) Atrial fibrillation: Code(s): I48.91 - Unspecified atrial fibrillation Status: Acute Assessment and Plan: Continue amiodarone Okay to restart Eliquis (5) Seizure: Code(s): R56.9 - Unspecified convulsions Status: Acute Assessment and Plan: Seizure disorder controlled Continue Keppra (6) CLL (chronic lymphocytic leukemia): Code(s): C91.10 - Chronic lymphocytic leukemia of B-cell type not having achieved remission Status: Acute Assessment and Plan: Treatment currently on hold due to recent surgeries will follow-up with oncologist outpatient Was taking tryosine kinase inhibitors Pancytopenia is likely due to treatment (7) Hyponatremia: Code(s): E87.1 - Hypo-osmolality and hyponatremia Status: Acute Assessment and Plan: Improved Daily labs Na 131 (8) Constipation: Code(s): K59.00 - Constipation, unspecified Status: Acute Assessment and Plan: Senna MiraLax (9) History of aortic valve replacement with bioprosthetic valve: Code(s): Z95.3 - Presence of xenogenic heart valve Status: Acute Assessment and Plan: Due to patient's issues being gastric and not cardiac he wish to stay at [place] (10) Hyperlipidemia: Code(s): E78.5 - Hyperlipidemia, unspecified Status: Acute Assessment and Plan: Carotid stenosis Continue statin Hold aspirin Plan DVT prophylaxis on Eliquis Subjective Date/time seen: 05/11/25 15:06 Interval history: Complained of retching and nausea Started on Baclofen and Scopolamine Review of Systems Review of Systems: 12 systems were reviewed and are negativ e except for as per HPI. All systems reviewed & are unremarkable except as noted in HPI and below (Subjective) Exam Narrative: HEENT: PERRL, sclerae nonicteric, pharyngeal mucosa pink and intact NECK: No JVD CHEST: Clear to auscultation. Normal effort HEART: NL S1/S2, regular, ABNL S2 with DERIC ABDOMEN: BS+, soft, nontender, no mass, no bruits EXTREMITIES: No cyanosis, edema, or clubbing NEUROLOGIC: CN intact and symmetric to inspection, speech clear but occasionally has word finding issues, handbag framer 5/5 and symmetric MUSCULOSKELETAL: Tone and strength symmetric PSYCH: Alert. Oriented to person, place, and time Const: General: comfortable and no acute distress Other: A&O x3 HENMT: Mouth: Yes moist mucous membranes Eyes: Pupils: Equal, round and reactive pupils present Neck: Neck: supple Resp: Effort & Inspection: normal respiratory effort Auscultation: clear to auscultation bilaterally Cardio: Rate: regular rate Rhythm: regular rhythm Heart sounds: no murmurs GI: Inspection: non-distended : General: Yes bladder normal to palpation Neuro: Cranial nerves: Yes Equal, round and reactive pupils present Motor exam (neuro): 5/5 motor strength present throughout Extrem: General: no edema Objective Data Vital Signs Vital Signs: Vital Signs - 24 hr 05/10/25 20:00 05/10/25 21:51 05/11/25 05:43 Temperature 98.7 F 98.0 F Pulse Rate 71 71 78 Respiratory Rate 18 18 16 Blood Pressure 114/69 117/70 Pulse Oximetry 99 99 97 Oxygen Delivery Room Air 05/11/25 08:22 05/11/25 14:00 Temperature 98.6 F Pulse Rate 68 74 Respiratory Rate 14 Blood Pressure 105/62 Pulse Oximetry 95 Oxygen Delivery Intake/Output Intake/Output: Intake & Output 05/08/25 05/09/25 05/10/25 05/11/25 23:59 23:59 23:59 23:59 Intake Total 860 3340 1376 960 Output Total 5500 2900 1100 2700 Balance -4640 440 276 -1740 Meds/Results Medications: Active Medications Generic Name Dose Route Start Last Admin Trade Name Freq PRN Reason Stop Dose Admin Acetaminophen 650 mg 05/05/25 17:37 Acetaminophen 325 Mg Tablet PO Q4H PRN Mild Pain (1-3) or Fever Hydrocodone Bitart/Acetaminophen 1 tab 05/05/25 17:37 Hydrocodone/Acetaminophen (*Crx) 5-325 Mg Tablet PO Q4H PRN Pain Rated 4-6 Al Hydrox/Mg Hydrox/Simethicone 30 ml 05/08/25 14:00 05/11/25 14:02 Mag Hydrox/Al Hydrox/Simeth 30 Ml Udc PO 30 ml Q8HR CARLOS Administration Amiodarone HCl 200 mg 05/06/25 09:00 05/11/25 08:22 Amiodarone Hcl 200 Mg Tablet PO 200 mg DAILY CARLOS Administration Apixaban 5 mg 05/09/25 21:00 05/11/25 08:22 Apixaban 5 Mg Tablet PO 5 mg Q12HR CARLOS Administration Aspirin 81 mg 05/10/25 09:00 05/11/25 08:23 Aspirin 81 Mg Enteric Tablet PO 81 mg QAM CARLOS Administration Baclofen 10 mg 05/06/25 22:00 05/11/25 14:02 Baclofen 10 Mg Tablet PO 10 mg Q8HR CARLOS Administration Docusate Sodium 100 mg 05/09/25 09:00 05/11/25 08:22 Docusate Sodium 100 Mg Capsule PO 100 mg DAILY CARLOS Administration Lamotrigine 150 mg 05/06/25 09:00 05/11/25 08:23 Lamotrigine 50 Mg Tablet PO 150 mg Q12HR CARLOS Administration Lidocaine HCl 15 ml 05/08/25 14:00 05/11/25 14:02 Lidocaine 2% Visc Soln 15 Ml Udc PO 15 ml Q8HR CARLOS Administration Metoclopramide HCl 10 mg 05/09/25 13:32 05/11/25 08:30 Metoclopramide Hcl Inj 10 Mg/2 Ml Vial IV PUSH 10 mg Q6HR PRN Administration Nausea And Vomiting Pantoprazole Sodium 40 mg 05/08/25 09:00 05/11/25 08:22 Pantoprazole 40 Mg Tablet PO 40 mg QAM CARLOS Administration Polyethylene Glycol 17 gm 05/07/25 09:00 05/11/25 08:23 Polyethylene Glycol 3350 17 Gm Powd.Pack PO 17 gm QAM CARLOS Administration Promethazine HCl 12.5 mg 05/05/25 17:37 05/08/25 14:24 Promethazine Hcl 25 Mg/Ml Ampul IV PUSH 12.5 mg Q6H PRN Administration Nausea Rosuvastatin Calcium 5 mg 05/06/25 15:40 05/11/25 08:23 Rosuvastatin 5 Mg Tablet PO 5 mg DAILY CARLOS Administration Senna 8.6 mg 05/06/25 21:00 05/10/25 21:26 Sennosides 8.6 Mg Tablet PO 8.6 mg HS CARLOS Administration Sucralfate 1,000 mg 05/07/25 21:00 05/11/25 10:51 Sucralfate Susp 100 Mg/Ml 10 Ml Udc PO 1,000 mg ACHS CARLOS Administration Tamsulosin HCl 0.4 mg 05/06/25 15:40 05/11/25 08:22 Tamsulosin Hcl 0.4 Mg Capsule BY MOUTH 0.4 mg DAILY CARLOS Administration Radiology Results: ITS Impressions Abdomen/Pelvis CT 05/05/25 14:54 IMPRESSION: 1. Splenomegaly. 2: Moderate right pleural effusion. Small left pleural effusion. 3: Bilateral renal cysts. 4: Severe lower thoracic and lumbar spondylosis with scoliosis. Chest X-Ray 05/08/25 15:56 Impression: CHF. The findings appear relatively unchanged Labs Labs: Laboratory Results - last 24 hr 05/11/25 05:32 WBC 2.7 L RBC 2.86 L Hgb 8.5 L Hct 26.6 L MCV 93.0 MCH 29.7 MCHC 32.0 RDW 15.7 H Plt Count 104 L MPV 8.8 Immature Gran % (Auto) 0.7 H Neut % (Auto) 46.4 Lymph % (Auto) 38.7 [place] % (Auto) 12.0 H Eos % (Auto) 1.8 Baso % (Auto) 0.4 Lymph # (Auto) 1.06 [place] # (Auto) 0.3 Eos # (Auto) 0.1 Baso # (Auto) 0.0 Abs Immat Gran (auto) 0.02 Absolute Neuts (auto) 1.3 Absolute Nucleated RBC 0.000 Nucleated RBC % 0.0 % Immature Plt Fraction 1.3 Sodium 131 L Potassium 4.0 Chloride 97 L Carbon Dioxide 29 Anion Gap 5 BUN 11 Creatinine 1.27 Estim Creat Clear Calc 52 Estimated GFR 56 L Glucose 121 H Calcium 9.6 Magnesium 2.5 H Total Bilirubin 1.1 AST 32 ALT 17 Alkaline Phosphatase 111 Total Protein 5.9 L Albumin 3.7 Quality VTE Prophylaxis VTE prophylaxis: mechanical ordered
--- NOTE | 2025-05-11 16:18 | WPDGIPROGNO ---
Progress Note: A&P Assessment and Plan (1) Dry heaves: Code(s): R11.10 - Vomiting, unspecified Status: Acute Assessment and Plan: started after heart surgery and prolonged hospitalization will order GES and also esophagram with UGI to assess if dysmotility on baclofen, reglan/antiemetics prn, scopolamine patch, etc egd only mild gastritis wonder if related to heart surgery, probably diaphragm (2) Weight loss: Code(s): R63.4 - Abnormal weight loss Status: Acute (3) History of aortic valve replacement with bioprosthetic valve: Code(s): Z95.3 - Presence of xenogenic heart valve Status: Acute (4) Atrial fibrillation: Code(s): I48.91 - Unspecified atrial fibrillation Status: Acute Assessment and Plan: on anticoagulation Subjective Date/time seen: 05/11/25 16:18 Interval history: still similar problem with intermittent dry heaving egd only mild gastritis he says that everything started after heart surgery- he spent more than 3 weeks in the hospital and required a second surgery Review of Systems Review of Systems: All systems reviewed & are unremarkable except as noted in HPI and below Exam Narrative: HEENT: PERRL, sclerae nonicteric, pharyngeal mucosa pink and intact NECK: No JVD CHEST: Clear to auscultation. Normal effort HEART: NL S1/S2, regular, ABNL S2 with DERIC ABDOMEN: BS+, soft, nontender, no mass, no bruits EXTREMITIES: No cyanosis, edema, or clubbing NEUROLOGIC: CN intact and symmetric to inspection, speech clear but occasionally has word finding issues, automatic line set up mechanic 5/5 and symmetric MUSCULOSKELETAL: Tone and strength symmetric PSYCH: Alert. Oriented to person, place, and time Objective Data Vital Signs Vital Signs: Vital Signs - 24 hr 05/10/25 20:00 05/10/25 21:51 05/11/25 05:43 Temperature 98.7 F 98.0 F Pulse Rate 71 71 78 Respiratory Rate 18 18 16 Blood Pressure 114/69 117/70 Pulse Oximetry 99 99 97 Oxygen Delivery Room Air 05/11/25 08:22 05/11/25 14:00 05/11/25 14:37 Temperature 98.6 F Pulse Rate 68 74 Respiratory Rate 14 Blood Pressure 105/62 Pulse Oximetry 95 Oxygen Delivery Room Air Intake/Output Intake/Output: Intake & Output 05/08/25 05/09/25 05/10/25 05/11/25 23:59 23:59 23:59 23:59 Intake Total 860 3340 1376 960 Output Total 5500 2900 1100 2700 Balance -4640 440 001 -0830 Meds/Results Medications: Active Medications Generic Name Dose Route Start Last Admin Trade Name Freq PRN Reason Stop Dose Admin Acetaminophen 650 mg 05/05/25 17:37 Acetaminophen 325 Mg Tablet PO Q4H PRN Mild Pain (1-3) or Fever Hydrocodone Bitart/Acetaminophen 1 tab 05/05/25 17:37 Hydrocodone/Acetaminophen (*Crx) 5-325 Mg Tablet PO Q4H PRN Pain Rated 4-6 Al Hydrox/Mg Hydrox/Simethicone 30 ml 05/08/25 14:00 05/11/25 14:02 Mag Hydrox/Al Hydrox/Simeth 30 Ml Udc PO 30 ml Q8HR CARLOS Administration Amiodarone HCl 200 mg 05/06/25 09:00 05/11/25 08:22 Amiodarone Hcl 200 Mg Tablet PO 200 mg DAILY CARLOS Administration Apixaban 5 mg 05/09/25 21:00 05/11/25 08:22 Apixaban 5 Mg Tablet PO 5 mg Q12HR CARLOS Administration Aspirin 81 mg 05/10/25 09:00 05/11/25 08:23 Aspirin 81 Mg Enteric Tablet PO 81 mg QAM CARLOS Administration Baclofen 10 mg 05/06/25 22:00 05/11/25 14:02 Baclofen 10 Mg Tablet PO 10 mg Q8HR CARLOS Administration Docusate Sodium 100 mg 05/09/25 09:00 05/11/25 08:22 Docusate Sodium 100 Mg Capsule PO 100 mg DAILY CARLOS Administration Lamotrigine 150 mg 05/06/25 09:00 05/11/25 08:23 Lamotrigine 50 Mg Tablet PO 150 mg Q12HR CARLOS Administration Lidocaine HCl 15 ml 05/08/25 14:00 05/11/25 14:02 Lidocaine 2% Visc Soln 15 Ml Udc PO 15 ml Q8HR CARLOS Administration Metoclopramide HCl 10 mg 05/09/25 13:32 05/11/25 08:30 Metoclopramide Hcl Inj 10 Mg/2 Ml Vial IV PUSH 10 mg Q6HR PRN Administration Nausea And Vomiting Pantoprazole Sodium 40 mg 05/08/25 09:00 05/11/25 08:22 Pantoprazole 40 Mg Tablet PO 40 mg QAM CARLOS Administration Polyethylene Glycol 17 gm 05/07/25 09:00 05/11/25 08:23 Polyethylene Glycol 3350 17 Gm Powd.Pack PO 17 gm QAM CARLOS Administration Promethazine HCl 12.5 mg 05/05/25 17:37 05/08/25 14:24 Promethazine Hcl 25 Mg/Ml Ampul IV PUSH 12.5 mg Q6H PRN Administration Nausea Rosuvastatin Calcium 5 mg 05/06/25 15:40 05/11/25 08:23 Rosuvastatin 5 Mg Tablet PO 5 mg DAILY CARLOS Administration Senna 8.6 mg 05/06/25 21:00 05/10/25 21:26 Sennosides 8.6 Mg Tablet PO 8.6 mg HS CARLOS Administration Sucralfate 1,000 mg 05/07/25 21:00 05/11/25 16:12 Sucralfate Susp 100 Mg/Ml 10 Ml Udc PO 1,000 mg ACHS CARLOS Administration Tamsulosin HCl 0.4 mg 05/06/25 15:40 05/11/25 08:22 Tamsulosin Hcl 0.4 Mg Capsule BY MOUTH 0.4 mg DAILY CARLOS Administration Radiology Results: ITS Impressions Abdomen/Pelvis CT 05/05/25 14:54 IMPRESSION: 1. Splenomegaly. 2: Moderate right pleural effusion. Small left pleural effusion. 3: Bilateral renal cysts. 4: Severe lower thoracic and lumbar spondylosis with scoliosis. Chest X-Ray 05/08/25 15:56 Impression: CHF. The findings appear relatively unchanged Labs Labs: Laboratory Results - last 24 hr 05/11/25 05:32 WBC 2.7 L RBC 2.86 L Hgb 8.5 L Hct 26.6 L MCV 93.0 MCH 29.7 MCHC 32.0 RDW 15.7 H Plt Count 104 L MPV 8.8 Immature Gran % (Auto) 0.7 H Neut % (Auto) 46.4 Lymph % (Auto) 38.7 [place] % (Auto) 12.0 H Eos % (Auto) 1.8 Baso % (Auto) 0.4 Lymph # (Auto) 1.06 [place] # (Auto) 0.3 Eos # (Auto) 0.1 Baso # (Auto) 0.0 Abs Immat Gran (auto) 0.02 Absolute Neuts (auto) 1.3 Absolute Nucleated RBC 0.000 Nucleated RBC % 0.0 % Immature Plt Fraction 1.3 Sodium 131 L Potassium 4.0 Chloride 97 L Carbon Dioxide 29 Anion Gap 5 BUN 11 Creatinine 1.27 Estim Creat Clear Calc 52 Estimated GFR 56 L Glucose 121 H Calcium 9.6 Magnesium 2.5 H Total Bilirubin 1.1 AST 32 ALT 17 Alkaline Phosphatase 111 Total Protein 5.9 L Albumin 3.7
[2025-05-11] MEDS: SENNOSIDES 8.6 MG TABLET PO (21:22)
[2025-05-11 22:00] VITALS: BP 133/59; PULSE 75; RESP 15; TEMP 36.6; O2SAT 98
[2025-05-12] MEDS: BACLOFEN 10 MG TABLET PO ×3 (05:17→21:15)
[2025-05-12 05:30] VITALS: BP 134/81; PULSE 74; RESP 18; TEMP 36.6; O2SAT 96
[2025-05-12] MEDS: MAG HYDROX/AL HYDROX/SIMETH 30 ML UDC PO ×3 (05:37→21:15)
[2025-05-12] MEDS: LIDOCAINE 2% VISC SOLN 15 ML UDC PO ×3 (05:38→21:15)
[2025-05-12 05:59] LABS: Hematocrit 26.6 % (42.0-52.0); Hemoglobin 8.5 g/dL (14.0-18.0); Immature Granulocyte Percent A 0.7 % (0-0.5); Immature Platelet Fraction Pct 1.7 % (0.9-11.2); Lymphocytes Absolute Auto 1.08 K/mm3 (0.9-3.2); Mean Corpuscular HGB Conc 32.0 g/dl (32-36); Mean Corpuscular Hemoglobin 29.5 pg (26-34); Mean Corpuscular Volume 92.4 fl (80-100); Nucleated Red Blood Cells Absolute Auto 0.000 K/mm3 (0.0-0.012); Nucleated Red Blood Cells Perc 0.0 % (0.0-0.2); Platelet Count Result 107 k/mm3 (150-375); Red Blood Count 2.88 M/mm3 (4.6-6.20); White Blood Count 2.9 K/mm3 (4.5-10.0)
[2025-05-12] MEDS: SUCRALFATE SUSP 100 MG/ML 10 ML UDC 1000 MG PO ×3 (06:13→21:15)
[2025-05-12 06:27] LABS: Alanine Aminotransferase 19 U/L (6-50); Albumin Level 4.0 g/dL (3.5-5.1); Alkaline Phosphatase 106 U/L (38-126); Anion Gap 4 mmol/L (4-12); Aspartate Amino Transferase 38 U/L (17-59); Bilirubin,Total 1.2 mg/dL (0.2-1.3); Blood Urea Nitrogen 13 mg/dL (9-20); Calcium 9.7 mg/dL (8.4-10.2); Carbon Dioxide 29 mmol/L (22-30); Chloride 99 mmol/L (98-107); Estimated CRCL calculation 54 ml/min; Estimated Glomerular Filt Rate 58; Glucose 110 mg/dL (65-110); Magnesium 2.5 mg/dL (1.6-2.3); Potassium 4.1 mmol/L (3.4-5.0); Sodium 132 mmol/L (137-145); Total Protein 6.3 g/dL (6.3-8.2)
--- NOTE | 2025-05-12 10:29 | P.PNIM_ITS ---
Progress Note: A&P Assessment and Plan (1) Nausea and vomiting: Code(s): R11.2 - Nausea with vomiting, unspecified Status: Acute Assessment and Plan: Now having dry heaves,? Diaghragmatic, vagus nerve injury, vs brain mass EGD: gastritis Patient likely has diaphragmatic irritation causing hiccups and emesis, rule out brain lesion MRI brain Trial of baclofen initiated,scopolamine Unable to do MRI due to foreign body in the body For GES and Esophagogram today Continue PO sucralfate and pantoprazole GI following (2) Pleural effusion: Code(s): J90 - Pleural effusion, not elsewhere classified Status: Acute Assessment and Plan: Repeat chest x-ray showing pulmonary edema and pleural effusion Stopped IV fluids Echocardiogram EF 60-65% Diuresis achieved No oxygen requirement (3) Anemia: Code(s): D64.9 - Anemia, unspecified Status: Acute Assessment and Plan: Hemoglobin stable post op Could be related to recent surgeries and iliopsoas hematoma in 03/2025. No evidence of ongoing bleeding ASA and Eliquis held at admission No need for transfusion at this time Isat 18, s/p 400mg IV, monitor H and H 05/09 Resume ASA and Eliquis due to hx of atrial fibrillation, bioprosthetic aortic valve, CLL (increased risk of thrombophlebitis) F/u h/h (4) Atrial fibrillation: Code(s): I48.91 - Unspecified atrial fibrillation Status: Acute Assessment and Plan: Continue amiodarone Okay to restart Eliquis (5) Seizure: Code(s): R56.9 - Unspecified convulsions Status: Acute Assessment and Plan: Seizure disorder controlled Continue Keppra (6) CLL (chronic lymphocytic leukemia): Code(s): C91.10 - Chronic lymphocytic leukemia of B-cell type not having achieved remission Status: Acute Assessment and Plan: Treatment currently on hold due to recent surgeries will follow-up with oncologist outpatient Was taking tryosine kinase inhibitors Pancytopenia is likely due to treatment (7) Hyponatremia: Code(s): E87.1 - Hypo-osmolality and hyponatremia Status: Acute Assessment and Plan: resolved (8) Constipation: Code(s): K59.00 - Constipation, unspecified Status: Acute Assessment and Plan: Senna MiraLax (9) History of aortic valve replacement with bioprosthetic valve: Code(s): Z95.3 - Presence of xenogenic heart valve Status: Acute Assessment and Plan: Due to patient's issues being gastric and not cardiac he wish to stay at [place] (10) Hyperlipidemia: Code(s): E78.5 - Hyperlipidemia, unspecified Status: Acute Assessment and Plan: Carotid stenosis Continue statin Hold aspirin Plan DVT prophylaxis on Eliquis Subjective Date/time seen: 05/12/25 10:29 Interval history: Still having intermittent dry heaving For GES and Esohagogram today Review of Systems Review of Systems: 12 systems were reviewed and are negativ e except for as per HPI. All systems reviewed & are unremarkable except as noted in HPI and below (Subjective) Exam Narrative: HEENT: PERRL, sclerae nonicteric, pharyngeal mucosa pink and intact NECK: No JVD CHEST: Clear to auscultation. Normal effort HEART: NL S1/S2, regular, ABNL S2 with DERIC ABDOMEN: BS+, soft, nontender, no mass, no bruits EXTREMITIES: No cyanosis, edema, or clubbing NEUROLOGIC: CN intact and symmetric to inspection, speech clear but occasionally has word finding issues, insurance claims clerk 5/5 and symmetric MUSCULOSKELETAL: Tone and strength symmetric PSYCH: Alert. Oriented to person, place, and time Const: General: comfortable and no acute distress Other: A&O x3 HENMT: Mouth: Yes moist mucous membranes Eyes: Pupils: Equal, round and reactive pupils present Neck: Neck: supple Resp: Effort & Inspection: normal respiratory effort Auscultation: clear to auscultation bilaterally Cardio: Rate: regular rate Rhythm: regular rhythm Heart sounds: no murmurs GI: Inspection: non-distended : General: Yes bladder normal to palpation Neuro: Cranial nerves: Yes Equal, round and reactive pupils present Motor exam (neuro): 5/5 motor strength present throughout Extrem: General: no edema Objective Data Vital Signs Vital Signs: Vital Signs - 24 hr 05/11/25 14:00 05/11/25 14:37 05/11/25 21:23 Temperature 98.6 F Pulse Rate 74 Respiratory Rate 14 Blood Pressure 105/62 Pulse Oximetry 95 Oxygen Delivery Room Air Room Air 05/11/25 22:00 05/12/25 05:30 Temperature 97.9 F 97.9 F Pulse Rate 75 74 Respiratory Rate 15 18 Blood Pressure 133/59 L 134/81 Pulse Oximetry 98 96 Oxygen Delivery Intake/Output Intake/Output: Intake & Output 05/09/25 05/10/25 05/11/25 05/12/25 23:59 23:59 23:59 23:59 Intake Total 3340 1376 1182 1050 Output Total 2900 1100 3100 925 Balance 440 480 -0395 125 Meds/Results Medications: Active Medications Generic Name Dose Route Start Last Admin Trade Name Freq PRN Reason Stop Dose Admin Acetaminophen 650 mg 05/05/25 17:37 Acetaminophen 325 Mg Tablet PO Q4H PRN Mild Pain (1-3) or Fever Hydrocodone Bitart/Acetaminophen 1 tab 05/05/25 17:37 Hydrocodone/Acetaminophen (*Crx) 5-325 Mg Tablet PO Q4H PRN Pain Rated 4-6 Al Hydrox/Mg Hydrox/Simethicone 30 ml 05/08/25 14:00 05/12/25 05:37 Mag Hydrox/Al Hydrox/Simeth 30 Ml Udc PO 30 ml Q8HR CARLOS Administration Amiodarone HCl 200 mg 05/06/25 09:00 05/11/25 08:22 Amiodarone Hcl 200 Mg Tablet PO 200 mg DAILY CARLOS Administration Apixaban 5 mg 05/09/25 21:00 05/11/25 21:22 Apixaban 5 Mg Tablet PO 5 mg Q12HR CARLOS Administration Aspirin 81 mg 05/10/25 09:00 05/11/25 08:23 Aspirin 81 Mg Enteric Tablet PO 81 mg QAM CARLOS Administration Baclofen 10 mg 05/06/25 22:00 05/12/25 05:17 Baclofen 10 Mg Tablet PO 10 mg Q8HR CARLOS Administration Docusate Sodium 100 mg 05/09/25 09:00 05/11/25 08:22 Docusate Sodium 100 Mg Capsule PO 100 mg DAILY CARLOS Administration Lamotrigine 150 mg 05/06/25 09:00 05/11/25 21:22 Lamotrigine 50 Mg Tablet PO 150 mg Q12HR CARLOS Administration Lidocaine HCl 15 ml 05/08/25 14:00 05/12/25 05:38 Lidocaine 2% Visc Soln 15 Ml Udc PO 15 ml Q8HR CARLOS Administration Metoclopramide HCl 10 mg 05/09/25 13:32 05/11/25 08:30 Metoclopramide Hcl Inj 10 Mg/2 Ml Vial IV PUSH 10 mg Q6HR PRN Administration Nausea And Vomiting Pantoprazole Sodium 40 mg 05/08/25 09:00 05/11/25 08:22 Pantoprazole 40 Mg Tablet PO 40 mg QAM CARLOS Administration Polyethylene Glycol 17 gm 05/07/25 09:00 05/11/25 08:23 Polyethylene Glycol 3350 17 Gm Powd.Pack PO 17 gm QAM CARLOS Administration Promethazine HCl 12.5 mg 05/05/25 17:37 05/08/25 14:24 Promethazine Hcl 25 Mg/Ml Ampul IV PUSH 12.5 mg Q6H PRN Administration Nausea Rosuvastatin Calcium 5 mg 05/06/25 15:40 05/11/25 08:23 Rosuvastatin 5 Mg Tablet PO 5 mg DAILY CARLOS Administration Senna 8.6 mg 05/06/25 21:00 05/11/25 21:22 Sennosides 8.6 Mg Tablet PO 8.6 mg HS CARLOS Administration Sucralfate 1,000 mg 05/07/25 21:00 05/12/25 06:13 Sucralfate Susp 100 Mg/Ml 10 Ml Udc PO 1,000 mg ACHS CARLOS Administration Tamsulosin HCl 0.4 mg 05/06/25 15:40 05/11/25 08:22 Tamsulosin Hcl 0.4 Mg Capsule BY MOUTH 0.4 mg DAILY CARLOS Administration Radiology Results: ITS Impressions Abdomen/Pelvis CT 05/05/25 14:54 IMPRESSION: 1. Splenomegaly. 2: Moderate right pleural effusion. Small left pleural effusion. 3: Bilateral renal cysts. 4: Severe lower thoracic and lumbar spondylosis with scoliosis. Chest X-Ray 05/08/25 15:56 Impression: CHF. The findings appear relatively unchanged Labs Labs: Laboratory Results - last 24 hr 05/12/25 05:23 WBC 2.9 L RBC 2.88 L Hgb 8.5 L Hct 26.6 L MCV 92.4 MCH 29.5 MCHC 32.0 RDW 15.9 H Plt Count 107 L MPV 9.5 Immature Gran % (Auto) 0.7 H Neut % (Auto) 48.1 Lymph % (Auto) 37.4 [place] % (Auto) 10.4 H Eos % (Auto) 3.1 Baso % (Auto) 0.3 Lymph # (Auto) 1.08 [place] # (Auto) 0.3 Eos # (Auto) 0.1 Baso # (Auto) 0.0 Abs Immat Gran (auto) 0.02 Absolute Neuts (auto) 1.4 Absolute Nucleated RBC 0.000 Nucleated RBC % 0.0 % Immature Plt Fraction 1.7 Sodium 132 L Potassium 4.1 Chloride 99 Carbon Dioxide 29 Anion Gap 4 BUN 13 Creatinine 1.22 Estim Creat Clear Calc 54 Estimated GFR 58 L Glucose 110 Calcium 9.7 Magnesium 2.5 H Total Bilirubin 1.2 AST 38 ALT 19 Alkaline Phosphatase 106 Total Protein 6.3 Albumin 4.0 Quality VTE Prophylaxis VTE prophylaxis: mechanical ordered
[2025-05-12 14:00] VITALS: BP 134/81; PULSE 74; RESP 14; TEMP 36.6; O2SAT 96
[2025-05-12] MEDS: APIXABAN 5 MG TABLET PO ×2 (15:06→21:15)
[2025-05-12] MEDS: TAMSULOSIN HCL 0.4 MG CAPSULE BY MOUTH (15:09)
--- NOTE | 2025-05-12 16:37 | WPDGIPROGNO ---
Progress Note: A&P Assessment and Plan (1) Dry heaves: Code(s): R11.10 - Vomiting, unspecified Status: Acute Assessment and Plan: started after heart surgery and prolonged hospitalization in [facility], previously he did not have any GI symptom could not complete GES pending esophagram with UGI to assess if dysmotility on baclofen, reglan/antiemetics prn, scopolamine patch, etc egd only mild gastritis probably related to recent heart surgery, probably affecting diaphragm/nerve, etc consider to transfer to [facility], patient does not want to go home since he has lost about 40 lb since his surgery and still unable to eat much because dry heaving (2) Weight loss: Code(s): R63.4 - Abnormal weight loss Status: Acute Assessment and Plan: can not eat much (3) History of aortic valve replacement with bioprosthetic valve: Code(s): Z95.3 - Presence of xenogenic heart valve Status: Acute (4) Atrial fibrillation: Code(s): I48.91 - Unspecified atrial fibrillation Status: Acute Assessment and Plan: on anticoagulation Subjective Date/time seen: 05/12/25 16:37 Interval history: he could not complete gastric emptying study because emesis similar symptom, no changes his yesterday broke her leg, she says that has 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- recommending to stop amiodarone and consider even transfer to [facility] Review of Systems Review of Systems: All systems reviewed & are unremarkable except as noted in HPI and below Exam Const: General: comfortable and no acute distress HENMT: Face/Nose/Sinus: Normal nares present Eyes: General: appearance normal, both eyes and all related structures Neck: Neck: no JVD Resp: Auscultation: clear to auscultation bilaterally Cardio: Rate: regular rate Rhythm: regular rhythm GI: Inspection: non-distended GI Palp: Yes Soft to palpation Skin: General skin exam: normal color Neuro: Speech: normal speech Extrem: General: normal to inspection Psych: Mental Status: mental status grossly normal Objective Data Vital Signs Vital Signs: Vital Signs - 24 hr 05/11/25 21:23 05/11/25 22:00 05/12/25 05:30 Temperature 97.9 F 97.9 F Pulse Rate 75 74 Respiratory Rate 15 18 Blood Pressure 133/59 L 134/81 Pulse Oximetry 98 96 Oxygen Delivery Room Air 05/12/25 08:00 05/12/25 14:00 Temperature 97.9 F Pulse Rate 74 Respiratory Rate 14 Blood Pressure 134/81 Pulse Oximetry 96 Oxygen Delivery Room Air Intake/Output Intake/Output: Intake & Output 05/09/25 05/10/25 05/11/25 05/12/25 23:59 23:59 23:59 23:59 Intake Total 3340 1376 1182 1050 Output Total 2900 1100 3100 925 Balance 440 276 -1918 125 Meds/Results Medications: Active Medications Generic Name Dose Route Start Last Admin Trade Name Freq PRN Reason Stop Dose Admin Acetaminophen 650 mg 05/05/25 17:37 Acetaminophen 325 Mg Tablet PO Q4H PRN Mild Pain (1-3) or Fever Hydrocodone Bitart/Acetaminophen 1 tab 05/05/25 17:37 Hydrocodone/Acetaminophen (*Crx) 5-325 Mg Tablet PO Q4H PRN Pain Rated 4-6 Al Hydrox/Mg Hydrox/Simethicone 30 ml 05/08/25 14:00 05/12/25 15:10 Mag Hydrox/Al Hydrox/Simeth 30 Ml Udc PO 30 ml Q8HR CARLOS Administration Amiodarone HCl 200 mg 05/06/25 09:00 05/12/25 15:42 Amiodarone Hcl 200 Mg Tablet PO Not Given DAILY CARLOS Apixaban 5 mg 05/09/25 21:00 05/12/25 15:06 Apixaban 5 Mg Tablet PO 5 mg Q12HR CARLOS Administration Aspirin 81 mg 05/10/25 09:00 05/12/25 12:29 Aspirin 81 Mg Enteric Tablet PO Not Given QAM CARLOS Baclofen 10 mg 05/06/25 22:00 05/12/25 15:06 Baclofen 10 Mg Tablet PO 10 mg Q8HR CARLOS Administration Docusate Sodium 100 mg 05/09/25 09:00 05/12/25 12:29 Docusate Sodium 100 Mg Capsule PO Not Given DAILY CARLOS Lamotrigine 150 mg 05/06/25 09:00 05/12/25 12:27 Lamotrigine 50 Mg Tablet PO Not Given Q12HR CARLOS Lidocaine HCl 15 ml 05/08/25 14:00 05/12/25 15:10 Lidocaine 2% Visc Soln 15 Ml Udc PO 15 ml Q8HR CARLOS Administration Metoclopramide HCl 10 mg 05/09/25 13:32 05/11/25 08:30 Metoclopramide Hcl Inj 10 Mg/2 Ml Vial IV PUSH 10 mg Q6HR PRN Administration Nausea And Vomiting Pantoprazole Sodium 40 mg 05/08/25 09:00 05/12/25 12:28 Pantoprazole 40 Mg Tablet PO Not Given QAM CARLOS Polyethylene Glycol 17 gm 05/07/25 09:00 05/12/25 12:28 Polyethylene Glycol 3350 17 Gm Powd.Pack PO Not Given QAM CARLOS Promethazine HCl 12.5 mg 05/05/25 17:37 05/08/25 14:24 Promethazine Hcl 25 Mg/Ml Ampul IV PUSH 12.5 mg Q6H PRN Administration Nausea Rosuvastatin Calcium 5 mg 05/06/25 15:40 05/12/25 12:28 Rosuvastatin 5 Mg Tablet PO Not Given DAILY CARLOS Senna 8.6 mg 05/06/25 21:00 05/11/25 21:22 Sennosides 8.6 Mg Tablet PO 8.6 mg HS CARLOS Administration Sucralfate 1,000 mg 05/07/25 21:00 05/12/25 12:29 Sucralfate Susp 100 Mg/Ml 10 Ml Udc PO Not Given ACHS CARLOS Tamsulosin HCl 0.4 mg 05/06/25 15:40 05/12/25 15:09 Tamsulosin Hcl 0.4 Mg Capsule BY MOUTH 0.4 mg DAILY CARLOS Administration Radiology Results: ITS Impressions Abdomen/Pelvis CT 05/05/25 14:54 IMPRESSION: 1. Splenomegaly. 2: Moderate right pleural effusion. Small left pleural effusion. 3: Bilateral renal cysts. 4: Severe lower thoracic and lumbar spondylosis with scoliosis. Chest X-Ray 05/08/25 15:56 Impression: CHF. The findings appear relatively unchanged Labs Labs: Laboratory Results - last 24 hr 05/12/25 05:23 WBC 2.9 L RBC 2.88 L Hgb 8.5 L Hct 26.6 L MCV 92.4 MCH 29.5 MCHC 32.0 RDW 15.9 H Plt Count 107 L MPV 9.5 Immature Gran % (Auto) 0.7 H Neut % (Auto) 48.1 Lymph % (Auto) 37.4 [place] % (Auto) 10.4 H Eos % (Auto) 3.1 Baso % (Auto) 0.3 Lymph # (Auto) 1.08 [place] # (Auto) 0.3 Eos # (Auto) 0.1 Baso # (Auto) 0.0 Abs Immat Gran (auto) 0.02 Absolute Neuts (auto) 1.4 Absolute Nucleated RBC 0.000 Nucleated RBC % 0.0 % Immature Plt Fraction 1.7 Sodium 132 L Potassium 4.1 Chloride 99 Carbon Dioxide 29 Anion Gap 4 BUN 13 Creatinine 1.22 Estim Creat Clear Calc 54 Estimated GFR 58 L Glucose 110 Calcium 9.7 Magnesium 2.5 H Total Bilirubin 1.2 AST 38 ALT 19 Alkaline Phosphatase 106 Total Protein 6.3 Albumin 4.0
[2025-05-12 21:07] VITALS: BP 116/65; PULSE 70; RESP 20; TEMP 37; O2SAT 99
[2025-05-12] MEDS: SENNOSIDES 8.6 MG TABLET PO (21:15)
[2025-05-12] MEDS: lamoTRIgine 50 MG TABLET 150 MG PO (21:15)
[2025-05-13] MEDS: METOCLOPRAMIDE HCL INJ 10 MG/2 ML VIAL IV PUSH ×2 (05:24→17:03)
[2025-05-13 05:36] VITALS: BP 133/66; PULSE 70; RESP 16; TEMP 36.7; O2SAT 97
[2025-05-13] MEDS: BACLOFEN 10 MG TABLET PO ×3 (05:48→21:01)
[2025-05-13] MEDS: SUCRALFATE SUSP 100 MG/ML 10 ML UDC 1000 MG PO ×3 (05:50→21:01)
[2025-05-13] MEDS: LIDOCAINE 2% VISC SOLN 15 ML UDC PO ×2 (05:51→21:02)
[2025-05-13] MEDS: MAG HYDROX/AL HYDROX/SIMETH 30 ML UDC PO ×3 (05:51→21:02)
[2025-05-13] MEDS: APIXABAN 5 MG TABLET PO ×2 (09:10→21:01)
[2025-05-13] MEDS: DOCUSATE SODIUM 100 MG CAPSULE PO (09:10)
[2025-05-13] MEDS: ROSUVASTATIN 5 MG TABLET PO (09:10)
[2025-05-13] MEDS: PANTOPRAZOLE 40 MG TABLET PO (09:10)
[2025-05-13] MEDS: ASPIRIN 81 MG ENTERIC TABLET PO (09:10)
[2025-05-13] MEDS: TAMSULOSIN HCL 0.4 MG CAPSULE BY MOUTH (09:10)
--- NOTE | 2025-05-13 11:46 | PCNFU ---
Nutrition Follow-Up Complete: Severe protein calorie malnutrition related to chronic vomiting, loss of appetite as evidenced by weight loss 13%/4 months; intakes <75% needs >1 month; moderate muscle wasting and fat loss Diet advancement [place] is met, advanced to low fiber Intakes >50% when advanced - Goal in progress. COntinue with same goal Goal: Pt current nutrition is Low fiber diet; Ensure Clear TID (240 kcal, 8 gprotein); Nutritional ice cream TID (270 kcal, 9 g protein). Nutrition recommendation: No new recommendations. Continue current nutrition care plan and orders. Agree with orders Last recorded weight is 98.1 kg. Bowel Motility: Last BM 05/10. Bowel regimen in place Labs Reviewed: No labs today Meds Noted: Miralax, protonix, reglan, Carafate, Eliquis Skin: No skin issues Additional Notes: Appetite still poor to fair, 0-50%. Unable to complete gastric emptying study because of emesis. Will continue to monitor. Pt may be transferred. Monitoring intakes, weights, labs, diet orders, plan of care Follow up in 3 days
[2025-05-13] MEDS: lamoTRIgine 50 MG TABLET 150 MG PO ×2 (12:58→21:01)
--- NOTE | 2025-05-13 13:59 | P.PNGI_ITS ---
Progress Note: A&P Assessment and Plan (1) Dry heaves: Code(s): R11.10 - Vomiting, unspecified Status: Acute Assessment and Plan: started after heart surgery and prolonged hospitalization in [facility], previously he did not have any GI symptom could not complete GES reviewed esophagram with UGI normal, only delayed of contrast in sb but no obstruction on baclofen, reglan/antiemetics prn, scopolamine patch, etc egd only mild gastritis probably related to recent heart surgery, probably affecting diaphragm/nerve, etc- another possibility is adverse event of medication, today is feeling better he has been keeping close communication with his providers at [facility], hopefully home soon if continues to improve (2) Weight loss: Code(s): R63.4 - Abnormal weight loss Status: Acute Assessment and Plan: encourage to eat (3) History of aortic valve replacement with bioprosthetic valve: Code(s): Z95.3 - Presence of xenogenic heart valve Status: Acute (4) Atrial fibrillation: Code(s): I48.91 - Unspecified atrial fibrillation Status: Acute Assessment and Plan: on anticoagulation Subjective Date/time seen: 05/13/25 13:59 Interval history: today he is feeling much better he has 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 [facility] and advised to discontinue one of the newest medications prescribed around time of surgery, he thinks that is working Review of Systems Review of Systems: All systems reviewed & are unremarkable except as noted in HPI and below Exam Const: General: comfortable and no acute distress Other: using a walker HENMT: Face/Nose/Sinus: Normal nares present Eyes: General: appearance normal, both eyes and all related structures Neck: Neck: no JVD Resp: Auscultation: clear to auscultation bilaterally Cardio: Rate: regular rate Rhythm: regular rhythm GI: Inspection: non-distended GI Palp: Yes Soft to palpation Skin: General skin exam: normal color Neuro: Speech: normal speech Extrem: General: normal to inspection Psych: Mental Status: mental status grossly normal Objective Data Vital Signs Vital Signs: Vital Signs - 24 hr 05/12/25 14:00 05/12/25 20:00 05/12/25 21:07 Temperature 97.9 F 98.6 F Pulse Rate 74 70 Respiratory Rate 14 20 Blood Pressure 134/81 116/65 Pulse Oximetry 96 99 Oxygen Delivery Room Air 05/13/25 05:36 05/13/25 08:00 Temperature 98.0 F Pulse Rate 70 Respiratory Rate 16 Blood Pressure 133/66 Pulse Oximetry 97 Oxygen Delivery Room Air Intake/Output Intake/Output: Intake & Output 05/10/25 05/11/25 05/12/25 05/13/25 23:59 23:59 23:59 23:59 Intake Total 1376 1182 1050 1650 Output Total 1100 3100 1375 1325 Balance 276 -1918 -325 325 Meds/Results Medications: Active Medications Generic Name Dose Route Start Last Admin Trade Name Freq PRN Reason Stop Dose Admin Acetaminophen 650 mg 05/05/25 17:37 Acetaminophen 325 Mg Tablet PO Q4H PRN Mild Pain (1-3) or Fever Hydrocodone Bitart/Acetaminophen 1 tab 05/05/25 17:37 Hydrocodone/Acetaminophen (*Crx) 5-325 Mg Tablet PO Q4H PRN Pain Rated 4-6 Al Hydrox/Mg Hydrox/Simethicone 30 ml 05/08/25 14:00 05/13/25 12:59 Mag Hydrox/Al Hydrox/Simeth 30 Ml Udc PO 30 ml Q8HR CARLOS Administration Amiodarone HCl 200 mg 05/06/25 09:00 05/13/25 09:11 Amiodarone Hcl 200 Mg Tablet PO Not Given DAILY CARLOS Apixaban 5 mg 05/09/25 21:00 05/13/25 09:10 Apixaban 5 Mg Tablet PO 5 mg Q12HR CARLOS Administration Aspirin 81 mg 05/10/25 09:00 05/13/25 09:10 Aspirin 81 Mg Enteric Tablet PO 81 mg QAM CARLOS Administration Baclofen 10 mg 05/06/25 22:00 05/13/25 13:02 Baclofen 10 Mg Tablet PO 10 mg Q8HR CARLOS Administration Docusate Sodium 100 mg 05/09/25 09:00 05/13/25 09:10 Docusate Sodium 100 Mg Capsule PO 100 mg DAILY CARLOS Administration Lamotrigine 150 mg 05/06/25 09:00 05/13/25 12:58 Lamotrigine 50 Mg Tablet PO 150 mg Q12HR CARLOS Administration Lidocaine HCl 15 ml 05/08/25 14:00 05/13/25 13:02 Lidocaine 2% Visc Soln 15 Ml Udc PO Not Given Q8HR CARLOS Metoclopramide HCl 10 mg 05/09/25 13:32 05/13/25 05:24 Metoclopramide Hcl Inj 10 Mg/2 Ml Vial IV PUSH 10 mg Q6HR PRN Administration Nausea And Vomiting Pantoprazole Sodium 40 mg 05/08/25 09:00 05/13/25 09:10 Pantoprazole 40 Mg Tablet PO 40 mg QAM CARLOS Administration Polyethylene Glycol 17 gm 05/07/25 09:00 05/13/25 09:10 Polyethylene Glycol 3350 17 Gm Powd.Pack PO 17 gm QAM CARLOS Administration Promethazine HCl 12.5 mg 05/05/25 17:37 05/08/25 14:24 Promethazine Hcl 25 Mg/Ml Ampul IV PUSH 12.5 mg Q6H PRN Administration Nausea Rosuvastatin Calcium 5 mg 05/06/25 15:40 05/13/25 09:10 Rosuvastatin 5 Mg Tablet PO 5 mg DAILY CARLOS Administration Senna 8.6 mg 05/06/25 21:00 05/12/25 21:15 Sennosides 8.6 Mg Tablet PO 8.6 mg HS CARLOS Administration Sucralfate 1,000 mg 05/07/25 21:00 05/13/25 13:02 Sucralfate Susp 100 Mg/Ml 10 Ml Udc PO Not Given ACHS CARLOS Tamsulosin HCl 0.4 mg 05/06/25 15:40 05/13/25 09:10 Tamsulosin Hcl 0.4 Mg Capsule BY MOUTH 0.4 mg DAILY CARLOS Administration Radiology Results: ITS Impressions Abdomen/Pelvis CT 05/05/25 14:54 IMPRESSION: 1. Splenomegaly. 2: Moderate right pleural effusion. Small left pleural effusion. 3: Bilateral renal cysts. 4: Severe lower thoracic and lumbar spondylosis with scoliosis. Chest X-Ray 05/08/25 15:56 Impression: CHF. The findings appear relatively unchanged Upper GI Series 05/12/25 17:42 IMPRESSION: 1. Delayed small bowel transit time of 4.5-6 hours without bowel dilation to suggest obstruction which would be consistent with an ileus. 2. Unremarkable esophagram and upper GI study.
[2025-05-13 15:15] VITALS: BP 106/59; PULSE 71; RESP 16; TEMP 37.1; O2SAT 98
--- NOTE | 2025-05-13 15:38 | P.PNIM_ITS ---
Progress Note: A&P Assessment and Plan (1) Nausea and vomiting: Code(s): R11.2 - Nausea with vomiting, unspecified Status: Acute Assessment and Plan: Now having dry heaves,? Diaghragmatic, vagus nerve injury, vs brain mass Patient had a recent heart surgery in [facility] after which the symptoms started EGD: gastritis Patient likely has diaphragmatic irritation causing hiccups and emesis, rule out brain lesion MRI brain Trial of baclofen initiated,scopolamine Unable to do MRI due to foreign body in the body ESophagogram showed possible Ileus, however unable to complete GES yesterdya patient has no problems with full liquid diet Continue PO sucralfate and pantoprazole GI following If symptoms ocntinue to improve will discharge tomorrow (2) Pleural effusion: Code(s): J90 - Pleural effusion, not elsewhere classified Status: Acute Assessment and Plan: Repeat chest x-ray showing pulmonary edema and pleural effusion Stopped IV fluids Echocardiogram EF 60-65% Diuresis achieved No oxygen requirement (3) Anemia: Code(s): D64.9 - Anemia, unspecified Status: Acute Assessment and Plan: Hemoglobin stable post op Could be related to recent surgeries and iliopsoas hematoma in 03/2025. No evidence of ongoing bleeding ASA and Eliquis held at admission No need for transfusion at this time Isat 18, s/p 400mg IV, monitor H and H 05/09 Resume ASA and Eliquis due to hx of atrial fibrillation, bioprosthetic aortic valve, CLL (increased risk of thrombophlebitis) F/u h/h (4) Atrial fibrillation: Code(s): I48.91 - Unspecified atrial fibrillation Status: Acute Assessment and Plan: Continue amiodarone Okay to restart Eliquis (5) Seizure: Code(s): R56.9 - Unspecified convulsions Status: Acute Assessment and Plan: Seizure disorder controlled Continue Keppra (6) CLL (chronic lymphocytic leukemia): Code(s): C91.10 - Chronic lymphocytic leukemia of B-cell type not having achieved remission Status: Acute Assessment and Plan: Treatment currently on hold due to recent surgeries will follow-up with oncologist outpatient Was taking tryosine kinase inhibitors Pancytopenia is likely due to treatment (7) Hyponatremia: Code(s): E87.1 - Hypo-osmolality and hyponatremia Status: Acute Assessment and Plan: resolved (8) Constipation: Code(s): K59.00 - Constipation, unspecified Status: Acute Assessment and Plan: Senna MiraLax (9) History of aortic valve replacement with bioprosthetic valve: Code(s): Z95.3 - Presence of xenogenic heart valve Status: Acute Assessment and Plan: Due to patient's issues being gastric and not cardiac he wish to stay at [facility] (10) Hyperlipidemia: Code(s): E78.5 - Hyperlipidemia, unspecified Status: Acute Assessment and Plan: Carotid stenosis Continue statin Hold aspirin Plan DVT prophylaxis on Eliquis Subjective Date/time seen: 05/13/25 15:38 Interval history: Comfortable at bedside Dry heaves seems to have mild improvement Unable to complete GES yesterday tolerating full liquid diet adequately Review of Systems Review of Systems: 12 systems were reviewed and are negativ e except for as per HPI. All systems reviewed & are unremarkable except as noted in HPI and below (Subjective) Exam Narrative: HEENT: PERRL, sclerae nonicteric, pharyngeal mucosa pink and intact NECK: No JVD CHEST: Clear to auscultation. 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 Oriented to person, place, and time Const: General: comfortable and no acute distress Other: A&O x3 HENMT: Mouth: Yes moist mucous membranes Eyes: Pupils: Equal, round and reactive pupils present Neck: Neck: supple Resp: Effort & Inspection: normal respiratory effort Auscultation: clear to auscultation bilaterally Cardio: Rate: regular rate Rhythm: regular rhythm Heart sounds: no murmurs GI: Inspection: non-distended : General: Yes bladder normal to palpation Neuro: Cranial nerves: Yes Equal, round and reactive pupils present Motor exam (neuro): 5/5 motor strength present throughout Extrem: General: no edema Objective Data Vital Signs Vital Signs: Vital Signs - 24 hr 05/12/25 20:00 05/12/25 21:07 05/13/25 05:36 Temperature 98.6 F 98.0 F Pulse Rate 70 70 Respiratory Rate 20 16 Blood Pressure 116/65 133/66 Pulse Oximetry 99 97 Oxygen Delivery Room Air 05/13/25 08:00 Temperature Pulse Rate Respiratory Rate Blood Pressure Pulse Oximetry Oxygen Delivery Room Air Intake/Output Intake/Output: Intake & Output 05/10/25 05/11/25 05/12/25 05/13/25 23:59 23:59 23:59 23:59 Intake Total 1376 1182 1050 1650 Output Total 1100 3100 1375 1325 Balance 276 -1918 -325 325 Meds/Results Medications: Active Medications Generic Name Dose Route Start Last Admin Trade Name Freq PRN Reason Stop Dose Admin Acetaminophen 650 mg 05/05/25 17:37 Acetaminophen 325 Mg Tablet PO Q4H PRN Mild Pain (1-3) or Fever Hydrocodone Bitart/Acetaminophen 1 tab 05/05/25 17:37 Hydrocodone/Acetaminophen (*Crx) 5-325 Mg Tablet PO Q4H PRN Pain Rated 4-6 Al Hydrox/Mg Hydrox/Simethicone 30 ml 05/08/25 14:00 05/13/25 12:59 Mag Hydrox/Al Hydrox/Simeth 30 Ml Udc PO 30 ml Q8HR CARLOS Administration Amiodarone HCl 200 mg 05/06/25 09:00 05/13/25 09:11 Amiodarone Hcl 200 Mg Tablet PO Not Given DAILY CARLOS Apixaban 5 mg 05/09/25 21:00 05/13/25 09:10 Apixaban 5 Mg Tablet PO 5 mg Q12HR CARLOS Administration Aspirin 81 mg 05/10/25 09:00 05/13/25 09:10 Aspirin 81 Mg Enteric Tablet PO 81 mg QAM CARLOS Administration Baclofen 10 mg 05/06/25 22:00 05/13/25 13:02 Baclofen 10 Mg Tablet PO 10 mg Q8HR CARLOS Administration Docusate Sodium 100 mg 05/09/25 09:00 05/13/25 09:10 Docusate Sodium 100 Mg Capsule PO 100 mg DAILY CARLOS Administration Lamotrigine 150 mg 05/06/25 09:00 05/13/25 12:58 Lamotrigine 50 Mg Tablet PO 150 mg Q12HR CARLOS Administration Lidocaine HCl 15 ml 05/08/25 14:00 05/13/25 13:02 Lidocaine 2% Visc Soln 15 Ml Udc PO Not Given Q8HR CARLOS Metoclopramide HCl 10 mg 05/09/25 13:32 05/13/25 05:24 Metoclopramide Hcl Inj 10 Mg/2 Ml Vial IV PUSH 10 mg Q6HR PRN Administration Nausea And Vomiting Pantoprazole Sodium 40 mg 05/08/25 09:00 05/13/25 09:10 Pantoprazole 40 Mg Tablet PO 40 mg QAM CARLOS Administration Polyethylene Glycol 17 gm 05/07/25 09:00 05/13/25 09:10 Polyethylene Glycol 3350 17 Gm Powd.Pack PO 17 gm QAM CARLOS Administration Promethazine HCl 12.5 mg 05/05/25 17:37 05/08/25 14:24 Promethazine Hcl 25 Mg/Ml Ampul IV PUSH 12.5 mg Q6H PRN Administration Nausea Rosuvastatin Calcium 5 mg 05/06/25 15:40 05/13/25 09:10 Rosuvastatin 5 Mg Tablet PO 5 mg DAILY CARLOS Administration Senna 8.6 mg 05/06/25 21:00 05/12/25 21:15 Sennosides 8.6 Mg Tablet PO 8.6 mg HS CARLOS Administration Sucralfate 1,000 mg 05/07/25 21:00 05/13/25 13:02 Sucralfate Susp 100 Mg/Ml 10 Ml Udc PO Not Given ACHS CARLOS Tamsulosin HCl 0.4 mg 05/06/25 15:40 05/13/25 09:10 Tamsulosin Hcl 0.4 Mg Capsule BY MOUTH 0.4 mg DAILY CARLOS Administration Radiology Results: ITS Impressions Abdomen/Pelvis CT 05/05/25 14:54 IMPRESSION: 1. Splenomegaly. 2: Moderate right pleural effusion. Small left pleural effusion. 3: Bilateral renal cysts. 4: Severe lower thoracic and lumbar spondylosis with scoliosis. Chest X-Ray 05/08/25 15:56 Impression: CHF. The findings appear relatively unchanged Upper GI Series 05/12/25 17:42 IMPRESSION: 1. Delayed small bowel transit time of 4.5-6 hours without bowel dilation to suggest obstruction which would be consistent with an ileus. 2. Unremarkable esophagram and upper GI study. Quality VTE Prophylaxis VTE prophylaxis: mechanical ordered
[2025-05-13 20:00] VITALS: PULSE 71; RESP 16; O2SAT 98
[2025-05-13] MEDS: SENNOSIDES 8.6 MG TABLET PO (21:01)
[2025-05-13 21:42] VITALS: BP 123/63; PULSE 71; RESP 17; TEMP 36.4; O2SAT 99
[2025-05-13 23:39] VITALS: O2SAT 98
--- NOTE | 2025-05-14 03:12 | PC.NURSE ---
Paper documentation exists on this patient due to [employer] downtime on 05/14/25 from 0100 to 0300.
[2025-05-14] MEDS: MAG HYDROX/AL HYDROX/SIMETH 30 ML UDC PO ×2 (05:15→21:32)
[2025-05-14] MEDS: LIDOCAINE 2% VISC SOLN 15 ML UDC PO (05:15)
[2025-05-14] MEDS: BACLOFEN 10 MG TABLET PO ×2 (05:15→13:14)
[2025-05-14] MEDS: SUCRALFATE SUSP 100 MG/ML 10 ML UDC 1000 MG PO ×3 (05:45→21:32)
[2025-05-14 06:00] VITALS: BP 119/63; PULSE 72; RESP 16; TEMP 36.4; O2SAT 100
[2025-05-14] MEDS: METOCLOPRAMIDE HCL INJ 10 MG/2 ML VIAL IV PUSH ×2 (06:27→13:22)
[2025-05-14 07:04] LABS: Hematocrit 27.1 % (42.0-52.0); Hemoglobin 8.6 g/dL (14.0-18.0); Immature Granulocyte Percent A 0.4 % (0-0.5); Immature Platelet Fraction Pct 1.4 % (0.9-11.2); Lymphocytes Absolute Auto 1.14 K/mm3 (0.9-3.2); Mean Corpuscular HGB Conc 31.7 g/dl (32-36); Mean Corpuscular Hemoglobin 29.4 pg (26-34); Mean Corpuscular Volume 92.5 fl (80-100); Nucleated Red Blood Cells Absolute Auto 0.000 K/mm3 (0.0-0.012); Nucleated Red Blood Cells Perc 0.0 % (0.0-0.2); Platelet Count Result 101 k/mm3 (150-375); Red Blood Count 2.93 M/mm3 (4.6-6.20); White Blood Count 2.7 K/mm3 (4.5-10.0)
[2025-05-14 07:26] LABS: Alanine Aminotransferase 19 U/L (6-50); Albumin Level 3.8 g/dL (3.5-5.1); Alkaline Phosphatase 106 U/L (38-126); Anion Gap 6 mmol/L (4-12); Aspartate Amino Transferase 34 U/L (17-59); Bilirubin,Total 1.1 mg/dL (0.2-1.3); Blood Urea Nitrogen 13 mg/dL (9-20); Calcium 9.8 mg/dL (8.4-10.2); Carbon Dioxide 29 mmol/L (22-30); Chloride 97 mmol/L (98-107); Estimated CRCL calculation 54 ml/min; Estimated Glomerular Filt Rate 60; Glucose 110 mg/dL (65-110); Magnesium 2.7 mg/dL (1.6-2.3); Potassium 4.2 mmol/L (3.4-5.0); Sodium 132 mmol/L (137-145); Total Protein 6.0 g/dL (6.3-8.2)
[2025-05-14] MEDS: ROSUVASTATIN 5 MG TABLET PO (08:57)
[2025-05-14] MEDS: DOCUSATE SODIUM 100 MG CAPSULE PO (08:58)
[2025-05-14] MEDS: ASPIRIN 81 MG ENTERIC TABLET PO (08:58)
[2025-05-14] MEDS: PANTOPRAZOLE 40 MG TABLET PO (08:58)
[2025-05-14] MEDS: TAMSULOSIN HCL 0.4 MG CAPSULE BY MOUTH (08:58)
[2025-05-14] MEDS: lamoTRIgine 50 MG TABLET 150 MG PO ×2 (08:58→21:28)
[2025-05-14] MEDS: APIXABAN 5 MG TABLET PO ×2 (08:58→21:28)
--- NOTE | 2025-05-14 13:23 | PCOTNOTE ---
Patient out od the room at this time. Patient's present and states he is down having a CAT scan .
--- NOTE | 2025-05-14 14:13 | PCOTNOTE ---
Patient is back from testing, sleeping. Patient's declined therapy services this P.M., states he finally has some relief from feeling so horrible with nausea and vomiting .
[2025-05-14 14:56] VITALS: BP 139/76; PULSE 75; RESP 16; TEMP 36.8; O2SAT 98
--- NOTE | 2025-05-14 15:24 | P.PNIM_ITS ---
Progress Note: A&P Assessment and Plan (1) Nausea and vomiting: Code(s): R11.2 - Nausea with vomiting, unspecified Status: Acute Assessment and Plan: Now having dry heaves,? Diaghragmatic, vagus nerve injury, vs brain mass Patient had a recent heart surgery in [facility] after which the symptoms started EGD: gastritis Patient likely has diaphragmatic irritation causing hiccups and emesis, rule out brain lesion MRI brain Trial of baclofen initiated,scopolamine Unable to do MRI due to foreign body in the body ESophagogram showed possible Ileus, however unable to complete GES patient has no problems with full liquid diet Continue PO sucralfate and pantoprazole GI following Symptoms remain persistent. 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 Age-related [id number] diffuse volume loss and mild scattered white matter hypoattenuation consistent with chronic small-vessel ischemic disease CT abdomen with splenomegaly moderate right pleural effusion small left pleural effusion bilateral renal cyst severe lower thoracic and lumbar spondylosis scoliosis. Noted PA injury post valve surgery 80 degree turn to OR on 03/29/2025 for Burton- Joe catheter removal and repair of PA injury Postoperative right thigh hematoma with acute blood loss anemia needing transfusion (2) Pleural effusion: Code(s): J90 - Pleural effusion, not elsewhere classified Status: Acute Assessment and Plan: Repeat chest x-ray showing pulmonary edema and pleural effusion Stopped IV fluids Echocardiogram EF 60-65% Diuresis achieved No oxygen requirement (3) Anemia: Code(s): D64.9 - Anemia, unspecified Status: Acute Assessment and Plan: Hemoglobin stable post op Could be related to recent surgeries and iliopsoas hematoma in 03/2025. No evidence of ongoing bleeding ASA and Eliquis held at admission No need for transfusion at this time Isat 18, s/p 400mg IV, monitor H and H 05/09 Resume ASA and Eliquis due to hx of atrial fibrillation, bioprosthetic aortic valve, CLL (increased risk of thrombophlebitis) F/u h/h (4) Atrial fibrillation: Code(s): I48.91 - Unspecified atrial fibrillation Status: Acute Assessment and Plan: Continue amiodarone Okay to restart Eliquis (5) Seizure: Code(s): R56.9 - Unspecified convulsions Status: Acute Assessment and Plan: Seizure disorder controlled Continue Keppra (6) CLL (chronic lymphocytic leukemia): Code(s): C91.10 - Chronic lymphocytic leukemia of B-cell type not having achieved remission Status: Acute Assessment and Plan: Treatment currently on hold due to recent surgeries will follow-up with oncologist outpatient Was taking tryosine kinase inhibitors Pancytopenia is likely due to treatment (7) Hyponatremia: Code(s): E87.1 - Hypo-osmolality and hyponatremia Status: Acute Assessment and Plan: resolved (8) Constipation: Code(s): K59.00 - Constipation, unspecified Status: Acute Assessment and Plan: Senna MiraLax (9) History of aortic valve replacement with bioprosthetic valve: Code(s): Z95.3 - Presence of xenogenic heart valve Status: Acute Assessment and Plan: Due to patient's issues being gastric and not cardiac he wish to stay at [facility] (10) Hyperlipidemia: Code(s): E78.5 - Hyperlipidemia, unspecified Status: Acute Assessment and Plan: Carotid stenosis Continue statin Hold aspirin Plan DVT prophylaxis on Eliquis Subjective Date/time seen: 05/14/25 15:24 Interval history: Symptoms persist with intermittent retching with vigorous vomiting. Which happened in front of me during my evaluation. Discussed with the patient and the family. Review of Systems Review of Systems: All systems reviewed & are unremarkable except as noted in HPI and below (Subjective) Exam Narrative: HEENT: PERRL, sclerae nonicteric, pharyngeal mucosa pink and intact NECK: No JVD CHEST: Clear to auscultation. Normal effort HEART: NL S1/S2, regular, ABNL S2 with DERIC ABDOMEN: BS+, soft, nontender, no mass, no bruits EXTREMITIES: No cyanosis, edema, or clubbing NEUROLOGIC: CN intact and symmetric to inspection, speech clear but occasionally has word finding issues, family consumer scientist 5/5 and symmetric MUSCULOSKELETAL: Tone and strength symmetric PSYCH: Alert. Oriented to person, place, and time Objective Data Vital Signs Vital Signs: Vital Signs - 24 hr 05/13/25 20:00 05/13/25 21:42 05/13/25 23:39 Temperature 97.6 F Pulse Rate 71 71 Respiratory Rate 16 17 Blood Pressure 123/63 Pulse Oximetry 98 99 98 Oxygen Delivery Room Air Room Air 05/14/25 06:00 05/14/25 08:00 05/14/25 14:56 Temperature 97.6 F 98.2 F Pulse Rate 72 75 Respiratory Rate 16 16 Blood Pressure 119/63 139/76 Pulse Oximetry 100 98 Oxygen Delivery Room Air Intake/Output Intake/Output: Intake & Output 05/11/25 05/12/25 05/13/25 05/14/25 23:59 23:59 23:59 23:59 Intake Total 1182 1050 2010 650 Output Total 3100 1375 1900 1600 [facility] -[facility] -[facility] 110 [phone] Meds/Results Medications: Active Medications Generic Name Dose Route Start Last Admin Trade Name Freq PRN Reason Stop Dose Admin Acetaminophen 650 mg 05/05/25 17:37 Acetaminophen 325 Mg Tablet PO Q4H PRN Mild Pain (1-3) or Fever Hydrocodone Bitart/Acetaminophen 1 tab 05/05/25 17:37 Hydrocodone/Acetaminophen (*Crx) 5-325 Mg Tablet PO Q4H PRN Pain Rated 4-6 Al Hydrox/Mg Hydrox/Simethicone 30 ml 05/08/25 14:00 05/14/25 13:14 Mag Hydrox/Al Hydrox/Simeth 30 Ml Udc PO Not Given Q8HR CARLOS Amiodarone HCl 200 mg 05/06/25 09:00 05/14/25 09:01 Amiodarone Hcl 200 Mg Tablet PO Not Given DAILY CARLOS Apixaban 5 mg 05/09/25 21:00 05/14/25 08:58 Apixaban 5 Mg Tablet PO 5 mg Q12HR CARLOS Administration Aspirin 81 mg 05/10/25 09:00 05/14/25 08:58 Aspirin 81 Mg Enteric Tablet PO 81 mg QAM CARLOS Administration Baclofen 10 mg 05/06/25 22:00 05/14/25 13:14 Baclofen 10 Mg Tablet PO 10 mg Q8HR CARLOS Administration Docusate Sodium 100 mg 05/09/25 09:00 05/14/25 08:58 Docusate Sodium 100 Mg Capsule PO 100 mg DAILY CARLOS Administration Lamotrigine 150 mg 05/06/25 09:00 05/14/25 08:58 Lamotrigine 50 Mg Tablet PO 150 mg Q12HR CARLOS Administration Lidocaine HCl 15 ml 05/08/25 14:00 05/14/25 13:14 Lidocaine 2% Visc Soln 15 Ml Udc PO Not Given Q8HR [facility] Metoclopramide HCl 10 mg 05/09/25 13:32 05/14/25 13:22 Metoclopramide Hcl Inj 10 Mg/2 Ml Vial IV PUSH 10 mg Q6HR PRN Administration Nausea And Vomiting Pantoprazole Sodium 40 mg 05/08/25 09:00 05/14/25 08:58 Pantoprazole 40 Mg Tablet PO 40 mg QAM CARLOS Administration Polyethylene Glycol 17 gm 05/07/25 09:00 05/14/25 08:59 Polyethylene Glycol 3350 17 Gm Powd.Pack PO Not Given QAM [facility] Promethazine HCl 12.5 mg 05/05/25 17:37 05/08/25 14:24 Promethazine Hcl 25 Mg/Ml Ampul IV PUSH 12.5 mg Q6H PRN Administration Nausea Rosuvastatin Calcium 5 mg 05/06/25 15:40 05/14/25 08:57 Rosuvastatin 5 Mg Tablet PO 5 mg DAILY CARLOS Administration Senna 8.6 mg 05/06/25 21:00 05/13/25 21:01 Sennosides 8.6 Mg Tablet PO 8.6 mg HS ACRLOS Administration Sucralfate 1,000 mg 05/07/25 21:00 05/14/25 11:13 Sucralfate Susp 100 Mg/Ml 10 Ml Udc PO 1,000 mg ACHS CARLOS Administration Tamsulosin HCl 0.4 mg 05/06/25 15:40 05/14/25 08:58 Tamsulosin Hcl 0.4 Mg Capsule BY MOUTH 0.4 mg DAILY CARLOS Administration Radiology Results: ITS Impressions Abdomen/Pelvis CT 05/05/25 14:54 IMPRESSION: 1. Splenomegaly. 2: Moderate right pleural effusion. Small left pleural effusion. 3: Bilateral renal cysts. 4: Severe lower thoracic and lumbar spondylosis with scoliosis. Chest X-Ray 05/08/25 15:56 Impression: CHF. The findings appear relatively unchanged Upper GI Series 05/12/25 17:42 IMPRESSION: 1. Delayed small bowel transit time of 4.5-6 hours without bowel dilation to suggest obstruction which would be consistent with an ileus. 2. Unremarkable esophagram and upper GI study. Head CT 05/14/25 14:04 IMPRESSION: 1. 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 No other acute intracranial process. 2. Stable appearance of age-related changes including mild to moderate diffuse volume loss and mild scattered white matter hypoattenuation consistent with chronic small vessel ischemic disease. Labs Labs: Laboratory Results - last 24 hr 05/14/25 06:12 WBC 2.7 L RBC 2.93 L Hgb 8.6 L Hct 27.1 L MCV 92.5 MCH 29.4 MCHC 31.7 L RDW 15.9 H Plt Count 101 L MPV 8.9 Immature Gran % (Auto) 0.4 Neut % (Auto) 46.0 Lymph % (Auto) 41.6 [place] % (Auto) 9.5 H Eos % (Auto) 1.8 Baso % (Auto) 0.7 Lymph # (Auto) 1.14 [place] # (Auto) 0.3 Eos # (Auto) 0.1 Baso # (Auto) 0.0 Abs Immat Gran (auto) 0.01 Absolute Neuts (auto) 1.3 Absolute Nucleated RBC 0.000 Nucleated RBC % 0.0 % Immature Plt Fraction 1.4 Sodium 132 L Potassium 4.2 Chloride 97 L Carbon Dioxide 29 Anion Gap 6 BUN 13 Creatinine 1.20 Estim Creat Clear Calc 54 Estimated GFR 60 Glucose 110 Calcium 9.8 Magnesium 2.7 H Total Bilirubin 1.1 AST 34 ALT 19 Alkaline Phosphatase 106 Total Protein 6.0 L Albumin 3.8
--- NOTE | 2025-05-14 15:44 | WPDGIPROGNO ---
Progress Note: A&P Assessment and Plan (1) Dry heaves: Code(s): R11.10 - Vomiting, unspecified Status: Acute Assessment and Plan: started after heart surgery and prolonged hospitalization in [facility], previously he did not have any GI symptom could not complete GES- wonder if he could have component of dysmotility- reviewed recent CT scan chest and noted residual oral contrast material in the stomach 2 days post upper GI study suspicious for gastroparesis reviewed esophagram with UGI normal, only delayed of contrast in sb but no obstruction on baclofen, reglan/antiemetics prn, scopolamine patch, etc egd only mild gastritis probably related to recent heart surgery, probably affecting diaphragm/nerve, etc but also dysmotility he has been keeping close communication with his providers at [facility] and they may consider transfer if condition does not improve patient does not want to be discharged until he can start keeping food down since he has lost more than 40 lb (2) Weight loss: Code(s): R63.4 - Abnormal weight loss Status: Acute Assessment and Plan: encourage to eat (3) History of aortic valve replacement with bioprosthetic valve: Code(s): Z95.3 - Presence of xenogenic heart valve Status: Acute (4) Atrial fibrillation: Code(s): I48.91 - Unspecified atrial fibrillation Status: Acute Assessment and Plan: on anticoagulation Subjective Date/time seen: 05/14/25 15:44 Interval history: earlier today again with emesis and did not hold much food down Review of Systems Review of Systems: All systems reviewed & are unremarkable except as noted in HPI and below Exam Const: General: comfortable and no acute distress Other: uses a walker HENMT: Face/Nose/Sinus: Normal nares present Eyes: General: appearance normal, both eyes and all related structures Neck: Neck: no JVD Resp: Auscultation: clear to auscultation bilaterally Cardio: Rate: regular rate Rhythm: regular rhythm GI: Inspection: non-distended GI Palp: Yes Soft to palpation Skin: General skin exam: normal color Neuro: Speech: normal speech Extrem: General: normal to inspection Psych: Mental Status: mental status grossly normal Objective Data Vital Signs Vital Signs: Vital Signs - 24 hr 05/13/25 20:00 05/13/25 21:42 05/13/25 23:39 Temperature 97.6 F Pulse Rate 71 71 Respiratory Rate 16 17 Blood Pressure 123/63 Pulse Oximetry 98 99 98 Oxygen Delivery Room Air Room Air 05/14/25 06:00 05/14/25 08:00 05/14/25 14:56 Temperature 97.6 F 98.2 F Pulse Rate 72 75 Respiratory Rate 16 16 Blood Pressure 119/63 139/76 Pulse Oximetry 100 98 Oxygen Delivery Room Air Intake/Output Intake/Output: Intake & Output 05/11/25 05/12/25 05/13/25 05/14/25 23:59 23:59 23:59 23:59 Intake Total 1182 1050 2010 650 Output Total 3100 1375 1900 1600 Balance -0579 -325 110 -950 Meds/Results Medications: Active Medications Generic Name Dose Route Start Last Admin Trade Name Freq PRN Reason Stop Dose Admin Acetaminophen 650 mg 05/05/25 17:37 Acetaminophen 325 Mg Tablet PO Q4H PRN Mild Pain (1-3) or Fever Hydrocodone Bitart/Acetaminophen 1 tab 05/05/25 17:37 Hydrocodone/Acetaminophen (*Crx) 5-325 Mg Tablet PO Q4H PRN Pain Rated 4-6 Al Hydrox/Mg Hydrox/Simethicone 30 ml 05/08/25 14:00 05/14/25 13:14 Mag Hydrox/Al Hydrox/Simeth 30 Ml Udc PO Not Given Q8HR CARLOS Amiodarone HCl 200 mg 05/06/25 09:00 05/14/25 09:01 Amiodarone Hcl 200 Mg Tablet PO Not Given DAILY CARLOS Apixaban 5 mg 05/09/25 21:00 05/14/25 08:58 Apixaban 5 Mg Tablet PO 5 mg Q12HR CARLOS Administration Aspirin 81 mg 05/10/25 09:00 05/14/25 08:58 Aspirin 81 Mg Enteric Tablet PO 81 mg QAM CARLOS Administration Baclofen 10 mg 05/06/25 22:00 05/14/25 13:14 Baclofen 10 Mg Tablet PO 10 mg Q8HR CARLOS Administration Docusate Sodium 100 mg 05/09/25 09:00 05/14/25 08:58 Docusate Sodium 100 Mg Capsule PO 100 mg DAILY CARLOS Administration Lamotrigine 150 mg 05/06/25 09:00 05/14/25 08:58 Lamotrigine 50 Mg Tablet PO 150 mg Q12HR CARLOS Administration Lidocaine HCl 15 ml 05/08/25 14:00 05/14/25 13:14 Lidocaine 2% Visc Soln 15 Ml Udc PO Not Given Q8HR [facility]OS Metoclopramide HCl 10 mg 05/09/25 13:32 05/14/25 13:22 Metoclopramide Hcl Inj 10 Mg/2 Ml Vial IV PUSH 10 mg Q6HR PRN Administration Nausea And Vomiting Pantoprazole Sodium 40 mg 05/08/25 09:00 05/14/25 08:58 Pantoprazole 40 Mg Tablet PO 40 mg QAM CARLOS Administration Polyethylene Glycol 17 gm 05/07/25 09:00 05/14/25 08:59 Polyethylene Glycol 3350 17 Gm Powd.Pack PO Not Given QAM CARLOS Promethazine HCl 12.5 mg 05/05/25 17:37 05/08/25 14:24 Promethazine Hcl 25 Mg/Ml Ampul IV PUSH 12.5 mg Q6H PRN Administration Nausea Rosuvastatin Calcium 5 mg 05/06/25 15:40 05/14/25 08:57 Rosuvastatin 5 Mg Tablet PO 5 mg DAILY CARLOS Administration Senna 8.6 mg 05/06/25 21:00 05/13/25 21:01 Sennosides 8.6 Mg Tablet PO 8.6 mg HS CARLOS Administration Sucralfate 1,000 mg 05/07/25 21:00 05/14/25 11:13 Sucralfate Susp 100 Mg/Ml 10 Ml Udc PO 1,000 mg ACHS CARLOS Administration Tamsulosin HCl 0.4 mg 05/06/25 15:40 05/14/25 08:58 Tamsulosin Hcl 0.4 Mg Capsule BY MOUTH 0.4 mg DAILY CARLOS Administration Radiology Results: ITS Impressions Abdomen/Pelvis CT 05/05/25 14:54 IMPRESSION: 1. Splenomegaly. 2: Moderate right pleural effusion. Small left pleural effusion. 3: Bilateral renal cysts. 4: Severe lower thoracic and lumbar spondylosis with scoliosis. Chest X-Ray 05/08/25 15:56 Impression: CHF. The findings appear relatively unchanged Upper GI Series 05/12/25 17:42 IMPRESSION: 1. Delayed small bowel transit time of 4.5-6 hours without bowel dilation to suggest obstruction which would be consistent with an ileus. 2. Unremarkable esophagram and upper GI study. Head CT 05/14/25 14:04 IMPRESSION: 1. 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 No other acute intracranial process. 2. Stable appearance of age-related changes including mild to moderate diffuse volume loss and mild scattered white matter hypoattenuation consistent with chronic small vessel ischemic disease. Chest CT 05/14/25 15:01 IMPRESSION: 1. Small right pleural effusion with mild dependent atelectasis versus minimal pulmonary edema in the lower lobes. Additional patchy groundglass opacities in the nondependent left lower lobe which could represent additional atelectasis, pulmonary edema or pneumonia. 2. 1.8 x 1.2 cm region of consolidation at the junction of the left upper lobe and lingula which given the development and less than 5 months would favor atelectasis or pneumonia. 3. Small pericardial effusion and stranding in the anterior mediastinal fat which could represent residual postoperative changes related to reported interval revision of an aortic valve repair performed one month prior. Differential would include mediastinitis in the appropriate clinical setting. 4. Small amount of residual oral contrast material in the stomach 2 days post upper GI study suspicious for gastroparesis. Labs Labs: Laboratory Results - last 24 hr 05/14/25 06:12 WBC 2.7 L RBC 2.93 L Hgb 8.6 L Hct 27.1 L MCV 92.5 MCH 29.4 MCHC 31.7 L RDW 15.9 H Plt Count 101 L MPV 8.9 Immature Gran % (Auto) 0.4 Neut % (Auto) 46.0 Lymph % (Auto) 41.6 [place] % (Auto) 9.5 H Eos % (Auto) 1.8 Baso % (Auto) 0.7 Lymph # (Auto) 1.14 [place] # (Auto) 0.3 Eos # (Auto) 0.1 Baso # (Auto) 0.0 Abs Immat Gran (auto) 0.01 Absolute Neuts (auto) 1.3 Absolute Nucleated RBC 0.000 Nucleated RBC % 0.0 % Immature Plt Fraction 1.4 Sodium 132 L Potassium 4.2 Chloride 97 L Carbon Dioxide 29 Anion Gap 6 BUN 13 Creatinine 1.20 Estim Creat Clear Calc 54 Estimated GFR 60 Glucose 110 Calcium 9.8 Magnesium 2.7 H Total Bilirubin 1.1 AST 34 ALT 19 Alkaline Phosphatase 106 Total Protein 6.0 L Albumin 3.8
[2025-05-14] MEDS: SENNOSIDES 8.6 MG TABLET PO (21:29)
[2025-05-14 22:00] VITALS: BP 141/76; PULSE 78; RESP 16; TEMP 36.5; O2SAT 100
[2025-05-15] MEDS: METOCLOPRAMIDE HCL INJ 10 MG/2 ML VIAL IV PUSH ×3 (05:03→23:14)
[2025-05-15 06:00] VITALS: BP 122/79; PULSE 76; RESP 18; TEMP 36.3; O2SAT 98
[2025-05-15] MEDS: MAG HYDROX/AL HYDROX/SIMETH 30 ML UDC PO ×2 (06:41→23:14)
[2025-05-15] MEDS: SUCRALFATE SUSP 100 MG/ML 10 ML UDC 1000 MG PO ×2 (06:41→20:54)
[2025-05-15] MEDS: BACLOFEN 10 MG TABLET 20 MG PO ×2 (06:41→20:53)
[2025-05-15 07:30] LABS: Hematocrit 28.1 % (42.0-52.0); Hemoglobin 8.9 g/dL (14.0-18.0); Immature Granulocyte Percent A 0.7 % (0-0.5); Immature Platelet Fraction Pct 1.5 % (0.9-11.2); Lymphocytes Absolute Auto 0.97 K/mm3 (0.9-3.2); Mean Corpuscular HGB Conc 31.7 g/dl (32-36); Mean Corpuscular Hemoglobin 29.1 pg (26-34); Mean Corpuscular Volume 91.8 fl (80-100); Nucleated Red Blood Cells Absolute Auto 0.000 K/mm3 (0.0-0.012); Nucleated Red Blood Cells Perc 0.0 % (0.0-0.2); Platelet Count Result 112 k/mm3 (150-375); Red Blood Count 3.06 M/mm3 (4.6-6.20); White Blood Count 2.9 K/mm3 (4.5-10.0)
[2025-05-15 07:34] LABS: Alanine Aminotransferase 19 U/L (6-50); Albumin Level 3.8 g/dL (3.5-5.1); Alkaline Phosphatase 95 U/L (38-126); Anion Gap 5 mmol/L (4-12); Aspartate Amino Transferase 35 U/L (17-59); Bilirubin,Total 1.2 mg/dL (0.2-1.3); Blood Urea Nitrogen 11 mg/dL (9-20); Calcium 10.0 mg/dL (8.4-10.2); Carbon Dioxide 28 mmol/L (22-30); Chloride 98 mmol/L (98-107); Estimated CRCL calculation 57 ml/min; Estimated Glomerular Filt Rate > 60; Glucose 118 mg/dL (65-110); Magnesium 2.7 mg/dL (1.6-2.3); Potassium 4.2 mmol/L (3.4-5.0); Sodium 131 mmol/L (137-145); Total Protein 6.1 g/dL (6.3-8.2)
[2025-05-15] MEDS: APIXABAN 5 MG TABLET PO ×2 (09:58→20:54)
[2025-05-15] MEDS: ROSUVASTATIN 5 MG TABLET PO (09:58)
[2025-05-15] MEDS: DOCUSATE SODIUM 100 MG CAPSULE PO (09:58)
[2025-05-15] MEDS: ASPIRIN 81 MG ENTERIC TABLET PO (09:58)
[2025-05-15] MEDS: TAMSULOSIN HCL 0.4 MG CAPSULE BY MOUTH (09:58)
[2025-05-15] MEDS: lamoTRIgine 50 MG TABLET 150 MG PO ×2 (09:58→20:51)
--- NOTE | 2025-05-15 14:14 | WPDGIPROGNO ---
Progress Note: A&P Assessment and Plan (1) Dry heaves: Code(s): R11.10 - Vomiting, unspecified Status: Acute Assessment and Plan: The patient continues to experience significant gastrointestinal distress, manifesting as nine episodes of dry heaves this morning. Oral intake remains severely limited, with tolerance restricted to only small amounts of Jell-O and juices, leading to rapid weight loss. This presentation is concerning for gastrointestinal dysmotility, a rare but well described complication after cardiothoracic surgery, which is manifesting weeks post-operatively in this case. The patient's inability to maintain adequate nutrition suggests a need for parenteral nutrition. More urgently, the patient requires evaluation by specialized motility experts in conjunction with the cardiothoracic surgery team at [facility]. To coordinate this transfer, the family will contact his lifetime blow pit helper at [facility], Dr. Jesus Manuel Groves, hopefully over the weekend to start arranging his transfer. (2) Weight loss: Code(s): R63.4 - Abnormal weight loss Status: Acute Subjective Date/time seen: 05/15/25 14:14 Objective Data Vital Signs Vital Signs: Vital Signs - 24 hr 05/14/25 14:56 05/14/25 21:32 05/14/25 22:00 Temperature 98.2 F 97.7 F Pulse Rate 75 78 Respiratory Rate 16 16 Blood Pressure 139/76 141/76 H Pulse Oximetry 98 100 Oxygen Delivery Room Air 05/15/25 06:00 05/15/25 08:00 Temperature 97.4 F L Pulse Rate 76 Respiratory Rate 18 Blood Pressure 122/79 Pulse Oximetry 98 Oxygen Delivery Room Air Intake/Output Intake/Output: Intake & Output 05/12/25 05/13/25 05/14/25 05/15/25 23:59 23:59 23:59 23:59 Intake Total 1050 2010 1260 870 Output Total 1375 1900 2200 1700 Balance -325 110 940 -830 Meds/Results Medications: Active Medications Generic Name Dose Route Start Last Admin Trade Name Freq PRN Reason Stop Dose Admin Acetaminophen 650 mg 05/05/25 17:37 Acetaminophen 325 Mg Tablet PO Q4H PRN Mild Pain (1-3) or Fever Hydrocodone Bitart/Acetaminophen 1 tab 05/05/25 17:37 Hydrocodone/Acetaminophen (*Crx) 5-325 Mg Tablet PO Q4H PRN Pain Rated 4-6 Al Hydrox/Mg Hydrox/Simethicone 30 ml 05/08/25 14:00 05/15/25 06:41 Mag Hydrox/Al Hydrox/Simeth 30 Ml Udc PO 30 ml Q8HR CARLOS Administration Apixaban 5 mg 05/09/25 21:00 05/15/25 09:58 Apixaban 5 Mg Tablet PO 5 mg Q12HR CARLOS Administration Aspirin 81 mg 05/10/25 09:00 05/15/25 09:58 Aspirin 81 Mg Enteric Tablet PO 81 mg QAM CARLOS Administration Baclofen 20 mg 05/15/25 06:00 05/15/25 06:41 Baclofen 10 Mg Tablet PO 20 mg Q8HR CARLOS Administration Docusate Sodium 100 mg 05/09/25 09:00 05/15/25 09:58 Docusate Sodium 100 Mg Capsule PO 100 mg DAILY CARLOS Administration Dextrose 1,000 mls @ 50 mls/hr 05/15/25 14:06 Dextrose 10% IV CONT .Q20H PRN if PN is interrupted Amino Acids/Electrolytes/Dextrose 1,000 mls @ 80 mls/hr 05/15/25 17:00 Clinimix E 4.25%/5% Solution IV CONT .[id number] [facility] Protocol Fat Emulsion Intravenous 250 mls @ 20.833 mls/hr 05/15/25 17:00 Lipids 20% IVPB Q24H CARLOS Lamotrigine 150 mg 05/06/25 09:00 05/15/25 09:58 Lamotrigine 50 Mg Tablet PO 150 mg Q12HR CARLOS Administration Lidocaine HCl 15 ml 05/08/25 14:00 05/15/25 05:46 Lidocaine 2% Visc Soln 15 Ml Udc PO Not Given Q8HR CARLOS Metoclopramide HCl 10 mg 05/15/25 18:00 Metoclopramide Hcl Inj 10 Mg/2 Ml Vial IV PUSH Q6HR [facility] Miscellaneous Information 1 each 05/15/25 00:01 Please Renew [place]. Per [employer] Procedure, It Will Discontinue If Not Renewed XX 06/14/25 00:00 CLARIFY CARLOS Polyethylene Glycol 17 gm 05/07/25 09:00 05/15/25 09:46 Polyethylene Glycol 3350 17 Gm Powd.Pack PO Not Given QAM CARLOS Promethazine HCl 12.5 mg 05/05/25 17:37 05/08/25 14:24 Promethazine Hcl 25 Mg/Ml Ampul IV PUSH 12.5 mg Q6H PRN Administration Nausea Rosuvastatin Calcium 5 mg 05/06/25 15:40 05/15/25 09:58 Rosuvastatin 5 Mg Tablet PO 5 mg DAILY CARLOS Administration Senna 8.6 mg 05/06/25 21:00 05/14/25 21:29 Sennosides 8.6 Mg Tablet PO 8.6 mg HS CARLOS Administration Sucralfate 1,000 mg 05/07/25 21:00 05/15/25 11:23 Sucralfate Susp 100 Mg/Ml 10 Ml Udc PO Not Given ACHS CARLOS Tamsulosin HCl 0.4 mg 05/06/25 15:40 05/15/25 09:58 Tamsulosin Hcl 0.4 Mg Capsule BY MOUTH 0.4 mg DAILY CARLOS Administration Radiology Results: ITS Impressions Abdomen/Pelvis CT 05/05/25 14:54 IMPRESSION: 1. Splenomegaly. 2: Moderate right pleural effusion. Small left pleural effusion. 3: Bilateral renal cysts. 4: Severe lower thoracic and lumbar spondylosis with scoliosis. Chest X-Ray 05/08/25 15:56 Impression: CHF. The findings appear relatively unchanged Upper GI Series 05/12/25 17:42 IMPRESSION: 1. Delayed small bowel transit time of 4.5-6 hours without bowel dilation to suggest obstruction which would be consistent with an ileus. 2. Unremarkable esophagram and upper GI study. Head CT 05/14/25 14:04 IMPRESSION: 1. 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 No other acute intracranial process. 2. Stable appearance of age-related changes including mild to moderate diffuse volume loss and mild scattered white matter hypoattenuation consistent with chronic small vessel ischemic disease. Chest CT 05/14/25 15:01 IMPRESSION: 1. Small right pleural effusion with mild dependent atelectasis versus minimal pulmonary edema in the lower lobes. Additional patchy groundglass opacities in the nondependent left lower lobe which could represent additional atelectasis, pulmonary edema or pneumonia. 2. 1.8 x 1.2 cm region of consolidation at the junction of the left upper lobe and lingula which given the development and less than 5 months would favor atelectasis or pneumonia. 3. Small pericardial effusion and stranding in the anterior mediastinal fat which could represent residual postoperative changes related to reported interval revision of an aortic valve repair performed one month prior. Differential would include mediastinitis in the appropriate clinical setting. 4. Small amount of residual oral contrast material in the stomach 2 days post upper GI study suspicious for gastroparesis. Labs Labs: Laboratory Results - last 24 hr 05/15/25 05:43 WBC 2.9 L RBC 3.06 L Hgb 8.9 L Hct 28.1 L MCV 91.8 MCH 29.1 MCHC 31.7 L RDW 15.6 H Plt Count 112 L MPV 9.1 Immature Gran % (Auto) 0.7 H Neut % (Auto) 51.4 Lymph % (Auto) 33.2 [place] % (Auto) 11.3 H Eos % (Auto) 3.1 Baso % (Auto) 0.3 Lymph # (Auto) 0.97 [place] # (Auto) 0.3 Eos # (Auto) 0.1 Baso # (Auto) 0.0 Abs Immat Gran (auto) 0.02 Absolute Neuts (auto) 1.5 Absolute Nucleated RBC 0.000 Nucleated RBC % 0.0 % Immature Plt Fraction 1.5 Sodium 131 L Potassium 4.2 Chloride 98 Carbon Dioxide 28 Anion Gap 5 BUN 11 Creatinine 1.15 Estim Creat Clear Calc 57 Estimated GFR > 60 Glucose 118 H Calcium 10.0 Magnesium 2.7 H Total Bilirubin 1.2 AST 35 ALT 19 Alkaline Phosphatase 95 Total Protein 6.1 L Albumin 3.8
[2025-05-15] MEDS: LIDOCAINE 1% PF INJ 5 ML VIAL INFILTRATE (15:15)
[2025-05-15 15:38] VITALS: BP 113/76; PULSE 73; RESP 18; TEMP 36.3; O2SAT 100
--- NOTE | 2025-05-15 16:14 | P.PNIM_ITS ---
Progress Note: A&P Assessment and Plan (1) Nausea and vomiting: Code(s): R11.2 - Nausea with vomiting, unspecified Status: Acute Assessment and Plan: Now having dry heaves,? Diaghragmatic, vagus nerve injury, vs brain mass Patient had a recent heart surgery in [facility] after which the symptoms started EGD: gastritis Patient likely has diaphragmatic irritation causing hiccups and emesis, rule out brain lesion MRI brain Trial of baclofen initiated,scopolamine Unable to do MRI due to foreign body in the body ESophagogram showed possible Ileus, however unable to complete GES patient has no problems with full liquid diet Continue PO sucralfate and pantoprazole GI following Symptoms remain persistent. ct chest findings reviewed. postoperative changes noted. small pericardial effusion with stranding in serafin anterior mediastinal fat, mild effusions, small amount of residual oral contrast in stomach suspicious for gastroparesis. 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 Age-related [id number] diffuse volume loss and mild scattered white matter hypoattenuation consistent with chronic small-vessel ischemic disease CT abdomen with splenomegaly moderate right pleural effusion small left pleural effusion bilateral renal cyst severe lower thoracic and lumbar spondylosis scoliosis. Noted PA injury post valve surgery 80 degree turn to OR on 03/29/2025 for [place]- [place] catheter removal and repair of PA injury Postoperative right thigh hematoma with acute blood loss anemia needing transfusion suspected diaphragmatic injury from recent surgery. on baclofen prn. unalbe to adequate oral intake. will start tpn as discussed with the patient. Discussed case with hospitalist team at [facility] and has been accepted (2) Pleural effusion: Code(s): J90 - Pleural effusion, not elsewhere classified Status: Acute Assessment and Plan: Repeat chest x-ray showing pulmonary edema and pleural effusion Stopped IV fluids Echocardiogram EF 60-65% Diuresis achieved No oxygen requirement (3) Anemia: Code(s): D64.9 - Anemia, unspecified Status: Acute Assessment and Plan: Hemoglobin stable post op Could be related to recent surgeries and iliopsoas hematoma in 03/2025. No evidence of ongoing bleeding ASA and Eliquis held at admission No need for transfusion at this time Isat 18, s/p 400mg IV, monitor H and H 05/09 Resume ASA and Eliquis due to hx of atrial fibrillation, bioprosthetic aortic valve, CLL (increased risk of thrombophlebitis) F/u h/h (4) Atrial fibrillation: Code(s): I48.91 - Unspecified atrial fibrillation Status: Acute Assessment and Plan: Continue amiodarone Okay to restart Eliquis (5) Seizure: Code(s): R56.9 - Unspecified convulsions Status: Acute Assessment and Plan: Seizure disorder controlled Continue Keppra ct head with no acute findings, old infarcts noted (6) CLL (chronic lymphocytic leukemia): Code(s): C91.10 - Chronic lymphocytic leukemia of B-cell type not having achieved remission Status: Acute Assessment and Plan: Treatment currently on hold due to recent surgeries will follow-up with oncologist outpatient Was taking tryosine kinase inhibitors Pancytopenia is likely due to treatment (7) Hyponatremia: Code(s): E87.1 - Hypo-osmolality and hyponatremia Status: Acute Assessment and Plan: resolved (8) Constipation: Code(s): K59.00 - Constipation, unspecified Status: Acute Assessment and Plan: Senna MiraLax (9) History of aortic valve replacement with bioprosthetic valve: Code(s): Z95.3 - Presence of xenogenic heart valve Status: Acute Assessment and Plan: Due to patient's issues being gastric and not cardiac he wish to stay at [facility] (10) Hyperlipidemia: Code(s): E78.5 - Hyperlipidemia, unspecified Status: Acute Assessment and Plan: Carotid stenosis Continue statin Hold aspirin Plan DVT prophylaxis on Eliquis Subjective Date/time seen: 05/15/25 16:14 Interval history: continues to remain symptomatic with retching which is more dry now. no abdominal pain. no fever, chills. discussed ct head and ct chest findings with the patient and the family. Review of Systems Review of Systems: All systems reviewed & are unremarkable except as noted in HPI and below (Subjective) Exam Narrative: HEENT: PERRL, sclerae nonicteric, pharyngeal mucosa pink and intact NECK: No JVD CHEST: Clear to auscultation. Normal effort HEART: NL S1/S2, regular, ABNL S2 with DERIC ABDOMEN: BS+, soft, nontender, no mass, no bruits EXTREMITIES: No cyanosis, edema, or clubbing NEUROLOGIC: CN intact and symmetric to inspection, speech clear but occasionally has word finding issues, deli cutter slicer 5/5 and symmetric MUSCULOSKELETAL: Tone and strength symmetric PSYCH: Alert. Oriented to person, place, and time Objective Data Vital Signs Vital Signs: Vital Signs - 24 hr 05/14/25 21:32 05/14/25 22:00 05/15/25 06:00 Temperature 97.7 F 97.4 F L Pulse Rate 78 76 Respiratory Rate 16 18 Blood Pressure 141/76 H 122/79 Pulse Oximetry 100 98 Oxygen Delivery Room Air 05/15/25 08:00 05/15/25 15:38 Temperature 97.4 F L Pulse Rate 73 Respiratory Rate 18 Blood Pressure 113/76 Pulse Oximetry 100 Oxygen Delivery Room Air Intake/Output Intake/Output: Intake & Output 05/12/25 05/13/25 05/14/25 05/15/25 23:59 23:59 23:59 23:59 Intake Total 1050 2010 1260 870 Output Total 1375 1900 2200 1700 Balance -325 110 -683 -290 Meds/Results Medications: Active Medications Generic Name Dose Route Start Last Admin Trade Name Freq PRN Reason Stop Dose Admin Acetaminophen 650 mg 05/05/25 17:37 Acetaminophen 325 Mg Tablet PO Q4H PRN Mild Pain (1-3) or Fever Hydrocodone Bitart/Acetaminophen 1 tab 10/22/25 17:37 Hydrocodone/Acetaminophen (*Crx) 5-325 Mg Tablet PO Q4H PRN Pain Rated 4-6 Al Hydrox/Mg Hydrox/Simethicone 30 ml 05/08/25 14:00 05/15/25 14:24 Mag Hydrox/Al Hydrox/Simeth 30 Ml Udc PO Not Given Q8HR CARLOS Apixaban 5 mg 05/09/25 21:00 05/15/25 09:58 Apixaban 5 Mg Tablet PO 5 mg Q12HR CARLOS Administration Aspirin 81 mg 05/10/25 09:00 05/15/25 09:58 Aspirin 81 Mg Enteric Tablet PO 81 mg QAM CARLOS Administration Baclofen 20 mg 05/15/25 06:00 05/15/25 14:24 Baclofen 10 Mg Tablet PO 20 mg Q8HR CARLOS Administration Docusate Sodium 100 mg 05/09/25 09:00 05/15/25 09:58 Docusate Sodium 100 Mg Capsule PO 100 mg DAILY CARLOS Administration Dextrose 1,000 mls @ 50 mls/hr 05/15/25 14:06 Dextrose 10% IV CONT .Q20H PRN if PN is interrupted Amino Acids/Electrolytes/Dextrose 1,000 mls @ 80 mls/hr 05/15/25 17:00 Clinimix E 4.25%/5% Solution IV CONT .[id number] [facility] Protocol Fat Emulsion Intravenous 250 mls @ 20.833 mls/hr 05/15/25 17:00 Lipids 20% IVPB Q24H [facility] Lamotrigine 150 mg 05/06/25 09:00 05/15/25 09:58 Lamotrigine 50 Mg Tablet PO 150 mg Q12HR CARLOS Administration Lidocaine HCl 15 ml 05/08/25 14:00 05/15/25 14:24 Lidocaine 2% Visc Soln 15 Ml Udc PO Not Given Q8HR CARLOS Metoclopramide HCl 10 mg 05/15/25 18:00 Metoclopramide Hcl Inj 10 Mg/2 Ml Vial IV PUSH Q6HR [facility] Miscellaneous Information 1 each 05/15/25 00:01 Please Renew [place]. Per [employer] Procedure, It Will Discontinue If Not Renewed XX 06/14/25 00:00 CLARIFY CARLOS Polyethylene Glycol 17 gm 05/07/25 09:00 05/15/25 09:46 Polyethylene Glycol 3350 17 Gm Powd.Pack PO Not Given QAM CARLOS Promethazine HCl 12.5 mg 05/05/25 17:37 05/08/25 14:24 Promethazine Hcl 25 Mg/Ml Ampul IV PUSH 12.5 mg Q6H PRN Administration Nausea Rosuvastatin Calcium 5 mg 05/06/25 15:40 05/15/25 09:58 Rosuvastatin 5 Mg Tablet PO 5 mg DAILY CARLOS Administration Senna 8.6 mg 05/06/25 21:00 05/14/25 21:29 Sennosides 8.6 Mg Tablet PO 8.6 mg HS CARLOS Administration Sodium Chloride 10 ml 05/15/25 22:00 Central Line Flush IV PUSH Q8HR CARLOS Sodium Chloride 10 ml 05/15/25 16:03 Central Line Flush IV PUSH PRN PRN with TPN bag changes Sodium Chloride 20 ml 05/15/25 16:03 Central Line Flush IV PUSH PRN PRN after blood draws Sucralfate 1,000 mg 05/07/25 21:00 05/15/25 11:23 Sucralfate Susp 100 Mg/Ml 10 Ml Udc PO Not Given ACHS CARLOS Tamsulosin HCl 0.4 mg 05/06/25 15:40 05/15/25 09:58 Tamsulosin Hcl 0.4 Mg Capsule BY MOUTH 0.4 mg DAILY CARLOS Administration Radiology Results: ITS Impressions Abdomen/Pelvis CT 05/05/25 14:54 IMPRESSION: 1. Splenomegaly. 2: Moderate right pleural effusion. Small left pleural effusion. 3: Bilateral renal cysts. 4: Severe lower thoracic and lumbar spondylosis with scoliosis. Upper GI Series 05/12/25 17:42 IMPRESSION: 1. Delayed small bowel transit time of 4.5-6 hours without bowel dilation to suggest obstruction which would be consistent with an ileus. 2. Unremarkable esophagram and upper GI study. Head CT 05/14/25 14:04 IMPRESSION: 1. 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 No other acute intracranial process. 2. Stable appearance of age-related changes including mild to moderate diffuse volume loss and mild scattered white matter hypoattenuation consistent with chronic small vessel ischemic disease. Chest CT 05/14/25 15:01 IMPRESSION: 1. Small right pleural effusion with mild dependent atelectasis versus minimal pulmonary edema in the lower lobes. Additional patchy groundglass opacities in the nondependent left lower lobe which could represent additional atelectasis, pulmonary edema or pneumonia. 2. 1.8 x 1.2 cm region of consolidation at the junction of the left upper lobe and lingula which given the development and less than 5 months would favor atelectasis or pneumonia. 3. Small pericardial effusion and stranding in the anterior mediastinal fat which could represent residual postoperative changes related to reported interval revision of an aortic valve repair performed one month prior. Differential would include mediastinitis in the appropriate clinical setting. 4. Small amount of residual oral contrast material in the stomach 2 days post upper GI study suspicious for gastroparesis. Chest X-Ray 05/15/25 16:01 Impression: No acute cardiopulmonary abnormality. Labs Labs: Laboratory Results - last 24 hr 05/15/25 05:43 WBC 2.9 L RBC 3.06 L Hgb 8.9 L Hct 28.1 L MCV 91.8 MCH 29.1 MCHC 31.7 L RDW 15.6 H Plt Count 112 L MPV 9.1 Immature Gran % (Auto) 0.7 H Neut % (Auto) 51.4 Lymph % (Auto) 33.2 [place] % (Auto) 11.3 H Eos % (Auto) 3.1 Baso % (Auto) 0.3 Lymph # (Auto) 0.97 [place] # (Auto) 0.3 Eos # (Auto) 0.1 Baso # (Auto) 0.0 Abs Immat Gran (auto) 0.02 Absolute Neuts (auto) 1.5 Absolute Nucleated RBC 0.000 Nucleated RBC % 0.0 % Immature Plt Fraction 1.5 Sodium 131 L Potassium 4.2 Chloride 98 Carbon Dioxide 28 Anion Gap 5 BUN 11 Creatinine 1.15 Estim Creat Clear Calc 57 Estimated GFR > 60 Glucose 118 H Calcium 10.0 Magnesium 2.7 H Total Bilirubin 1.2 AST 35 ALT 19 Alkaline Phosphatase 95 Total Protein 6.1 L Albumin 3.8
[2025-05-15 16:58] LABS: Alanine Aminotransferase 21 U/L (6-50); Albumin Level 4.2 g/dL (3.5-5.1); Alkaline Phosphatase 112 U/L (38-126); Anion Gap 7 mmol/L (4-12); Aspartate Amino Transferase 35 U/L (17-59); Bilirubin,Total 1.3 mg/dL (0.2-1.3); Blood Urea Nitrogen 13 mg/dL (9-20); Calcium 10.2 mg/dL (8.4-10.2); Carbon Dioxide 27 mmol/L (22-30); Chloride 98 mmol/L (98-107); Estimated CRCL calculation 61 ml/min; Estimated Glomerular Filt Rate > 60; Glucose 122 mg/dL (65-110); Magnesium 2.7 mg/dL (1.6-2.3); Potassium 4.4 mmol/L (3.4-5.0); Sodium 132 mmol/L (137-145); Total Protein 6.5 g/dL (6.3-8.2)
[2025-05-15 17:00] LABS: Hematocrit 28.4 % (42.0-52.0); Hemoglobin 9.1 g/dL (14.0-18.0); Immature Granulocyte Percent A 0.3 % (0-0.5); Immature Platelet Fraction Pct 1.2 % (0.9-11.2); Lymphocytes Absolute Auto 1.00 K/mm3 (0.9-3.2); Mean Corpuscular HGB Conc 32.0 g/dl (32-36); Mean Corpuscular Hemoglobin 28.9 pg (26-34); Mean Corpuscular Volume 90.2 fl (80-100); Nucleated Red Blood Cells Absolute Auto 0.000 K/mm3 (0.0-0.012); Nucleated Red Blood Cells Perc 0.0 % (0.0-0.2); Platelet Count Result 111 k/mm3 (150-375); Red Blood Count 3.15 M/mm3 (4.6-6.20); White Blood Count 2.9 K/mm3 (4.5-10.0)
[2025-05-15 17:07] LABS: Partial Thromboplastin Time 38.1 Seconds (22.3-36.8); Transferrin 224 mg/dL (206-381)
[2025-05-15] MEDS: AMINO ACIDS 5%/D15W/E-LYTES/CA 1,000 ML with MULTIVITAMINS-12 INJ VIAL 1 1.25 ML, MULTI... 40 ML IV CONT (18:57)
[2025-05-15] MEDS: FAT EMULSIONS IV 20% 250 ML 20.83 ML IVPB (18:58)
[2025-05-15] MEDS: SENNOSIDES 8.6 MG TABLET PO (20:54)
[2025-05-15 21:21] VITALS: BP 131/77; PULSE 78; RESP 20; TEMP 36.6; O2SAT 99
[2025-05-15] MEDS: CENTRAL LINE FLUSH 10 ML IV PUSH (23:15)
--- NOTE | 2025-05-16 00:15 | PC.NURSE ---
At 2205, Feliciano from [facility] called for pt update. No beds available at this time.
--- NOTE | 2025-05-16 02:52 | PC.NURSE ---
Daylight Savings Time For Daylight Savings Time Ending in the Fall - Clocks are moved back. For Daylight Savings Time Beginning in the Spring - Clocks are moved ahead. For [facility], the time of change occurs at 0200 hrs. Time is taken from the server assistant. This entry on the patient's chart recognizes the change in time reflected during documentation. Example: 2 entries for vital signs may be charted for 0200 hrs.
[2025-05-16 05:18] LABS: Anion Gap 5 mmol/L (4-12); Blood Urea Nitrogen 12 mg/dL (9-20); Calcium 10.0 mg/dL (8.4-10.2); Carbon Dioxide 29 mmol/L (22-30); Chloride 97 mmol/L (98-107); Estimated CRCL calculation 61 ml/min; Estimated Glomerular Filt Rate > 60; Glucose 140 mg/dL (65-110); Potassium 4.3 mmol/L (3.4-5.0); Sodium 131 mmol/L (137-145)
[2025-05-16] MEDS: METOCLOPRAMIDE HCL INJ 10 MG/2 ML VIAL IV PUSH ×4 (05:52→23:56)
[2025-05-16] MEDS: BACLOFEN 10 MG TABLET 20 MG PO ×3 (05:52→21:27)
[2025-05-16] MEDS: SUCRALFATE SUSP 100 MG/ML 10 ML UDC 1000 MG PO ×4 (05:52→21:26)
[2025-05-16] MEDS: CENTRAL LINE FLUSH 10 ML IV PUSH ×3 (05:56→21:28)
[2025-05-16 06:00] VITALS: BP 122/72; PULSE 73; RESP 18; TEMP 36.6; O2SAT 97
--- NOTE | 2025-05-16 08:33 | WPDGIPROGNO ---
Progress Note: A&P Assessment and Plan (1) Intractable vomiting: Code(s): R11.10 - Vomiting, unspecified Status: Acute Assessment and Plan: The patient is receiving maximum treatment for dry heaves/retching, including metoclopramide, ondansetron and prochlorperazine. As discussed in previous notes, the patient will need a very specialized motility evaluation in conjunction with Cardiothoracic surgery since vagal nerve injury is a diagnostic possibility. 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 Subjective Date/time seen: 05/16/25 08:33 Objective Data Vital Signs Vital Signs: Vital Signs - 24 hr 05/15/25 15:38 05/15/25 20:00 05/15/25 21:21 Temperature 97.4 F L 97.9 F Pulse Rate 73 78 Respiratory Rate 18 20 Blood Pressure 113/76 131/77 Pulse Oximetry 100 99 Oxygen Delivery Room Air 05/16/25 06:00 Temperature 97.9 F Pulse Rate 73 Respiratory Rate 18 Blood Pressure 122/72 Pulse Oximetry 97 Oxygen Delivery Intake/Output Intake/Output: Intake & Output 05/13/25 05/14/25 05/15/25 05/16/25 23:59 23:59 23:59 22:59 Intake Total 2009 1260 1020 1250 Output Total 0 2200 1900 850 Balance 110 -940 -880 400 Meds/Results Medications: Active Medications Generic Name Dose Route Start Last Admin Trade Name Freq PRN Reason Stop Dose Admin Acetaminophen 650 mg 05/05/25 17:37 Acetaminophen 325 Mg Tablet PO Q4H PRN Mild Pain (1-3) or Fever Al Hydrox/Mg Hydrox/Simethicone 30 ml 05/08/25 14:00 05/16/25 05:54 Mag Hydrox/Al Hydrox/Simeth 30 Ml Udc PO Not Given Q8HR CARLOS Apixaban 5 mg 05/09/25 21:00 05/15/25 20:54 Apixaban 5 Mg Tablet PO 5 mg Q12HR CARLOS Administration Aspirin 81 mg 05/10/25 09:00 05/15/25 09:58 Aspirin 81 Mg Enteric Tablet PO 81 mg QAM CARLOS Administration Baclofen 20 mg 05/15/25 06:00 05/16/25 05:52 Baclofen 10 Mg Tablet PO 20 mg Q8HR CARLOS Administration Docusate Sodium 100 mg 05/09/25 09:00 05/15/25 09:58 Docusate Sodium 100 Mg Capsule PO 100 mg DAILY CARLOS Administration Dextrose 1,000 mls @ 50 mls/hr 05/15/25 14:06 Dextrose 10% IV CONT .Q20H PRN if PN is interrupted Fat Emulsion Intravenous 250 mls @ 20.833 mls/hr 05/15/25 17:00 05/16/25 06:05 Lipids 20% IVPB Infused Q24H CARLOS Infusion Multivitamins 1.25 ml/ 1,002.5 mls @ 40 mls/hr 05/15/25 18:00 05/15/25 18:57 Multivitamins 1.25 ml/ Amino IV CONT 40 mls/hr Acids/Electrolytes/Dextrose .Q24H CARLOS Administration Protocol Lamotrigine 150 mg 05/06/25 09:00 05/15/25 20:51 Lamotrigine 50 Mg Tablet PO 150 mg Q12HR CARLOS Administration Lidocaine HCl 15 ml 05/08/25 14:00 05/16/25 05:57 Lidocaine 2% Visc Soln 15 Ml Udc PO Not Given Q8HR CARLOS Metoclopramide HCl 10 mg 05/15/25 18:00 05/16/25 05:52 Metoclopramide Hcl Inj 10 Mg/2 Ml Vial IV PUSH 10 mg Q6HR CARLOS Administration Miscellaneous Information 1 each 05/15/25 00:01 Please Renew [place]. Per [employer] Procedure, It Will Discontinue If Not Renewed XX 06/14/25 00:00 CLARIFY CRALOS Polyethylene Glycol 17 gm 05/07/25 09:00 05/15/25 09:46 Polyethylene Glycol 3350 17 Gm Powd.Pack PO Not Given QAM CARLOS Promethazine HCl 12.5 mg 05/05/25 17:37 05/08/25 14:24 Promethazine Hcl 25 Mg/Ml Ampul IV PUSH 12.5 mg Q6H PRN Administration Nausea Rosuvastatin Calcium 5 mg 05/06/25 15:40 05/15/25 09:58 Rosuvastatin 5 Mg Tablet PO 5 mg DAILY CARLOS Administration Senna 8.6 mg 05/06/25 21:00 05/15/25 20:54 Sennosides 8.6 Mg Tablet PO 8.6 mg HS CARLOS Administration Sodium Chloride 10 ml 05/15/25 22:00 05/16/25 05:56 Central Line Flush IV PUSH 10 ml Q8HR CARLOS Administration Sodium Chloride 10 ml 05/15/25 16:03 Central Line Flush IV PUSH PRN PRN with TPN bag changes Sodium Chloride 20 ml 05/15/25 16:03 Central Line Flush IV PUSH PRN PRN after blood draws Sucralfate 1,000 mg 05/07/25 21:00 05/16/25 05:52 Sucralfate Susp 100 Mg/Ml 10 Ml Udc PO 1,000 mg ACHS CARLOS Administration Tamsulosin HCl 0.4 mg 05/06/25 15:40 05/15/25 09:58 Tamsulosin Hcl 0.4 Mg Capsule BY MOUTH 0.4 mg DAILY CARLOS Administration Radiology Results: ITS Impressions Abdomen/Pelvis CT 05/05/25 14:54 IMPRESSION: 1. Splenomegaly. 2: Moderate right pleural effusion. Small left pleural effusion. 3: Bilateral renal cysts. 4: Severe lower thoracic and lumbar spondylosis with scoliosis. Upper GI Series 05/12/25 17:42 IMPRESSION: 1. Delayed small bowel transit time of 4.5-6 hours without bowel dilation to suggest obstruction which would be consistent with an ileus. 2. Unremarkable esophagram and upper GI study. Head CT 05/14/25 14:04 IMPRESSION: 1. 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 No other acute intracranial process. 2. Stable appearance of age-related changes including mild to moderate diffuse volume loss and mild scattered white matter hypoattenuation consistent with chronic small vessel ischemic disease. Chest CT 05/14/25 15:01 IMPRESSION: 1. Small right pleural effusion with mild dependent atelectasis versus minimal pulmonary edema in the lower lobes. Additional patchy groundglass opacities in the nondependent left lower lobe which could represent additional atelectasis, pulmonary edema or pneumonia. 2. 1.8 x 1.2 cm region of consolidation at the junction of the left upper lobe and lingula which given the development and less than 5 months would favor atelectasis or pneumonia. 3. Small pericardial effusion and stranding in the anterior mediastinal fat which could represent residual postoperative changes related to reported interval revision of an aortic valve repair performed one month prior. Differential would include mediastinitis in the appropriate clinical setting. 4. Small amount of residual oral contrast material in the stomach 2 days post upper GI study suspicious for gastroparesis. Chest X-Ray 05/15/25 16:01 Impression: No acute cardiopulmonary abnormality. Labs Labs: Laboratory Results - last 24 hr 05/15/25 05/15/25 05/16/25 16:34 18:12 00:21 WBC 2.9 L RBC 3.15 L Hgb 9.1 L Hct 28.4 L MCV 90.2 MCH 28.9 MCHC 32.0 RDW 15.9 H Plt Count 111 L MPV 8.5 Immature Gran % (Auto) 0.3 Neut % (Auto) 53.8 Lymph % (Auto) 34.8 [place] % (Auto) 8.7 H Eos % (Auto) 1.7 Baso % (Auto) 0.7 Lymph # (Auto) 1.00 [place] # (Auto) 0.3 Eos # (Auto) 0.1 Baso # (Auto) 0.0 Abs Immat Gran (auto) 0.01 Absolute Neuts (auto) 1.5 Absolute Nucleated RBC 0.000 Nucleated RBC % 0.0 % Immature Plt Fraction 1.2 APTT 38.1 H Sodium 132 L Potassium 4.4 Chloride 98 Carbon Dioxide 27 Anion Gap 7 BUN 13 Creatinine 1.07 Estim Creat Clear Calc 61 Estimated GFR > 60 Glucose 122 H POC Capillary Glucose 130 H 154 H Calcium 10.2 Phosphorus Magnesium 2.7 H Transferrin 224 Total Bilirubin 1.3 AST 35 ALT 21 Alkaline Phosphatase 112 Total Protein 6.5 Albumin 4.2 05/16/25 05/16/25 04:39 06:06 WBC RBC Hgb Hct MCV MCH MCHC RDW Plt Count MPV Immature Gran % (Auto) Neut % (Auto) Lymph % (Auto) [place] % (Auto) Eos % (Auto) Baso % (Auto) Lymph # (Auto) [place] # (Auto) Eos # (Auto) Baso # (Auto) Abs Immat Gran (auto) Absolute Neuts (auto) Absolute Nucleated RBC Nucleated RBC % % Immature Plt Fraction APTT Sodium 131 L Potassium 4.3 Chloride 97 L Carbon Dioxide 29 Anion Gap 5 BUN 12 Creatinine 1.07 Estim Creat Clear Calc 61 Estimated GFR > 60 Glucose 140 H POC Capillary Glucose 147 H Calcium 10.0 Phosphorus 3.3 Magnesium Transferrin Total Bilirubin AST ALT Alkaline Phosphatase Total Protein Albumin
[2025-05-16] MEDS: ROSUVASTATIN 5 MG TABLET PO (08:52)
[2025-05-16] MEDS: lamoTRIgine 50 MG TABLET 150 MG PO ×2 (08:52→21:26)
[2025-05-16] MEDS: DOCUSATE SODIUM 100 MG CAPSULE PO (08:52)
[2025-05-16] MEDS: ASPIRIN 81 MG ENTERIC TABLET PO (08:52)
[2025-05-16] MEDS: APIXABAN 5 MG TABLET PO ×2 (08:52→21:27)
[2025-05-16] MEDS: TAMSULOSIN HCL 0.4 MG CAPSULE BY MOUTH (08:52)
[2025-05-16 14:00] VITALS: BP 109/65; PULSE 70; RESP 18; TEMP 36.2; O2SAT 99
[2025-05-16 15:11] LABS: Triglycerides 82 mg/dL (<150)
--- NOTE | 2025-05-16 16:56 | P.PNIM_ITS ---
Progress Note: A&P Assessment and Plan (1) Nausea and vomiting: Code(s): R11.2 - Nausea with vomiting, unspecified Status: Acute Assessment and Plan: Now having dry heaves,? Diaghragmatic, vagus nerve injury, vs brain mass Patient had a recent heart surgery in [facility] after which the symptoms started EGD: gastritis Patient likely has diaphragmatic irritation causing hiccups and emesis, rule out brain lesion MRI brain Trial of baclofen initiated,scopolamine Unable to do MRI due to foreign body in the body ESophagogram showed possible Ileus, however unable to complete GES patient has no problems with full liquid diet Continue PO sucralfate and pantoprazole GI following Symptoms remain persistent. ct chest findings reviewed. postoperative changes noted. small pericardial effusion with stranding in serafin anterior mediastinal fat, mild effusions, small amount of residual oral contrast in stomach suspicious for gastroparesis. 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 Age-related [id number] diffuse volume loss and mild scattered white matter hypoattenuation consistent with chronic small-vessel ischemic disease CT abdomen with splenomegaly moderate right pleural effusion small left pleural effusion bilateral renal cyst severe lower thoracic and lumbar spondylosis scoliosis. Noted PA injury post valve surgery 80 degree turn to OR on 03/29/2025 for [place]- Joe catheter removal and repair of PA injury Postoperative right thigh hematoma with acute blood loss anemia needing transfusion suspected diaphragmatic injury from recent surgery. on baclofen prn. unalbe to adequate oral intake. 05/16 tolerating Clinimix and lipids, [facility] call to check on him and he continues to wait for a bed (2) Pleural effusion: Code(s): J90 - Pleural effusion, not elsewhere classified Status: Acute Assessment and Plan: Repeat chest x-ray showing pulmonary edema and pleural effusion Stopped IV fluids Echocardiogram EF 60-65% Diuresis achieved No oxygen requirement (3) Anemia: Code(s): D64.9 - Anemia, unspecified Status: Acute Assessment and Plan: Hemoglobin stable post op Could be related to recent surgeries and iliopsoas hematoma in 03/2025. No evidence of ongoing bleeding ASA and Eliquis held at admission No need for transfusion at this time Isat 18, s/p 400mg IV, monitor H and H 05/09 Resume ASA and Eliquis due to hx of atrial fibrillation, bioprosthetic aortic valve, CLL (increased risk of thrombophlebitis) F/u h/h (4) Atrial fibrillation: Code(s): I48.91 - Unspecified atrial fibrillation Status: Acute Assessment and Plan: Continue amiodarone and apixaban (5) Seizure: Code(s): R56.9 - Unspecified convulsions Status: Acute Assessment and Plan: Seizure disorder controlled Continue Keppra ct head with no acute findings, old infarcts noted (6) CLL (chronic lymphocytic leukemia): Code(s): C91.10 - Chronic lymphocytic leukemia of B-cell type not having achieved remission Status: Acute Assessment and Plan: Treatment currently on hold due to recent surgeries will follow-up with oncologist outpatient Was taking tryosine kinase inhibitors Pancytopenia is likely due to treatment (7) Hyponatremia: Code(s): E87.1 - Hypo-osmolality and hyponatremia Status: Acute Assessment and Plan: resolved (8) Constipation: Code(s): K59.00 - Constipation, unspecified Status: Acute Assessment and Plan: Senna MiraLax (9) History of aortic valve replacement with bioprosthetic valve: Code(s): Z95.3 - Presence of xenogenic heart valve Status: Acute Assessment and Plan: Due to patient's issues being gastric and not cardiac he wish to stay at [place] (10) Hyperlipidemia: Code(s): E78.5 - Hyperlipidemia, unspecified Status: Acute Assessment and Plan: Carotid stenosis Continue statin Hold aspirin Plan DVT prophylaxis on Eliquis Subjective Date/time seen: 05/16/25 16:56 Interval history: Tolerating more food and having fewer hiccups. However is still retching intermittently with position changes and vomiting up food right after he eats it intermittently. Denied chest pain or shortness of breath or edema. Denied abdominal pain. No bowel movement for a few days but very little food intake. No complaints. Review of Systems Review of Systems: All systems reviewed & are unremarkable except as noted in HPI and below (Subjective) Exam Narrative: HEENT: PERRL, sclerae nonicteric, pharyngeal mucosa pink and intact NECK: No JVD CHEST: Clear to auscultation. Normal effort HEART: NL S1/S2, regular, ABNL S2 with DERIC ABDOMEN: BS+, soft, nontender, no mass, no bruits EXTREMITIES: No cyanosis, edema, or clubbing NEUROLOGIC: CN intact and symmetric to inspection, speech clear, oral hygienist 5/5 and symmetric MUSCULOSKELETAL: Tone and strength symmetric PSYCH: Alert. Oriented to person, place, and time Objective Data Vital Signs Vital Signs: Vital Signs - 24 hr 05/15/25 20:00 05/15/25 21:21 05/16/25 06:00 Temperature 97.9 F 97.9 F Pulse Rate 78 73 Respiratory Rate 20 18 Blood Pressure 131/77 122/72 Pulse Oximetry 99 97 Oxygen Delivery Room Air 05/16/25 14:00 Temperature 97.1 F L Pulse Rate 70 Respiratory Rate 18 Blood Pressure 109/65 Pulse Oximetry 99 Oxygen Delivery Intake/Output Intake/Output: Intake & Output 05/13/25 05/14/25 05/15/25 05/16/25 23:59 23:59 23:59 22:59 Intake Total 2009 1260 1020 2300 Output Total 0 2200 1900 1700 Balance 110 940 -480 600 Meds/Results Medications: Active Medications Generic Name Dose Route Start Last Admin Trade Name Freq PRN Reason Stop Dose Admin Acetaminophen 650 mg 05/05/25 17:37 Acetaminophen 325 Mg Tablet PO Q4H PRN Mild Pain (1-3) or Fever Al Hydrox/Mg Hydrox/Simethicone 30 ml 05/08/25 14:00 05/16/25 13:32 Mag Hydrox/Al Hydrox/Simeth 30 Ml Udc PO Not Given Q8HR CARLOS Apixaban 5 mg 05/09/25 21:00 05/16/25 08:52 Apixaban 5 Mg Tablet PO 5 mg Q12HR CARLOS Administration Aspirin 81 mg 05/10/25 09:00 05/16/25 08:52 Aspirin 81 Mg Enteric Tablet PO 81 mg QAM CARLOS Administration Baclofen 20 mg 05/15/25 06:00 05/16/25 13:06 Baclofen 10 Mg Tablet PO 20 mg Q8HR CARLOS Administration Docusate Sodium 100 mg 05/09/25 09:00 05/16/25 08:52 Docusate Sodium 100 Mg Capsule PO 100 mg DAILY CARLOS Administration Dextrose 1,000 mls @ 50 mls/hr 05/15/25 14:06 Dextrose 10% IV CONT .Q20H PRN if PN is interrupted Fat Emulsion Intravenous 250 mls @ 20.833 mls/hr 05/15/25 17:00 05/16/25 06:05 Lipids 20% IVPB Infused Q24H CARLOS Infusion Multivitamins 1.25 ml/ 1,002.5 mls @ 40 mls/hr 05/15/25 18:00 05/15/25 18:57 Multivitamins 1.25 ml/ Amino IV CONT 40 mls/hr Acids/Electrolytes/Dextrose .Q24H CARLOS Administration Protocol Lamotrigine 150 mg 05/06/25 09:00 05/16/25 08:52 Lamotrigine 50 Mg Tablet PO 150 mg Q12HR CARLOS Administration Lidocaine HCl 15 ml 05/08/25 14:00 05/16/25 13:32 Lidocaine 2% Visc Soln 15 Ml Udc PO Not Given Q8HR CARLOS Metoclopramide HCl 10 mg 05/15/25 18:00 05/16/25 16:50 Metoclopramide Hcl Inj 10 Mg/2 Ml Vial IV PUSH 10 mg Q6HR CARLOS Administration Miscellaneous Information 1 each 05/15/25 00:01 Please Renew [place]. Per [employer] Procedure, It Will Discontinue If Not Renewed XX 06/14/25 00:00 CLARIFY CARLOS Polyethylene Glycol 17 gm 05/07/25 09:00 05/16/25 08:54 Polyethylene Glycol 3350 17 Gm Powd.Pack PO Not Given QAM CARLOS Promethazine HCl 12.5 mg 05/05/25 17:37 05/08/25 14:24 Promethazine Hcl 25 Mg/Ml Ampul IV PUSH 12.5 mg Q6H PRN Administration Nausea Rosuvastatin Calcium 5 mg 05/06/25 15:40 05/16/25 08:52 Rosuvastatin 5 Mg Tablet PO 5 mg DAILY CARLOS Administration Senna 8.6 mg 05/06/25 21:00 05/15/25 20:54 Sennosides 8.6 Mg Tablet PO 8.6 mg HS CARLOS Administration Sodium Chloride 10 ml 05/15/25 22:00 05/16/25 14:00 Central Line Flush IV PUSH 10 ml Q8HR CARLOS Administration Sodium Chloride 10 ml 05/15/25 16:03 Central Line Flush IV PUSH PRN PRN with TPN bag changes Sodium Chloride 20 ml 05/15/25 16:03 Central Line Flush IV PUSH PRN PRN after blood draws Sucralfate 1,000 mg 05/07/25 21:00 05/16/25 16:50 Sucralfate Susp 100 Mg/Ml 10 Ml Udc PO 1,000 mg ACHS CARLOS Administration Tamsulosin HCl 0.4 mg 05/06/25 15:40 05/16/25 08:52 Tamsulosin Hcl 0.4 Mg Capsule BY MOUTH 0.4 mg DAILY CARLOS Administration Radiology Results: ITS Impressions Abdomen/Pelvis CT 05/05/25 14:54 IMPRESSION: 1. Splenomegaly. 2: Moderate right pleural effusion. Small left pleural effusion. 3: Bilateral renal cysts. 4: Severe lower thoracic and lumbar spondylosis with scoliosis. Upper GI Series 05/12/25 17:42 IMPRESSION: 1. Delayed small bowel transit time of 4.5-6 hours without bowel dilation to suggest obstruction which would be consistent with an ileus. 2. Unremarkable esophagram and upper GI study. Head CT 05/14/25 14:04 IMPRESSION: 1. 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 No other acute intracranial process. 2. Stable appearance of age-related changes including mild to moderate diffuse volume loss and mild scattered white matter hypoattenuation consistent with chronic small vessel ischemic disease. Chest CT 05/14/25 15:01 IMPRESSION: 1. Small right pleural effusion with mild dependent atelectasis versus minimal pulmonary edema in the lower lobes. Additional patchy groundglass opacities in the nondependent left lower lobe which could represent additional atelectasis, pulmonary edema or pneumonia. 2. 1.8 x 1.2 cm region of consolidation at the junction of the left upper lobe and lingula which given the development and less than 5 months would favor atelectasis or pneumonia. 3. Small pericardial effusion and stranding in the anterior mediastinal fat which could represent residual postoperative changes related to reported interval revision of an aortic valve repair performed one month prior. Differential would include mediastinitis in the appropriate clinical setting. 4. Small amount of residual oral contrast material in the stomach 2 days post upper GI study suspicious for gastroparesis. Chest X-Ray 05/15/25 16:01 Impression: No acute cardiopulmonary abnormality. Labs Labs: Laboratory Results - last 24 hr 05/15/25 05/16/25 05/16/25 18:12 00:21 04:39 Sodium 131 L Potassium 4.3 Chloride 97 L Carbon Dioxide 29 Anion Gap 5 BUN 12 Creatinine 1.07 Estim Creat Clear Calc 61 Estimated GFR > 60 Glucose 140 H POC Capillary Glucose 130 H 154 H Calcium 10.0 Phosphorus 3.3 Triglycerides 05/16/25 05/16/25 05/16/25 06:06 11:31 14:56 Sodium Potassium Chloride Carbon Dioxide Anion Gap BUN Creatinine Estim Creat Clear Calc Estimated GFR Glucose POC Capillary Glucose 147 H 149 H Calcium Phosphorus Triglycerides 82
[2025-05-16] MEDS: FAT EMULSIONS IV 20% 250 ML 20 ML IVPB (17:16)
[2025-05-16] MEDS: AMINO ACIDS 5%/D15W/E-LYTES/CA 1,000 ML with MULTIVITAMINS-12 INJ VIAL 1 1.25 ML, MULTI... 40 ML IV CONT (17:17)
[2025-05-16 21:18] VITALS: BP 130/69; PULSE 69; RESP 18; TEMP 36.3; O2SAT 99
[2025-05-16] MEDS: MAG HYDROX/AL HYDROX/SIMETH 30 ML UDC PO (21:26)
[2025-05-16] MEDS: SENNOSIDES 8.6 MG TABLET PO (21:27)
[2025-05-17] MEDS: METOCLOPRAMIDE HCL INJ 10 MG/2 ML VIAL IV PUSH (05:10)
[2025-05-17] MEDS: SUCRALFATE SUSP 100 MG/ML 10 ML UDC 1000 MG PO (05:10)
[2025-05-17] MEDS: BACLOFEN 10 MG TABLET 20 MG PO ×2 (05:10→14:16)
[2025-05-17] MEDS: MAG HYDROX/AL HYDROX/SIMETH 30 ML UDC PO (05:10)
[2025-05-17] MEDS: CENTRAL LINE FLUSH 10 ML IV PUSH ×2 (05:10→14:45)
[2025-05-17 05:34] VITALS: BP 127/72; PULSE 79; RESP 18; TEMP 36.4; O2SAT 98
[2025-05-17 05:56] LABS: Hematocrit 29.6 % (42.0-52.0); Hemoglobin 9.4 g/dL (14.0-18.0); Immature Granulocyte Percent A 0.0 % (0-0.5); Immature Platelet Fraction Pct 1.4 % (0.9-11.2); Lymphocytes Absolute Auto 0.98 K/mm3 (0.9-3.2); Mean Corpuscular HGB Conc 31.8 g/dl (32-36); Mean Corpuscular Hemoglobin 29.3 pg (26-34); Mean Corpuscular Volume 92.2 fl (80-100); Nucleated Red Blood Cells Absolute Auto 0.000 K/mm3 (0.0-0.012); Nucleated Red Blood Cells Perc 0.0 % (0.0-0.2); Platelet Count Result 111 k/mm3 (150-375); Red Blood Count 3.21 M/mm3 (4.6-6.20); White Blood Count 2.9 K/mm3 (4.5-10.0)
[2025-05-17 06:06] LABS: INR 1.5; Prothrombin Time 17.4 Seconds (11.1-14.7)
[2025-05-17 06:07] LABS: Partial Thromboplastin Time 31.3 Seconds (22.3-36.8)
[2025-05-17 06:18] LABS: Alanine Aminotransferase 19 U/L (6-50); Albumin Level 4.1 g/dL (3.5-5.1); Alkaline Phosphatase 87 U/L (38-126); Anion Gap 8 mmol/L (4-12); Aspartate Amino Transferase 32 U/L (17-59); Bilirubin,Total 1.0 mg/dL (0.2-1.3); Blood Urea Nitrogen 13 mg/dL (9-20); Calcium 10.1 mg/dL (8.4-10.2); Carbon Dioxide 29 mmol/L (22-30); Chloride 97 mmol/L (98-107); Estimated CRCL calculation 56 ml/min; Estimated Glomerular Filt Rate > 60; Glucose 136 mg/dL (65-110); Magnesium 2.5 mg/dL (1.6-2.3); Potassium 4.2 mmol/L (3.4-5.0); Sodium 134 mmol/L (137-145); Total Protein 6.4 g/dL (6.3-8.2)
[2025-05-17 06:25] LABS: Transferrin 228 mg/dL (206-381)
[2025-05-17] MEDS: ROSUVASTATIN 5 MG TABLET PO (08:36)
[2025-05-17] MEDS: APIXABAN 5 MG TABLET PO (08:36)
[2025-05-17] MEDS: TAMSULOSIN HCL 0.4 MG CAPSULE BY MOUTH (08:36)
[2025-05-17] MEDS: DOCUSATE SODIUM 100 MG CAPSULE PO (08:36)
[2025-05-17] MEDS: ASPIRIN 81 MG ENTERIC TABLET PO (08:36)
[2025-05-17] MEDS: lamoTRIgine 50 MG TABLET 150 MG PO (08:36)
--- NOTE | 2025-05-17 10:59 | PCNFU ---
Nutrition Follow-Up Complete: Severe protein calorie malnutrition related to chronic vomiting, loss of appetite as evidenced by weight loss 13%/4 months; intakes <75% needs >1 month; moderate muscle wasting and fat loss Goal:Diet advancement - RESOLVED Intakes >50% when advanced - Pt still progressing to goal Pt current nutrition is Low fiber, bland, Ensure Clear TID, Nutrition ice cream cups TID. Nutrition recommendation: encourage po intake Last recorded weight is 98.1 kg. Bowel Motility: +BM 05/16 Labs Reviewed:Hgb:9.4, HCT:29.6, NA:134, Glu:136 Meds Noted: miralax, protonix, carafate, eliquis, reglan Skin: WNL Additional Notes: Pt continues on a low fiber, bland, heart healthy diet. Intake varies depending on tolerance. Pt continue to struggle with dry heaves and vomiting up food after eating. Pt states some meals are ok and other don't stay down. Does not seem to be a reason as to why some dont. Pt also started on TPN Clinimix E 11/26 @40ml/hr which is providing 1182kcals, 48g protein. This is meeting 55% of estimated needs Monitoring intakes, weights, labs, diet orders, plan of care Follow up Every Saturday and Saturday
[2025-05-17 14:00] VITALS: BP 104/72; PULSE 72; RESP 18; TEMP 36.2; O2SAT 99
--- NOTE | 2025-05-17 14:45 | P.PNIM_ITS ---
Progress Note: A&P Assessment and Plan (1) Nausea and vomiting: Code(s): R11.2 - Nausea with vomiting, unspecified Status: Acute (2) Pleural effusion: Code(s): J90 - Pleural effusion, not elsewhere classified Status: Acute (3) Anemia: Code(s): D64.9 - Anemia, unspecified Status: Acute (4) Atrial fibrillation: Code(s): I48.91 - Unspecified atrial fibrillation Status: Acute (5) Seizure: Code(s): R56.9 - Unspecified convulsions Status: Acute (6) CLL (chronic lymphocytic leukemia): Code(s): C91.10 - Chronic lymphocytic leukemia of B-cell type not having achieved remission Status: Acute (7) Hyponatremia: Code(s): E87.1 - Hypo-osmolality and hyponatremia Status: Acute (8) Constipation: Code(s): K59.00 - Constipation, unspecified Status: Acute (9) History of aortic valve replacement with bioprosthetic valve: Code(s): Z95.3 - Presence of xenogenic heart valve Status: Acute (10) Hyperlipidemia: Code(s): E78.5 - Hyperlipidemia, unspecified Status: Acute Plan 70-year-old male with PMH including CLL on tyrosine kinase inhibitors, BPH, insomnia, diastolic dysfunction AFib on Eliquis, carotid artery stenosis, history of stroke, seizure disorder, history of bicuspid aortic valve complicated by acute type a dissection status post bioprosthetic aortic valve r eplacement and supra coronary aortic graft replacement in 2009 with recent hospitalization at [facility] with redo sternotomy, AVR, Maze, BIN clip on 03/23/2025 due to severe prostatic valve regurgitation, chronic constipation. Course was complicated as they had tried to remove his [place]-Joe catheter which was met with resistance, imaging performed found the catheter to be inadvertently sutured to the pulmonary artery. Patient taken to the OR on 03/29/2025 for [place]-Joe catheter removal and repair of PA injury. The patient was stable thereafter. Hospital course also complicated for iliopsoas hematoma right side, Eliquis stop, restarted eventually and patient was discharged.Patient [facility] to [facility] 05[facility]2025 complaining of worsening nausea and nonbloody vomiting. This started after his 1st procedure on 03/23/2025 GI was consulted. Status post EGD which shows gastritis. Continues to have nausea, vomiting. (1) Nausea and vomiting: Now having dry heaves,? Diaghragmatic, vagus nerve injury, vs brain mass Patient had a recent heart surgery in [facility] after which the symptoms started EGD: gastritis Patient likely has diaphragmatic irritation causing hiccups and emesis, rule out brain lesion Unable to do MRI brain insert CT head was done CT head would be obtain instead which showed multiple small infarcts bilateral cerebellar and cerebellar hemispheres and in the right thalamus and right basal ganglia no other acute intracranial process. Age-related [id number] diffuse volume loss and mild scattered white matter hypoattenuation consistent w ith chronic small-vessel ischemic disease Currently on trial with baclofen, scopolamine ESophagogram showed possible Ileus, however unable to complete GES patient has no problems with full liquid diet Continue PO sucralfate and pantoprazole GI following Will hold Reglan, tolerated Thorazine today Will do a trial of Thorazine With TPN Await bed at [place] (2) Pleural effusion: Currently on room air (3) Anemia: Monitor H&H closely (4) Atrial fibrillation: Continue amiodarone and apixaban (5) Seizure: Seizure disorder controlled Continue Keppra ct head with no acute findings, old infarcts noted (6) CLL (chronic lymphocytic leukemia): Treatment currently on hold due to recent surgeries will follow-up with oncologist outpatient Was taking tryosine kinase inhibitors Pancytopenia is likely due to treatment (7) Hyponatremia: Monitor sodium levels (8) Constipation: Senna MiraLax 9. Code status: Full 10. DVT prophylaxis: Eliquis 11. Disposition: Pending improvement Time Spent With Patient Time: 41 mins Subjective Date/time seen: 05/17/25 14:45 Interval history: Continues to have hiccups/vomiting Responded well to a dose of Thorazine this morning Review of Systems Review of Systems: All systems reviewed & are unremarkable except as noted in HPI and below Exam Narrative: HEENT: PERRL, sclerae nonicteric, pharyngeal mucosa pink and intact NECK: No JVD CHEST: Clear to auscultation. Normal effort HEART: NL S1/S2, regular, ABNL S2 with DERIC ABDOMEN: BS+, soft, nontender, no mass, no bruits EXTREMITIES: No cyanosis, edema, or clubbing NEUROLOGIC: CN intact and symmetric to inspection, speech clear, document management specialist 5/5 and symmetric MUSCULOSKELETAL: Tone and strength symmetric PSYCH: Alert. Oriented to person, place, and time Objective Data Vital Signs Vital Signs: Vital Signs - 24 hr 05/16/25 21:18 05/17/25 05:34 Temperature 97.4 F L 97.5 F L Pulse Rate 69 79 Respiratory Rate 18 18 Blood Pressure 130/69 127/72 Pulse Oximetry 99 98 Intake/Output Intake/Output: Intake & Output 05/14/25 05/15/25 05/16/25 05/17/25 23:59 23:59 22:59 23:59 Intake Total 1260 1020 3473.3 490 Output Total 2200 1900 2275 1950 Balance -940 -880 1198.3 -1460 Meds/Results Medications: Active Medications Generic Name Dose Route Start Last Admin Trade Name Freq PRN Reason Stop Dose Admin Acetaminophen 650 mg 05/05/25 17:37 Acetaminophen 325 Mg Tablet PO Q4H PRN Mild Pain (1-3) or Fever Al Hydrox/Mg Hydrox/Simethicone 30 ml 05/08/25 14:00 05/17/25 05:10 Mag Hydrox/Al Hydrox/Simeth 30 Ml Udc PO 30 ml Q8HR CARLOS Administration Apixaban 5 mg 05/09/25 21:00 05/17/25 08:36 Apixaban 5 Mg Tablet PO 5 mg Q12HR CARLOS Administration Aspirin 81 mg 05/10/25 09:00 05/17/25 08:36 Aspirin 81 Mg Enteric Tablet PO 81 mg QAM CARLOS Administration Baclofen 20 mg 05/15/25 06:00 05/17/25 14:16 Baclofen 10 Mg Tablet PO 20 mg Q8HR CARLOS Administration Docusate Sodium 100 mg 05/09/25 09:00 05/17/25 08:36 Docusate Sodium 100 Mg Capsule PO 100 mg DAILY CARLOS Administration Dextrose 1,000 mls @ 50 mls/hr 05/15/25 14:06 Dextrose 10% IV CONT .Q20H PRN if PN is interrupted Fat Emulsion Intravenous 250 mls @ 20.833 mls/hr 05/15/25 17:00 05/16/25 17:16 Lipids 20% IVPB 20 mls/hr Q24H CARLOS Administration Multivitamins 1.25 ml/ 1,002.5 mls @ 40 mls/hr 05/15/25 18:00 05/16/25 17:17 Multivitamins 1.25 ml/ Amino IV CONT 40 mls/hr Acids/Electrolytes/Dextrose .Q24H CARLOS Administration Protocol Lamotrigine 150 mg 05/06/25 09:00 05/17/25 08:36 Lamotrigine 50 Mg Tablet PO 150 mg Q12HR CARLOS Administration Lidocaine HCl 15 ml 05/08/25 14:00 05/17/25 04:38 Lidocaine 2% Visc Soln 15 Ml Udc PO Not Given Q8HR CARLOS Metoclopramide HCl 10 mg 05/15/25 18:00 05/17/25 05:10 Metoclopramide Hcl Inj 10 Mg/2 Ml Vial IV PUSH 10 mg On Hold: 05/17/25 14:44 Q6HR CARLOS Administration Miscellaneous Information 1 each 05/15/25 00:01 Please Renew [place]. Per [employer] Procedure, It Will Discontinue If Not Renewed XX 06/14/25 00:00 CLARIFY CARLOS Miscellaneous Information 1 each 05/17/25 00:01 Please Renew _Tpn. Per [employer] Procedure, It Will Discontinue If Not Renewed XX 06/16/25 00:00 CLARIFY CARLOS Polyethylene Glycol 17 gm 05/07/25 09:00 05/17/25 08:38 Polyethylene Glycol 3350 17 Gm Powd.Pack PO 17 gm QAM CARLOS Administration Promethazine HCl 12.5 mg 05/05/25 17:37 05/08/25 14:24 Promethazine Hcl 25 Mg/Ml Ampul IV PUSH 12.5 mg Q6H PRN Administration Nausea Rosuvastatin Calcium 5 mg 05/06/25 15:40 05/17/25 08:36 Rosuvastatin 5 Mg Tablet PO 5 mg DAILY CARLOS Administration Senna 8.6 mg 05/06/25 21:00 05/16/25 21:27 Sennosides 8.6 Mg Tablet PO 8.6 mg HS CARLOS Administration Sodium Chloride 10 ml 05/15/25 22:00 05/17/25 05:10 Central Line Flush IV PUSH 10 ml Q8HR CARLOS Administration Sodium Chloride 10 ml 05/15/25 16:03 Central Line Flush IV PUSH PRN PRN with TPN bag changes Sodium Chloride 20 ml 05/15/25 16:03 Central Line Flush IV PUSH PRN PRN after blood draws Sucralfate 1,000 mg 05/07/25 21:00 05/17/25 05:10 Sucralfate Susp 100 Mg/Ml 10 Ml Udc PO 1,000 mg ACHS CARLOS Administration Tamsulosin HCl 0.4 mg 05/06/25 15:40 05/17/25 08:36 Tamsulosin Hcl 0.4 Mg Capsule BY MOUTH 0.4 mg DAILY CARLOS Administration Radiology Results: ITS Impressions Abdomen/Pelvis CT 05/05/25 14:54 IMPRESSION: 1. Splenomegaly. 2: Moderate right pleural effusion. Small left pleural effusion. 3: Bilateral renal cysts. 4: Severe lower thoracic and lumbar spondylosis with scoliosis. Upper GI Series 05/12/25 17:42 IMPRESSION: 1. Delayed small bowel transit time of 4.5-6 hours without bowel dilation to suggest obstruction which would be consistent with an ileus. 2. Unremarkable esophagram and upper GI study. Head CT 05/14/25 14:04 IMPRESSION: 1. 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 No other acute intracranial process. 2. Stable appearance of age-related changes including mild to moderate diffuse volume loss and mild scattered white matter hypoattenuation consistent with chronic small vessel ischemic disease. Chest CT 05/14/25 15:01 IMPRESSION: 1. Small right pleural effusion with mild dependent atelectasis versus minimal pulmonary edema in the lower lobes. Additional patchy groundglass opacities in the nondependent left lower lobe which could represent additional atelectasis, pulmonary edema or pneumonia. 2. 1.8 x 1.2 cm region of consolidation at the junction of the left upper lobe and lingula which given the development and less than 5 months would favor atelectasis or pneumonia. 3. Small pericardial effusion and stranding in the anterior mediastinal fat whic h could represent residual postoperative changes related to reported interval revision of an aortic valve repair performed one month prior. Differential would include mediastinitis in the appropriate clinical setting. 4. Small amount of residual oral contrast material in the stomach 2 days post upper GI study suspicious for gastroparesis. Chest X-Ray 05/15/25 16:01 Impression: No acute cardiopulmonary abnormality. Labs Labs: Laboratory Results - last 24 hr 05/16/25 05/16/25 05/16/25 14:56 18:25 23:57 WBC RBC Hgb Hct MCV MCH MCHC RDW Plt Count MPV Immature Gran % (Auto) Neut % (Auto) Lymph % (Auto) [place] % (Auto) Eos % (Auto) Baso % (Auto) Lymph # (Auto) [place] # (Auto) Eos # (Auto) Baso # (Auto) Abs Immat Gran (auto) Absolute Neuts (auto) Absolute Nucleated RBC Nucleated RBC % % Immature Plt Fraction PT INR APTT Sodium Potassium Chloride Carbon Dioxide Anion Gap BUN Creatinine Estim Creat Clear Calc Estimated GFR Glucose POC Capillary Glucose 150 H 157 H Calcium Phosphorus Magnesium Transferrin Total Bilirubin AST ALT Alkaline Phosphatase Total Protein Albumin Triglycerides 82 05/17/25 05/17/25 05/17/25 05:38 05:44 11:29 WBC 2.9 L RBC 3.21 L Hgb 9.4 L Hct 29.6 L MCV 92.2 MCH 29.3 MCHC 31.8 L RDW 15.4 H Plt Count 111 L MPV 9.0 Immature Gran % (Auto) 0.0 Neut % (Auto) 52.4 Lymph % (Auto) 34.3 [place] % (Auto) 9.8 H Eos % (Auto) 2.8 Baso % (Auto) 0.7 Lymph # (Auto) 0.98 [place] # (Auto) 0.3 Eos # (Auto) 0.1 Baso # (Auto) 0.0 Abs Immat Gran (auto) 0.00 Absolute Neuts (auto) 1.5 Absolute Nucleated RBC 0.000 Nucleated RBC % 0.0 % Immature Plt Fraction 1.4 PT 17.4 H INR 1.5 APTT 31.3 Sodium 134 L Potassium 4.2 Chloride 97 L Carbon Dioxide 29 Anion Gap 8 BUN 13 Creatinine 1.16 Estim Creat Clear Calc 56 Estimated GFR > 60 Glucose 136 H POC Capillary Glucose 147 H 151 H Calcium 10.1 Phosphorus 3.5 Magnesium 2.5 H Transferrin 228 Total Bilirubin 1.0 AST 32 ALT 19 Alkaline Phosphatase 87 Total Protein 6.4 Albumin 4.1 Triglycerides Quality VTE Prophylaxis VTE prophylaxis: pharmacologic ordered
--- NOTE | 2025-05-17 16:06 | WPDGIPROGNO ---
Progress Note: A&P Assessment and Plan (1) Dry heaves: Code(s): R11.10 - Vomiting, unspecified Status: Acute Assessment and Plan: The patient is experiencing problems that were already discussed on previous notes, extensively. I am personally making some coordinations with [facility] and see if he can be transferred to a bed soon, so he can be evaluated by motility specialists in conjunction with cardiothoracic surgery team. Subjective Date/time seen: 05/17/25 16:06 Interval history: No change in current status, patient continues having dry heaves and retching. Objective Data Vital Signs Vital Signs: Vital Signs - 24 hr 05/16/25 21:18 05/17/25 05:34 05/17/25 14:00 Temperature 97.4 F L 97.5 F L 97.1 F L Pulse Rate 69 79 72 Respiratory Rate 18 18 18 Blood Pressure 130/69 127/72 104/72 Pulse Oximetry 99 98 99 Intake/Output Intake/Output: Intake & Output 05/14/25 05/15/25 05/16/25 05/17/25 23:59 23:59 22:59 23:59 Intake Total 1260 1020 3473.3 730 Output Total 2200 1900 2275 1950 Balance -940 -880 1198.3 -1220 Meds/Results Medications: Active Medications Generic Name Dose Route Start Last Admin Trade Name Freq PRN Reason Stop Dose Admin Acetaminophen 650 mg 05/05/25 17:37 Acetaminophen 325 Mg Tablet PO Q4H PRN Mild Pain (1-3) or Fever Al Hydrox/Mg Hydrox/Simethicone 30 ml 05/08/25 14:00 05/17/25 15:22 Mag Hydrox/Al Hydrox/Simeth 30 Ml Udc PO Not Given Q8HR CARLOS Apixaban 5 mg 05/09/25 21:00 05/17/25 08:36 Apixaban 5 Mg Tablet PO 5 mg Q12HR CARLOS Administration Aspirin 81 mg 05/10/25 09:00 05/17/25 08:36 Aspirin 81 Mg Enteric Tablet PO 81 mg QAM CARLOS Administration Baclofen 20 mg 05/15/25 06:00 05/17/25 14:16 Baclofen 10 Mg Tablet PO 20 mg Q8HR CARLOS Administration Chlorpromazine HCl 10 mg 05/17/25 22:00 Chlorpromazine Hcl 10 Mg Tablet PO Q8HR CARLOS Docusate Sodium 100 mg 05/09/25 09:00 05/17/25 08:36 Docusate Sodium 100 Mg Capsule PO 100 mg DAILY CARLOS Administration Dextrose 1,000 mls @ 50 mls/hr 05/15/25 14:06 Dextrose 10% IV CONT .Q20H PRN if PN is interrupted Fat Emulsion Intravenous 250 mls @ 20.833 mls/hr 05/15/25 17:00 05/16/25 17:16 Lipids 20% IVPB 20 mls/hr Q24H CARLOS Administration Multivitamins 1.25 ml/ 1,002.5 mls @ 40 mls/hr 05/15/25 18:00 05/16/25 17:17 Multivitamins 1.25 ml/ Amino IV CONT 40 mls/hr Acids/Electrolytes/Dextrose .Q24H CARLOS Administration Protocol Lamotrigine 150 mg 05/06/25 09:00 05/17/25 08:36 Lamotrigine 50 Mg Tablet PO 150 mg Q12HR CARLOS Administration Lidocaine HCl 15 ml 05/08/25 14:00 05/17/25 15:21 Lidocaine 2% Visc Soln 15 Ml Udc PO Not Given Q8HR CARLOS Metoclopramide HCl 10 mg 05/15/25 18:00 05/17/25 15:23 Metoclopramide Hcl Inj 10 Mg/2 Ml Vial IV PUSH Not Given On Hold: 05/17/25 14:44 Q6HR CARLOS Miscellaneous Information 1 each 05/17/25 00:01 Please Renew _Tpn. Per [employer] Procedure, It Will Discontinue If Not Renewed XX 06/16/25 00:00 CLARIFY CARLOS Polyethylene Glycol 17 gm 05/07/25 09:00 05/17/25 08:38 Polyethylene Glycol 3350 17 Gm Powd.Pack PO 17 gm QAM CARLOS Administration Promethazine HCl 12.5 mg 05/05/25 17:37 05/08/25 14:24 Promethazine Hcl 25 Mg/Ml Ampul IV PUSH 12.5 mg Q6H PRN Administration Nausea Rosuvastatin Calcium 5 mg 05/06/25 15:40 05/17/25 08:36 Rosuvastatin 5 Mg Tablet PO 5 mg DAILY CARLOS Administration Senna 8.6 mg 05/06/25 21:00 05/16/25 21:27 Sennosides 8.6 Mg Tablet PO 8.6 mg HS CARLOS Administration Sodium Chloride 10 ml 05/15/25 22:00 05/17/25 05:10 Central Line Flush IV PUSH 10 ml Q8HR CARLOS Administration Sodium Chloride 10 ml 05/15/25 16:03 Central Line Flush IV PUSH PRN PRN with TPN bag changes Sodium Chloride 20 ml 05/15/25 16:03 Central Line Flush IV PUSH PRN PRN after blood draws Sucralfate 1,000 mg 05/07/25 21:00 05/17/25 15:21 Sucralfate Susp 100 Mg/Ml 10 Ml Udc PO Not Given ACHS CARLOS Tamsulosin HCl 0.4 mg 05/06/25 15:40 05/17/25 08:36 Tamsulosin Hcl 0.4 Mg Capsule BY MOUTH 0.4 mg DAILY CARLOS Administration Radiology Results: ITS Impressions Abdomen/Pelvis CT 05/05/25 14:54 IMPRESSION: 1. Splenomegaly. 2: Moderate right pleural effusion. Small left pleural effusion. 3: Bilateral renal cysts. 4: Severe lower thoracic and lumbar spondylosis with scoliosis. Upper GI Series 05/12/25 17:42 IMPRESSION: 1. Delayed small bowel transit time of 4.5-6 hours without bowel dilation to suggest obstruction which would be consistent with an ileus. 2. Unremarkable esophagram and upper GI study. Head CT 05/14/25 14:04 IMPRESSION: 1. 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 No other acute intracranial process. 2. Stable appearance of age-related changes including mild to moderate diffuse volume loss and mild scattered white matter hypoattenuation consistent with chronic small vessel ischemic disease. Chest CT 05/14/25 15:01 IMPRESSION: 1. Small right pleural effusion with mild dependent atelectasis versus minimal pulmonary edema in the lower lobes. Additional patchy groundglass opacities in the nondependent left lower lobe which could represent additional atelectasis, pulmonary edema or pneumonia. 2. 1.8 x 1.2 cm region of consolidation at the junction of the left upper lobe and lingula which given the development and less than 5 months would favor atelectasis or pneumonia. 3. Small pericardial effusion and stranding in the anterior mediastinal fat which could represent residual postoperative changes related to reported interval revision of an aortic valve repair performed one month prior. Differential would include mediastinitis in the appropriate clinical setting. 4. Small amount of residual oral contrast material in the stomach 2 days post upper GI study suspicious for gastroparesis. Chest X-Ray 05/15/25 16:01 Impression: No acute cardiopulmonary abnormality. Labs Labs: Laboratory Results - last 24 hr 05/16/25 05/16/25 05/17/25 18:25 23:57 05:38 WBC RBC Hgb Hct MCV MCH MCHC RDW Plt Count MPV Immature Gran % (Auto) Neut % (Auto) Lymph % (Auto) [place] % (Auto) Eos % (Auto) Baso % (Auto) Lymph # (Auto) [place] # (Auto) Eos # (Auto) Baso # (Auto) Abs Immat Gran (auto) Absolute Neuts (auto) Absolute Nucleated RBC Nucleated RBC % % Immature Plt Fraction PT INR APTT Sodium Potassium Chloride Carbon Dioxide Anion Gap BUN Creatinine Estim Creat Clear Calc Estimated GFR Glucose POC Capillary Glucose 150 H 157 H 147 H Calcium Phosphorus Magnesium Transferrin Total Bilirubin AST ALT Alkaline Phosphatase Total Protein Albumin 05/17/25 05/17/25 05:44 11:29 WBC 2.9 L RBC 3.21 L Hgb 9.4 L Hct 29.6 L MCV 92.2 MCH 29.3 MCHC 31.8 L RDW 15.4 H Plt Count 111 L MPV 9.0 Immature Gran % (Auto) 0.0 Neut % (Auto) 52.4 Lymph % (Auto) 34.3 [place] % (Auto) 9.8 H Eos % (Auto) 2.8 Baso % (Auto) 0.7 Lymph # (Auto) 0.98 [place] # (Auto) 0.3 Eos # (Auto) 0.1 Baso # (Auto) 0.0 Abs Immat Gran (auto) 0.00 Absolute Neuts (auto) 1.5 Absolute Nucleated RBC 0.000 Nucleated RBC % 0.0 % Immature Plt Fraction 1.4 PT 17.4 H INR 1.5 APTT 31.3 Sodium 134 L Potassium 4.2 Chloride 97 L Carbon Dioxide 29 Anion Gap 8 BUN 13 Creatinine 1.16 Estim Creat Clear Calc 56 Estimated GFR > 60 Glucose 136 H POC Capillary Glucose 151 H Calcium 10.1 Phosphorus 3.5 Magnesium 2.5 H Transferrin 228 Total Bilirubin 1.0 AST 32 ALT 19 Alkaline Phosphatase 87 Total Protein 6.4 Albumin 4.1
--- NOTE | 2025-05-17 18:03 | P.TS_ITS ---
Transfer Discharge Sum: Prov Provider Date of admission: 05/06/25 07:56 Primary care physician: Ravindra Leger MD Admitting clinician: Mode Dickson MD Consults: 05/05/25 17:39 Consult to Physician Routine Comment: Consulting Provider: Bhavesh Davenport Reason for consultation: vomiting,esophagitis Has provider been notified: Yes 05/15/25 14:06 Consult to Dietitian Routine Reason for Consult:: TPN DS: Admitting Diagnosis Discharge Date 05/17/25 Admitting Diagnosis Intractable nausea vomiting DS: Discharge Diagnosis Discharge Diagnosis (1) History of aortic valve replacement with bioprosthetic valve: Code(s): Z95.3 - Presence of xenogenic heart valve Status: Acute (2) Atrial fibrillation: Code(s): I48.91 - Unspecified atrial fibrillation Status: Acute (3) Weight loss: Code(s): R63.4 - Abnormal weight loss Status: Acute (4) Hyponatremia: Code(s): E87.1 - Hypo-osmolality and hyponatremia Status: Acute (5) Chronic anticoagulation: Code(s): Z79.01 - director long term care (current) use of anticoagulants Status: Acute (6) Intractable vomiting: Code(s): R11.10 - Vomiting, unspecified Status: Acute (7) Nausea and vomiting: Code(s): R11.2 - Nausea with vomiting, unspecified Status: Acute (8) Vomiting: Code(s): R11.10 - Vomiting, unspecified Status: Acute Transfer Discharge Sum: Med Medications Active and Home Medications: Home Medications apixaban 5 mg tablet (Eliquis) 5 mg PO BID 01/30/22 [History Confirmed 05/05/25] rosuvastatin 5 mg tablet 5 mg PO DAILY 01/30/22 [History Confirmed 05/05/25] tamsulosin 0.4 mg capsule See Rx Instructions .Route .COMPLEX #30 caps 07/12/24 [Rx Confirmed 05/05/25] amiodarone 200 mg tablet 200 mg PO DAILY 04/22/25 [History Confirmed 05/05/25] aspirin 81 mg tablet 81 mg PO DAILY 04/22/25 [History Confirmed 05/05/25] cholecalciferol (vitamin D3) 50 mcg (2,000 unit) capsule 50 mcg PO DAILY 04/22/25 [History Confirmed 05/05/25] docusate sodium 100 mg capsule (Colace) 100 mg PO BID PRN constipation 04/22/25 [History Confirmed 05/05/25] lamotrigine 150 mg tablet 75 mg PO BID 04/22/25 [History Confirmed 05/05/25] pantoprazole 40 mg tablet,delayed release 40 mg PO DAILY 04/22/25 [History Confirmed 05/05/25] Active Medications Acetaminophen (Acetaminophen 325 Mg Tablet) 650 mg PO Q4H PRN PRN Reason: Mild Pain (1-3) or Fever Al Hydrox/Mg Hydrox/Simethicone (Mag Hydrox/Al Hydrox/Simeth 30 Ml Udc) 30 ml PO Q8HR [facility] Last Admin: 05/17/25 15:22 Dose: Not Given Apixaban (Apixaban 5 Mg Tablet) 5 mg PO Q12HR [facility] Last Admin: 05/17/25 08:36 Dose: 5 mg Aspirin (Aspirin 81 Mg Enteric Tablet) 81 mg PO QAM [facility] Last Admin: 05/17/25 08:36 Dose: 81 mg Baclofen (Baclofen 10 Mg Tablet) 20 mg PO Q8HR [facility] Last Admin: 05/17/25 14:16 Dose: 20 mg Chlorpromazine HCl (Chlorpromazine Hcl 10 Mg Tablet) 10 mg PO Q8HR [facility] Docusate Sodium (Docusate Sodium 100 Mg Capsule) 100 mg PO DAILY [facility] Last Admin: 05/17/25 08:36 Dose: 100 mg Dextrose (Dextrose 10%) 1,000 mls @ 50 mls/hr IV CONT .Q20H PRN PRN Reason: if PN is interrupted Fat Emulsion Intravenous (Lipids 20%) 250 mls @ 20.833 mls/hr IVPB Q24H [facility] Last Admin: 05/16/25 17:16 Dose: 20 mls/hr Multivitamins 1.25 ml/Multivitamins 1.25 ml/ Amino Acids/Electrolytes/Dextrose 1,002.5 mls @ 40 mls/hr IV CONT .Q24H [facility]; Protocol Last Admin: 05/16/25 17:17 Dose: 40 mls/hr Lamotrigine (Lamotrigine 50 Mg Tablet) 150 mg PO Q12HR [facility] Last Admin: 05/17/25 08:36 Dose: 150 mg Lidocaine HCl (Lidocaine 2% Visc Soln 15 Ml Udc) 15 ml PO Q8HR [facility] Last Admin: 05/17/25 15:21 Dose: Not Given Metoclopramide HCl (Metoclopramide Hcl Inj 10 Mg/2 Ml Vial) 10 mg IV PUSH Q6HR [facility] On Hold: 05/17/25 14:44 Last Admin: 05/17/25 15:23 Dose: Not Given Miscellaneous Information (Please Renew _Tpn. Per [employer] Procedure, It Will Discontinue If Not Renewed) 1 each XX CLARIFY [facility] Stop: 06/16/25 00:00 Polyethylene Glycol (Polyethylene Glycol 3350 17 Gm Powd.Pack) 17 gm PO QAM [facility] Last Admin: 05/17/25 08:38 Dose: 17 gm Promethazine HCl (Promethazine Hcl 25 Mg/Ml Ampul) 12.5 mg IV PUSH Q6H PRN PRN Reason: Nausea Last Admin: 05/08/25 14:24 Dose: 12.5 mg Rosuvastatin Calcium (Rosuvastatin 5 Mg Tablet) 5 mg PO DAILY [facility] Last Admin: 05/17/25 08:36 Dose: 5 mg Senna (Sennosides 8.6 Mg Tablet) 8.6 mg PO HS [facility] Last Admin: 05/16/25 21:27 Dose: 8.6 mg Sodium Chloride (Central Line Flush) 10 ml IV PUSH Q8HR [facility] Last Admin: 05/17/25 05:10 Dose: 10 ml Sodium Chloride (Central Line Flush) 10 ml IV PUSH PRN PRN PRN Reason: with TPN bag changes Sodium Chloride (Central Line Flush) 20 ml IV PUSH PRN PRN PRN Reason: after blood draws Sucralfate (Sucralfate Susp 100 Mg/Ml 10 Ml Udc) 1,000 mg PO ACHS [facility] Last Admin: 05/17/25 15:21 Dose: Not Given Tamsulosin HCl (Tamsulosin Hcl 0.4 Mg Capsule) 0.4 mg BY MOUTH DAILY [facility] Last Admin: 05/17/25 08:36 Dose: 0.4 mg Transfer Discharge Sum: Hosp Hospital Course Hospital course: 70-year-old male with PMH including CLL on tyrosine kinase inhibitors, BPH, insomnia, diastolic dysfunction AFib on Eliquis, carotid artery stenosis, history of stroke, seizure disorder, history of bicuspid aortic valve complicated by acute type a dissection status post bioprosthetic aortic valve replacement and supra coronary aortic graft replacement in 2009 with recent hospitalization at [facility] with redo sternotomy, AVR, Maze, BIN clip on 03/23/2025 due to severe prostatic valve regurgitation, chronic constipation. Course was complicated as they had tried to remove his [employer] [place] catheter which was met with resistance, imaging performed found the catheter to be inadvertently sutured to the pulmonary artery. Patient taken to the OR on 03/29/2025 for [employer] [place] catheter removal and repair of PA injury. The patient was stable thereafter. Hospital course also complicated for iliopsoas hematoma right side, Eliquis stop, restarted eventually and patient was discharged.Patient reports to [facility] on 05/05/2025 complaining of worsening nausea and nonbloody vomiting. This started after his 1st procedure on 03/23/2025 GI was consulted. Status post EGD which shows gastritis. Continues to have nausea, vomiting. Patient was being treated with Thorazine, Reglan, Carafate, pantoprazole Patient continued to have nausea vomiting. Was on TPN while in the hospital. Patient was transferred to [place] in stable condition Patient Condition: Stable Time Spent with Patient Time attestation: Total time spent providing and/or coordinating transfer services: Exam Narrative: HEENT: PERRL, sclerae nonicteric, pharyngeal mucosa pink and intact NECK: No JVD CHEST: Clear to auscultation. Normal effort HEART: NL S1/S2, regular, ABNL S2 with DERIC ABDOMEN: BS+, soft, nontender, no mass, no bruits EXTREMITIES: No cyanosis, edema, or clubbing NEUROLOGIC: CN intact and symmetric to inspection, speech clear, willower 5/5 and symmetric MUSCULOSKELETAL: Tone and strength symmetric PSYCH: Alert. Oriented to person, place, and time DS: Data Data Completed and Pending Completed studies during hospitalization: Pending at discharge 05/07/25 15:02 Surgical [PTH] Routine Labs on day of discharge: Labs from last 24 hours 05/17/25 05/17/25 05/17/25 11:29 05:44 05:38 WBC 2.9 L RBC 3.21 L Hgb 9.4 L Hct 29.6 L MCV 92.2 MCH 29.3 MCHC 31.8 L RDW 15.4 H Plt Count 111 L MPV 9.0 Immature Gran % (Auto) 0.0 Neut % (Auto) 52.4 Lymph % (Auto) 34.3 [place] % (Auto) 9.8 H Eos % (Auto) 2.8 Baso % (Auto) 0.7 Lymph # (Auto) 0.98 [place] # (Auto) 0.3 Eos # (Auto) 0.1 Baso # (Auto) 0.0 Abs Immat Gran (auto) 0.00 Absolute Neuts (auto) 1.5 Absolute Nucleated RBC 0.000 Nucleated RBC % 0.0 % Immature Plt Fraction 1.4 PT 17.4 H INR 1.5 APTT 31.3 Sodium 134 L Potassium 4.2 Chloride 97 L Carbon Dioxide 29 Anion Gap 8 BUN 13 Creatinine 1.16 Estim Creat Clear Calc 56 Estimated GFR > 60 Glucose 136 H POC Capillary Glucose 151 H 147 H Calcium 10.1 Phosphorus 3.5 Magnesium 2.5 H Transferrin 228 Total Bilirubin 1.0 AST 32 ALT 19 Alkaline Phosphatase 87 Total Protein 6.4 Albumin 4.1 05/16/25 05/16/25 23:57 18:25 WBC RBC Hgb Hct MCV MCH MCHC RDW Plt Count MPV Immature Gran % (Auto) Neut % (Auto) Lymph % (Auto) [place] % (Auto) Eos % (Auto) Baso % (Auto) Lymph # (Auto) [place] # (Auto) Eos # (Auto) Baso # (Auto) Abs Immat Gran (auto) Absolute Neuts (auto) Absolute Nucleated RBC Nucleated RBC % % Immature Plt Fraction PT INR APTT Sodium Potassium Chloride Carbon Dioxide Anion Gap BUN Creatinine Estim Creat Clear Calc Estimated GFR Glucose POC Capillary Glucose 157 H 150 H Calcium Phosphorus Magnesium Transferrin Total Bilirubin AST ALT Alkaline Phosphatase Total Protein Albumin
== END 2025-05-17 18:45 | disposition short-term general hospital (02) | DRG 393 ==
LOC: ANHED 14:01 → ANH3MEDSUR 20:45
PROVIDERS: General Practice; Internal Medicine; Internal Medicine Gastroenterology; Nurse Practitioner Gerontology; Physician Assistant; Admitting Provider General Practice; Emergency Provider Emergency Medicine; PCP Family Medicine Adolescent Medicine; Visit Provider Internal Medicine
PROC: 0DJ08ZZ Inspection of Upper Intestinal Tract, Via Natural or Artificial Opening Endoscopic (ICD-10-PCS; principal; 2025-05-07 14:30)
DX: K91.89 Other postprocedural complications and disorders of digestive system (principal); E43 Unspecified severe protein-calorie malnutrition; C91.10 Chronic lymphocytic leukemia of B-cell type not having achieved remission; I48.20 Chronic atrial fibrillation, unspecified; E87.1 Hypo-osmolality and hyponatremia; R17 Unspecified jaundice; D61.818 Other pancytopenia; J98.6 Disorders of diaphragm; R11.2 Nausea with vomiting, unspecified; I11.0 Hypertensive heart disease with heart failure; I50.9 Heart failure, unspecified; I65.29 Occlusion and stenosis of unspecified carotid artery; D64.9 Anemia, unspecified; K29.50 Unspecified chronic gastritis without bleeding; K20.90 Esophagitis, unspecified without bleeding; K59.09 Other constipation; E78.5 Hyperlipidemia, unspecified; N40.0 Benign prostatic hyperplasia without lower urinary tract symptoms; G40.909 Epilepsy, unspecified, not intractable, without status epilepticus; M47.815 Spondylosis without myelopathy or radiculopathy, thoracolumbar region; M41.9 Scoliosis, unspecified; R63.0 Anorexia; R63.4 Abnormal weight loss; Z96.659 Presence of unspecified artificial knee joint; Z79.82 Long term (current) use of aspirin; Z79.01 Long term (current) use of anticoagulants; Z86.73 Personal history of transient ischemic attack (TIA), and cerebral infarction without residual deficits; Z87.891 Personal history of nicotine dependence; Z95.3 Presence of xenogenic heart valve; Z68.29 Body mass index [BMI] 29.0-29.9, adult
CPT/HCPCS: 36415; 36569; 70470; 71045; 71260; 74177; 74246; 74248; 78264; 80048; 80053; 81001; 82728; 82948; 83540; 83550; 83690; 83735; 84100; 84466; 84478; 84484; 85025; 85027; 85055; 85610; 85730; 88305; 93005; 93306; 96361; 96374; 96375; 97110; 97116; 97162; 97165; 97530; 99285; A9270; A9541; C1751; C8929; G0378; J1756; J1938; J2003; J2405; J2470; J2550; J2704; J2765; J7030; J7120; P9047; Q9957; Q9967